=== PATIENT | male | born 1940 | race Caucasian/White ===

== ENCOUNTER 2016-09-29 13:27 | Inpatient (IN) | payer MEDICARE ==
--- NOTE | 2016-09-29 14:59 | RAD ---
HISTORY: New abdominal distention, evaluate for ascites COMPARISONS: None relevant TECHNIQUE: Multiple transverse and longitudinal ultrasound images were obtained of the abdomen using grayscale and color Doppler imaging for localization of ascites FINDINGS: There is a moderate amount of ascites. There is a micronodular contour to the liver. There is thickening of the omentum centrally. IMPRESSION: 1. MODERATE ASCITES. 2. CIRRHOTIC LIVER. 3. QUESTIONABLE OMENTAL CAKING. RECOMMEND CONSIDERATION OF CORRELATION WITH CONTRAST ENHANCED CT OF THE ABDOMEN
[2016-09-29 15:05] LABS: Hematocrit 32 % (42-52); Hemoglobin 10.6 g/dl (14.0-18.0); Mean Corpuscular HGB Conc 33 g/dl (31-36); Mean Corpuscular Hemoglobin 31 pg (27-31); Mean Corpuscular Volume 94 fL (80-94); Mean Platelet Volume 10 um3 (7.4-10.4); Red Blood Count 3.45 10^6/ul (4.0-5.4); Red Cell Distribution Width 16 % (10.5-15); White Blood Count 7.1 10^3/ul (3.5-10.8)
[2016-09-29 15:22] LABS: Albumin 3.4 g/dL (3.2-5.2); BUN/Creatinine Ratio 29.8 (8-20); Calcium 9.4 mg/dL (8.6-10.3); EGFR Non-African American 58.3 (>60); Globulin 4.4 g/dL (2-4); Potassium 4.2 mmol/L (3.5-5.0); Total Bilirubin 0.7 mg/dL (0.2-1.0); Total Protein 7.8 g/dL (6.4-8.9)
[2016-09-29 15:24] LABS: Troponin I 0.03 ng/mL (<0.04)
--- NOTE | 2016-09-29 15:27 | RAD ---
INDICATION: Short of breath COMPARISON: Chest x-ray May 12, 2012 TECHNIQUE: PA and lateral dual-energy views were obtained. FINDINGS: Bones/Soft Tissues: There are no acute bony findings. Cardiomediastinal: The cardiomediastinal silhouette is enlarged, unchanged. Lungs: There are no infiltrates. Pleura: There are no pleural effusions. Other: None IMPRESSION: ENLARGED CARDIAC SILHOUETTE. NO ACUTE FINDINGS.
[2016-09-29] MEDS ORDERED: Phytonadione Oral Solution* 5 MG/25 ML UDC PO ONE (15:59)
[2016-09-29] MEDS ORDERED: Albuterol 2.5 MG/3 ML NEB.SOL* (0.083%) INH PRN (15:59)
[2016-09-29] MEDS ORDERED: Ondansetron INJ* 2 MG/ML VIAL IV PRN (15:59)
[2016-09-29] MEDS ORDERED: Dextrose 50% Syringe 50 ML* 25 GM/50 ML SYRINGE IV PUSH PRN (15:59)
[2016-09-29] MEDS ORDERED: Furosemide IV* 10 MG/ML VIAL (40 MG) IV SLOW PU ONE (16:09)
[2016-09-29] MEDS ORDERED: Iodixanol* (CONTRAST) 320 MG/ML 100 ML SDV IV ONE (16:16)
--- NOTE | 2016-09-29 16:33 | ED ---
Solange Petty Rebecca, scribed for Jacqueline Harden MD on 09/29/16 at 1340 . Complex/Multi-Sys Presentation - HPI Summary HPI Summary: Pt is a 75 y/o M who presents to ED c/o swelling in the abdomen and bilateral edema. Sx have gradually presented over the last month, reporting weight gain of 24 pounds in one month. Sx aggravated and alleviated by nothing. Additionally c/o SOB characterized as dyspnea at exertion. Denies fever, abdominal pain. Prior similar episodes of LE swelling, without abdominal swelling. Does not use O2 per Os at home. PCP is Dr. Lowe, where he was seen today and was referred to [facility] ED. Was last seen 1 month ago, during which he was asymptomatic. Per Dr. Lowe, pt ceased his Bumex, unsure of stop date. Is on blood thinners (Coumadin). - History Of Current Complaint Chief Complaint: EDGeneral Hx Obtained From: Patient Onset/Duration: Gradual Onset, Still Present Timing: Constant Severity Currently: None Location: Negative Aggravating Factor(s): Nothing Alleviating Factor(s): Nothing Associated Signs And Symptoms: Positive: SOB - dyspnea at exertion, Edema - Bilateral, Other - Abdominal swelling. Negative: Abdominal Pain, Fever - Allergies/Home Medications Allergies/Adverse Reactions: Allergies Allergy/AdvReac Type Severity Reaction Status Date / Time No Known Allergies Allergy Verified 05/12/12 17:13 Home Medications: Home Medications Albuterol HFA INHALER* [Ventolin HFA Inhaler*] 2 puff INH Q6H PRN 09/29/16 [ History Confirmed 09/29/16] Atorvastatin* [Lipitor*] 80 mg PO DAILY 09/29/16 [History Confirmed 09/29/16] Bumetanide TAB* [Bumex 1 MG TAB*] 1 mg PO MOWEFR 09/29/16 [History Confirmed ] Fluticasone-Salmeterol 250-50* [Advair Diskus 250-50*] 1 puff INH BID 09/29/16 [ History Confirmed 09/29/16] Glipizide/Metformin 5-500 1 tab PO BID 09/29/16 [History Confirmed 09/29/16] Metoprolol Succinate XL TAB* [Toprol XL TAB*] 50 mg PO DAILY 09/29/16 [History Confirmed 09/29/16] PMH/Surg Hx/FS Hx/Imm Hx Endocrine/Hematology History: Reports: Hx Anticoagulant Therapy - coumadin, Hx Diabetes Denies: Other Endocrine/Hematological Disorders Cardiovascular History: Reports: Hx Coronary Artery Disease, Hx Hypercholesterolemia, Hx Hypertension, Hx Syncope Denies: Other Cardiovascular Problems/Disorders Respiratory History: Reports: Hx Asthma, Hx Pneumonia - current Denies: Other Respiratory Problems/Disorders GI History: Denies: Other GI Disorders History: Reports: Hx Benign Prostatic Hyperplasia - enlarged Denies: Other Problems/Disorders Musculoskeletal History: Reports: Hx Arthritis, Hx Gout, Other Musculoskeletal History - Bilateral knee replacements and left ankle Sensory History: Reports: Hx Contacts or Glasses, Hx Vision Problem, Hx Hearing Problem Denies: Other Sensory Impairments Opthamlomology History: Reports: Hx Contacts or Glasses, Hx Vision Problem Denies: Other Sensory Impairments Neurological History: Denies: Other Neuro Impairments/Disorders Psychiatric History: Denies: Other Psychiatric Issues/Disorders - Surgical History Surgery Procedure, Year, and Place: Bilateral Knee replacements Hx Anesthesia Reactions: No Infectious Disease History: No Infectious Disease History: Denies: Traveled Outside the [place] in Last 30 Days - Family History Known Family History: Positive: Cardiac Disease, Diabetes, Other - CVA - Social History Substance Use Type: Reports: None Review of Systems Negative: Fever Positive: Shortness Of Breath - dyspnea at exertion Positive: Other - Abdominal swelling. Negative: Abdominal Pain Positive: Edema - Bilateral All Other Systems Reviewed And Are Negative: Yes Physical Exam - Summary Physical Exam Summary: General: Well appearing, no pain distress Skin: Warm, Skin Color Reflects Adequate Perfusion, Dry Eyes: EOMI, ALMA ENT: Pharynx normal, TMs normal Neck: Nontender, JVD Respiratory: CTA, breath sounds present, no rhonchi, no wheezes, no rales Cardiovascular: RRR, no rub, no gallop, Holocystolic murmur (3/6), heard best at the apex. Abdomen: Soft, nontender, no guarding, no rebound, an extremely distended abdomen Bowel: Present Musculoskeletal: LUDA, Bilateral edema up into the thigh Neuro: Sensory/motor intact, A&Ox3, CN intact 2-12 Psych: Affect/mood appropriate Triage Information Reviewed: Yes Vital Signs On Initial Exam: Initial Vitals Temp Pulse Resp BP Pulse Ox 98.4 F 86 20 150/67 87 09/29/16 13:29 09/29/16 13:29 09/29/16 13:29 09/29/16 13:29 09/29/16 13:29 Vital Signs Reviewed: Yes Diagnostics - Vital Signs Vital Signs Temp Pulse Resp BP Pulse Ox 09/29/16 13:34 98.4 F 145 20 150/67 100 09/29/16 13:29 98.4 F 86 20 150/67 87 - Laboratory Lab Results: Lab Results 09/29/16 09/29/16 09/29/16 Range/Units 14:59 14:59 14:59 WBC 7.1 (3.5-10.8) 10^3/ul RBC 3.45 L (4.0-5.4) 10^6/ul Hgb 10.6 L (14.0-18.0) g/dl Hct 32 L (42-52) % MCV 94 (80-94) fL MCH 31 (27-31) pg MCHC 33 (31-36) g/dl RDW 16 H (10.5-15) % Plt Count 150 (150-450) 10^3/ul MPV 10 (7.4-10.4) um3 Neut % (Auto) 77.8 (38-83) % Lymph % (Auto) 8.9 L (25-47) % Broome % (Auto) 12.0 H (1-9) % Eos % (Auto) 0.5 (0-6) % Baso % (Auto) 0.8 (0-2) % Absolute Neuts (auto) 5.5 (1.5-7.7) 10^3/ul Absolute Lymphs (auto) 0.6 L (1.0-4.8) 10^3/ul Absolute Monos (auto) 0.9 H (0-0.8) 10^3/ul Absolute Eos (auto) 0 (0-0.6) 10^3/ul Absolute Basos (auto) 0.1 (0-0.2) 10^3/ul Absolute Nucleated RBC 0 10^3/ul Nucleated RBC % 0 INR (Anticoag Therapy) (0.89-1.11) Sodium 137 (133-145) mmol/L Potassium 4.2 (3.5-5.0) mmol/L Chloride 106 (101-111) mmol/L Carbon Dioxide 24 (22-32) mmol/L Anion Gap 7 (2-11) mmol/L BUN 36 H (6-24) mg/dL Creatinine 1.21 H (0.67-1.17) mg/dL Est GFR ( Amer) 75.0 (>60) Est GFR (Non-Af Amer) 58.3 (>60) BUN/Creatinine Ratio 29.8 H (8-20) Glucose 58 L (70-100) mg/dL Lactic Acid 1.1 (0.5-2.0) mmol/L Calcium 9.4 (8.6-10.3) mg/dL Total Bilirubin 0.70 (0.2-1.0) mg/dL AST 18 (13-39) U/L ALT 10 (7-52) U/L Alkaline Phosphatase 108 H (34-104) U/L Troponin I 0.03 (<0.04) ng/mL B-Natriuretic Peptide ( - 100) pg/mL Total Protein 7.8 (6.4-8.9) g/dL Albumin 3.4 (3.2-5.2) g/dL Globulin 4.4 H (2-4) g/dL Albumin/Globulin Ratio 0.8 L (1-3) 09/29/16 09/29/16 Range/Units 14:59 14:59 WBC (3.5-10.8) 10^3/ul RBC (4.0-5.4) 10^6/ul Hgb (14.0-18.0) g/dl Hct (42-52) % MCV (80-94) fL MCH (27-31) pg MCHC (31-36) g/dl RDW (10.5-15) % Plt Count (150-450) 10^3/ul MPV (7.4-10.4) um3 Neut % (Auto) (38-83) % Lymph % (Auto) (25-47) % Broome % (Auto) (1-9) % Eos % (Auto) (0-6) % Baso % (Auto) (0-2) % Absolute Neuts (auto) (1.5-7.7) 10^3/ul Absolute Lymphs (auto) (1.0-4.8) 10^3/ul Absolute Monos (auto) (0-0.8) 10^3/ul Absolute Eos (auto) (0-0.6) 10^3/ul Absolute Basos (auto) (0-0.2) 10^3/ul Absolute Nucleated RBC 10^3/ul Nucleated RBC % INR (Anticoag Therapy) 3.06 H (0.89-1.11) Sodium (133-145) mmol/L Potassium (3.5-5.0) mmol/L Chloride (101-111) mmol/L Carbon Dioxide (22-32) mmol/L Anion Gap (2-11) mmol/L BUN (6-24) mg/dL Creatinine (0.67-1.17) mg/dL Est GFR ( Amer) (>60) Est GFR (Non-Af Amer) (>60) BUN/Creatinine Ratio (8-20) Glucose (70-100) mg/dL Lactic Acid (0.5-2.0) mmol/L Calcium (8.6-10.3) mg/dL Total Bilirubin (0.2-1.0) mg/dL AST (13-39) U/L ALT (7-52) U/L Alkaline Phosphatase (34-104) U/L Troponin I (<0.04) ng/mL B-Natriuretic Peptide 629 H ( - 100) pg/mL Total Protein (6.4-8.9) g/dL Albumin (3.2-5.2) g/dL Globulin (2-4) g/dL Albumin/Globulin Ratio (1-3) Result Diagrams: 09/29/16 14:59 09/29/16 14:59 Lab Statement: Any lab studies that have been ordered have been reviewed, and results considered in the medical decision making process. - Radiology CXR Xray Interpretation: No Acute Changes - ENLARGED CARDIAC SILHOUETTE. NO ACUTE FINDINGS. Radiology Interpretation Completed By: Radiologist - Ultrasound No standard instances Ultrasound Interpretation Completed By: Radiologist - Abdomen US: 1. MODERATE ASCITES. 2. CIRRHOTIC LIVER. 3. QUESTIONABLE OMENTAL CAKING. RECOMMEND CONSIDERATION OF CORRELATION WITH CONTRAST ENHANCED CT OF THE ABDOMEN - EKG 1343 Cardiac Rate: NL - 68 bpm EKG Rhythm: Atrial Fibrillation ST Segment: Non-Specific - Non-specific T wave changes EKG Comparison: Other - Increased flattening of his lateral T waves as compared with EKG from April 24, 2013 Complex Multi-Symp Course/Dx Course Of Treatment: 75 yo male with brand new ascites after 24 lb wt gain over several weeks. Case discussed with Dr. Garcia for admission - Diagnoses Provider Diagnoses: Ascites - Physician Notifications Discussed Care Of Patient With: Dr. Garcia, hospitalist, who accepts pt for admission. Time Discussed With Above Provider: 15:17 Discharge - Discharge Plan Condition: Stable Disposition: ADMITTED TO [facility] The documentation as recorded by the Solange newman Rebecca accurately reflects the service I personally performed and the decisions made by , Jacqueline Harden MD.
[2016-09-29] MEDS ORDERED: Furosemide IV* 10 MG/ML VIAL (40 MG) IV SLOW PU SCH (17:00)
[2016-09-29] MEDS: Insulin LISPRO* 1 UNITS UNIT SUBCUT SCH (18:03)
--- NOTE | 2016-09-29 18:04 | RAD ---
INDICATION: Ascites COMPARISON: None. TECHNIQUE: Multidetector CT images were obtained from the lung apices to the ischial tuberosities with IV and oral contrast. CHEST: The lungs exhibit diffuse centrilobular emphysematous changes.The lungs are grossly clear without nodules, masses or other focal abnormality. There are small bibasilar pleural effusions slightly larger on the right the left. The heart is enlarged. There is coarse atherosclerotic calcification of the coronary arteries, aortic ring and arch of the aorta. There is no mediastinal or hilar lymphadenopathy. ABDOMEN \T\ PELVIS: There is massive peritoneal ascites. The liver surface is nodular. There are no focal liver masses. The spleen, pancreas and adrenal glands are grossly normal in appearance. The gallbladder is normal. At the mid-level right kidney there is an 8 mm low density FOCUS that cannot be characterized further. The kidneys are normal in appearance without focal mass, calcification or signs of hydronephrosis. The oral contrast has progressed as far as the cecum. The small and large bowel are not distended. There is no gross retroperitoneal or mesenteric lymphadenopathy. The pelvic viscera is normal in appearance. The coarsely calcified abdominal aorta and iliac arteries are normal in course and diameter. There are multilevel degenerative changes of the thoracic and lumbar spine including loss of intervertebral disc height, vacuum disc phenomenon and marginal osteophyte formation IMPRESSION: 1. Nodular appearing liver is compatible with cirrhosis with secondary massive peritoneal ascites. 2. Cardiomegaly with widespread calcified atherosclerosis. 3. Additional chronic and degenerative changes described in body the report.
[2016-09-29] MEDS: Aspirin Low Dose CHEW TAB* 81 MG PO SCH (18:15)
[2016-09-29] MEDS: Mometasone/Formoter 200/5 MDI INH SCH (19:31)
[2016-09-29] MEDS: Finasteride TAB* 5 MG PO SCH (20:35)
[2016-09-29] MEDS: amLODIPine TAB* 5 MG PO SCH (20:36)
--- NOTE | 2016-09-29 23:58 | HP ---
HISTORY AND PHYSICAL: DATE OF ADMISSION: 09/29/16 PRIMARY CARE PROVIDER: Dr. Cantu. ATTENDING PHYSICIAN WHILE IN THE HOSPITAL: Dr. Aguilar Garcia *(report dictated by Hayden Morrsi NP). CHIEF COMPLAINT: 1. Abdominal swelling. 2. Lower extremity edema. HISTORY OF PRESENT ILLNESS: Mr. Tello is a 75-year-old male patient who comes in today stating that over the last 3 to 4 weeks, he has had progressive worsening swelling of his abdomen and lower extremities. He says that he has not had any abdominal pain or fever, but he has noticed that he has had progressive swelling and he has gained about 20 pounds of weight since this has all occurred. He denied having any vomiting or diarrhea and denied having any chest pain. He denies any orthopnea, but he does admit to having dyspnea on exertion. He was concerned because his swelling was not getting any better. He called his primary. She instructed him to come in to the office as soon as possible and he was evaluated today by Dr. Cantu and she was concerned because he had massive ascites and he was sent to the hospital for evaluation. He was evaluated here in the ED. There was ultrasound obtained that did show ascites and also showed omentum thickening. Because of the ascites, the hospitalist service was asked to evaluate for admission. PAST MEDICAL HISTORY: Significant for: 1. Coronary artery disease. 2. Diabetes. 3. Hypertension. 4. Asthma. 5. Hyperlipidemia. 6. BPH. 7. AFib. 8. Gout. PAST SURGICAL HISTORY: 1. He has had heart catheterization. 2. Bilateral total knee replacements. HOME MEDICATIONS: Include: 1. Amlodipine, he takes 10 mg in the morning and 5 mg at bedtime. 2. Coumadin 4 mg daily. 3. Diovan 320 mg p.o. daily. 4. Potassium 10 mEq p.o. daily. 5. Toprol 50 mg p.o. daily. 6. Glipizide/metformin 1 tablet p.o. b.i.d. 7. Lasix 40 mg daily. 8. Advair 1 puff inhaled b.i.d. 9. Proscar 5 mg daily. 10. Colchicine 1.2 mg p.o. daily as needed. 11. Bumex 1 mg p.o. Thursday, Thursday, Thursday. 12. Lipitor 80 mg daily. 13. Aspirin 81 mg Thursday, Thursday, Thursday. 14. Allopurinol 100 mg p.o. daily. 15. Albuterol 2 puffs inhaled every 6 hours as needed. ALLERGIES TO MEDICATIONS: Include no known drug allergies. FAMILY HISTORY: Mother of old age. Father had a history of diabetes and a stroke. SOCIAL HISTORY: He is a former smoker, but he quit about 40 years ago. He occasionally drinks alcohol. He did have 4 beers over the weekend on Thursday during the celebration. Surrogate decision maker is his . REVIEW OF SYSTEMS: There is no documented fever. There was a significant weight change. He denies having any double vision. There is no ear discharge. He denies having any rhinorrhea. There is no sore throat. No thyroid enlargement. Denies having any chest pain. There is no orthopnea. There is no nocturnal dyspnea. There is no abdominal pain. There is no nausea. No vomiting. No dysuria. No frequency. There was no seizure. No loss of consciousness. No pruritus and no skin ulcerations. Review of 14 systems completed, all others negative. PHYSICAL EXAMINATION GENERAL: At this time, Mr. Tello is a 75-year-old male patient. He is sitting in the ER stretcher. He does not appear to be in any acute distress. VITAL SIGNS: Blood pressure 147/60 with a pulse of 67, respirations were 18, O2 sat 98%, and temperature of 98.4. HEENT: Head is atraumatic and normocephalic. Eyes: EOMs are intact. Sclerae are anicteric and not pale. Throat: Oral mucosa appears to be moist. No oropharyngeal erythema. NECK: Supple. LUNGS: Clear to auscultation. No wheezes, rales, or rhonchi. HEART: Sounds S1, S2. Irregularly irregular rate. No murmurs, rubs, or gallops. ABDOMEN: Soft. There were ascites noted, but bowel sounds were in all 4 quadrants. He had no tenderness on exam. EXTREMITIES: He had +4 pitting edema bilaterally up to the knee. He had 5/5 strength. NEUROLOGIC: He is awake, he is alert, and he is oriented x3. No gross focal deficits. SKIN: Intact. LABORATORY DATA AND DIAGNOSTIC STUDIES: Today revealed WBC of 7.1, RBC of 3.45 , hemoglobin 10.6, hematocrit 32, platelet count of 150. Sodium was 137, potassium was 4.2, chloride of 106, his bicarb was 24, BUN 36, creatinine 1.21. His creatinine is usually 1.1. His lactic 1.1, glucose 58, calcium 9.4. Total bili 0.5, AST 18, ALT 10, alk phos 108. Troponin 0.03. BNP is 629. Albumin of 3.4. His INR was 3. His abdominal ultrasound showed moderate ascites, cirrhotic liver, questionable omental caking. Recommend consideration of correlation with contrast-enhanced CT of the abdomen. He had a chest x-ray obtained today, which revealed enlarged cardiac silhouette , no active disease. He had an EKG obtained today, which showed atrial fibrillation, rate of 68. No ST elevations or T-wave inversions. It was reviewed to the previous EKGs, it does appear to be similar. Old medical records were reviewed. ASSESSMENT AND PLAN: Mr. Tello is a 75-year-old male patient coming in to the ER today with complaints of abdominal fluid, lower extremity edema, concerns for ascites. He will be admitted under inpatient status for: 1. Ascites: Etiology is unclear. I would like to perform a paracentesis, but I do note that his INR is 3. I did place an order for some vitamin K. We will make him n.p.o. after midnight and try to get his INR down and try to do it tomorrow if possible. I will send off the fluid for pH, cell count, albumin, total protein, cultures and I will send off for cytology. Unfortunately, again , the INR is 3. So, we will not be able to do it today. Hopefully, we will shoot for tomorrow. We will give him vitamin K, hold the Coumadin, and we will try to see if we can get it done tomorrow if we get that INR less than 1.5, Dr. Sandoval has been made aware by his nursing staff. I will give him some IV Lasix , see if we can help. I am going to get a CT of the chest, abdomen, and pelvis and I am worried for possible malignancy in this patient. I would like to make sure there is not any lung primary. I will make sure that there are not any tumors in the abdomen particularly with the omental thickening on the ultrasound. 2. Coronary artery disease: We will go ahead and continue his aspirin, statin , beta-yousuf. 3. Diabetes: Lispro sliding scale. His sugar was 58 here. We will get him off glipizide and metformin. We will give him some glucose and we will follow this closely. 4. Hypertension: Continue meds as prescribed. 5. Asthma: Continue his current medical regimen. 6. Hyperlipidemia: Continue statin therapy. 7. Benign prostatic hypertrophy: Continue his Proscar. 8. Atrial fibrillation: He is rate controlled. We will restart the Coumadin when able. 9. Gout: Continue his meds as prescribed. 10. DVT prophylaxis: He will be on SCDs. 11. Code status: Full code. 12. Fluids, electrolytes, and nutrition: He can have a consistent carbohydrate diet and he will be n.p.o. after midnight. TIME SPENT: Time spent on the admission was 60 minutes; greater than half the time was spent [id number] with the patient obtaining my history and physical, other half the time spent going over the plan of care with the patient and implementing plan of care. I did discuss the plan of care with my attending, Dr. Garcia; he is in agreement. HAYDEN MORRIS NP CC: Dr. Cantu* [id number]/CPS #: [id number] MTDD
[2016-09-30 05:42] LABS: Hematocrit 32 % (42-52); Hemoglobin 10.3 g/dl (14.0-18.0); Mean Corpuscular HGB Conc 33 g/dl (31-36); Mean Corpuscular Hemoglobin 31 pg (27-31); Mean Corpuscular Volume 94 fL (80-94); Mean Platelet Volume 10 um3 (7.4-10.4); Red Blood Count 3.36 10^6/ul (4.0-5.4); Red Cell Distribution Width 16 % (10.5-15); White Blood Count 5.5 10^3/ul (3.5-10.8)
[2016-09-30 05:55] LABS: BUN/Creatinine Ratio 27.7 (8-20); Calcium 8.9 mg/dL (8.6-10.3); EGFR African American 76.4 (>60); EGFR Non-African American 59.4 (>60)
[2016-09-30] MEDS: Insulin LISPRO* 1 UNITS UNIT SUBCUT SCH ×3 (07:31→16:39)
[2016-09-30] MEDS: Mometasone/Formoter 200/5 MDI INH SCH ×2 (08:34→20:07)
[2016-09-30] MEDS: Valsartan TAB* 160 MG PO SCH (08:47)
[2016-09-30] MEDS: Atorvastatin* 80 MG TAB PO SCH (08:47)
[2016-09-30] MEDS: Metoprolol Succinate XL TAB* 50 MG PO SCH (08:48)
[2016-09-30] MEDS: Allopurinol TAB* 100 MG PO SCH (08:48)
--- NOTE | 2016-09-30 12:21 | PN ---
Subjective Date of Service: 09/30/16 Interval History: This is a 75 yo gentleman with DM, CAD, asthma, HLD, BPH and atrial fibrillation who presented with c/o abdominal swelling and LE edema. No assoc abd pain or other acute illness. Ascites and edema had a rather insidious onset of ~3-4 weeks. This am, patient offers no acute complaints. Still no abd pain, n/v. Awaiting paracentesis. Objective Active Medications: Albuterol (Ventolin 2.5 Mg/3 Ml Neb.Leeann*) 2.5 mg INH Q2H PRN PRN Reason: SOB/WHEEZING Allopurinol (Zyloprim Tab*) 100 mg PO DAILY [facility] Last Admin: 09/30/16 08:48 Dose: 100 mg Amlodipine Besylate (Norvasc Tab*) 5 mg PO BEDTIME [facility] Last Admin: 09/29/16 20:36 Dose: 5 mg Aspirin (Aspirin Low Dose Tab*) 81 mg PO MOWEFR [facility] Last Admin: 09/29/16 18:15 Dose: Not Given Atorvastatin Calcium (Lipitor*) 80 mg PO DAILY [facility] Last Admin: 09/30/16 08:47 Dose: 80 mg Dextrose (D50w Syringe 50 Ml*) 12.5 gm IV PUSH .FOR FS < 60 - SS PRN PRN Reason: FS < 60 Finasteride (Proscar Tab*) 5 mg PO BEDTIME [facility] Last Admin: 09/29/16 20:35 Dose: 5 mg Insulin Human Lispro (Humalog*) 0 units SUBCUT AC [facility] PRN Reason: Protocol Last Admin: 09/30/16 11:22 Dose: Not Given Metoprolol Succinate (Toprol Xl Tab*) 50 mg PO DAILY [facility] Last Admin: 09/30/16 08:48 Dose: 50 mg Mometasone Furoate/Formoterol Fumar (Dulera 200/5 Mdi*) 2 puff INH BID [facility] Last Admin: 09/30/16 08:34 Dose: 2 puff Ondansetron HCl (Zofran Inj*) 4 mg IV Q6H PRN PRN Reason: NAUSEA Valsartan (Diovan Tab*) 320 mg PO DAILY [facility] Last Admin: 09/30/16 08:47 Dose: 320 mg Vital Signs: Temp Pulse Resp BP Pulse Ox 97.6 F 16 90 143/51 96 09/30/16 07:23 05/23/17 08:35 09/30/16 08:35 09/30/16 07:23 09/30/16 08:35 Oxygen Devices in Use Now: None Appearance: Well appearing elderly gentleman in NAD Respiratory: Symmetrical Chest Expansion and Respiratory Effort, Clear to Auscultation Cardiovascular: NL Sounds; No Murmurs; No JVD, RRR Abdominal: - - abdomen is markedly distended, firm but non TTP Extremities: - - 1+ LE edema bilaterally Skin: - - some discoloration to the anterior lower leg bilaterally Neurological: Alert and Oriented x 3 Result Diagrams: 09/30/16 05:20 09/30/16 05:20 Additional Lab and Data: . Diagnostic Imaging: CXR - cardiomegaly, no effusions US abd - moderate ascites, cirrhotic appearing liver, possible omental caking CT chest/abd/pelvis - No LAD or discrete mass, liver appears cirrhotic Assess/Plan/Problems-Billing Assessment: This is a 75 yo gentleman with DM, CAD, HTN, asthma, HLD, BPH, atrial fibrillation, and gout who presented with marked ascites and LE edema. - Patient Problems (1) Ascites Comment: New onset, painless ascites Liver appears cirrhotic on imaging No known liver disease Patient reports moderate historic alcohol consumption, never daily use Check hepatitis panel, consider chronic hepatitis C Synthetic liver function appears mostly intact, platelet count near normal, albumin normal, difficult to interpret INR with coumadin use Paracentesis is pending (2) JHONY (acute kidney injury) Comment: Mild, likely some element of hepatorenal syndrome (3) Atrial fibrillation Comment: Chronically anticoagulated with Coumadin which has been held and reversed with vit K and FFP for paracentesis Rate controlled (4) CAD (coronary artery disease) Comment: No evidence of ACS (5) Diabetes Comment: NIDDM Holding oral agents and covering with SS Humalog (6) Asthma Comment: No acute exacerbation Cont home inhaled medications (7) HLD (hyperlipidemia) (8) BPH (benign prostatic hyperplasia) (9) Gout (10) Full code status (11) DVT prophylaxis Comment: Coumadin Status and Disposition: Inpatient. Pending paracentesis
[2016-09-30 15:29] LABS: Body Fluid Appearance Cloudy
[2016-09-30 15:38] LABS: Body Fluid WBC 119 /mcL
--- NOTE | 2016-09-30 15:38 | RAD ---
CPT II Codes: 6100F ULTRASOUND-GUIDED PARACENTESIS. INDICATION: Large volume ascites in the setting of a cirrhotic appearing liver. COMPARISON: CT chest abdomen pelvis dated September 29, 2016 IMAGING FINDINGS AND PROCEDURE NOTE: The benefits of the and risks of procedure explained to the patient. The patient consented of the exam. The patient was brought to the ultrasound suite and multiple images of the peritoneal fluid were obtained. There was a very large amount of ascites present throughout the abdomen. The largest pocket of fluid was chosen for the paracentesis which was in the right lower quadrant. A time out was performed before beginning the procedure. The patient was prepped and draped in the usual sterile fashion. The patient?s abdominal wall at the site was anesthetized with 1% lidocaine. A small skin july was made to admit the paracentesis needle and catheter. Under sonographic control the drainage catheter was advanced into the ascites pocket. An image was saved. Approximately 10 Liters of a yellow tinged fluid was removed. The patient tolerated procedure well without incident. IMPRESSION: UNCOMPLICATED ULTRASOUND-GUIDED PARACENTESIS DESCRIBED ABOVE.
[2016-09-30 16:01] LABS: Body Fluid Total Cells Counted 100
[2016-09-30] MEDS: Warfarin TAB(*) 4 MG PO SCH (18:00)
[2016-09-30] MEDS: Finasteride TAB* 5 MG PO SCH (20:39)
[2016-09-30] MEDS: amLODIPine TAB* 5 MG PO SCH (20:39)
[2016-10-01] MEDS: Insulin LISPRO* 1 UNITS UNIT SUBCUT SCH ×3 (07:56→17:13)
[2016-10-01] MEDS: Atorvastatin* 80 MG TAB PO SCH (08:25)
[2016-10-01] MEDS: Valsartan TAB* 160 MG PO SCH (08:25)
[2016-10-01] MEDS: Allopurinol TAB* 100 MG PO SCH (08:26)
[2016-10-01] MEDS: Metoprolol Succinate XL TAB* 50 MG PO SCH (08:26)
[2016-10-01] MEDS: Mometasone/Formoter 200/5 MDI INH SCH ×2 (08:42→19:16)
[2016-10-01 08:50] LABS: Hematocrit 36 % (42-52); Hemoglobin 11.9 g/dl (14.0-18.0); Mean Corpuscular HGB Conc 33 g/dl (31-36); Mean Corpuscular Hemoglobin 31 pg (27-31); Mean Corpuscular Volume 95 fL (80-94); Mean Platelet Volume 10 um3 (7.4-10.4); Red Blood Count 3.79 10^6/ul (4.0-5.4); Red Cell Distribution Width 16 % (10.5-15); White Blood Count 6.2 10^3/ul (3.5-10.8)
[2016-10-01 09:03] LABS: Albumin 3.3 g/dL (3.2-5.2); BUN/Creatinine Ratio 23.4 (8-20); Calcium 9.3 mg/dL (8.6-10.3); EGFR African American 82.8 (>60); EGFR Non-African American 64.4 (>60); Globulin 4.5 g/dL (2-4); Potassium 4.3 mmol/L (3.5-5.0); Total Bilirubin 1.4 mg/dL (0.2-1.0); Total Protein 7.8 g/dL (6.4-8.9)
[2016-10-01] MEDS: Furosemide TAB* 40 MG PO SCH (12:35)
[2016-10-01] MEDS: Spironolactone TAB* 25 MG PO SCH ×2 (12:35→20:09)
--- NOTE | 2016-10-01 13:20 | PN ---
Subjective Date of Service: 10/01/16 Interval History: Patient reports that he continues to feel well. Abd remains soft after paracentesis. No abd pain, n/v/d. No CP or SOB. Objective Active Medications: Albuterol (Ventolin 2.5 Mg/3 Ml Neb.Leeann*) 2.5 mg INH Q2H PRN PRN Reason: SOB/WHEEZING Allopurinol (Zyloprim Tab*) 100 mg PO DAILY [facility] Last Admin: 10/01/16 08:26 Dose: 100 mg Amlodipine Besylate (Norvasc Tab*) 5 mg PO BEDTIME [facility] Last Admin: 09/30/16 20:39 Dose: 5 mg Aspirin (Aspirin Low Dose Tab*) 81 mg PO MOWEFR [facility] Last Admin: 09/29/16 18:15 Dose: Not Given Atorvastatin Calcium (Lipitor*) 80 mg PO DAILY [facility] Last Admin: 10/01/16 08:25 Dose: 80 mg Dextrose (D50w Syringe 50 Ml*) 12.5 gm IV PUSH .FOR FS < 60 - SS PRN PRN Reason: FS < 60 Finasteride (Proscar Tab*) 5 mg PO BEDTIME [facility] Last Admin: 09/30/16 20:39 Dose: 5 mg Furosemide (Lasix Tab*) 40 mg PO DAILY [facility] Last Admin: 10/01/16 12:35 Dose: 40 mg Insulin Human Lispro (Humalog*) 0 units SUBCUT AC [facility] PRN Reason: Protocol Last Admin: 10/01/16 12:35 Dose: 2 units Metoprolol Succinate (Toprol Xl Tab*) 50 mg PO DAILY [facility] Last Admin: 10/01/16 08:26 Dose: 50 mg Mometasone Furoate/Formoterol Fumar (Dulera 200/5 Mdi*) 2 puff INH BID [facility] Last Admin: 10/01/16 08:42 Dose: 2 puff Ondansetron HCl (Zofran Inj*) 4 mg IV Q6H PRN PRN Reason: NAUSEA Pharmacy Profile Note (Coumadin Daily Reminder*) 1 note FOLLOW UP 1700 [facility] Spironolactone (Aldactone Tab*) 50 mg PO BID [facility] Last Admin: 10/01/16 12:35 Dose: 50 mg Valsartan (Diovan Tab*) 320 mg PO DAILY [facility] Last Admin: 10/01/16 08:25 Dose: 320 mg Warfarin Sodium (Coumadin Tab(*)) 4 mg PO DAILY@1700 [facility] PRN Reason: Protocol Last Admin: 09/30/16 18:00 Dose: 4 mg Vital Signs: Temp Pulse Resp BP Pulse Ox 98.0 F 51 12 130/57 99 10/01/16 11:06 10/01/16 11:06 10/01/16 08:44 10/01/16 11:06 10/01/16 11:06 Oxygen Devices in Use Now: None Appearance: Well appearing elderly gentleman in NAD Respiratory: Symmetrical Chest Expansion and Respiratory Effort, Clear to Auscultation Cardiovascular: NL Sounds; No Murmurs; No JVD, RRR Abdominal: - - abd soft, still slightly distended with positive fluid wave, non- TTP Extremities: - - 1-2+ edema bilateral legs Skin: No Rash or Ulcers Neurological: Alert and Oriented x 3 Result Diagrams: 10/01/16 08:41 10/01/16 08:41 Additional Lab and Data: . Microbiology and Other Data: Microbiology 09/29/16 19:22 Sterile Body Fluid Culture - Preliminary Ascites Fluid No Growth Day 1 Sterile Body Fluid Culture - Preliminary No Growth Day 1 09/30/16 14:50 Gram Stain - Final Body Fluid - Not Otherwise Specified Diagnostic Imaging: CXR - cardiomegaly, no effusions US abd - moderate ascites, cirrhotic appearing liver, possible omental caking CT chest/abd/pelvis - No LAD or discrete mass, liver appears cirrhotic Assess/Plan/Problems-Billing Assessment: This is a 75 yo gentleman with DM, CAD, HTN, asthma, HLD, BPH, atrial fibrillation, and gout who presented with marked ascites and LE edema. - Patient Problems (1) Ascites Comment: New onset, painless ascites Liver appears cirrhotic on imaging No known liver disease Patient reports moderate historic alcohol consumption, never daily use Hepatitis panel negative Synthetic liver function appears mostly intact, platelet count near normal, albumin normal, difficult to interpret INR with coumadin use Paracentesis completed, initial cell counts not suggestive of infectious source , awaiting additional fluid studies and cytology Requested GI consult Lasix/spironolactone started (2) JHONY (acute kidney injury) Comment: Improved Mild, likely some element of hepatorenal syndrome (3) Atrial fibrillation Comment: Chronically anticoagulated with Coumadin which was held and reversed with vit K and FFP for paracentesis INR 1.28 today Rate controlled (4) CAD (coronary artery disease) Comment: No evidence of ACS (5) Diabetes Comment: NIDDM Holding oral agents and covering with SS Humalog (6) Asthma Comment: No acute exacerbation Cont home inhaled medications (7) HLD (hyperlipidemia) (8) BPH (benign prostatic hyperplasia) (9) Gout (10) Full code status (11) DVT prophylaxis Comment: Coumadin Status and Disposition: Inpatient. Pending additional fluid analysis and GI consult
[2016-10-01] MEDS: Warfarin TAB(*) 4 MG PO SCH (17:19)
[2016-10-01] MEDS: Aspirin Low Dose CHEW TAB* 81 MG PO SCH (17:19)
[2016-10-01] MEDS: Finasteride TAB* 5 MG PO SCH (20:09)
[2016-10-01] MEDS: amLODIPine TAB* 5 MG PO SCH (20:09)
--- NOTE | 2016-10-02 00:15 | CONS ---
CONSULTATION REPORT: DATE OF CONSULT: 10/01/16 REASON FOR CONSULT: Ascites. NARRATIVE: Mr. Tello is a 75-year-old gentleman with a history of coronary artery disease, status post stent in the past; diabetes; asthma; remote tobacco use; hypertension. He states in the last month, he has noticed progressive increased abdominal girth. He preceding that had a longstanding history of bipedal edema. He had been treated with diuretics. However, in the last month , he noticed increased abdominal girth associated with 20-pound weight gain. He had no associated abdominal pain but does describe a sense of early satiety. He reported this to his lead recoverer who recommended ER evaluation at which time he was noted to have fairly significant ascites. Data at that time which was 2 days ago in the emergency room was notable for an essentially normal liver panel , and abdominal ultrasound showing moderate ascites with cirrhotic liver. There was a question of omental caking. Chest x-ray was largely unrevealing. He subsequently underwent a CT scan of the abdomen, which also confirmed nodular appearance of the liver with no masses and ascites. He was also found to have evidence of cardiomegaly on a chest CAT scan. He underwent a large volume paracentesis of 10 L of yellow fluid. Most laboratory data on the fluid is pending at this time but included a white count of 119, albumin and protein are pending at this time. The patient feels better after the tap. He is eating and has no significant complaints. He denies any history of liver disease or jaundice. He historically has had normal liver function test which I reviewed in the hospital system. He does admit to remote alcohol use, often binge drinking a beer on the weekends usually up to 10 to 12 beers a weekend. This continued up until about 10 years ago and his alcohol consumption significantly declined. PAST MEDICAL HISTORY: Includes coronary artery disease, status post stent; diabetes; hypertension; asthma; hyperlipidemia; BPH; AFib; gout. PAST SURGICAL HISTORY: Includes a heart catheterization and total knee replacement bilaterally. MEDICATIONS: His home medicines were: 1. Amlodipine. 2. Coumadin. 3. Diovan. 4. Potassium. 5. Toprol. 6. Glipizide. 7. Metformin. 8. Lasix. 9. Advair. 10. Proscar. 11. Colchicine as needed. 12. Bumex 1 mg 3 times a week. 13. Lipitor. 14. Aspirin. 15. Allopurinol. 16. Albuterol. FAMILY HISTORY: Negative for hepatobiliary disease. REVIEW OF SYSTEMS: The patient did have a fairly recent colonoscopy a couple of years ago, where polyps were removed. He denies any GI bleeding, bowel irregularities. He denies any pruritus, history of jaundice, skin changes, skin rashes, oral lesions, arthritic complaints. PHYSICAL EXAM: He is a pleasant gentleman with noticeable ascites, but in no acute distress. His temperature is 97.8, blood pressure is 126/52, heart rate is 54 and irregular. He is anicteric. There are no telangiectasias. There is no palmar erythema or xanthomas. Lungs are clear. Cardiac exam reveals an irregular rhythm with distant heart sounds. Abdomen shows a fluid wave but the abdomen is nontender without organomegaly or mass. Extremities reveal 2 to 3+ bipedal edema. Neurologically, he is alert and oriented. LABORATORY DATA: Hemoglobin of 11.9, white count of 6.2, platelet count of 141, 000. Pro-time currently of 1.28, creatinine of 1.1. AST of 17, ALT of 11, total bilirubin of 1.4, alk phos of 117, albumin of 3.3. IMPRESSION: A 75-year-old gentleman presenting with progressive ascites within the last month. Imaging also suggested cirrhotic liver. He has maintained normal liver function test, although that certainly does not rule out advanced liver disease and cirrhosis. Causes of his liver disease could be nonalcoholic fatty liver disease given his history of diabetes, but also could be alcoholic liver disease given his remote history of binge drinking. Other possibilities that will be investigated include metabolic conditions such as hemochromatosis, autoimmune condition such as autoimmune hepatitis, and I will send off the necessary blood tests for those conditions. We will also wait for the chemistries on the ascitic fluid. I would also recommend an echocardiogram to rule out cardiac sources for ascites and liver disease. He could likely be discharged with followup in our office. Of note, the patient did have hepatitis viral serologies, which were negative. CC: Dr. Huong Cantu* [id number]/[facility] #: [id number] [facility]
[2016-10-02 06:40] LABS: Ferritin 63.2 ng/mL (24-336)
[2016-10-02] MEDS: Insulin LISPRO* 1 UNITS UNIT SUBCUT SCH ×3 (08:04→17:24)
[2016-10-02] MEDS: Mometasone/Formoter 200/5 MDI INH SCH ×2 (08:37→20:03)
[2016-10-02] MEDS: Furosemide TAB* 40 MG PO SCH (09:20)
[2016-10-02] MEDS: Spironolactone TAB* 25 MG PO SCH ×2 (09:20→21:16)
[2016-10-02] MEDS: Atorvastatin* 80 MG TAB PO SCH (09:20)
[2016-10-02] MEDS: Metoprolol Succinate XL TAB* 50 MG PO SCH (09:20)
[2016-10-02] MEDS: Valsartan TAB* 160 MG PO SCH (09:20)
[2016-10-02] MEDS: Allopurinol TAB* 100 MG PO SCH (09:20)
--- NOTE | 2016-10-02 10:15 | ECHO ---
Patient: CHEYENNE GONZALES [facility] Rec#: [id number] : 1940 Date: 10/02/2016 Age: 75y Height: 167.64 cm / 66.0 in Weight: 103.42 kg / 227.9 lbs Sex: M BSA: 2.11 Room#: 420 Admit Date#: 09/29/2016 Type: Inpatient Referring: Yaakov Manzo Reading: Rd Murillo MD Cinema Operator: Rin Romano,JAYDECS,RDMS CC: Huong Cantu MD Transthoracic Echocardiogram Indication: Edema BP: 126/54 HR: 60 Rhythm: A-Fib Findings History: CAD, AOV stenosis, Mitral and Tricuspid regurgitation, HTN, HLD, AFIB. Technical Comments: The study quality is fair. Completed 0920 Left Ventricle: The left ventricular chamber size is mildly dilated. Mild to moderate concentric left ventricular hypertrophy is observed. There is moderate to severely decreased left ventricular systolic function. The estimated ejection fraction is 25-30%. There is septal flattening of the interventricular septum consistent with right ventricular volume or pressure overload. The assessment of diastolic function is non-diagnostic. Left Atrium: The left atrium is moderate to severely dilated. Right Ventricle: The right ventricle is moderately dilated. The right ventricular global systolic function is mildly reduced. Right Atrium: The right atrial cavity size is severely dilated. Aortic Valve: The aortic valve is trileaflet. The aortic valve leaflets are mildly thickened. There is aortic annular calcification. There is mild to moderate aortic regurgitation. There is mild to moderate aortic stenosis. The mean gradient of the aortic valve is 9.8 mmHg. The aortic valve area, by peak velocities, is calculated at 1.4 cm2. Mitral Valve: There is mitral annular calcification. The mitral valve leaflets are mildly thickened. There is mild to moderate mitral regurgitation. There is mild mitral stenosis. Tricuspid Valve: The tricuspid valve leaflets are mildly thickened. There is severe tricuspid regurgitation. The right ventricular systolic pressure is estimated at 54 mmHg. There is evidence of moderate to severe pulmonary hypertension. Pulmonic Valve: The pulmonic valve appears normal. There is mild to moderate pulmonic regurgitation. Pericardium: There is no significant pericardial effusion. A bilateral pleural effusion is present. Aorta: There is mild dilatation of the ascending aorta. There is no dilatation of the aortic arch. The aortic root is normal in size. There is plaque visualized in the ascending aorta. Pulmonary Artery: The main pulmonary artery appears normal. Venous: The inferior vena cava is dilated. There is less than 50% respiratory change in the inferior vena cava dimension. Conclusions Mild to moderate concentric left ventricular hypertrophy is observed. There is moderate to severely decreased left ventricular systolic function. The estimated ejection fraction is 25-30%. There is septal flattening of the interventricular septum consistent with right ventricular volume or pressure overload. The left atrium is moderate to severely dilated. There is mild to moderate mitral regurgitation. There is mild mitral stenosis. The right atrial cavity size is severely dilated. The right ventricle is moderately dilated. The right ventricular global systolic function is mildly reduced. There is severe tricuspid regurgitation. There is evidence of moderate to severe pulmonary hypertension. The right ventricular systolic pressure is estimated at 54 mmHg. There is mild to moderate pulmonic regurgitation. A bilateral pleural effusion is present. There is mild dilatation of the ascending aorta. The patient appears to be in atrial fibrillation. Compared to report of study from 02/03/2014 the LV systolic function has decreased significantly (LVEf was 55-60%), the tricuspid regurgitation has increased from moderate, the pulmonary HTN is new, the aortic stenosis and regugitation has increased mildly (was mild for both). The septal flattening is new. Measurements Name Value Normal Range RVIDd (AP) 2D 4 cm (0.9 - 2.6) RVDdMajor (2D) 4.8 cm (2.2 - 4.4) RAd ISD 4CH 7.1 cm (3.4 - 4.9) RA (A4C)W 5.7 cm (2.9 - 4.6) IVSd (2D) 1.4 cm (0.6 - 1) LVPWd (2D) 1.3 cm (0.6 - 1) LVIDd (2D) 5.6 cm (3.6 - 5.4) LVIDs (2D) 3.9 cm - LV FS (2D) 31 % (25 - 45) Aortic Annulus 2 cm (1.4 - 2.6) Ao root diameter (2D) 2.8 cm (2.1 - 3.5) Ascending Ao 3.9 cm (2.1 - 3.4) Aortic arch 2.6 cm (1.8 - 3.4) LA dimension (AP) 2D 5.3 cm (2.3 - 3.8) LAd ISD 4CH 6.5 cm (2.9 - 5.3) LA ISD 4CH W 5.1 cm (2.5 - 4.5) Name Value Normal Range LA ESV SP 4CH (A/L) 120.62 ml - LA ESV SP 2CH (A/L) 126.82 ml - LA ESV BP (A/L) 128.41 ml - LA ESV BP (A/L) index 61 ml/m2 - LA ESV SP 4CH (MOD) 112.11 ml - LA ESV SP 2CH (MOD) 119.45 ml - Name Value Normal Range MV E-wave Vmax 1 m/sec - MV deceleration time 195 msec - LV lateral e' Vmax 0.11 m/sec - LV E:e' lateral ratio 9 ratio - Name Value Normal Range AV Vmax 2.2 m/sec - AV VTI 52.2 cm - AV peak gradient 19 mmHg - AV mean gradient 9.8 mmHg - LVOT diameter 2 cm - LVOT Vmax 1 m/sec - LVOT VTI 22.6 cm - LVOT peak gradient 4 mmHg - LVOT mean gradient 1.7 mmHg - DOI (VTI) 0.4 ratio - TERRANCE (continuity Vmax) 1.4 cm2 - TERRANCE (continuity VTI) 1.4 cm2 - AR PHT 611.21 msec - AR peak gradient 65.53 mmHg - Name Value Normal Range MV Vmax 1 m/sec - MV VTI 32.7 cm - MV peak gradient 4 mmHg - MV mean gradient 1.1 mmHg - MV PHT 74 msec - MR Vmax 5.26 m/sec - MR VTI 187.45 cm - MVA (PHT) 3 cm2 - MVA (continuity VTI) 2 cm2 - Name Value Normal Range TR Vmax 2.9 m/sec - TR peak gradient 34 mmHg - RAP 20 mmHg - RVSP 54 mmHg - IVC diameter 3.2 cm - Name Value Normal Range PV Vmax 1 m/sec - PV peak gradient 4 mmHg -
[2016-10-02] MEDS ORDERED: Furosemide IV* 10 MG/ML 2 ML VIAL (20 MG) IV ONE (10:35)
[2016-10-02] MEDS ORDERED: Lisinopril TAB* 5 MG PO SCH (11:00)
[2016-10-02 11:06] LABS: Troponin I 0.04 ng/mL (<0.04)
[2016-10-02 12:07] LABS: Troponin I 0.03 ng/mL (<0.04)
[2016-10-02 12:34] LABS: Total Protein, BF 4.7 g/dL
--- NOTE | 2016-10-02 17:11 | PN ---
Subjective Date of Service: 10/02/16 Interval History: Patient reports that he continues to feel well. He denies significant diuresis with the Lasix and Spironolactone, only urinating a couple of times daily. Cont to deny abd pain, n/v. Objective Active Medications: Albuterol (Ventolin 2.5 Mg/3 Ml Neb.Leeann*) 2.5 mg INH Q2H PRN PRN Reason: SOB/WHEEZING Allopurinol (Zyloprim Tab*) 100 mg PO DAILY [facility] Last Admin: 10/02/16 09:20 Dose: 100 mg Amlodipine Besylate (Norvasc Tab*) 5 mg PO BEDTIME [facility] Last Admin: 10/01/16 20:09 Dose: 5 mg Aspirin (Aspirin Low Dose Tab*) 81 mg PO MOWEFR [facility] Last Admin: 10/01/16 17:19 Dose: 81 mg Atorvastatin Calcium (Lipitor*) 80 mg PO DAILY [facility] Last Admin: 10/02/16 09:20 Dose: 80 mg Dextrose (D50w Syringe 50 Ml*) 12.5 gm IV PUSH .FOR FS < 60 - SS PRN PRN Reason: FS < 60 Finasteride (Proscar Tab*) 5 mg PO BEDTIME [facility] Last Admin: 10/01/16 20:09 Dose: 5 mg Furosemide (Lasix Tab*) 40 mg PO DAILY [facility] Last Admin: 10/02/16 09:20 Dose: 40 mg Insulin Human Lispro (Humalog*) 0 units SUBCUT AC [facility] PRN Reason: Protocol Last Admin: 10/02/16 12:30 Dose: 3 units Lisinopril (Prinivil Tab*) 5 mg PO DAILY [facility] Last Admin: 10/02/16 11:14 Dose: 5 mg Metoprolol Succinate (Toprol Xl Tab*) 50 mg PO DAILY [facility] Last Admin: 10/02/16 09:20 Dose: 50 mg Mometasone Furoate/Formoterol Fumar (Dulera 200/5 Mdi*) 2 puff INH BID [facility] Last Admin: 10/02/16 08:37 Dose: 2 puff Ondansetron HCl (Zofran Inj*) 4 mg IV Q6H PRN PRN Reason: NAUSEA Pharmacy Profile Note (Coumadin Daily Reminder*) 1 note FOLLOW UP 1700 [facility] Last Admin: 10/01/16 17:22 Dose: 1 note Spironolactone (Aldactone Tab*) 50 mg PO BID [facility] Last Admin: 10/02/16 09:20 Dose: 50 mg Valsartan (Diovan Tab*) 320 mg PO DAILY [facility] Last Admin: 10/02/16 09:20 Dose: 320 mg Warfarin Sodium (Coumadin Tab(*)) 4 mg PO DAILY@1700 [facility] PRN Reason: Protocol Last Admin: 10/01/16 17:19 Dose: 4 mg Vital Signs: Temp Pulse Resp BP Pulse Ox 97.7 F 70 18 141/55 100 10/02/16 15:25 10/02/16 15:25 10/02/16 15:25 10/02/16 15:25 10/02/16 15:25 Oxygen Devices in Use Now: None Appearance: Well appearing elderly gentleman in NAD Respiratory: Symmetrical Chest Expansion and Respiratory Effort, Clear to Auscultation Cardiovascular: NL Sounds; No Murmurs; No JVD, RRR Abdominal: - - abd soft, still somewhat distended, non-TTP Extremities: - - 1-2+ LE edema Neurological: Alert and Oriented x 3 Result Diagrams: 10/01/16 08:41 10/01/16 08:41 Additional Lab and Data: . Microbiology and Other Data: Microbiology 09/29/16 19:22 Sterile Body Fluid Culture - Preliminary Ascites Fluid No Growth Day 1 Sterile Body Fluid Culture - Preliminary No Growth Day 1 09/30/16 14:50 Gram Stain - Final Body Fluid - Not Otherwise Specified Diagnostic Imaging: CXR - cardiomegaly, no effusions US abd - moderate ascites, cirrhotic appearing liver, possible omental caking CT chest/abd/pelvis - No LAD or discrete mass, liver appears cirrhotic Echo - EF 25-30%, mild-mod LVH, RV pressure overload, RV mildly dilated with slightly reduced RV fxn and mod to severe pulm HTN with RV pressure 54 mmHg Assess/Plan/Problems-Billing Assessment: This is a 75 yo gentleman with DM, CAD, HTN, asthma, HLD, BPH, atrial fibrillation, and gout who presented with marked ascites and LE edema. - Patient Problems (1) Ascites Comment: New onset, painless ascites Liver appears cirrhotic on imaging No known liver disease Patient reports moderate historic alcohol consumption, never daily use Hepatitis panel negative Synthetic liver function appears mostly intact, platelet count near normal, albumin normal, difficult to interpret INR with coumadin use Paracentesis completed, initial cell counts not suggestive of infectious source , cytology negative, LDH and protein ratios ~50% suggesting transudate Appreciate GI consult Lasix/spironolactone started (2) Cardiomyopathy Comment: Echo demonstrates new cardiomyopathy with pulm HTN Pt remains asx Stress test ordered to evaluate for ischemia Cont Lasix/spironolactone, cont home ARB. Switch from metoprolol to carvedilol Little diuresis with current oral diuretic doses with evidence of fluid overload on echo, give 1 dose IV lasix and increase oral dose Recommend outpt sleep study to assess for HERMILA (3) JHONY (acute kidney injury) Comment: Improved Mild, likely some element of hepatorenal/cardiorenal syndrome (4) Atrial fibrillation Comment: Chronically anticoagulated with Coumadin which was held and reversed with vit K and FFP for paracentesis Repeat INR tomorrow Rate controlled (5) CAD (coronary artery disease) Comment: No evidence of ACS (6) Diabetes Comment: NIDDM Holding oral agents and covering with SS Humalog (7) Asthma Comment: No acute exacerbation Cont home inhaled medications (8) HLD (hyperlipidemia) (9) BPH (benign prostatic hyperplasia) (10) Gout (11) Full code status (12) DVT prophylaxis Comment: Coumadin Status and Disposition: Inpatient. Pending stress testing. Possible discharge home tomorrow. Will need cardiology and GI follow-up and sleep study.
[2016-10-02] MEDS: Warfarin TAB(*) 4 MG PO SCH (18:07)
[2016-10-02] MEDS: Finasteride TAB* 5 MG PO SCH (21:17)
[2016-10-02] MEDS: Carvedilol TAB* 6.25 MG PO SCH (21:19)
[2016-10-02] MEDS: amLODIPine TAB* 5 MG PO SCH (21:20)
[2016-10-03 05:56] LABS: BUN/Creatinine Ratio 29.8 (8-20); Calcium 8.3 mg/dL (8.6-10.3); EGFR Non-African American 58.3 (>60); Potassium 4.6 mmol/L (3.5-5.0)
[2016-10-03] MEDS: Insulin LISPRO* 1 UNITS UNIT SUBCUT SCH ×2 (07:41→12:20)
[2016-10-03] MEDS ORDERED: Aminophylline IV* 25 MG/ML 10 ML VIAL ONE (09:03)
[2016-10-03] MEDS ORDERED: Regadenoson* 0.4 MG/5 ML SYRINGE ONE (09:03)
[2016-10-03] MEDS: Mometasone/Formoter 200/5 MDI INH SCH (09:52)
[2016-10-03 10:12] VITALS: BP 140/59
--- NOTE | 2016-10-03 11:32 | RAD ---
Edited for charges. Indication: New heart failure. Myocardial perfusion scan was performed utilizing 25.1 mCi of technetium 99 and tetrofosmin. Pharmacological stress was applied and 25.99 mCi of technetium 99m tetrofosmin was injected for the stress portion of the study. There is homogeneous distribution of the radiotracer throughout the left ventricle. The left ventricle appears to be enlarged. Inferior wall defect for the most part appears to BE fixed. There may be some minimal reversible change at the margins of the defect especially near the apex. The ejection fraction at stress is 44%. Evaluation of wall motion demonstrates global hypokinesis. IMPRESSION: Moderate to large sized inferior wall fixed defect with a small amount of reversible change close to the apex. Decreased ejection fraction of 44%. ASSESSMENT: Intermediate risk MTDD
[2016-10-03 13:31] LABS: BF PH 7.8
[2016-10-03] MEDS: Allopurinol TAB* 100 MG PO SCH (13:45)
[2016-10-03] MEDS: Spironolactone TAB* 25 MG PO SCH (13:45)
[2016-10-03] MEDS: Valsartan TAB* 160 MG PO SCH (13:45)
[2016-10-03] MEDS: Carvedilol TAB* 6.25 MG PO SCH (13:45)
[2016-10-03] MEDS: Furosemide TAB* 40 MG PO SCH (13:45)
[2016-10-03] MEDS: Atorvastatin* 80 MG TAB PO SCH (13:45)
--- NOTE | 2016-10-03 14:09 | PN ---
Subjective Date of Service: 10/03/16 Interval History: Patient seen and examined at bedside. Reports feeling well, denies acute concerns. Discussed continuing on current dosing of furosemide with outpatient follow-up. Patient instructed on importance of daily weights and monitoring output. Family History: Unchanged from Admission Social History: Unchanged from Admission Past Medical History: Unchanged from Admission Objective Active Medications: Albuterol (Ventolin 2.5 Mg/3 Ml Neb.Leeann*) 2.5 mg INH Q2H PRN PRN Reason: SOB/WHEEZING Allopurinol (Zyloprim Tab*) 100 mg PO DAILY [facility] Last Admin: 10/03/16 13:45 Dose: 100 mg Amlodipine Besylate (Norvasc Tab*) 5 mg PO BEDTIME [facility] Last Admin: 10/02/16 21:20 Dose: 5 mg Aspirin (Aspirin Low Dose Tab*) 81 mg PO MOWEFR [facility] Last Admin: 10/01/16 17:19 Dose: 81 mg Atorvastatin Calcium (Lipitor*) 80 mg PO DAILY [facility] Last Admin: 10/03/16 13:45 Dose: 80 mg Carvedilol (Coreg Tab*) 6.25 mg PO BID [facility] Last Admin: 10/03/16 13:45 Dose: 6.25 mg Dextrose (D50w Syringe 50 Ml*) 12.5 gm IV PUSH .FOR FS < 60 - SS PRN PRN Reason: FS < 60 Finasteride (Proscar Tab*) 5 mg PO BEDTIME [facility] Last Admin: 10/02/16 21:17 Dose: 5 mg Furosemide (Lasix Tab*) 40 mg PO DAILY [facility] Last Admin: 10/03/16 13:45 Dose: 40 mg Insulin Human Lispro (Humalog*) 0 units SUBCUT AC [facility] PRN Reason: Protocol Last Admin: 10/03/16 12:20 Dose: Not Given Mometasone Furoate/Formoterol Fumar (Dulera 200/5 Mdi*) 2 puff INH BID [facility] Last Admin: 10/03/16 09:52 Dose: Not Given Ondansetron HCl (Zofran Inj*) 4 mg IV Q6H PRN PRN Reason: NAUSEA Pharmacy Profile Note (Coumadin Daily Reminder*) 1 note FOLLOW UP 1700 [facility] Last Admin: 10/02/16 18:07 Dose: 1 note Spironolactone (Aldactone Tab*) 50 mg PO BID [facility] Last Admin: 10/03/16 13:45 Dose: 50 mg Valsartan (Diovan Tab*) 320 mg PO DAILY [facility] Last Admin: 10/03/16 13:45 Dose: 320 mg Warfarin Sodium (Coumadin Tab(*)) 4 mg PO DAILY@1700 [facility] PRN Reason: Protocol Last Admin: 10/02/16 18:07 Dose: 4 mg Vital Signs 10/02/16 10/02/16 10/02/16 15:25 19:25 20:06 Temperature 97.7 F 97.6 F Pulse Rate 37 46 65 Respiratory 18 16 20 Rate Blood Pressure 141/55 123/52 (mmHg) O2 Sat by Pulse 100 100 98 Oximetry 10/02/16 10/02/16 10/03/16 21:23 23:18 03:59 Temperature 98.6 F 98.6 F Pulse Rate 49 37 Respiratory 18 16 16 Rate Blood Pressure 114/44 106/45 (mmHg) O2 Sat by Pulse 100 99 Oximetry 10/03/16 10/03/16 10/03/16 06:05 07:16 07:20 Temperature 98.1 F Pulse Rate 46 120 64 Respiratory Rate Blood Pressure 135/44 (mmHg) O2 Sat by Pulse 100 Oximetry 10/03/16 10/03/16 08:00 10:12 Temperature Pulse Rate 53 Respiratory 16 16 Rate Blood Pressure 140/59 (mmHg) O2 Sat by Pulse 100 Oximetry Oxygen Devices in Use Now: None Appearance: Older male, OOB to chair, NAD Eyes: PERRLA Ears/Nose/Mouth/Throat: Mucous Membranes Moist Neck: NL Appearance and Movements; NL JVP Respiratory: Symmetrical Chest Expansion and Respiratory Effort, Clear to Auscultation Cardiovascular: NL Sounds; No Murmurs; No JVD, RRR Abdominal: - - soft, non-tender, distended, BS present Extremities: - - 1-2+ BLE edema Neurological: Alert and Oriented x 3 Lines/Tubes/Other Access: Clean, Dry and Intact Peripheral IV Result Diagrams: 10/01/16 08:41 10/03/16 04:50 Additional Lab and Data: . Microbiology and Other Data: Microbiology 09/29/16 19:22 Sterile Body Fluid Culture - Preliminary Ascites Fluid No Growth Day 1 Sterile Body Fluid Culture - Preliminary No Growth Day 1 09/30/16 14:50 Gram Stain - Final Body Fluid - Not Otherwise Specified Diagnostic Imaging: CXR - cardiomegaly, no effusions US abd - moderate ascites, cirrhotic appearing liver, possible omental caking CT chest/abd/pelvis - No LAD or discrete mass, liver appears cirrhotic Echo - EF 25-30%, mild-mod LVH, RV pressure overload, RV mildly dilated with slightly reduced RV fxn and mod to severe pulm HTN with RV pressure 54 mmHg Assess/Plan/Problems-Billing Assessment: This is a 75 yo gentleman with DM, CAD, HTN, asthma, HLD, BPH, atrial fibrillation, and gout who presented with marked ascites and LE edema. - Patient Problems (1) Ascites Code(s): R18.8 - OTHER ASCITES Comment: New onset, painless ascites Liver appears cirrhotic on imaging No known liver disease Patient reports moderate historic alcohol consumption, never daily use Hepatitis panel negative Synthetic liver function appears mostly intact, platelet count near normal, albumin normal, difficult to interpret INR with coumadin use Paracentesis completed, initial cell counts not suggestive of infectious source , cytology negative, LDH and protein ratios ~50% suggesting transudate Appreciate GI consult Continue furosemide/spironolactone. Outpatient GI follow-up (2) Cardiomyopathy Code(s): I42.9 - CARDIOMYOPATHY, UNSPECIFIED Comment: Echo demonstrates new cardiomyopathy with pulm HTN Pt remains asx Nuclear images showed concern for potential area of reversible ischemia at apex. Appreciate cardiology consult - recommends continued medical management. Cont Lasix/spironolactone, cont home ARB. Switch from metoprolol to carvedilol Continue increased furosemide dosing. Recommend outpt sleep study to assess for HERMILA (3) JHONY (acute kidney injury) Code(s): N17.9 - ACUTE KIDNEY FAILURE, UNSPECIFIED Comment: Improved Mild, likely some element of hepatorenal/cardiorenal syndrome Repeat BMP next week with outpatient follow-up (4) Atrial fibrillation Code(s): I48.91 - UNSPECIFIED ATRIAL FIBRILLATION Comment: Chronically anticoagulated with Coumadin which was held and reversed with vit K and FFP for paracentesis INR 2.07, continue current dose Rate controlled (5) CAD (coronary artery disease) Code(s): I25.10 - ATHSCL HEART DISEASE OF [place] CORONARY ARTERY W/O ANG PCTRS Comment: No evidence of ACS (6) Diabetes Code(s): E11.9 - TYPE 2 DIABETES MELLITUS WITHOUT COMPLICATIONS Comment: NIDDM Holding oral agents and covering with SS Humalog (7) Asthma Code(s): J45.909 - UNSPECIFIED ASTHMA, UNCOMPLICATED Comment: No acute exacerbation Cont home inhaled medications (8) HLD (hyperlipidemia) Code(s): E78.5 - HYPERLIPIDEMIA, UNSPECIFIED Comment: Continue atorvastatin. (9) BPH (benign prostatic hyperplasia) Code(s): N40.0 - BENIGN PROSTATIC HYPERPLASIA WITHOUT LOWER URINRY TRACT SYMP Comment: Continue finasteride. (10) Gout Code(s): M10.9 - GOUT, UNSPECIFIED Comment: Continue allopurinol. (11) DVT prophylaxis Code(s): DOH1937 - Comment: Coumadin (12) Full code status Code(s): Z78.9 - OTHER SPECIFIED HEALTH STATUS Status and Disposition: Inpatient. d/c to home. Outpatient cardiology and GI follow-up and sleep study.
--- NOTE | 2016-10-03 21:45 | CONS ---
CC: Dr. Cantu; Dr. Mo INTERVENTIONAL CARDIOLOGY CONSULT NOTE: DATE OF CONSULT: 10/03/16 PRIMARY DOCTOR: Dr. Cantu. TOE LINING CLOSER: Dr. Mo. HISTORY OF PRESENT ILLNESS: A 75-year-old male with remote inferior infarct and stenting admitted w ith ascites. Interventional Cardiology was consulted because of an abnormal nuclear stress test. He had an SD in 2001, the RCA was stented with 3x16 stent. He followed until [address] Mo fo r chronic atrial fibrillation. Echo in 2014 showed moderate TR, normal LV systolic function, and mi zo-wh-azlnacak mitral regurgitation. He denies any dyspnea until he started to develop ascites with weight gain and peripheral edema. He has had drainage of the ascetic fluid, has seen Dr. Jarvis wi th the impression of hepatic cirrhosis. Echo at this admission showed decreased LVEF to 25 to 30 wi th left ventricular enlargement, right and left atrial enlargement, RV enlargement, RV appearance co nsistent with pressure and/or volume overload, aortic valve area of 1.4, and makj-ak-hstqaksn MR wit h RV systolic pressure of 54. Nuclear medicine scan today showed EF of 44 with an inferior scar with minimal apical reversibility. He denies dyspnea except from the ascites. He has not had chest svitlana n. PAST MEDICAL HISTORY: Cirrhosis by imaging, coronary artery disease, diabetes type 2, hypertension, chronic atrial fibrillation, hyperlipidemia. PREHOSPITAL MEDICATIONS: Included: 1. Diovan 320. 2. Norvasc. 3. Coumadin. 4. Toprol 50 mg daily. 5. Lasix 40 mg daily. 6. Bumex 3 days per week. 7. Lipitor 80. ALLERGIES: None to medications. SOCIAL HISTORY: Former smoker. Drinks occasional alcohol. REVIEW OF SYSTEMS: General: He has had recent weight gain. HAND FORMER: No history of TIA or CVA. Heme: No history of malignancy or bleeding on Coumadin. Remainder all negative. PHYSICAL EXAMINATION: He is not tachypneic or dyspneic, he has obvious ascites. His BP 140/59, hear t rate is in the 50 to 60s, irregularly irregular consistent with atrial fibrillation. His lungs sh ows somewhat decreased breath sounds at the bases, but no rales. JVP is, however, elevated at 14 wi th a positive Kussmaul sign. Carotids are normal. Cardiac exam, I cannot feel the apical impulse, but he does have a grade 3 holosystolic mitral regurgitant murmur. I do not hear an S3 gallop or diastolic rumble. He has obvious ascites. He has 2+ pitting edema bilaterally. DIAGNOSTIC STUDIES/LAB DATA: Hemoglobin 10.6, hematocrit 32, BUN 36, creatinine 1.21, BNP 629. EKG shows atrial fibrillation and evidence of previous inferior infarct with inferior Q waves, nonspeci fic ST changes. Chest x-ray by my review shows cardiomegaly with pulmonary vascular redistribution. IMPRESSION: He has ascites with apparently cirrhosis, but also has chronic systolic heart failure w ith at least moderate mitral regurgitation with pulmonary hypertension, and right heart failure. At this point, it is unclear whether his edema and ascites are primarily from cirrhosis or primarily f rom cardiac cause or both. I agree with medical management with continued anticoagulation, diuresis . He is already scheduled to have followup with GI. I have arranged for him to get a followup appoi ntment with Dr. Mo in the office for further workup. There was no urgent indication for catheter ization presently. Thanks for the consultation. [id number]/[facility] #: [id number]
--- NOTE | 2016-10-05 01:01 | DS ---
DISCHARGE SUMMARY: DATE OF ADMISSION: 09/29/16 DATE OF DISCHARGE: 10/03/16 ATTENDING PHYSICIAN: Maren Sneed MD* (as dictated by Alexandra Golden NP). CONSULTING PHYSICIANS: Eden Wells MD, interventional Cardiology and Anthony Jarvis MD, gastroenterology. PRIMARY CARE PHYSICIAN: Huong Cantu MD. PRIMARY DISCHARGE DIAGNOSES: 1. Ascites. 2. Cardiomyopathy. 3. Acute kidney injury. SECONDARY DISCHARGE DIAGNOSES: 1. Coronary artery disease. 2. Diabetes. 3. Hypertension. 4. Asthma. 5. Hyperlipidemia. 6. Benign prostatic hypertrophy. 7. Atrial fibrillation. 8. Gout. MEDICATIONS AT DISCHARGE: 1. Aspirin 81 mg Thursday, Thursday and Thursday. 2. Albuterol inhaler 2 puffs inhaled q.6 hours p.r.n. 3. Glipizide and metformin 5/500 1 tab b.i.d. 4. Finasteride 5 mg at bedtime. 5. Colchicine 1.2 mg daily p.r.n. 6. Advair 250/50 1 puff inhaled b.i.d. 7. Warfarin 4 mg daily. 8. Amlodipine 5 mg at bedtime. 9. Allopurinol 100 mg daily. 10. Furosemide 40 mg daily. 11. Atorvastatin 80 mg daily. 12. Valsartan 320 mg daily. 13. Potassium chloride 10 mEq daily. 14. Spironolactone 50 mg b.i.d. 15. Carvedilol 6.25 mg b.i.d. Carvedilol and spironolactone are 2 new medications. The patient's Bumex has been discontinued. HOSPITAL COURSE OF STAY: For full details, please refer to the H and P provided by Bruce Morris on 09/29/16. In summary, Mr. Tello is a 75-year- old male who presented to the ER with concern for progressive swelling in his abdomen and lower extremities that occurred over 3 to 4 weeks. He reports about 20-pound weight gain. His ultrasound of the abdomen did show ascites and omental thickening. The patient's INR was elevated at 3 secondary to his warfarin when he was admitted. Once this was resolved with vitamin K, the patient did undergo a paracentesis the following day. Approximately 10 L of yellow tinged fluid was removed. The patient's total protein count was 4.7 suggesting . His initial cell counts were not suggestive of an infectious source and cytology was negative. He was started on Lasix and spironolactone, which was titrated for acute diuretic effect. The patient's echocardiogram showed concern for moderately to severely decreased left ventricular systolic function. There was gdys-ik-nrjlrcsf concentric left ventricular hypertrophy. The estimated ejection fraction is 25 % to 30%. There is septal flattening in the interventricular septum consistent with right ventricular volume or pressure overload. The left atrium is moderately to severely dilated. There is tytl-vv-pghbnaio mitral regurgitation. There is mild mitral stenosis. The right atrial cavity size is severely dilated. The right ventricle is moderately dilated. The right ventricular global systolic function is mildly reduced. There is severe tricuspid regurgitation. There is evidence of moderate- to-severe pulmonary hypertension. The right ventricular systolic pressure is estimated at 54 mmHg. There is emkc-zb-hhxebash pulmonic regurgitation. A bilateral pleural effusion is present. There is mild dilatation of the ascending aorta. The patient appears to be in atrial fibrillation. Compared to the study from , the LV systolic function has decreased significantly previously 55% to 60%, the tricuspid regurgitation has increased from moderate, the pulmonary hypertension is new, the aortic stenosis and regurgitation has increased mildly (was mild for both). The septal flattening is new. Given the patient's new cardiomyopathy with pulmonary hypertension, a stress test was ordered to evaluate for ischemia. The patient remained asymptomatic. We did continue him on his Lasix, spironolactone and his home ARB. Patient was switched from metoprolol to carvedilol. He was also recommended to have an outpatient sleep study to assess for obstructive sleep apnea. The patient did undergo a nuclear stress test. The nuclear portion showed intermediate risk with an impression of cxazctle-sz-jvnet sized inferior wall fixed defect with a small amount of reversible change close to the apex. We did appreciate a consult from Dr. Wells, who did review the images and stress test results. Per Dr. Wells, the patient has chronic systolic heart failure with mitral regurgitation with pulmonary hypertension and right heart failure, ascites and cirrhosis and it is unclear if his edema and ascites are primarily from cirrhosis or primarily from cardiac cause or both. He recommended further and continued medical management with continued anticoagulation and diuresis. Dr. Wells did also arrange for appointment with Dr. Mo for outpatient followup. We did also appreciate consultation from Gastroenterology. Workup was sent for WILL, hepatitis panel, iron studies. GI recommended outpatient followup. The patient appears to have a cirrhotic liver, but does maintain liver function tests at this time. The cause of his liver disease is still under investigation. The patient will follow up with Dr. Jarvis in the upcoming weeks. Of note, the patient's hepatitis viral serologies were negative. Patient also presented with acute kidney injury, which did improve and was thought to be secondary to hepatorenal or cardiorenal syndrome. On the day of discharge, the patient was in stable condition, had no acute complaints. He denied any chest pain or trouble breathing. He does report improved diuresis with his increase of spironolactone and furosemide. We did discuss with him the necessity to follow up with Dr. Cantu, Dr. Jarvis and Dr. Mo. Patient verbalized understanding. His son was also present for the conversation. Patient was restarted on his Coumadin and had a therapeutic INR of 2. I did discuss the patient that he should have a followup drawn next week as well as the followup for his kidney function, which did go up slightly on the day of discharge that is mostly within baseline. CONCERNS AT DISCHARGE: Mr. Tello was discharged to home on 10/03/16 with a plan to follow up with Dr. Cantu on 10/07/[address] Mo on 11/07/[address] Jarvis on 10/10/16. Patient was advised to have a BMP and INR drawn, which he can do with his primary care provider. Outpatient followup needs; patient should have an outpatient stress test per Cardiology as well as an outpatient sleep study to rule out obstructive sleep apnea. Patient was advised to keep daily weights and share those results with his primary care provider. He is to also have a followup BMP to monitor kidney function. DIET: Low sodium diet. ACTIVITY: As tolerated. CONDITION: Improved, stable. DISPOSITION: Home. TIME SPENT: Time spent on this discharge was approximately 45 minutes. Again, this is only a brief summary of the patient's hospital course of stay. For full details, please refer to the full medical record. If you have any further questions or need further assistance, please feel free to contact me at . ALEXANDRA GOLDEN NP CC: Huong Cantu MD* [id number]/[facility] #: [id number] GAB[place]
== END 2016-10-03 15:30 | disposition home or self-care (01) | DRG 947 ==
LOC: ED 13:27 → MED 15:55
PROVIDERS: ADMIT Hospitalist; ATTEND Internal Medicine
PROC: 0W9G3ZZ Drainage of Peritoneal Cavity, Percutaneous Approach (ICD-10-PCS; principal; 2016-09-30)
PROC: 30233K1 Transfusion of Nonautologous Frozen Plasma into Peripheral Vein, Percutaneous Approach (ICD-10-PCS; 2016-09-30)
PROC: 4A12XM4 Monitoring of Cardiac Stress, External Approach (ICD-10-PCS; 2016-10-03)
DX: R18.8 Other ascites (principal); K76.7 Hepatorenal syndrome; J90 Pleural effusion, not elsewhere classified; N17.9 Acute kidney failure, unspecified; I42.9 Cardiomyopathy, unspecified; I50.22 Chronic systolic (congestive) heart failure; K74.60 Unspecified cirrhosis of liver; I11.0 Hypertensive heart disease with heart failure; I27.2 Other secondary pulmonary hypertension; I25.10 Atherosclerotic heart disease of native coronary artery without angina pectoris; E11.9 Type 2 diabetes mellitus without complications; I48.91 Unspecified atrial fibrillation; E78.00 Pure hypercholesterolemia, unspecified; Z96.662 Presence of left artificial ankle joint; Z96.653 Presence of artificial knee joint, bilateral; M10.9 Gout, unspecified; M19.90 Unspecified osteoarthritis, unspecified site; J45.909 Unspecified asthma, uncomplicated; Z82.49 Family history of ischemic heart disease and other diseases of the circulatory system; I77.819 Aortic ectasia, unspecified site; E78.5 Hyperlipidemia, unspecified; N40.0 Benign prostatic hyperplasia without lower urinary tract symptoms; H91.90 Unspecified hearing loss, unspecified ear; I08.3 Combined rheumatic disorders of mitral, aortic and tricuspid valves; I37.1 Nonrheumatic pulmonary valve insufficiency; Z82.3 Family history of stroke; Z83.3 Family history of diabetes mellitus; Z87.891 Personal history of nicotine dependence; I25.2 Old myocardial infarction; Z95.5 Presence of coronary angioplasty implant and graft
CPT/HCPCS: 36415; 49083; 71020; 71260; 74177; 76705; 78452; 80048; 80053; 80074; 82042; 82728; 83540; 83550; 83605; 83615; 83880; 83986; 84157; 84484; 85025; 85610; 86038; 86850; 86900; 86901; 86927; 87040; 87205; 88112; 89051; 93005; 93017; 93306; 94640; A9270-GY; A9502; J0280; J1940; J2785; P9017; Q9967

== ENCOUNTER 2017-08-15 12:22 | Emergency (ER) | payer MEDICARE ==
[2017-08-15 12:32] VITALS: BP 123/53
--- NOTE | 2017-08-15 12:49 | UC ---
Respiratory Complaint HPI - HPI Summary HPI Summary: 76 y/o male presents to the urgent care accompany by c/o productive cough, wheezing, nasal congestion w/ yellowish nasal discharge for the past 3 days. Pt reports he had low grade fever and chill last night. His cough is worse at night time and haven't been able to sleep well. He has taking cough drops and has used his albuterol inhaler to alleviate symptoms. Wheezing is mild w/ mild SOB at times. Pt denies Chest pain, abdominal pain, SORENSON. dizziness, N/V/D. - History of Current Complaint Chief Complaint: UCRespiratory Stated Complaint: weezing, cough Time Seen by Provider: 08/15/17 12:40 Hx Obtained From: Patient, Family/Pharmacy Ancillary - Onset/Duration: Gradual Onset, Lasting Days - 3 day, Still Present, Worse Since - last night Timing: Intermittent Episodes Severity Initially: Mild Severity Currently: Mild Pain Intensity: 0 Pain Scale Used: 0-10 Numeric Character: Cough: Productive, Sputum Description: - yellowish Aggravating Factors: Recumbent Position Alleviating Factors: Bronchodilator, OTC Meds Associated Signs And Symptoms: Positive: Fever, Chills, Wheezing, Nasal Congestion - Allergies/Home Medications Allergies/Adverse Reactions: Allergies Allergy/AdvReac Type Severity Reaction Status Date / Time No Known Allergies Allergy Verified 08/15/17 12:32 PMH/Surg Hx/FS Hx/Imm Hx Previously Healthy: Yes Endocrine History: Diabetes, Dyslipidemia Other Endocrine History: Gout Cardiovascular History: Cardiac Disease, Hypertension, Atrial Fibrillation Other Cardiovascular History: Cardiomyopathy Respiratory History: COPD, Asthma Other History Of: Anticoagulant Therapy - Surgical History Surgical History: Yes Surgery Procedure, Year, and Place: Bilateral Knee replacements - Family History Known Family History: Positive: Cardiac Disease, Diabetes Family History: CVA - Social History Occupation: Retired Lives: With Family Alcohol Use: Occasionally Substance Use Type: None Smoking Status (MU): Former Smoker Type: Cigarettes Have You Smoked in the Last Year: No When Did the Patient Quit Smoking/Using Tobacco: 1976 - Immunization History Most Recent Influenza Vaccination: o Most Recent Tetanus Shot: Over 10 years ago Most Recent Pneumonia Vaccination: this fall Review of Systems Constitutional: Fever, Chills Skin: Negative Eyes: Negative ENT: Nasal Discharge, Sinus Congestion Respiratory: Shortness Of Breath, Cough - productive, Other - wheezing Cardiovascular: Negative Gastrointestinal: Negative Genitourinary: Negative Motor: Negative Neurovascular: Negative Musculoskeletal: Negative Neurological: Negative Psychological: Negative Is Patient Immunocompromised?: No All Other Systems Reviewed And Are Negative: Yes Physical Exam - Summary Physical Exam Summary: Vital Signs Reviewed: Yes General: well developed, well nourished male sitting in the examining table w/o any apparent distress Eyes: Positive: Conjunctiva Clear - PERRLA, EOMI, fundi grossly normal ENT: Positive: Normal ENT inspection, Hearing grossly normal, Pharynx normal, Nasal congestion - edematous and erythematous nasal mucosa, Nasal drainage - yellowish drainage, TMs normal. Negative: Tonsillar swelling, Tonsillar exudate Neck: Positive: Supple, Nontender, No Lymphadenopathy Respiratory: no orthopnea or dyspnea. Able to speak in full sentences, no retractions or accessory muscle use, no tripod position, stridor, or head bobbing. Positive breath sound bilaterally. scattered bilaterally lungs wheezing w/ rhonch, no crackles or rales. Cardiovascular: Positive: RRR, No Murmur, Pulses Normal, Brisk Capillary Refill Abdomen Description: Positive: Nontender, No Organomegaly, Soft. Negative: CVA Tenderness (R), CVA Tenderness (L) Bowel Sounds: Positive: Present Musculoskeletal Exam: Normal Musculoskeletal: Positive: Strength Intact, ROM Intact, No Edema Neurological Exam: Normal Psychological Exam: Normal Skin Exam: Normal Triage Information Reviewed: Yes Vital Signs: Initial Vital Signs Temp 99.3 F 08/15/17 12:27 Pulse 84 08/15/17 12:27 Resp 18 08/15/17 12:27 BP 123/53 08/15/17 12:27 Pulse Ox 98 08/15/17 12:27 Diagnostic Evaluation - Laboratory O2 Sat by Pulse Oximetry: 98 Respiratory Course/Dx - Course Course Of Treatment: 76 y/o male presents to the urgent care accompany by c /o productive cough, wheezing, nasal congestion w/ yellowish nasal discharge for the past 3 days. Pt reports he had low grade fever and chill last night. His cough is worse at night time and haven't been able to sleep well. He has taking cough drops and has used his albuterol inhaler to alleviate symptoms. Wheezing is mild w/ mild SOB at times. Pt denies Chest pain, abdominal pain, SORENSON. dizziness, N/V/D. Hx obtained. Pt w/ scattered bilaterally lungs wheezing w / rhonch, no crackles or rales on examination, 98% O2Sat. Pt w/ COPD exacerbation probably due to bronchitis. Chest X-ray ordered to r/o pneumonia.Impression:Trace of Rt pleural effusion. Pt given Prednisone PO and Duoneb at the clinic. Patient tolerated well treatment and lungs improved, mild wheezing only in posterior RT lung, O2 sat 100%i. Pt Rx Doxycycline PO , Prednisone PO and Tessalon PO. The patient was recommended to increase fluid intake continue w/ albuterol inhaler. Also advised to f/u w/ his PCP DR Cantu in 2 days to see if symptoms are improving. Otherwise if symptoms worsen to go to the nearest ER . Patient understood and agree w/ plan of care. - Differential Dx/Diagnosis Differential Diagnosis/HQI/PQRI: Asthma, Bronchitis, Exacerbation Of COPD, Lower Resp Infection, Sinusitis, Other - pneumonia Provider Diagnoses: 1- COPD exacerbation due to bronchitis. 2-Trace of pleural effusion over the RT lung. 3-wheezing Discharge - Sign-Out/Discharge Documenting (check all that apply): Discharge - Discharge Plan Condition: Stable Disposition: HOME Prescriptions: Benzonatate CAP* [Tessalon 100 MG CAP*] 100 mg PO TID PRN #21 cap PRN Reason: Cough DOXYcycline CAP(*) [DOXYcycline 100MG CAP(*)] 100 mg PO BID #20 cap predniSONE TAB* [Deltasone TAB*] 20 mg PO DAILY #8 tab Patient Education Materials: Asthma (ED), Acute Bronchitis (ED), Pleural Effusion (ED) Referrals: Huong Cantu MD [Primary Care Provider] - 3 Days Additional Instructions: 1-Please take full course of antibiotic to avoid resistance. Take the Prednisone PO as directed starting tomorrow. First dose given today at the clinic 2-Take Tessalon PO tabs as directed and use the albuterol inhaler q4hrs to alleviate cough and wheezing. Increase fluid intake, rest and eat well. 3- If symptoms do not improve or worsen or your develop SOB with fever and severe wheezing please go immediately to the ER further evaluation and treatment. 4- F/u with your PCP in 2-3 days for further management on your Asthma - Billing Disposition and Condition Condition: STABLE Disposition: HOME
[2017-08-15] MEDS ORDERED: predniSONE TAB* 20 MG PO ONE (13:00)
[2017-08-15] MEDS ORDERED: Albuterol/Ipratropium NEB.SOL* Albuterol 2.5 MG/Ipratropium 0.5 MG 3 ML INH ONE (13:00)
--- NOTE | 2017-08-15 13:35 | RAD ---
INDICATION: Productive cough and fever. COMPARISON: Comparison is made with a prior study from November 13, 2016. TECHNIQUE: Dual-energy PA and lateral views of the chest were obtained. FINDINGS: The heart is mildly enlarged and unchanged from the prior study. The lungs are clear. There is a trace right pleural effusion. IMPRESSION: TRACE RIGHT PLEURAL EFFUSION.
== END 2017-08-15 13:53 | disposition home or self-care (01) ==
LOC: UCEAST 12:22
DX: J45.901 Unspecified asthma with (acute) exacerbation (principal); J90 Pleural effusion, not elsewhere classified; Z79.01 Long term (current) use of anticoagulants; Z96.653 Presence of artificial knee joint, bilateral; Z87.891 Personal history of nicotine dependence
CPT/HCPCS: 71046; 99213; A9270-GY; G0463; J7512

== ENCOUNTER 2018-04-06 12:39 | Inpatient (IN) | payer MEDICARE ==
--- NOTE | 2018-04-06 13:04 | ED ---
Shortness of Breath - HPI Summary HPI Summary: The pt is a 77 y/o male accompanied by his and daughter referred to [facility] by Dr. Cantu after an office visit this am where pt c/o progressive SOB post op since CABG x 3, AVR and mitral valve repair by Dr. Pichardo at [facility] on 03/26/18. Pt was DC'd home on 04/01/18. Family notes decreased appetite, weakness, weight loss (18 lbs) and productive cough with clear phlegm but denies vomiting, fever (98.3F at PCPs office) CP, LE pain and abd pain. The sx are aggravated by ambulation. His production troubleshooter is Dr. Mo who recommended surgery for pt due to CHF refractory to diuretics. Vital signs while in room: HR 133 bpm, afib on monitor. BP 70/56. Dr. Rodriguez saw the pt as soon as he arrived. Dr Cantu repoorted that pt had a supratherapeutic INR of 5.4 yesterday. Home Medications Medication Instructions Recorded Confirmed Type Finasteride TAB* [Proscar TAB*] 5 mg PO DAILY 05/12/12 12/19/16 History Furosemide TAB* [Lasix TAB*] 40 mg PO DAILY 05/12/12 12/19/16 History Valsartan TAB* [Diovan TAB*] 320 mg PO DAILY 05/12/12 12/19/16 History Warfarin TAB(*) [Coumadin TAB(*)] 4 mg PO DAILY 05/12/12 12/22/16 History Allopurinol TAB* [Zyloprim 100 MG 100 mg PO DAILY 04/24/13 12/19/16 History TAB*] Albuterol HFA INHALER* [Ventolin 2 puff INH Q6H PRN 09/29/16 12/22/16 History HFA Inhaler*] Atorvastatin* [Lipitor 80 MG*] 80 mg PO DAILY 09/29/16 12/19/16 History Fluticasone-Salmeterol 250-50* 1 puff INH BID 09/29/16 12/19/16 History [Advair Diskus 250-50*] Glipizide/Metformin 5-500 1 tab PO BID 09/29/16 12/22/16 History Carvedilol TAB* [Coreg TAB*] 6.25 mg PO BID #180 tab 10/03/16 12/19/16 Rx Aspirin EC TAB* [Ecotrin EC Low 81 mg PO SEE INSTRUCTIONS 12/19/16 12/19/16 History Dose 81 MG*] amLODIPine TAB* [Norvasc 5 mg TAB*] 1 tab PO BID 12/19/16 12/22/16 History Benzonatate CAP* [Tessalon 100 MG 100 mg PO TID PRN #21 cap 08/15/17 Rx CAP*] DOXYcycline CAP(*) [DOXYcycline 100 mg PO BID #20 cap 08/15/17 Rx 100MG CAP(*)] predniSONE TAB* [Deltasone 20 MG 20 mg PO DAILY #8 tab 08/15/17 Rx TAB*] - History of Current Complaint Chief Complaint: EDShortnessOfBreath Time Seen by Provider: 04/06/18 12:43 Hx Obtained From: Family/[employer] - and daughter, Medical Records - from [facility], Other: - Dr. Cantu Onset/Duration: Lasting Days, Still Present Timing: Constant Current Severity: Severe Dyspnea At: Rest Aggrevating Factors: Movement Alleviating Factors: Nothing Associated Signs & Symptoms: Cough (Productive), Edema - Risk Factors Pulmonary Embolism: Recent Surgery - Allergy/Home Medications Allergies/Adverse Reactions: Allergies Allergy/AdvReac Type Severity Reaction Status Date / Time No Known Allergies Allergy Verified 04/06/18 12:51 Home Medications: Home Medications Aspirin EC TAB* [Ecotrin EC Low Dose 81 MG*] 81 mg PO DAILY 04/06/18 [History Confirmed 04/06/18] Atorvastatin* [Lipitor*] 80 mg PO DAILY 04/06/18 [History Confirmed 04/06/18] Bumetanide TAB* [Bumex 2 MG TAB*] 2 mg PO DAILY 04/06/18 [History Confirmed ] Finasteride TAB* [Proscar TAB*] 5 mg PO DAILY 04/06/18 [History Confirmed ] Glipizide/Metformin 5-500 Mg 1 tab PO BID 04/06/18 [History Confirmed 04/06/18] HYDROcodone/ACETAMIN 5-325 MG* [[place] 5-325 TAB*] 1 - 2 tab PO Q4H PRN MDD 10 tabs 04/06/18 [History Confirmed 04/06/18] Losartan TAB* [Cozaar TAB*] 50 mg PO DAILY 04/06/18 [History Confirmed 04/06/18] Warfarin TAB(*) [Coumadin TAB(*)] 3.5 mg PO DAILY 04/06/18 [History Confirmed ] PMH/Surg Hx/FS Hx/Imm Hx Previously Healthy: No Endocrine/Hematology History: Reports: Hx Anticoagulant Therapy, Hx Diabetes - type 2 DM Denies: Other Endocrine/Hematological Disorders Cardiovascular History: Reports: Hx Atrial Fibrillation, Hx Congestive Heart Failure, Hx Coronary Artery Disease, Hx Hypercholesterolemia, Hx Hypertension - ON MEDS, Hx Syncope, Hx Valvular Heart Disease Denies: Other Cardiovascular Problems/Disorders Respiratory History: Reports: Hx Asthma, Hx Pneumonia Denies: Other Respiratory Problems/Disorders GI History: Reports: Other GI Disorders - hx ascites History: Reports: Hx Benign Prostatic Hyperplasia Denies: Other Problems/Disorders Musculoskeletal History: Reports: Hx Arthritis, Hx Gout, Other Musculoskeletal History - Bilateral knee replacements Sensory History: Reports: Hx Contacts or Glasses, Hx Vision Problem, Hx Hearing Problem Denies: Hx Hearing Aid, Other Sensory Impairments Opthamlomology History: Reports: Hx Contacts or Glasses, Hx Vision Problem Denies: Other Sensory Impairments Neurological History: Denies: Other Neuro Impairments/Disorders Psychiatric History: Denies: Other Psychiatric Issues/Disorders - Cancer History Cancer Type, Location and Year: skin cancer right hand - Surgical History Surgery Procedure, Year, and Place: Bilateral Knee replacements Hx Anesthesia Reactions: No Infectious Disease History: No Infectious Disease History: Denies: Traveled Outside the [place] in Last 30 Days - Family History Known Family History: Positive: Cardiac Disease, Diabetes, Other - CVA Family History: CVA - Social History Occupation: Retired Lives: With Family Alcohol Use: Occasionally Substance Use Type: Reports: None Hx Tobacco Use: Yes Smoking Status (MU): Former Smoker Type: Cigarettes Have You Smoked in the Last Year: No Review of Systems Constitutional: Other - Positive: Weight loss (18 lbs) Positive: Fatigue, Other - insomnia. Negative: Fever Negative: Chest Pain Positive: Shortness Of Breath, Cough - Productive Negative: Abdominal Pain, Vomiting Positive: no symptoms reported Musculoskeletal: Negative - LE pain Skin: Negative Neurological: Negative Psychological: Normal All Other Systems Reviewed And Are Negative: Yes Physical Exam - Summary Physical Exam Summary: Appearance: Ill-appearing, no pain distress, well-nourished, speaks in short sentences, rapid afib and hypotensive, tachypneic Skin: Healing midline scar on the chest midline. Warm, color reflects adequate perfusion, dry Head: Normal Head/Face inspection, atraumatic Eyes: Conjunctiva clear ENT: Normal inspection Neck: Supple, no nodes, +JVD Respiratory: decreased breath sounds, SOB at rest, Accessory muscles of respiration. Rales bibasilar Cardio: irregularly irregular rapid HR, No murmur noted, pulses intact, brisk capillary refill Abdomen: Soft, nontender, no masses Bowel sounds: Present Musculoskeletal: Strength Intact/ROM intact, no calf tenderness, 1+ pitting edema. Psychological: Normal Neuro: Alert, muscle tone normal, no focal deficit, facial symmetry Triage Information Reviewed: Yes Vital Signs On Initial Exam: Initial Vitals Temp Pulse Resp BP Pulse Ox 98.3 F 46 20 156/132 96 04/06/18 12:48 04/06/18 12:48 04/06/18 12:48 04/06/18 12:48 04/06/18 12:48 Vital Signs Reviewed: Yes Diagnostics - Vital Signs Vital Signs Temp Pulse Resp BP Pulse Ox 04/06/18 12:48 98.3 F 46 20 156/132 96 - Laboratory Result Diagrams: 04/06/18 13:14 04/06/18 13:14 Lab Statement: Any lab studies that have been ordered have been reviewed, and results considered in the medical decision making process. - Radiology CXR Radiology Interpretation Completed By: Radiologist Summary of Radiographic Findings: IMPRESSION: FINDINGS SUGGESTIVE OF CONGESTIVE HEART FAILURE. The ED physician reviewed this radiology report. - EKG 12:59 Cardiac Rate: Tachycardia - 137 bpm EKG Rhythm: Atrial Fibrillation ST Segment: Non-Specific Ectopy: None Summary of EKG Findings: Prolonged IVCT, RBBB pattern, Prolonged QTC (521), No acute changes, no significant change compared to an EKG performed on 03/29/2018 at [facility]. Re-Evaluation - Re-Evaluation First Eval Re-Evaluation Time: 14:40 Change: Improved Comment: HR 90's BP 130's systolic. Still tachypneic. No chest pain. Advised of lab and CXR results. Second Eval Re-Evaluation Time: 15:00 Change: Unchanged Comment: afib rate controlled. Family with pt. Advised that Dr. Mo will consult and pt will be admitted to [facility]. Course/Dx - Course Course Of Treatment: A 77 year-old M presents to the ED with a CC of SOB since DC from [facility] on 04/01/18 after open heart surgery (CABG x3, AVR, mitral valve repair, MAZE) on 03/26/18. Family notes decreased appetite, weakness, weight loss (18 lbs) and productive cough with clear phlegm but denies vomiting, fever (98.3F at PCPs office) CP, LE pain and abd pain. Pt presented hypotensive with rapid afib, and was given cardizem 10mg IV with decreased in afib rate to 110's and BP improved to 114 systolic. A physical exam revealed dyspnea at rest with accessory muscles of resp, JVD, a healing midline scar on the chest, decreased breath sounds, rales bibasilar and 2+ pitting edema. A CXR reveals CHF. An EKG reveals rapid afib prolonged IVCT, RBBB pattern, and prolonged QTC (521). Labs reveal elevated white count 15.3, lactic acid 2.4, troponin 0.44, INR 4.08, increased d dimer >1000, HCT 34, BUN/ creat 51/1.45. Patient will be admitted with Dx of CHF, A fib with RVR, Elevated troponin and supra therapeutic INR. Pt is agreeable with this plan. Allergies noted. Dr. Sneed is continuing pt's evaluation with CTA chest and cardiac ECHO and Dr. Mo is consulting. - Diagnoses Differential Diagnosis/HQI/PQRI: Positive: Asthma, CHF, Pneumonia, Pneumothorax , Pulmonary Embolism Provider Diagnoses: CHF (congestive heart failure), Atrial fibrillation with RVR, Elevated troponin , Supratherapeutic INR, Hypotensive episode - Physician Notifications Discussed Care of Patient With: Maren Sneed - Hospitalist Time Discussed With Above Provider: 14:45 Instructed by Provider To: Other - Dr. Sneed recommended calling Dr. Mo 14:52 - Dr. Mo suspects that the SOB is due to CHF and the rapid A fib. He is agreeable with admitting the pt to [facility], rather than transfer at this time and will evaluate pt. 14:58- I discussed the care of the pt with Dr. Sneed - Critical Care Time Critical Care Time: 30-74 min - 30 mins Discharge - Sign-Out/Discharge Documenting (check all that apply): Patient Departure - Admit - Discharge Plan Condition: Stable Disposition: ADMITTED TO [facility] - Billing Disposition and Condition Condition: STABLE Disposition: Admitted to [facility] - Attestation Statements Document Initiated by Rod: Yes Documenting Scribe: Ashley Dempsey Provider For Whom Rod is Documenting (Include Credential): Dr. Ximena Rodriguez MD Scribe Attestation: Ashley Petty, scribed for Dr. Ximena Rodriguez MD on 04/07/18 at 0115. Scribe Documentation Reviewed: Yes Provider Attestation: The documentation as recorded by the Ashley newman accurately reflects the service I personally performed and the decisions made by , Dr. Ximena Rodriguez MD Status of Scribe Document: Viewed
[2018-04-06] MEDS ORDERED: Diltiazem IV* 5 MG/ML 5 ML VIAL (for loading dose/IV Push) (25 MG) IV SLOW PU ONE (13:09)
[2018-04-06 13:24] LABS: ABS Basophils 0.1 10^3/ul (0-0.2); ABS Eosinophils 0 10^3/ul (0-0.6); ABS Lymphocytes 0.6 10^3/ul (1.0-4.8); ABS Monocytes 1.2 10^3/ul (0-0.8); ABS Neutrophils 13.8 10^3/ul (1.5-7.7); ABS Nucleated RBC 0 10^3/ul; Eosinophil % 0.2 %; Hematocrit 34 % (42-52); Hemoglobin 11.3 g/dl (14.0-18.0); Lymphocyte % 3.8 %; Mean Corpuscular HGB Conc 33 g/dl (31-36); Mean Corpuscular Hemoglobin 32 pg (27-31); Mean Corpuscular Volume 97 fL (80-94); Nucleated Red Blood Cells % 0; Platelet Count 289 10^3/ul (150-450); Red Blood Count 3.53 10^6/ul (4.00-5.40); Red Cell Distribution Width 16 % (10.5-15); White Blood Count 15.7 10^3/ul (3.5-10.8)
[2018-04-06 13:55] LABS: EGFR Non-African American 47.1 (>60)
[2018-04-06 15:01] LABS: INR 4.08 (0.77-1.02)
[2018-04-06] MEDS ORDERED: Iodixanol* (CONTRAST) 320 MG/ML 100 ML SDV IV ONE (17:15)
[2018-04-06] MEDS ORDERED: Furosemide IV* 10 MG/ML VIAL (40 MG) IV ONE (17:38)
[2018-04-06] MEDS ORDERED: Magnesium Hydroxide LIQ* 30 ML UDC PO PRN (17:42)
[2018-04-06] MEDS ORDERED: Acetaminophen TAB* 325 MG PO PRN (17:42)
[2018-04-06] MEDS ORDERED: Phytonadione IV (Adult)* 10 MG/ML 1 ML AMP IV ONE (18:33)
[2018-04-06] MEDS ORDERED: Phytonadione Oral Solution* 5 MG/25 ML UDC PO ONE (18:33)
--- NOTE | 2018-04-06 18:39 | PN ---
Hospitalist Progress Note Date of Service: 04/06/18 HOSPITALIST ADDENDUM Sign out received from Dr. Sneed. Mr Tello is a 77yo M who underwent CABG, AVR, MV angioplasty, Maze procedure in [place] 03/26, discharged 04/01, who presents to ED with c/o dyspnea, found to be in CHF exacerbation. Patient had an echocardiogram done that showed pericardial effusion. Contacted by Dr Mo to give Vitamin K IV/PO in preparation for pericardiocentesis tomorrow as patient is hemodynamically stable at this time. Plan is to admit to ICU for close monitoring, call Cardiology any time if decompensation. Signed out to Dr Morales.
--- NOTE | 2018-04-06 19:08 | ECHO ---
Patient: CHEYENNE GONZALES [facility] Rec#: [id number] : 1940 Date: 04/06/2018 Age: 77y Height: 168 cm / 66.1 in Weight: 83.5 kg / 184.0 lbs Sex: M BSA: 1.9 Room#: ED 19 Admit Date#: 04/06/2018 Type: Inpatient Referring: Maren Sneed MD Reading: Bandar Mo MD Parts Delivery Driver: Maddy Carrera RN RDCS CC: Huong Cantu MD Transthoracic Echocardiogram Indication: Shortness of breath, recent CABG and valve surgery BP: 128/96 HR: 118 Rhythm: A-Fib Findings History: CAD, , MR, TR, HTN, HLD, A. fib, CABG with MV repair and bioprosthetic AVR 10 days ago. Technical Comments: The study quality is fair. The study is technically limited due to patient body habitus. The study was technically limited due to the patient's inability to lay in the left lateral decubitus position. Left Ventricle: The left ventricular chamber size is normal. Moderate concentric left ventricular hypertrophy is observed. There are multiple regional wall motion abnormalities. There is moderate to severely decreased left ventricular systolic function. The estimated ejection fraction is 25-30%. Ventricular septal wall motion has a post-operative appearance. Abnormal left ventricular diastolic function is observed. Left Atrium: The left atrium is moderately dilated. Right Ventricle: The right ventricle is mildly dilated. The right ventricular global systolic function is mildly to moderately reduced. Right Atrium: The right atrium is mild to moderately dilated. Aortic Valve: There is no evidence of aortic regurgitation. The mean gradient of the aortic valve is 4 mmHg. The peak instantaneous gradient of the aortic valve is 6 mmHg. The aortic valve area, by peak velocities, is calculated at 2 cm2. The aortic valve area, by VTI's, is calculated at 2 cm2. A bio-prosthetic aortic valve is present. The bio-prosthetic aortic valve appears to be functioning normally. Mitral Valve: The mitral valve leaflets are mildly thickened. There is mild to moderate mitral regurgitation. Mitral valve repair functioning normally. Tricuspid Valve: The tricuspid valve leaflets are normal. There is moderate to severe tricuspid regurgitation. There is evidence of mild to moderate pulmonary hypertension. There is no tricuspid stenosis. Pulmonic Valve: The pulmonic valve structure is not well visualized. There is mild pulmonic regurgitation. There is no pulmonic stenosis. Pericardium: There is a moderate pericardial effusion.1.5 cm at the apex 2 cm posteriorly 1 cm anterior to RV The pericardial effusion is fluid filled. There is RV diastolic collapse seen at the apex in the A4C view. Possible early tamponade Aorta: There is no dilatation of the ascending aorta. The aortic arch is not well visualized. There is no dilation of the aortic root. Pulmonary Artery: The main pulmonary artery is not well visualized. Venous: The venous system is not well visualized. The inferior vena cava is not visualized. Conclusions CAD, , MR, TR, HTN, HLD, A. fib, CABG with MV repair and bioprosthetic AVR 10 days ago. Moderate concentric left ventricular hypertrophy is observed. There is moderate to severely decreased left ventricular systolic function. There are multiple regional wall motion abnormalities. The estimated ejection fraction is 25-30%. Ventricular septal wall motion has a post-operative appearance. The right ventricular global systolic function is mildly to moderately reduced. The bio-prosthetic aortic valve appears to be functioning normally. A bio-prosthetic aortic valve is present. There is no evidence of aortic regurgitation. The mean gradient of the aortic valve is 4 mmHg. There is mild to moderate mitral regurgitation. Mitral valve repair functioning normally. There is moderate to severe tricuspid regurgitation. There is evidence of mild to moderate pulmonary hypertension. There is a moderate pericardial effusion.1.5 cm at the apex 2 cm posteriorly 1 cm anterior to RV The pericardial effusion is fluid filled. There is RV diastolic collapse seen at the apex in the A4C view. Possible early tamponade Measurements Name Value Normal Range RVIDd (AP) 2D 3 cm (0.9 - 2.6) RVDdMajor (2D) 4.6 cm (2.2 - 4.4) RAd ISD 4CH 5.2 cm (3.4 - 4.9) RA (A4C)W 4.9 cm (2.9 - 4.6) IVSd (2D) 1.4 cm (0.6 - 1) LVPWd (2D) 1.4 cm (0.6 - 1) LVIDd (2D) 4.7 cm (3.6 - 5.4) LVIDs (2D) 4 cm - LV FS (2D) 18 % (25 - 45) Aortic Annulus 2 cm (1.4 - 2.6) Ao root diameter (2D) 3.4 cm (2.1 - 3.5) Ascending Ao 3.3 cm (2.1 - 3.4) LA dimension (AP) 2D 4.7 cm (2.3 - 3.8) LAd ISD 4CH 5 cm (2.9 - 5.3) LA ISD 4CH W 5.3 cm (2.5 - 4.5) Name Value Normal Range LA ESV BP (A/L) index 44.2 ml/m2 - Name Value Normal Range MV E-wave Vmax 1 m/sec - MV deceleration time 166 msec - LV septal e' Vmax 0.08 m/sec - LV lateral e' Vmax 0.07 m/sec - LV E:e' septal ratio 12.5 ratio - LV E:e' lateral ratio 14.3 ratio - Name Value Normal Range AV Vmax 1.4 m/sec - AV VTI 17.2 cm - AV peak gradient 6 mmHg - AV mean gradient 4 mmHg - LVOT diameter 2.1 cm - LVOT Vmax 0.82 m/sec - LVOT VTI 10.1 cm - LVOT peak gradient 3 mmHg - LVOT mean gradient 1 mmHg - DOI (VTI) 0.59 ratio - DOI (Vmax) 0.59 ratio - TERRANCE (continuity Vmax) 2 cm2 - TERRANCE (continuity VTI) 2 cm2 - Name Value Normal Range MV Vmax 1.2 m/sec - MV VTI 17.1 cm - MV peak gradient 6 mmHg - MV mean gradient 2 mmHg - MV PHT 51 msec - MVA (PHT) 4.3 cm2 - MVA (continuity VTI) 2 cm2 - Name Value Normal Range TR Vmax 3 m/sec - TR peak gradient 36 mmHg - RAP 8 mmHg - RVSP 44 mmHg - Name Value Normal Range PV Vmax 0.72 m/sec -
[2018-04-06] MEDS ORDERED: Phytonadione IV (Adult)* 2.5 MG in NS 0.9% 50 ML* 50 ML IV ONE (21:00)
[2018-04-06] MEDS: Mometasone/Formoter 200/5 MDI INH SCH (22:07)
[2018-04-06] MEDS: Docusate CAP* 100 MG PO SCH (22:07)
[2018-04-06] MEDS: Senna TAB PO SCH (22:08)
--- NOTE | 2018-04-06 23:30 | HP ---
CC: Dr. Cantu; Dr. Mo; Dr. Sami Pichardo, [place], [place] * HISTORY AND PHYSICAL: DATE OF ADMISSION: 04/06/18 PRIMARY CARE PROVIDER: Dr. Cantu. CHIEF COMPLAINT: Shortness of breath and cough. HISTORY OF PRESENT ILLNESS: Tc Tello is a 77-year-old male, who underwent coronary artery bypass graft with 3 vessels. The patient had OCHOA to LAD. There was a vein graft to the marginal and vein graft to the RCA. He had aortic valve replacement with bioprosthetic valve Trifecta and mitral valve repair with a mitral valve moseley. He also underwent a MAZE procedure around the pulmonary veins. That was performed on 04/05/18. The patient was discharged home on 04/01/18. Ever since his discharge home, he had been feeling short of breath especially when lying down. He stated that he had been coughing up "phlegm," which he indicates yellowish sputum. He also had been using incentive spirometry. He stated that his weight had been unchanged. He has had no postoperative pain, but occasionally had been using ibuprofen. He comes to the hospital with atrial fibrillation with rapid ventricular response and symptoms of congestive heart failure. His troponin is mildly elevated. He is going to be admitted to the hospital with a diagnosis of CHF. PAST MEDICAL HISTORY: 1. Coronary artery bypass grafting, aortic valve replacement of bioprosthetic valve, mitral valve repair, MAZE procedure performed on 03/26/18 at [facility] by Dr. Pichardo. 2. History of coronary artery disease. 3. Diabetes type 2. 4. Hypertension. 5. Asthma. 6. Hyperlipidemia. 7. BPH. 8. Chronic atrial fibrillation. 9. Gout. 10. History of bilateral total knee replacements. MEDICATIONS: Include: 1. Bumetanide 2 mg daily. 2. Losartan 50 mg daily. 3. Advair Diskus 250/50 one inhalation b.i.d. 4. Lipitor 80 mg daily. 5. Allopurinol 100 mg daily. 6. Coumadin 3.5 mg daily. 7. Glipizide/metformin 5/500 one tablet p.o. b.i.d. 8. Finasteride 5 mg daily. 9. Albuterol inhaler on a p.r.n. basis. 10. Aspirin 81 mg 3 times a week. ALLERGIES: No known drug allergies. FAMILY HISTORY: Mother of old age. Father had history of diabetes and stroke. SOCIAL HISTORY: The patient quit smoking over 40 years ago. He rarely drinks alcohol. He denies any drug use. His surrogate decision maker is his . REVIEW OF SYSTEMS: Positive for today, newly noted bilateral lower extremity edema. Weight has been stable. Positive for paroxysmal nocturnal dyspnea and orthopnea. Positive for coughing up yellow sputum. Positive for constipation. All the remaining 12 systems were reviewed with the patient and were otherwise negative. PHYSICAL EXAMINATION GENERAL: The patient is a very pleasant 77-year-old male, who is in no acute distress. Alert, awake, and oriented x3. VITAL SIGNS: The patient's oxygen saturation is 99% on 2 L of oxygen nasal cannula and 95% on room air, heart rate of 106 and irregularly regular, respiratory rate 25, blood pressure of /96, temperature of 98.3. HEENT: Head: Atraumatic, normocephalic. Eyes: Pupils are equal, reactive to light and accommodation. Oropharynx is clear. Mucosa moist. NECK: Supple. Positive for JVD bilaterally. RESPIRATORY: Rales bilateral bases, right more than left. CARDIOVASCULAR: Irregularly irregular rhythm. No murmur. ABDOMEN: Distended, protuberant, soft, nontender. Bowel sounds are present in all 4 quadrants. EXTREMITIES: There is +1 pitting pedal edema bilaterally. There is no clubbing and no cyanosis. Pulses are +2 bilaterally. NEUROLOGIC: Speech is clear. Cranial nerves II through XII are grossly intact. Motor strength is 5/5 bilaterally. SKIN: On evaluation of the skin, the patient has sutured areas on the medial aspect of the right leg after the vein harvesting. The patient also had multiple small areas covered with eschar on his upper abdomen from drains post surgery where they were removed. His post mediastinotomy wound is closed, healed well with no evidence of dehiscence, drainage, or fluctuation. DIAGNOSTIC STUDIES/LAB DATA: Laboratory data showed a white blood cell count of 15.7, hemoglobin of 11.3, hematocrit of 34, MCV of 97, and platelets of 285. INR of 4.08. D-dimer was above 1050. Sodium was 135, potassium 4.1, chloride 100, carbon dioxide 26, BUN 51, creatinine 1.45. Liver function tests were unremarkable. Troponin of 0.44. Magnesium of 2.3. TSH is pending. Procalcitonin below 0.1. EKG shows atrial fibrillation with a heart of 137 beats per minute with right bundle-branch block. ASSESSMENT AND PLAN: 1. The patient is short of breath and appears to be in congestive heart failure on his chest x-ray. The rapid atrial fibrillation is likely due to that. The patient has history of atrial fibrillation, which is usually rate controlled. Currently, his heart rate is in the 100 to 120 range after one dose of diltiazem 10 mg IV given in the ED. At this point, I suspect his shortness of breath is not related to pulmonary embolism since the patient is fully anticoagulated with Coumadin with INR over 4. Nevertheless, the patient had complex surgical procedure performed just 11 days ago including aortic valve replacement, mitral valve repair, MAZE procedure, and 3-vessel bypass. Due to that, a CT angiogram of the chest is going to be obtained to evaluate for any abnormalities as well as transthoracic echocardiogram. If those appear to be unremarkable from the surgical standpoint, the patient is going to be admitted to telemetry monitored floor and Cardiology is going to be consulted. We gentle diuresis bearing in mind that the patient just received contrast for his CT angiogram and has a history of chronic kidney disease. 2. The patient's chronic kidney disease stage 3 is at baseline in this patient with history of diabetes and likely related to diabetes. We will monitor it on a daily basis. 3. In regards to the patient's diabetes, the patient is going to be placed on insulin sliding scale and his oral hypoglycemics are going to be held. 4. In regards to the patient's atrial fibrillation with rapid ventricular response. Currently, it is better controlled. I am unsure if the patient was never on beta-yousuf, although he has history of cardiomyopathy. I will defer it to Cardiology. 5. For DVT prophylaxis. The patient is going to be placed on heparin subcutaneously. 6. The patient's code status is full and his surrogate is his . TIME SPENT: Approximately 80 minutes were spent on admission of this patient, more than half of that time was spent [id number] with the patient and other 20 minutes were spent reviewing of medical records from [facility]. Approximately 30 minutes were spent in preparing the patient's admission. [id number]/[facility] #: [id number] [facility]
[2018-04-07 01:45] LABS: Urine Appearance Cloudy; Urine Blood 3+ (Negative); Urine Color Yellow; Urine Ketones Negative (Negative); Urine Protein Negative (Negative); Urine Red Blood Cell 3+(>10/hpf) (Absent); Urine Specific Gravity 1.036 (1.010-1.030); Urine Urobilinogen Negative (Negative); Urine White Blood Cell Absent (Absent)
--- NOTE | 2018-04-07 05:26 | CONS ---
CC: Dr. Huong Cantu; Dr. Sami Pichardo, [facility]. * CARDIOLOGY CONSULTATION AND CRITICAL CARE NOTE: DATE OF CONSULT: 04/06/18. INDICATION FOR CONSULTATION: Coronary artery disease, recent bypass surgery with aortic valve replacement, shortness of breath. HISTORY OF PRESENT ILLNESS: The patient is a 77-year-old gentleman with a history of ischemic cardiomyopathy, congestive heart failure, chronic atrial fibrillation, mild renal insufficiency, who came to the emergency room after being seen by his primary care physician and found to be having had significant shortness of breath and dyspnea. The patient had a cardiac catheterization in November of 2016. At that time, his pulmonary artery pressures were 54/14 with a pulmonary capillary wedge pressure of 32 and significant V-waves on his wedge pressure. He had 80% stenosis to his ostial left anterior descending artery, an 80% stenosis to his diagonal vessel. History of stenting to his right coronary artery. The stent was open and patent. The patient was deemed to be a high-risk surgical candidate and medical therapy was pursued. The patient has had multiple episodes of congestive heart failure through this past summer. Ultimately, the decision was to pursue bypass surgery and valve surgery. Ten days ago, the patient underwent coronary artery bypass surgery with a OCHOA to the LAD and saphenous vein graft to the diagonal and a saphenous vein graft to the right coronary artery. He had an aortic valve replacement with a #21 pericardial valve and a mitral valve repair with a #29 ring. The patient was discharged from the hospital. The patient was on his Coumadin. The patient states that he has been feeling more short of breath over the last day or so. Again, the patient went to see his primary care physician, who sent the patient to the emergency room. In the emergency room, the patient was in atrial fibrillation with rapid ventricular response. He was tachypneic with a respiratory rate of 30 beats per minute, his blood pressure was 130/72. The patient had an echocardiogram done in the emergency room, which showed that his aortic valve replacement was functioning normally, mitral valve repair was functioning normally, ejection fracture was 25% to 30% with global hypokinesis with minor wall motion abnormalities. The patient did have a [id number] sized pericardial effusion. It measured 1.5 cm at the apex, 1 cm anterior to the right ventricle , and 2 cm posteriorly. The patient is on Coumadin. His INR in the emergency room was 4.08. The patient denied any chest pain. He has positive orthopnea. He has no palpitations. The patient denied any lightheadedness, dizziness, or syncope. PAST MEDICAL HISTORY: Significant for coronary artery disease as described above, history of hypertension, cardiomyopathy, chronic atrial fibrillation, and sleep apnea. PAST SURGICAL HISTORY: Bilateral knee replacements, coronary artery bypass surgery 10 days ago. MEDICATIONS: Medications on discharge from [facility]: 1. Atorvastatin 80 mg a day. 2. Bumex 2 mg daily. 3. Finasteride 5 mg a day. 4. Glipizide and metformin 5/500 two times a day. 5. Losartan 50 mg a day. 6. Coumadin as directed. 7. Aspirin 81 mg a day. ALLERGIES: No known drug allergies. FAMILY HISTORY: Not obtained. SOCIAL HISTORY: He is . He is currently retired. He denies tobacco or alcohol use. He does not get any regular exercise. REVIEW OF SYSTEMS: Positive for shortness of breath. Positive for tachycardia. Negative for fevers and chills. Positive for constipation. Other 12-point review was unremarkable. PHYSICAL EXAMINATION: Height is 5 feet 6 inches, weight is 184 pounds. His weight at this last office visit was 200 pounds. Sclerae anicteric. Oropharynx is pink without erythema. Carotids are 2+ without bruits. JVD is elevated at 6 cm. Cardiac Exam: Tachycardiac, S1 and S2 with a 1/6 systolic ejection murmur. No diastolic murmurs. PMI is difficult to assess. Lungs have decreased breath sounds throughout. There are mild rales at the bases. There is no dullness to percussion. Abdomen is slightly distended with normoactive bowel sounds. There is no hepatosplenomegaly. Extremities show 1+ edema. He has 2+ pulses throughout. The patient is awake, alert, and oriented. He moves all 4 extremities equally. The patient's pulsus paradoxus is 12 mmHg. LABORATORY STUDIES: INR of 4.08. Chemistries within normal limits. BUN 51, creatinine 1.4. AST and ALT are normal. Troponin is 0.44. TSH is normal. CBC , white count 15, hemoglobin 11, hematocrit 34, and platelet count 289. DIAGNOSTIC STUDIES: EKG demonstrates atrial fibrillation, right bundle-branch block. IMPRESSION: This is a 77-year-old gentleman with a history of coronary artery disease, history of valvular disease, who is 10 days past coronary artery bypass surgery with an aortic valve replacement and a mitral valve repair. The patient has significant dyspnea and congestive heart failure. On echocardiogram , his aortic valve was functioning normally. His mitral valve repair was functioning normally. The patient does have a moderate-sized pericardial effusion with some question of early tamponade. I had a long discussion with the patient, with Dr. Pichardo, and with the hospital staff regarding this patient. The options were to have the patient undergo pericardiocentesis tonight with FFP infusion, have the patient stay at [facility] and undergo pericardiocentesis tomorrow after his INR is corrected or transfer to [facility]. Currently, the weather outside is quite treacherous and transport would be significantly risky. Because the patient's blood pressure is 130, I do not think the patient is in severe tamponade. For now, the recommendation is to observe the patient overnight. The patient will get very gentle diuresis to see if his congestive heart failure was improved. If the patient gets significantly worse and his blood pressure gets worse, I will consider urgent pericardiocentesis if necessary. Total time : 2 hours of which 1 hour was critical care [id number]/[facility] #: [id number] GABINO
[2018-04-07 06:29] LABS: INR 1.58 (0.77-1.02)
[2018-04-07] MEDS ORDERED: Furosemide IV* 10 MG/ML 10 ML VIAL (100 MG) IV SCH (08:00)
[2018-04-07] MEDS: Atorvastatin* 80 MG TAB PO SCH (08:17)
[2018-04-07] MEDS: Finasteride TAB* 5 MG PO SCH (08:17)
[2018-04-07] MEDS: Aspirin EC TAB* 81 MG TAB.EC PO SCH (08:18)
[2018-04-07] MEDS: Docusate CAP* 100 MG PO SCH ×2 (08:18→21:42)
[2018-04-07] MEDS: Allopurinol TAB* 100 MG PO SCH (08:18)
[2018-04-07] MEDS: Senna TAB PO SCH ×2 (08:18→21:42)
[2018-04-07] MEDS: Mometasone/Formoter 200/5 MDI INH SCH ×2 (08:22→19:28)
[2018-04-07] MEDS ORDERED: Dextrose 50% Syringe 50 ML* 25 GM/50 ML SYRINGE IV PUSH PRN (08:39)
[2018-04-07 09:09] LABS: ABS Basophils 0.1 10^3/ul (0-0.2); ABS Eosinophils 0.1 10^3/ul (0-0.6); ABS Lymphocytes 0.7 10^3/ul (1.0-4.8); ABS Monocytes 1.3 10^3/ul (0-0.8); ABS Neutrophils 13.5 10^3/ul (1.5-7.7); ABS Nucleated RBC 0 10^3/ul; Eosinophil % 0.5 %; Hematocrit 33 % (42-52); Hemoglobin 10.8 g/dl (14.0-18.0); Lymphocyte % 4.5 %; Mean Corpuscular HGB Conc 33 g/dl (31-36); Mean Corpuscular Hemoglobin 32 pg (27-31); Mean Corpuscular Volume 97 fL (80-94); Mean Platelet Volume 8.6 fL (7.4-10.4); Nucleated Red Blood Cells % 0.1; Platelet Count 288 10^3/ul (150-450); Red Blood Count 3.36 10^6/ul (4.00-5.40); Red Cell Distribution Width 16 % (10.5-15); White Blood Count 15.7 10^3/ul (3.5-10.8)
--- NOTE | 2018-04-07 09:15 | PN ---
Subjective Date of Service: 04/07/18 - CC: SOB post valve surgery w/PC effusion Interval History: The pt feels his breathing is a bit better. No CP Has persistent orthopnea. Hungry. Medications Active Medications: Acetaminophen (Tylenol Tab*) 650 mg PO Q4H PRN PRN Reason: FEVER/PAIN Albuterol (Ventolin 2.5 Mg/3 Ml Neb.Leeann*) 2.5 mg INH [id number] AWAKE PRN PRN Reason: sob/wheezing Allopurinol (Zyloprim Tab*) 100 mg PO DAILY [facility] Last Admin: 04/07/18 08:18 Dose: 100 mg Aspirin (Aspirin Ec Tab*) 81 mg PO DAILY [facility] Last Admin: 04/07/18 08:18 Dose: 81 mg Atorvastatin Calcium (Lipitor*) 80 mg PO DAILY [facility] Last Admin: 04/07/18 08:17 Dose: 80 mg Dextrose (D50w Syringe 50 Ml*) 12.5 gm IV PUSH .FOR FS < 60 - SS PRN PRN Reason: FS < 60 Docusate Sodium (Colace Cap*) 100 mg PO BID [facility] Last Admin: 04/07/18 08:18 Dose: 100 mg Finasteride (Proscar Tab*) 5 mg PO DAILY [facility] Last Admin: 04/07/18 08:17 Dose: 5 mg Insulin Human Lispro (Humalog*) 0 units SUBCUT FS ACHS ICU [facility]; Protocol Magnesium Hydroxide (Milk Of Magnesia Liq*) 30 ml PO Q4H PRN PRN Reason: CONSTIPATION Mometasone Furoate/Formoterol Fumar (Dulera 200/5 Mdi*) 1 puff INH BID [facility] Last Admin: 04/07/18 08:22 Dose: 1 puff Senna (Senokot Tab*) 1 tab PO BID [facility] Last Admin: 04/07/18 08:18 Dose: 1 tab Objective Vital Signs: Temp Pulse Resp BP Pulse Ox 96.7 F 99 33 125/102 99 04/07/18 07:34 04/07/18 08:01 04/07/18 08:01 04/07/18 08:00 04/07/18 08:01 Oxygen Devices in Use Now: Nasal Cannula Appearance: older male, lying 50 degrees, tachypnic. Eyes: No Scleral Icterus, PERRLA Ears/Nose/Mouth/Throat: Mucous Membranes Moist Neck: Trachea Midline, No Thyroid Enlargement, Masses Respiratory: Symmetrical Chest Expansion and Respiratory Effort - Rhochorous cough, wheezing, rare rales bases, diminished. Cardiovascular: - - tachycardic, 2 component rub, soft. Abdominal: NL Sounds; No Tenderness; No Distention Extremities: - - mild edema bilaterally. Skin: No Rash or Ulcers - midline sternotomy scar healing well. Neurological: Alert and Oriented x 3 Lines/Tubes/Other Access: Clean, Dry and Intact Peripheral IV Laboratory Results: 04/07/18 08:58 04/06/18 13:14 INR (Anticoag Therapy) 1.58 (0.77-1.02) H 04/07/18 06:10 APTT 43.2 seconds (26.0-36.3) H 04/06/18 13:14 Total Bilirubin 0.90 mg/dL (0.2-1.0) 04/06/18 13:14 AST 21 U/L (13-39) 04/06/18 13:14 ALT 18 U/L (7-52) 04/06/18 13:14 Alkaline Phosphatase 114 U/L (34-104) H 04/06/18 13:14 CK-MB (CK-2) 3.4 ng/mL (0.6-6.3) 04/06/18 13:14 B-Natriuretic Peptide 541 pg/mL (<=100) H 04/06/18 13:14 Total Protein 7.4 g/dL (6.4-8.9) 04/06/18 13:14 Albumin 3.2 g/dL (3.2-5.2) 04/06/18 13:14 Globulin 4.2 g/dL (2-4) H 04/06/18 13:14 Albumin/Globulin Ratio 0.8 (1-3) L 04/06/18 13:14 TSH 4.41 mcIU/mL (0.34-5.60) 04/06/18 13:14 04/06/18 04/06/18 04/06/18 13:14 17:25 20:00 Troponin I 0.44 H* 0.47 H* 0.51 H* 04/06/18 23:28 Troponin I 0.50 H* Abnormal Lab Results 04/06/18 04/06/18 04/06/18 13:14 13:14 13:14 WBC 15.7 H RBC 3.53 L Hgb 11.3 L Hct 34 L MCV 97 H MCH 32 H MCHC 33 RDW 16 H Plt Count 289 MPV 9.0 Neut % (Auto) 88.0 Lymph % (Auto) 3.8 [place] % (Auto) 7.6 Eos % (Auto) 0.2 Baso % (Auto) 0.4 Absolute Neuts (auto) 13.8 H Absolute Lymphs (auto) 0.6 L Absolute Monos (auto) 1.2 H Absolute Eos (auto) 0 Absolute Basos (auto) 0.1 Absolute Nucleated RBC 0 Nucleated RBC % 0 INR (Anticoag Therapy) 4.08 H APTT 43.2 H D-Dimer, Quantitative > 1050 H Sodium 135 Potassium 4.1 Chloride 100 L Carbon Dioxide 26 Anion Gap 9 BUN 51 H Creatinine 1.45 H Est GFR ( Amer) 57.0 Est GFR (Non-Af Amer) 47.1 BUN/Creatinine Ratio 35.2 H Glucose 334 H Lactic Acid Calcium 9.2 Magnesium 2.3 Total Bilirubin 0.90 AST 21 ALT 18 Alkaline Phosphatase 114 H Total Creatine Kinase 55 CK-MB (CK-2) 3.4 Troponin I 0.44 H* C-Reactive Protein 108.73 H B-Natriuretic Peptide Total Protein 7.4 Albumin 3.2 Globulin 4.2 H Albumin/Globulin Ratio 0.8 L Procalcitonin TSH 4.41 Urine Color Urine Appearance Urine pH Ur Specific [place] Urine Protein Urine Ketones Urine Blood Urine Nitrate Urine Bilirubin Urine Urobilinogen Ur Leukocyte Esterase Urine WBC (Auto) Urine RBC (Auto) Urine Bacteria Hyaline Casts Urine Glucose Blood Type Diagnostic Imaging: Echo 04/06/18: PC effusion 1.5-2 cm, EF 25-30%, LVH, RV hypokinetic, bioprosth AVR good function, mild to mod MR, mod-severe TR. PApr 44 mmHg Assessment/Plan 77 yo 2 weeks s/p AVR, MV repair, who did well until Thursday(4 days ago) then developed orthopnea, SOB. Echo, elevated CRP c/w Dresslers. PC effusion: -Dr Mo scheduled to tap today. Dresslers: -Needs medical management too. -Starting colchine now. -NSAIDs to follow when OK'd post procedure by Dr Mo. AFib/RVR -Rate may improve post tap and with time, but will add BB post tap. -Resume antiocoagulants post tap (based on fluid + or - heme). CM: -Post procedure adjust meds, options include aldactone, BB, ACEI/ARB. Trops: -Most likely from Dresslers and CHF.
[2018-04-07 09:29] LABS: EGFR Non-African American 49.4 (>60)
--- NOTE | 2018-04-07 10:10 | PN ---
Subjective Date of Service: 04/07/18 Interval History: Pt still SOB. Planned for pericardiocentesis today at noon Objective Active Medications: Acetaminophen (Tylenol Tab*) 650 mg PO Q4H PRN PRN Reason: FEVER/PAIN Albuterol (Ventolin 2.5 Mg/3 Ml Neb.Leeann*) 2.5 mg INH [id number] AWAKE PRN PRN Reason: sob/wheezing Allopurinol (Zyloprim Tab*) 100 mg PO DAILY [facility] Last Admin: 04/07/18 08:18 Dose: 100 mg Aspirin (Aspirin Ec Tab*) 81 mg PO DAILY [facility] Last Admin: 04/07/18 08:18 Dose: 81 mg Atorvastatin Calcium (Lipitor*) 80 mg PO DAILY [facility] Last Admin: 04/07/18 08:17 Dose: 80 mg Colchicine (Colcrys*) 0.6 mg PO DAILY [facility] Dextrose (D50w Syringe 50 Ml*) 12.5 gm IV PUSH .FOR FS < 60 - SS PRN PRN Reason: FS < 60 Docusate Sodium (Colace Cap*) 100 mg PO BID [facility] Last Admin: 04/07/18 08:18 Dose: 100 mg Finasteride (Proscar Tab*) 5 mg PO DAILY [facility] Last Admin: 04/07/18 08:17 Dose: 5 mg Insulin Human Lispro (Humalog*) 0 units SUBCUT FS ACHS ICU [facility]; Protocol Magnesium Hydroxide (Milk Of Magnesia Liq*) 30 ml PO Q4H PRN PRN Reason: CONSTIPATION Mometasone Furoate/Formoterol Fumar (Dulera 200/5 Mdi*) 1 puff INH BID [facility] Last Admin: 04/07/18 08:22 Dose: 1 puff Senna (Senokot Tab*) 1 tab PO BID [facility] Last Admin: 04/07/18 08:18 Dose: 1 tab Vital Signs - 8 hr 04/07/18 04/07/18 04/07/18 03:00 03:58 04:00 Temperature 97.5 F Pulse Rate 107 88 Respiratory 25 18 Rate Blood Pressure 142/109 (mmHg) O2 Sat by Pulse 98 100 Oximetry 04/07/18 04/07/18 04/07/18 04:01 05:00 06:00 Temperature Pulse Rate 98 98 100 Respiratory 19 18 26 Rate Blood Pressure 109/74 125/78 133/93 (mmHg) O2 Sat by Pulse 100 100 98 Oximetry 04/07/18 04/07/18 04/07/18 06:01 07:00 07:01 Temperature Pulse Rate 103 109 107 Respiratory 24 30 29 Rate Blood Pressure 128/90 (mmHg) O2 Sat by Pulse 98 98 99 Oximetry 04/07/18 04/07/18 04/07/18 07:25 07:34 08:00 Temperature 96.7 F Pulse Rate 118 Respiratory 29 32 Rate Blood Pressure 125/102 (mmHg) O2 Sat by Pulse 99 Oximetry 04/07/18 04/07/18 08:01 09:00 Temperature Pulse Rate 99 122 Respiratory 33 31 Rate Blood Pressure (mmHg) O2 Sat by Pulse 99 100 Oximetry Oxygen Devices in Use Now: Nasal Cannula Appearance: 77 yo M in nAD, mild tachypnea noted Eyes: No Scleral Icterus, PERRLA Ears/Nose/Mouth/Throat: NL Teeth, Lips, Gums, Clear Oropharnyx Neck: Trachea Midline, - - IVD+ b/l Respiratory: Symmetrical Chest Expansion and Respiratory Effort, - - rales b/l Cardiovascular: - - irregular, tachy Abdominal: NL Sounds; No Tenderness; No Distention, No Hepatosplenomegaly Lymphatic: No Cervical Adenopathy Extremities: No Clubbing, Cyanosis, - - +1 pitting pedal edema Skin: No Nodules or Sclerosis, - - eschar covered post op wounds on abd, healinfg post sternotomy incision. L medial LE healing post vein retrieval wounds Neurological: Alert and Oriented x 3, NL Muscle Strength and Tone Result Diagrams: 04/07/18 08:58 04/07/18 08:58 Microbiology and Other Data: Microbiology 04/06/18 19:37 Nasal Screen MRSA (PCR) - Final Nasal Mrsa Not Detected Assess/Plan/Problems-Billing Assessment: Mr Tello is a 77yo M who underwent CABG, AVR (bioprosthetic), MV repair, Maze procedure in [place] 03/26, discharged 04/01, who presents to ED with c/o dyspnea, found to be in CHF exacerbation. Patient had an echocardiogram done that showed pericardial effusion. 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 Escobar Pericardiocentesis planned today (2) Acute systolic CHF (congestive heart failure) Comment: EF 25-30% on Echo with mod MR and severe TR. diuresis on hold prior to pericardiocentesis (3) Atrial fibrillation Comment: Chronically anticoagulated with Coumadin which was held and reversed with vit K HR in 120's may improve after perciardiocentesis (4) Diabetes Comment: NIDDM Holding oral agents and covering with SS Humalog (5) DVT prophylaxis Comment: SCD's pre procedure (6) CKD (chronic kidney disease) stage 3, GFR 30-59 ml/min Comment: due to DM, creat at baseline Status and Disposition: Inpatient
[2018-04-07] MEDS: Colchicine* 0.6 MG TAB PO SCH (11:24)
[2018-04-07] MEDS: Insulin LISPRO* 1 UNITS UNIT SUBCUT SCH ×3 (11:35→21:41)
[2018-04-07] MEDS ORDERED: Metoprolol Tartrate TAB* 25 MG ONE (12:00)
[2018-04-07] MEDS ORDERED: Lidocaine 1% INJ* 10 MG/ML 30 ML SDV ONE (12:45)
[2018-04-07] MEDS ORDERED: Metoprolol Tartrate TAB* 25 MG PO ONE (13:00)
[2018-04-07] MEDS ORDERED: fentaNYL* 50 MCG/ML 2 ML VIAL (100 MCG VIAL) ONE (13:49)
[2018-04-07] MEDS ORDERED: Midazolam* 1 MG/ML 10 ML VIAL (10 MG) ONE (13:49)
[2018-04-07] MEDS ORDERED: Furosemide IV* 10 MG/ML VIAL (40 MG) IV ONE (14:40)
[2018-04-07] MEDS ORDERED: Furosemide IV* 10 MG/ML VIAL (40 MG) ONE (14:50)
[2018-04-07] MEDS ORDERED: Furosemide IV* 10 MG/ML VIAL (40 MG) IV SCH (17:00)
[2018-04-07] MEDS: Albuterol 2.5 MG/3 ML NEB.SOL* (0.083%) INH PRN (21:22)
[2018-04-07] MEDS ORDERED: Benzonatate CAP* 100 MG PO PRN (21:56)
[2018-04-08] MEDS: Albuterol 2.5 MG/3 ML NEB.SOL* (0.083%) INH PRN (02:21)
--- NOTE | 2018-04-08 04:40 | PRO ---
DATE OF PROCEDURE: 04/07/18 - ROOM #ICU-02 PROCEDURE: Pericardiocentesis. INDICATION: Pericardial effusion, tachycardia. The patient is a 77-year-old gentleman, who 10 days ago underwent coronary artery bypass surgery, aortic valve replacement, and mitral valve repair. The patient was discharged from the hospital 3 days ago, was seen yesterday by his primary care physician and found to be tachypneic and tachycardic. He was sent to the emergency room. In the emergency room, an echocardiogram showed a large pericardial effusion with early evidence of tamponade. The patient's INR yesterday was 4.0. The patient's Coumadin was reversed and decision was to have pericardiocentesis today. DESCRIPTION OF PROCEDURE: The patient was brought to the cardiac catheterization lab in a fasting state. Informed consent had been obtained prior to the procedure. All labs have been reviewed. The patient was placed supine on the procedure table. His left lower chest area was prepped and draped in usual fashion. 1% lidocaine was used for local anesthesia. Under ultrasound guidance, at the axillary position, the pericardial effusion was entered by a catheterization needle and a wire was placed. Over the wire, a fenestrated catheter was placed. Approximately 450 cc of serosanguineous fluid was removed. The patient's heart rate and blood pressure remained stable throughout the procedure. The patient tolerated the procedure well with no complications. Postprocedure, the patient did have a chest x-ray, which showed no obvious pneumothorax. 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 [id number]/[facility] #: [id number] [facility]ITALK[facility]
[2018-04-08 07:05] LABS: ABS Basophils 0 10^3/ul (0-0.2); ABS Eosinophils 0 10^3/ul (0-0.6); ABS Lymphocytes 0.6 10^3/ul (1.0-4.8); ABS Monocytes 0.8 10^3/ul (0-0.8); ABS Neutrophils 11.8 10^3/ul (1.5-7.7); ABS Nucleated RBC 0 10^3/ul; Eosinophil % 0.1 %; Hematocrit 32 % (42-52); Hemoglobin 10.4 g/dl (14.0-18.0); Lymphocyte % 4.4 %; Mean Corpuscular HGB Conc 33 g/dl (31-36); Mean Corpuscular Hemoglobin 33 pg (27-31); Mean Corpuscular Volume 100 fL (80-94); Mean Platelet Volume 8.5 fL (7.4-10.4); Nucleated Red Blood Cells % 0; Platelet Count 265 10^3/ul (150-450); Red Blood Count 3.19 10^6/ul (4.00-5.40); Red Cell Distribution Width 16 % (10.5-15); White Blood Count 13.2 10^3/ul (3.5-10.8)
[2018-04-08 07:26] LABS: INR 1.24 (0.77-1.02)
[2018-04-08] MEDS: Allopurinol TAB* 100 MG PO SCH (08:33)
[2018-04-08] MEDS: Aspirin EC TAB* 81 MG TAB.EC PO SCH (08:33)
[2018-04-08] MEDS: Finasteride TAB* 5 MG PO SCH (08:33)
[2018-04-08] MEDS: Senna TAB PO SCH ×2 (08:33→20:59)
[2018-04-08] MEDS: Atorvastatin* 80 MG TAB PO SCH (08:34)
[2018-04-08] MEDS: Colchicine* 0.6 MG TAB PO SCH (08:34)
[2018-04-08] MEDS: Furosemide IV* 10 MG/ML VIAL (40 MG) IV SCH (08:34)
[2018-04-08] MEDS: Docusate CAP* 100 MG PO SCH ×2 (08:34→20:59)
[2018-04-08] MEDS: Mometasone/Formoter 200/5 MDI INH SCH ×2 (08:34→20:26)
[2018-04-08] MEDS ORDERED: Metoprolol Tartrate TAB* 25 MG PO SCH (09:00)
--- NOTE | 2018-04-08 09:16 | ECHO ---
Patient: CHEYENNE GONZALES [facility] Rec#: [id number] : 1940 Date: 04/07/2018 Age: 77y Height: 168 cm / 66.1 in Weight: 92 kg / 202.8 lbs Sex: M BSA: 2.02 Room#: ICU 2 Admit Date#: 04/06/2018 Type: Inpatient Referring: Bandar Mo MD Reading: Bandar Mo MD Education Faculty Member: Rin RomanoDR. DAN [facility]. [facility] Transthoracic Echocardiogram Indication: Pericardial effusion BP: 126/76 HR: 79 Rhythm: NSR Findings History: LIMITED ECHO. S/P pericardiocentesis. Technical Comments: The study quality is fair. Pericardium: There is no significant pericardial effusion. Conclusions Limitied study s/p pericaridiocentesis All pericaridal fluid removed Mitral valve respiritory variation is 8%
[2018-04-08] MEDS: Insulin LISPRO* 1 UNITS UNIT SUBCUT SCH ×4 (10:11→20:55)
[2018-04-08] MEDS ORDERED: Furosemide IV* 10 MG/ML VIAL (40 MG) IV ONE (13:18)
--- NOTE | 2018-04-08 13:25 | ECHO ---
Patient: CHEYENNE GONZALES [facility] Rec#: [id number] : 1940 Date: 04/08/2018 Age: 77y Height: 168 cm / 66.1 in Weight: 92.1 kg / 203.0 lbs Sex: M BSA: 2.02 Room#: ICU-2 Admit Date#: 04/06/2018 Type: Inpatient Referring: Bandar Mo MD Reading: Wilfred Lerma DO Reading: Wilfred Lerma DO Registered Radiographer: Janae Mcintosh RDCS CC: Huong Cantu MD Transthoracic Echocardiogram Indication: Pericardial effusion, f/u pericardiocentesis. BP: 135/104 HR: 119 Rhythm: A-Fib Findings Technical Comments: The study quality is fair. Left Ventricle: The left ventricular chamber size is normal. There is severely decreased left ventricular systolic function. The estimated ejection fraction is 25-30%. Right Ventricle: The right ventricle is mildly dilated. The right ventricular global systolic function is mildly to moderately reduced. Pericardium: There is a moderate pericardial effusion. There are no signs of significant hemodynamic compromise. The pericardial effusion is seen adjacent to the left ventricle. A left pleural effusion is present. Venous: The inferior vena cava is dilated. There is less than 50% respiratory change in the inferior vena cava dimension. Conclusions There is severely decreased left ventricular systolic function. There is a moderate sized localized posterior pericardial effusion. Pleural effusion noted. Limited study, compared to prior study from 04/06 the majority of the circumferential pericardial fluid has been removed
--- NOTE | 2018-04-08 13:30 | PN ---
Subjective Date of Service: 04/08/18 Interval History: f/u pericardial tamponade/pericardiocentesis, CHF s/p 450 cc serosanguinous pericardiocentesis yesterday Patient has no complaints today Remains volume overloaded mild tachypneic, not dyspneic at rest limited echo today only residual posterior fluid, most drained tele: ? sinus Medications Active Medications: Acetaminophen (Tylenol Tab*) 650 mg PO Q4H PRN PRN Reason: FEVER/PAIN Albuterol (Ventolin 2.5 Mg/3 Ml Neb.Leeann*) 2.5 mg INH [id number] AWAKE PRN PRN Reason: sob/wheezing Last Admin: 04/08/18 02:21 Dose: 2.5 mg Allopurinol (Zyloprim Tab*) 100 mg PO DAILY [facility] Last Admin: 04/08/18 08:33 Dose: 100 mg Aspirin (Aspirin Tab*) 650 mg PO BID [facility] Atorvastatin Calcium (Lipitor*) 80 mg PO DAILY [facility] Last Admin: 04/08/18 08:34 Dose: 80 mg Benzonatate (Tessalon Cap*) 100 mg PO BID PRN PRN Reason: COUGH Last Admin: 04/07/18 22:29 Dose: 100 mg Colchicine (Colcrys*) 0.6 mg PO DAILY [facility] Last Admin: 04/08/18 08:34 Dose: 0.6 mg Dextrose (D50w Syringe 50 Ml*) 12.5 gm IV PUSH .FOR FS < 60 - SS PRN PRN Reason: FS < 60 Docusate Sodium (Colace Cap*) 100 mg PO BID [facility] Last Admin: 04/08/18 08:34 Dose: 100 mg Finasteride (Proscar Tab*) 5 mg PO DAILY [facility] Last Admin: 04/08/18 08:33 Dose: 5 mg Furosemide (Lasix Iv*) 40 mg IV DAILY [facility] Last Admin: 04/08/18 08:34 Dose: 40 mg Insulin Human Lispro (Humalog*) 0 units SUBCUT FS ACHS ICU [facility]; Protocol Last Admin: 04/08/18 13:15 Dose: 2 unit Magnesium Hydroxide (Milk Of Magnesia Liq*) 30 ml PO Q4H PRN PRN Reason: CONSTIPATION Metoprolol Tartrate (Lopressor Tab*) 25 mg PO BID [facility] Last Admin: 04/08/18 10:14 Dose: 25 mg Mometasone Furoate/Formoterol Fumar (Dulera 200/5 Mdi*) 1 puff INH BID [facility] Last Admin: 04/08/18 08:34 Dose: 1 puff Senna (Senokot Tab*) 1 tab PO BID [facility] Last Admin: 04/08/18 08:33 Dose: 1 tab Objective Vital Signs: Temp Pulse Resp BP Pulse Ox 97.4 F 86 30 126/68 97 04/08/18 12:00 04/08/18 11:00 04/08/18 11:00 04/08/18 11:00 04/08/18 11:00 Oxygen Devices in Use Now: Nasal Cannula Appearance: laying upright, mildly tachypneic but conversant Eyes: No Scleral Icterus, PERRLA Ears/Nose/Mouth/Throat: Mucous Membranes Moist Neck: Trachea Midline, No Thyroid Enlargement, Masses Respiratory: Symmetrical Chest Expansion and Respiratory Effort - scattered wheeze, decreased bs bases Cardiovascular: - - RRR, no rub or significant murmur appreciated, sternotomy wound no evidence of infection Abdominal: NL Sounds; No Tenderness; No Distention Extremities: - - 1+ edema b/l Skin: No Rash or Ulcers - midline sternotomy scar healing well. Neurological: Alert and Oriented x 3 Lines/Tubes/Other Access: Clean, Dry and Intact Peripheral IV Laboratory Results: 04/08/18 06:30 04/08/18 06:30 INR (Anticoag Therapy) 1.24 (0.77-1.02) H 04/08/18 07:05 APTT 43.2 seconds (26.0-36.3) H 04/06/18 13:14 Total Bilirubin 0.90 mg/dL (0.2-1.0) 04/06/18 13:14 AST 21 U/L (13-39) 04/06/18 13:14 ALT 18 U/L (7-52) 04/06/18 13:14 Alkaline Phosphatase 114 U/L (34-104) H 04/06/18 13:14 CK-MB (CK-2) 3.4 ng/mL (0.6-6.3) 04/06/18 13:14 B-Natriuretic Peptide 541 pg/mL (<=100) H 04/06/18 13:14 Total Protein 7.4 g/dL (6.4-8.9) 04/06/18 13:14 Albumin 3.2 g/dL (3.2-5.2) 04/06/18 13:14 Globulin 4.2 g/dL (2-4) H 04/06/18 13:14 Albumin/Globulin Ratio 0.8 (1-3) L 04/06/18 13:14 TSH 4.41 mcIU/mL (0.34-5.60) 04/06/18 13:14 04/06/18 04/06/18 04/06/18 13:14 17:25 20:00 Troponin I 0.44 H* 0.47 H* 0.51 H* 04/06/18 23:28 Troponin I 0.50 H* Diagnostic Imaging: Echo 04/06/18: PC effusion 1.5-2 cm, EF 25-30%, LVH, RV hypokinetic, bioprosth AVR good function, mild to mod MR, mod-severe TR. 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 now s/p pericardiocentesis and diuresis and improving, LVEF 25% - Continue colchicine 0.6 mg po daily - Change aspirin to 650 mg po bid for now (ordered) - Continue off warfarin for now, Check EKG (ordered) - Change BB to long acting 25 mg po bid (ordered) due to systolic HF - Continue IV lasix 40 mg daily, given an extra dose now 40 mg (ordered) - Will check BMP daily - Hold off on AceI/aldactone for now - Will recheck inflammatory markers at some point - DM management per Primary service - Plan to recheck limited echo 04/11/2018 to re-evaluate pericardial fluid - Ok to transfer to [facility] - Needs SCD's, effusion was not hemorrhagic, if remains stable would start low dose pharmacologic dvt prophylaxis tomorrow - Will follow, please call with questions or concerns
[2018-04-08] MEDS: Aspirin TAB* 325 MG PO SCH ×2 (14:31→20:54)
--- NOTE | 2018-04-08 16:23 | PN ---
Subjective Date of Service: 04/08/18 Interval History: pt was still SOB in AM, better in PM after two doses of Lasix Objective Active Medications: Acetaminophen (Tylenol Tab*) 650 mg PO Q4H PRN PRN Reason: FEVER/PAIN Albuterol (Ventolin 2.5 Mg/3 Ml Neb.Leeann*) 2.5 mg INH [id number] AWAKE PRN PRN Reason: sob/wheezing Last Admin: 04/08/18 02:21 Dose: 2.5 mg Allopurinol (Zyloprim Tab*) 100 mg PO DAILY [facility] Last Admin: 04/08/18 08:33 Dose: 100 mg Aspirin (Aspirin Tab*) 650 mg PO BID [facility] Last Admin: 04/08/18 14:31 Dose: 650 mg Atorvastatin Calcium (Lipitor*) 80 mg PO DAILY [facility] Last Admin: 04/08/18 08:34 Dose: 80 mg Benzonatate (Tessalon Cap*) 100 mg PO BID PRN PRN Reason: COUGH Last Admin: 04/07/18 22:29 Dose: 100 mg Colchicine (Colcrys*) 0.6 mg PO DAILY [facility] Last Admin: 04/08/18 08:34 Dose: 0.6 mg Dextrose (D50w Syringe 50 Ml*) 12.5 gm IV PUSH .FOR FS < 60 - SS PRN PRN Reason: FS < 60 Docusate Sodium (Colace Cap*) 100 mg PO BID [facility] Last Admin: 04/08/18 08:34 Dose: 100 mg Enoxaparin Sodium (Lovenox(*)) 90 mg SUBCUT Q12H [facility] Finasteride (Proscar Tab*) 5 mg PO DAILY [facility] Last Admin: 04/08/18 08:33 Dose: 5 mg Furosemide (Lasix Iv*) 40 mg IV DAILY [facility] Last Admin: 04/08/18 08:34 Dose: 40 mg Insulin Human Lispro (Humalog*) 0 units SUBCUT FS ACHS ICU [facility]; Protocol Last Admin: 04/08/18 13:15 Dose: 2 unit Magnesium Hydroxide (Milk Of Magnesia Liq*) 30 ml PO Q4H PRN PRN Reason: CONSTIPATION Metoprolol Succinate (Toprol Xl Tab*) 25 mg PO BID [facility] Mometasone Furoate/Formoterol Fumar (Dulera 200/5 Mdi*) 1 puff INH BID [facility] Last Admin: 04/08/18 08:34 Dose: 1 puff Senna (Senokot Tab*) 1 tab PO BID [facility] Last Admin: 04/08/18 08:33 Dose: 1 tab Warfarin Sodium (Coumadin Tab(*)) 5 mg PO DAILY@1700 [facility]; Protocol Vital Signs - 8 hr 04/08/18 04/08/18 04/08/18 09:00 09:01 10:00 Temperature Pulse Rate 109 112 Respiratory 30 31 34 Rate Blood Pressure 142/70 118/69 (mmHg) O2 Sat by Pulse 95 93 Oximetry 04/08/18 04/08/18 04/08/18 11:00 12:00 12:01 Temperature 97.4 F Pulse Rate 86 90 85 Respiratory 37 28 30 Rate Blood Pressure 126/68 122/77 (mmHg) O2 Sat by Pulse 97 97 98 Oximetry 04/08/18 04/08/18 04/08/18 13:01 13:22 14:00 Temperature Pulse Rate 84 85 Respiratory 25 22 26 Rate Blood Pressure 110/72 (mmHg) O2 Sat by Pulse 97 Oximetry 04/08/18 04/08/18 14:01 15:00 Temperature Pulse Rate 85 92 Respiratory 31 31 Rate Blood Pressure 134/86 136/61 (mmHg) O2 Sat by Pulse 98 95 Oximetry Oxygen Devices in Use Now: Nasal Cannula Appearance: 77 yo M in nAD, aAOx3 Eyes: No Scleral Icterus, PERRLA Ears/Nose/Mouth/Throat: NL Teeth, Lips, Gums, Mucous Membranes Moist Neck: NL Appearance and Movements; NL JVP, Trachea Midline Respiratory: Symmetrical Chest Expansion and Respiratory Effort, - - rales at b/ l lower to mid lungs Cardiovascular: - - irregular Abdominal: NL Sounds; No Tenderness; No Distention, No Hepatosplenomegaly Lymphatic: No Cervical Adenopathy Extremities: No Clubbing, Cyanosis, - - +1 pitting pedal edema b/l Skin: No Nodules or Sclerosis, - - upper abd post op incisions covered with eschar, sternotomy incision healing, no dehiscence Neurological: Alert and Oriented x 3, NL Muscle Strength and Tone Result Diagrams: 04/08/18 06:30 04/08/18 06:30 Microbiology and Other Data: Microbiology 04/06/18 19:37 Nasal Screen MRSA (PCR) - Final Nasal Mrsa Not Detected Assess/Plan/Problems-Billing Assessment: Mr Tello is a 77yo M who underwent CABG, AVR (bioprosthetic), MV repair, Maze procedure in [place] 03/26, discharged 04/01, who presents to ED with c/o dyspnea, found to be in CHF exacerbation. Patient had an echocardiogram done that showed pericardial effusion. 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 Escobar Pericardiocentesis yielded 500 serosanguineus fluid. Majority of cells on diff is RBC's. Cx neg on fluid so far. Repeat Echo shows marked decrease in effusion fluid. As per d/w Dr. Mo OK to start full anticoagulation (2) Acute systolic CHF (congestive heart failure) Comment: EF 25-30% on Echo with mod MR and severe TR. diuresis with Lasix BID restarted (3) Atrial fibrillation Comment: Chronically anticoagulated with Coumadin which was held and reversed with vit K HR in 80's after lopressor started (4) Diabetes Comment: NIDDM Holding oral agents and covering with SS Humalog (5) CKD (chronic kidney disease) stage 3, GFR 30-59 ml/min Comment: due to DM, creat at baseline (6) DVT prophylaxis Comment: lovenox and coumadin restarted on 04/08/18 Status and Disposition: Inpatient
[2018-04-08] MEDS: Warfarin TAB(*) 5 MG PO SCH (17:56)
[2018-04-08 20:26] LABS: EGFR Non-African American 50.7 (>60)
[2018-04-08] MEDS: Metoprolol Succinate XL TAB* 25 MG PO SCH (20:55)
[2018-04-08] MEDS: Enoxaparin(*) 100 MG/ML SYR SUBCUT SCH (20:55)
[2018-04-09 05:48] LABS: ABS Basophils 0.1 10^3/ul (0-0.2); ABS Eosinophils 0.1 10^3/ul (0-0.6); ABS Lymphocytes 0.8 10^3/ul (1.0-4.8); ABS Neutrophils 12.5 10^3/ul (1.5-7.7); ABS Nucleated RBC 0 10^3/ul; Eosinophil % 0.7 %; Hematocrit 32 % (42-52); Hemoglobin 10.4 g/dl (14.0-18.0); Lymphocyte % 5.3 %; Mean Corpuscular HGB Conc 33 g/dl (31-36); Mean Corpuscular Hemoglobin 32 pg (27-31); Mean Corpuscular Volume 97 fL (80-94); Mean Platelet Volume 8.3 fL (7.4-10.4); Nucleated Red Blood Cells % 0; Platelet Count 282 10^3/ul (150-450); Red Blood Count 3.28 10^6/ul (4.00-5.40); Red Cell Distribution Width 16 % (10.5-15); White Blood Count 14.4 10^3/ul (3.5-10.8)
[2018-04-09 05:52] LABS: INR 1.51 (0.77-1.02)
[2018-04-09 06:15] LABS: EGFR Non-African American 52.9 (>60)
[2018-04-09] MEDS: Furosemide IV* 10 MG/ML VIAL (40 MG) IV SCH (08:23)
[2018-04-09] MEDS: Enoxaparin(*) 100 MG/ML SYR SUBCUT SCH ×2 (08:24→21:06)
[2018-04-09] MEDS: Insulin LISPRO* 1 UNITS UNIT SUBCUT SCH ×4 (08:24→21:14)
[2018-04-09] MEDS: Colchicine* 0.6 MG TAB PO SCH (08:24)
[2018-04-09] MEDS: Aspirin TAB* 325 MG PO SCH ×2 (08:24→21:05)
[2018-04-09] MEDS: Allopurinol TAB* 100 MG PO SCH (08:24)
[2018-04-09] MEDS: Senna TAB PO SCH ×2 (08:24→21:05)
[2018-04-09] MEDS: Metoprolol Succinate XL TAB* 25 MG PO SCH ×2 (08:25→21:06)
[2018-04-09] MEDS: Omeprazole CAP* 20 MG PO SCH (08:25)
[2018-04-09] MEDS: Docusate CAP* 100 MG PO SCH ×2 (08:25→21:06)
[2018-04-09] MEDS: Finasteride TAB* 5 MG PO SCH (08:25)
[2018-04-09] MEDS: Atorvastatin* 80 MG TAB PO SCH (08:25)
[2018-04-09] MEDS: Mometasone/Formoter 200/5 MDI INH SCH ×2 (08:49→20:22)
--- NOTE | 2018-04-09 13:07 | PN ---
Subjective Date of Service: 04/09/18 Interval History: f/u pericardial tamponade/pericardiocentesis, CHF in afib, started on full dose lovenox last PM and seems to be tolerating well, also on high dose aspirin, PPI GI prophylaxis added this AM breathing improving but still has dyspnea and volume + no chest pain Medications Active Medications: Acetaminophen (Tylenol Tab*) 650 mg PO Q4H PRN PRN Reason: FEVER/PAIN Albuterol (Ventolin 2.5 Mg/3 Ml Neb.Leeann*) 2.5 mg INH [id number] AWAKE PRN PRN Reason: sob/wheezing Last Admin: 04/08/18 02:21 Dose: 2.5 mg Allopurinol (Zyloprim Tab*) 100 mg PO DAILY [facility] Last Admin: 04/09/18 08:24 Dose: 100 mg Aspirin (Aspirin Tab*) 650 mg PO BID [facility] Last Admin: 04/09/18 08:24 Dose: 650 mg Atorvastatin Calcium (Lipitor*) 80 mg PO DAILY [facility] Last Admin: 04/09/18 08:25 Dose: 80 mg Benzonatate (Tessalon Cap*) 100 mg PO BID PRN PRN Reason: COUGH Last Admin: 04/07/18 22:29 Dose: 100 mg Colchicine (Colcrys*) 0.6 mg PO DAILY [facility] Last Admin: 04/09/18 08:24 Dose: 0.6 mg Dextrose (D50w Syringe 50 Ml*) 12.5 gm IV PUSH .FOR FS < 60 - SS PRN PRN Reason: FS < 60 Docusate Sodium (Colace Cap*) 100 mg PO BID [facility] Last Admin: 04/09/18 08:25 Dose: 100 mg Enoxaparin Sodium (Lovenox(*)) 90 mg SUBCUT Q12H [facility] Last Admin: 04/09/18 08:24 Dose: 90 mg Finasteride (Proscar Tab*) 5 mg PO DAILY [facility] Last Admin: 04/09/18 08:25 Dose: 5 mg Furosemide (Lasix Iv*) 40 mg IV DAILY [facility] Last Admin: 04/09/18 08:23 Dose: 40 mg Insulin Human Lispro (Humalog*) 0 units SUBCUT FS ACHS ICU [facility]; Protocol Last Admin: 04/09/18 12:13 Dose: 2 unit Magnesium Hydroxide (Milk Of Magnesia Liq*) 30 ml PO Q4H PRN PRN Reason: CONSTIPATION Metoprolol Succinate (Toprol Xl Tab*) 25 mg PO BID [facility] Last Admin: 04/09/18 08:25 Dose: 25 mg Mometasone Furoate/Formoterol Fumar (Dulera 200/5 Mdi*) 1 puff INH BID [facility] Last Admin: 04/09/18 08:49 Dose: 1 puff Omeprazole (Prilosec Cap*) 40 mg PO DAILY@0600 [facility] Last Admin: 04/09/18 08:25 Dose: 40 mg Senna (Senokot Tab*) 1 tab PO BID [facility] Last Admin: 04/09/18 08:24 Dose: 1 tab Warfarin Sodium (Coumadin Tab(*)) 5 mg PO DAILY@1700 [facility]; Protocol Last Admin: 04/08/18 17:56 Dose: 5 mg Objective Vital Signs: Temp Pulse Resp BP Pulse Ox 97.9 F 86 20 122/58 100 04/09/18 11:12 04/09/18 11:12 04/09/18 11:12 04/09/18 11:12 04/09/18 11:12 Oxygen Devices in Use Now: Nasal Cannula Appearance: sitting upright, nad Eyes: No Scleral Icterus, PERRLA Ears/Nose/Mouth/Throat: Mucous Membranes Moist Neck: Trachea Midline, No Thyroid Enlargement, Masses Respiratory: - - scattered inspiratory rhonchi, mild increased work of breathing Cardiovascular: - - RRR, no rub or significant murmur appreciated, sternotomy wound no evidence of infection Abdominal: NL Sounds; No Tenderness; No Distention Extremities: - - 1-2+ edema b/l Skin: No Rash or Ulcers - midline sternotomy scar healing well. Neurological: Alert and Oriented x 3 Lines/Tubes/Other Access: Clean, Dry and Intact Peripheral IV Laboratory Results: 04/09/18 05:40 04/09/18 05:40 INR (Anticoag Therapy) 1.51 (0.77-1.02) H 04/09/18 05:40 APTT 43.2 seconds (26.0-36.3) H 04/06/18 13:14 Total Bilirubin 0.90 mg/dL (0.2-1.0) 04/06/18 13:14 AST 21 U/L (13-39) 04/06/18 13:14 ALT 18 U/L (7-52) 04/06/18 13:14 Alkaline Phosphatase 114 U/L (34-104) H 04/06/18 13:14 CK-MB (CK-2) 3.4 ng/mL (0.6-6.3) 04/06/18 13:14 B-Natriuretic Peptide 541 pg/mL (<=100) H 04/06/18 13:14 Total Protein 7.4 g/dL (6.4-8.9) 04/06/18 13:14 Albumin 3.2 g/dL (3.2-5.2) 04/06/18 13:14 Globulin 4.2 g/dL (2-4) H 04/06/18 13:14 Albumin/Globulin Ratio 0.8 (1-3) L 04/06/18 13:14 TSH 4.41 mcIU/mL (0.34-5.60) 04/06/18 13:14 04/06/18 04/06/18 04/06/18 13:14 17:25 20:00 Troponin I 0.44 H* 0.47 H* 0.51 H* 04/06/18 23:28 Troponin I 0.50 H* Diagnostic Imaging: Echo 04/06/18: PC effusion 1.5-2 cm, EF 25-30%, LVH, RV hypokinetic, bioprosth AVR good function, mild to mod MR, mod-severe TR. 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 Continue PPI prophylaxis - Continue toprol 25 mg po bid - Continue IV lasix 40 mg daily and BMP daily - Hold off on AceI/aldactone for now given renal insufficiency - DM management per Primary service - Plan to recheck limited echo 04/11/2018 to re-evaluate pericardial fluid - Check ESR and CRP tomorrrow (ordered) - Will follow, please call with questions or concerns
--- NOTE | 2018-04-09 13:21 | PN ---
Subjective Date of Service: 04/09/18 Interval History: Pt feels better, still requires 02 Objective Active Medications: Acetaminophen (Tylenol Tab*) 650 mg PO Q4H PRN PRN Reason: FEVER/PAIN Albuterol (Ventolin 2.5 Mg/3 Ml Neb.Leeann*) 2.5 mg INH [id number] AWAKE PRN PRN Reason: sob/wheezing Last Admin: 04/08/18 02:21 Dose: 2.5 mg Allopurinol (Zyloprim Tab*) 100 mg PO DAILY [facility] Last Admin: 04/09/18 08:24 Dose: 100 mg Aspirin (Aspirin Tab*) 650 mg PO BID [facility] Last Admin: 04/09/18 08:24 Dose: 650 mg Atorvastatin Calcium (Lipitor*) 80 mg PO DAILY [facility] Last Admin: 04/09/18 08:25 Dose: 80 mg Benzonatate (Tessalon Cap*) 100 mg PO BID PRN PRN Reason: COUGH Last Admin: 04/07/18 22:29 Dose: 100 mg Colchicine (Colcrys*) 0.6 mg PO DAILY [facility] Last Admin: 04/09/18 08:24 Dose: 0.6 mg Dextrose (D50w Syringe 50 Ml*) 12.5 gm IV PUSH .FOR FS < 60 - SS PRN PRN Reason: FS < 60 Docusate Sodium (Colace Cap*) 100 mg PO BID [facility] Last Admin: 04/09/18 08:25 Dose: 100 mg Enoxaparin Sodium (Lovenox(*)) 90 mg SUBCUT Q12H [facility] Last Admin: 04/09/18 08:24 Dose: 90 mg Finasteride (Proscar Tab*) 5 mg PO DAILY [facility] Last Admin: 04/09/18 08:25 Dose: 5 mg Furosemide (Lasix Iv*) 40 mg IV DAILY [facility] Last Admin: 04/09/18 08:23 Dose: 40 mg Insulin Human Lispro (Humalog*) 0 units SUBCUT FS ACHS ICU [facility]; Protocol Last Admin: 04/09/18 12:13 Dose: 2 unit Magnesium Hydroxide (Milk Of Magnesia Liq*) 30 ml PO Q4H PRN PRN Reason: CONSTIPATION Metoprolol Succinate (Toprol Xl Tab*) 25 mg PO BID [facility] Last Admin: 04/09/18 08:25 Dose: 25 mg Mometasone Furoate/Formoterol Fumar (Dulera 200/5 Mdi*) 1 puff INH BID [facility] Last Admin: 04/09/18 08:49 Dose: 1 puff Omeprazole (Prilosec Cap*) 40 mg PO DAILY@0600 [facility] Last Admin: 04/09/18 08:25 Dose: 40 mg Senna (Senokot Tab*) 1 tab PO BID [facility] Last Admin: 04/09/18 08:24 Dose: 1 tab Warfarin Sodium (Coumadin Tab(*)) 5 mg PO DAILY@1700 [facility]; Protocol Last Admin: 04/08/18 17:56 Dose: 5 mg Vital Signs - 8 hr 04/09/18 04/09/18 04/09/18 07:18 07:30 11:12 Temperature 97.9 F Pulse Rate 91 86 Respiratory 20 18 20 Rate Blood Pressure 127/104 122/58 (mmHg) O2 Sat by Pulse 100 100 Oximetry Oxygen Devices in Use Now: Nasal Cannula Appearance: 77 yo M in nAD, AAOx3 Eyes: No Scleral Icterus, PERRLA Ears/Nose/Mouth/Throat: NL Teeth, Lips, Gums, Mucous Membranes Moist Respiratory: Symmetrical Chest Expansion and Respiratory Effort, - - rales at b/ l bases Cardiovascular: - - irregular Abdominal: NL Sounds; No Tenderness; No Distention, No Hepatosplenomegaly Lymphatic: No Cervical Adenopathy Extremities: No Clubbing, Cyanosis, - - trace pedal edema b/l much imprved from prior Skin: No Nodules or Sclerosis, - - post op upper abd incisions and mediastinal inciton healing Neurological: Alert and Oriented x 3, NL Muscle Strength and Tone Result Diagrams: 04/09/18 05:40 04/09/18 05:40 Microbiology and Other Data: Microbiology 04/06/18 19:37 Nasal Screen MRSA (PCR) - Final Nasal Mrsa Not Detected Assess/Plan/Problems-Billing Assessment: Mr Tello is a 77yo M who underwent CABG, AVR (bioprosthetic), MV repair, Maze procedure in [place] 03/26, discharged 04/01, who presents to ED with c/o dyspnea, found to be in CHF exacerbation. Patient had an echocardiogram done that showed pericardial effusion. - Patient Problems (1) Pericardial effusion Comment: with b/l pelural effusions and CHF likely due to Rachel's Started on colchicine as per cardiology and ASA BID Pericardiocentesis yielded 500 serosanguineus fluid. Majority of cells on diff is RBC's. Cx neg on fluid so far. Repeat Echo shows marked decrease in effusion fluid. As per d/w Dr. Mo OK to start full anticoagulation. Lovenox and Coumadin started on 04/08/18 (2) Acute systolic CHF (congestive heart failure) Comment: EF 25-30% on Echo with mod MR and severe TR. diuresis with Lasix daily cont plan for repeat Echo 04/11/18 (3) Atrial fibrillation Comment: Chronically anticoagulated with Coumadin which was held and reversed with vit K HR in 80's after lopressor started (4) Diabetes Comment: NIDDM Holding oral agents and covering with SS Humalog (5) CKD (chronic kidney disease) stage 3, GFR 30-59 ml/min Comment: due to DM, creat at baseline (6) DVT prophylaxis Comment: lovenox and coumadin restarted on 04/08/18 INR 1.5 today Status and Disposition: Inpatient
[2018-04-09] MEDS: Warfarin TAB(*) 5 MG PO SCH (17:05)
[2018-04-10] MEDS: Omeprazole CAP* 20 MG PO SCH (05:07)
[2018-04-10 05:36] LABS: INR 2.59 (0.77-1.02)
[2018-04-10 05:47] LABS: EGFR Non-African American 50.7 (>60)
[2018-04-10] MEDS: Mometasone/Formoter 200/5 MDI INH SCH ×2 (07:58→19:15)
[2018-04-10] MEDS: Insulin LISPRO* 1 UNITS UNIT SUBCUT SCH ×4 (08:21→21:50)
[2018-04-10] MEDS: Finasteride TAB* 5 MG PO SCH (08:21)
[2018-04-10] MEDS: Senna TAB PO SCH ×2 (08:21→20:47)
[2018-04-10] MEDS: Metoprolol Succinate XL TAB* 25 MG PO SCH ×2 (08:21→20:47)
[2018-04-10] MEDS: Atorvastatin* 80 MG TAB PO SCH (08:21)
[2018-04-10] MEDS: Colchicine* 0.6 MG TAB PO SCH (08:21)
[2018-04-10] MEDS: Aspirin TAB* 325 MG PO SCH (08:21)
[2018-04-10] MEDS: Docusate CAP* 100 MG PO SCH ×2 (08:21→20:47)
[2018-04-10] MEDS: Allopurinol TAB* 100 MG PO SCH (08:21)
[2018-04-10] MEDS: Furosemide IV* 10 MG/ML VIAL (40 MG) IV SCH (08:22)
--- NOTE | 2018-04-10 08:50 | PN ---
Subjective Date of Service: 04/10/18 Interval History: f/u pericardial tamponade/pericardiocentesis, CHF Patient continues to feel better on a daily basis No dypsnea at rest or chest discomfort Still feel congested Diuresing, volume status improving crp down to 22 from 110 tele: afib Medications Active Medications: Acetaminophen (Tylenol Tab*) 650 mg PO Q4H PRN PRN Reason: FEVER/PAIN Albuterol (Ventolin 2.5 Mg/3 Ml Neb.Leeann*) 2.5 mg INH [id number] AWAKE PRN PRN Reason: sob/wheezing Last Admin: 04/08/18 02:21 Dose: 2.5 mg Allopurinol (Zyloprim Tab*) 100 mg PO DAILY [facility] Last Admin: 04/10/18 08:21 Dose: 100 mg Aspirin (Aspirin Tab*) 650 mg PO DAILY [facility] Atorvastatin Calcium (Lipitor*) 80 mg PO DAILY [facility] Last Admin: 04/10/18 08:21 Dose: 80 mg Benzonatate (Tessalon Cap*) 100 mg PO BID PRN PRN Reason: COUGH Last Admin: 04/07/18 22:29 Dose: 100 mg Colchicine (Colcrys*) 0.6 mg PO DAILY [facility] Last Admin: 04/10/18 08:21 Dose: 0.6 mg Dextrose (D50w Syringe 50 Ml*) 12.5 gm IV PUSH .FOR FS < 60 - SS PRN PRN Reason: FS < 60 Docusate Sodium (Colace Cap*) 100 mg PO BID [facility] Last Admin: 04/10/18 08:21 Dose: 100 mg Finasteride (Proscar Tab*) 5 mg PO DAILY [facility] Last Admin: 04/10/18 08:21 Dose: 5 mg Furosemide (Lasix Iv*) 40 mg IV DAILY [facility] Last Admin: 04/10/18 08:22 Dose: 40 mg Insulin Human Lispro (Humalog*) 0 units SUBCUT FS ACHS ICU [facility]; Protocol Last Admin: 04/10/18 08:21 Dose: 2 unit Losartan Potassium (Cozaar Tab*) 25 mg PO DAILY [facility] Magnesium Hydroxide (Milk Of Magnesia Liq*) 30 ml PO Q4H PRN PRN Reason: CONSTIPATION Metoprolol Succinate (Toprol Xl Tab*) 25 mg PO BID [facility] Last Admin: 04/10/18 08:21 Dose: 25 mg Mometasone Furoate/Formoterol Fumar (Dulera 200/5 Mdi*) 1 puff INH BID [facility] Last Admin: 04/10/18 07:58 Dose: 1 puff Omeprazole (Prilosec Cap*) 40 mg PO DAILY@0600 [facility] Last Admin: 04/10/18 05:07 Dose: 40 mg Senna (Senokot Tab*) 1 tab PO BID [facility] Last Admin: 04/10/18 08:21 Dose: 1 tab Warfarin Sodium (Coumadin Tab(*)) 5 mg PO DAILY@1700 [facility]; Protocol Last Admin: 04/09/18 17:05 Dose: 5 mg Objective Vital Signs: Temp Pulse Resp BP Pulse Ox 97.7 F 76 14 137/72 96 04/10/18 07:33 04/10/18 07:59 04/10/18 07:59 04/10/18 07:33 04/10/18 07:59 Oxygen Devices in Use Now: None Appearance: sitting upright, nad Eyes: No Scleral Icterus, PERRLA Ears/Nose/Mouth/Throat: Mucous Membranes Moist Neck: Trachea Midline, No Thyroid Enlargement, Masses Respiratory: - - scattered inspiratory rhonchi, mild increased work of breathing Cardiovascular: - - RRR, no rub or significant murmur appreciated, sternotomy wound no evidence of infection Abdominal: NL Sounds; No Tenderness; No Distention Extremities: - - 1-2+ edema b/l Skin: No Rash or Ulcers - midline sternotomy scar healing well. Neurological: Alert and Oriented x 3 Lines/Tubes/Other Access: Clean, Dry and Intact Peripheral IV Laboratory Results: 04/09/18 05:40 04/10/18 05:09 INR (Anticoag Therapy) 2.59 (0.77-1.02) H 04/10/18 05:09 APTT 43.2 seconds (26.0-36.3) H 04/06/18 13:14 Total Bilirubin 0.90 mg/dL (0.2-1.0) 04/06/18 13:14 AST 21 U/L (13-39) 04/06/18 13:14 ALT 18 U/L (7-52) 04/06/18 13:14 Alkaline Phosphatase 114 U/L (34-104) H 04/06/18 13:14 CK-MB (CK-2) 3.4 ng/mL (0.6-6.3) 04/06/18 13:14 B-Natriuretic Peptide 541 pg/mL (<=100) H 04/06/18 13:14 Total Protein 7.4 g/dL (6.4-8.9) 04/06/18 13:14 Albumin 3.2 g/dL (3.2-5.2) 04/06/18 13:14 Globulin 4.2 g/dL (2-4) H 04/06/18 13:14 Albumin/Globulin Ratio 0.8 (1-3) L 04/06/18 13:14 TSH 4.41 mcIU/mL (0.34-5.60) 04/06/18 13:14 04/06/18 04/06/18 04/06/18 13:14 17:25 20:00 Troponin I 0.44 H* 0.47 H* 0.51 H* 04/06/18 23:28 Troponin I 0.50 H* Diagnostic Imaging: Echo 04/06/18: PC effusion 1.5-2 cm, EF 25-30%, LVH, RV hypokinetic, bioprosth AVR good function, mild to mod MR, mod-severe TR. 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 Continue PPI prophylaxis - Continue toprol 25 mg po bid - Start losartan 25 mg po daily (ordered) - Continue diuresis, continue IV lasix 40 mg daily and BMP daily - Continue warfarin, d/c lovenox (ordered) now that INR therapeutic - DM management per Primary service - Plan to recheck limited echo 04/11/2018 to re-evaluate pericardial fluid - Will follow, please call with questions or concerns
[2018-04-10] MEDS ORDERED: Losartan TAB* 25 MG PO SCH (09:00)
--- NOTE | 2018-04-10 16:17 | PN ---
Subjective Date of Service: 04/10/18 Interval History: Pt denies chest pain/pressure, abdominal pain, fevers. Using Advair at home "Dilia" dropped by and requested a CXR. Reportedly from Dr. Sneed's office. Pt denies ever meeting Dr. Sneed Net negataive 1.475L INR therapeutic. Objective Active Medications: Acetaminophen (Tylenol Tab*) 650 mg PO Q4H PRN PRN Reason: FEVER/PAIN Albuterol (Ventolin 2.5 Mg/3 Ml Neb.Leeann*) 2.5 mg INH [id number] AWAKE PRN PRN Reason: sob/wheezing Last Admin: 04/08/18 02:21 Dose: 2.5 mg Allopurinol (Zyloprim Tab*) 100 mg PO DAILY [facility] Last Admin: 04/10/18 08:21 Dose: 100 mg Aspirin (Aspirin Tab*) 650 mg PO DAILY [facility] Atorvastatin Calcium (Lipitor*) 80 mg PO DAILY [facility] Last Admin: 04/10/18 08:21 Dose: 80 mg Benzonatate (Tessalon Cap*) 100 mg PO BID PRN PRN Reason: COUGH Last Admin: 04/07/18 22:29 Dose: 100 mg Colchicine (Colcrys*) 0.6 mg PO DAILY [facility] Last Admin: 04/10/18 08:21 Dose: 0.6 mg Dextrose (D50w Syringe 50 Ml*) 12.5 gm IV PUSH .FOR FS < 60 - SS PRN PRN Reason: FS < 60 Docusate Sodium (Colace Cap*) 100 mg PO BID [facility] Last Admin: 04/10/18 08:21 Dose: 100 mg Finasteride (Proscar Tab*) 5 mg PO DAILY [facility] Last Admin: 04/10/18 08:21 Dose: 5 mg Furosemide (Lasix Iv*) 40 mg IV DAILY [facility] Last Admin: 04/10/18 08:22 Dose: 40 mg Insulin Human Lispro (Humalog*) 0 units SUBCUT FS ACHS ICU [facility]; Protocol Last Admin: 04/10/18 12:01 Dose: 8 unit Losartan Potassium (Cozaar Tab*) 25 mg PO DAILY [facility] Last Admin: 04/10/18 09:14 Dose: 25 mg Magnesium Hydroxide (Milk Of Magnesia Liq*) 30 ml PO Q4H PRN PRN Reason: CONSTIPATION Metoprolol Succinate (Toprol Xl Tab*) 25 mg PO BID [facility] Last Admin: 04/10/18 08:21 Dose: 25 mg Mometasone Furoate/Formoterol Fumar (Dulera 200/5 Mdi*) 1 puff INH BID [facility] Last Admin: 04/10/18 07:58 Dose: 1 puff Omeprazole (Prilosec Cap*) 40 mg PO DAILY@0600 [facility] Last Admin: 04/10/18 05:07 Dose: 40 mg Senna (Senokot Tab*) 1 tab PO BID [facility] Last Admin: 04/10/18 08:21 Dose: 1 tab Warfarin Sodium (Coumadin Tab(*)) 3 mg PO DAILY@1700 [facility]; Protocol Vital Signs - 8 hr 04/10/18 04/10/18 11:20 15:23 Temperature 97.9 F Pulse Rate 82 83 Respiratory 20 20 Rate Blood Pressure 115/59 118/50 (mmHg) O2 Sat by Pulse 97 100 Oximetry Oxygen Devices in Use Now: None Appearance: NAD, sitting in chair. Eyes: No Scleral Icterus, PERRLA Ears/Nose/Mouth/Throat: NL Teeth, Lips, Gums Neck: NL Appearance and Movements; NL JVP Respiratory: - - expiratory wheezing, decreased BS at bases. referred upper airway sounds Abdominal: NL Sounds; No Tenderness; No Distention, No Hepatosplenomegaly Extremities: - - 2+ edema LLE, 1+ edema RLE Skin: No Rash or Ulcers Neurological: Alert and Oriented x 3, NL Sensation, NL Muscle Strength and Tone Nutrition: Taking PO's Result Diagrams: 04/09/18 05:40 04/10/18 05:09 Additional Lab and Data: Laboratory Results - last 24 hr 04/09/18 04/10/18 04/10/18 21:04 05:09 05:09 ESR INR (Anticoag Therapy) 2.59 H Sodium 140 Potassium 3.7 Chloride 106 Carbon Dioxide 29 Anion Gap 5 BUN 52 H Creatinine 1.36 H Est GFR ( Amer) 61.3 Est GFR (Non-Af Amer) 50.7 BUN/Creatinine Ratio 38.2 H Glucose 138 H POC Glucose (mg/dL) 173 H Calcium 8.7 Magnesium 2.2 C-Reactive Protein 21.29 H 04/10/18 04/10/18 04/10/18 05:09 07:50 11:19 ESR 71 H INR (Anticoag Therapy) Sodium Potassium Chloride Carbon Dioxide Anion Gap BUN Creatinine Est GFR ( Amer) Est GFR (Non-Af Amer) BUN/Creatinine Ratio Glucose POC Glucose (mg/dL) 153 H 313 H Calcium Magnesium C-Reactive Protein Microbiology and Other Data: . Microbiology 04/07/18 14:00 Pericardial Fluid Sterile Body Fluid Culture - Preliminary No Growth Day 3 04/07/18 14:00 Pericardial Fluid Sterile Body Fluid Culture - Preliminary No Growth Day 3 04/06/18 13:51 Blood Venous Aerobic Blood Culture - Preliminary No Growth Day 4 04/06/18 13:51 Blood Venous Anaerobic Blood Culture - Preliminary No Growth Day 4 04/06/18 13:14 Blood Venous Aerobic Blood Culture - Preliminary No Growth Day 4 04/06/18 13:14 Blood Venous Anaerobic Blood Culture - Preliminary No Growth Day 4 04/06/18 17:25 No Source Provided Aerobic Blood Culture - Preliminary No Growth Day 3 04/06/18 17:25 No Source Provided Anaerobic Blood Culture - Preliminary No Growth Day 3 04/07/18 14:00 Body Fluid - Pericardial Gram Stain - Final 04/06/18 19:37 Nasal Nasal Screen MRSA (PCR) - Final Mrsa Not Detected Assess/Plan/Problems-Billing Assessment: 77yo M PMH CAD, CHF, pAfib on Coumadin with recent CABG, AVR (bioprosthetic), MV repair, [place] 03[place], discharged 04/01, who presents to ED with c/o dyspnea, found to be in CHF exacerbation, Rachel's syndrom and large pericardial effusion up to 2cm posterior s/p pericardiocentesis. Diuresing, repeat ECHO planned 04/11 - Patient Problems (1) Pericardial effusion Current Visit: Yes Status: Acute Code(s): I31.3 - PERICARDIAL EFFUSION ( NONINFLAMMATORY) SNOMED Code(s): 186986525 Comment: with b/l pelural effusions and CHF likely due to Rachel's appreciate cardiology recs Continue colchicine 0.6mg daily reduce ASA 650 mg to daily from BID per cardiology Pericardiocentesis yielded 500 serosanguineus fluid. Majority of cells on diff is RBC's. Cx neg on fluid so far. Repeat Echo 04/11 okay for A/C for Afib (2) Acute systolic CHF (congestive heart failure) Current Visit: Yes Status: Acute Code(s): I50.21 - ACUTE SYSTOLIC ( CONGESTIVE) HEART FAILURE SNOMED Code(s): 662113588 Comment: EF 25-30% on Echo with mod MR and severe TR. diuresis with Lasix 40mg IV daily, net negative goal. Home 2gm bumex listed (pt unsure about maybe 1gm instead?) plan for repeat Echo 04/11/18 Reducing oxygen requirements daily weights strict io he has a scale at home, says usually weighs about 200lbs at home losartan restarted. 25mg (3) CKD (chronic kidney disease) stage 3, GFR 30-59 ml/min Current Visit: Yes Status: Acute Code(s): N18.3 - CHRONIC KIDNEY DISEASE, STAGE 3 (MODERATE) SNOMED Code(s): 721525263 Comment: due to DM, creat at baseline (4) Atrial fibrillation Current Visit: No Status: Acute Code(s): I48.91 - UNSPECIFIED ATRIAL FIBRILLATION SNOMED Code(s): 15508950 Comment: Chronically anticoagulated with Coumadin which was held and reversed with vit K reduce dose to 3mg tonight (after 5,5 with rapid rise). INR daily. on toprol 25mg BID. (5) DVT prophylaxis Current Visit: No Status: Acute Code(s): TQH6540 - SNOMED Code(s): 629528556 Comment: coumadin restarted on 04/08/18 INR 2.6 today (6) Full code status Current Visit: No Status: Acute Code(s): Z78.9 - OTHER SPECIFIED HEALTH STATUS SNOMED Code(s): 235443947 (7) CAD (coronary artery disease) Current Visit: No Status: Chronic Code(s): I25.10 - ATHSCL HEART DISEASE OF [place] CORONARY ARTERY W/O ANG PCTRS SNOMED Code(s): 53401777 Comment: s/p CABG. on aspirin, BB, atorvastatin 80mg (8) Diabetes Current Visit: No Status: Chronic Code(s): E11.9 - TYPE 2 DIABETES MELLITUS WITHOUT COMPLICATIONS SNOMED Code(s): 46093624 Comment: A1C 6.8% on 03/08. NIDDM Holding oral agents (COMBO metformin 500mg + glipizide 5 BID and covering with SS Humalog (9) Gout Current Visit: No Status: Chronic Code(s): M10.9 - GOUT, UNSPECIFIED SNOMED Code(s): 46015252 Comment: Continue allopurinol. (10) HLD (hyperlipidemia) Current Visit: No Status: Chronic Code(s): E78.5 - HYPERLIPIDEMIA, UNSPECIFIED SNOMED Code(s): 33816553 Comment: Continue atorvastatin. Status and Disposition: Inpatient
[2018-04-10] MEDS ORDERED: Warfarin TAB(*) 3 MG PO SCH (17:00)
[2018-04-11 05:29] LABS: ABS Basophils 0.1 10^3/ul (0-0.2); ABS Eosinophils 0 10^3/ul (0-0.6); ABS Lymphocytes 0.7 10^3/ul (1.0-4.8); ABS Neutrophils 7.4 10^3/ul (1.5-7.7); ABS Nucleated RBC 0 10^3/ul; Eosinophil % 0.5 %; Hematocrit 29 % (42-52); Hemoglobin 9.8 g/dl (14.0-18.0); Lymphocyte % 7.5 %; Mean Corpuscular HGB Conc 33 g/dl (31-36); Mean Corpuscular Hemoglobin 32 pg (27-31); Mean Corpuscular Volume 96 fL (80-94); Nucleated Red Blood Cells % 0; Platelet Count 258 10^3/ul (150-450); Red Blood Count 3.06 10^6/ul (4.00-5.40); Red Cell Distribution Width 16 % (10.5-15); White Blood Count 9.2 10^3/ul (3.5-10.8)
[2018-04-11 05:39] LABS: INR 3.36 (0.77-1.02)
[2018-04-11 05:46] LABS: EGFR Non-African American 69.8 (>60)
[2018-04-11] MEDS: Omeprazole CAP* 20 MG PO SCH (05:46)
[2018-04-11] MEDS: Mometasone/Formoter 200/5 MDI INH SCH ×2 (08:57→20:19)
[2018-04-11] MEDS ORDERED: Aspirin TAB* 325 MG PO SCH (09:00)
[2018-04-11] MEDS: Metoprolol Succinate XL TAB* 25 MG PO SCH ×2 (09:12→21:28)
[2018-04-11] MEDS: Atorvastatin* 80 MG TAB PO SCH (09:12)
[2018-04-11] MEDS: Losartan TAB* 25 MG PO SCH (09:12)
[2018-04-11] MEDS: Docusate CAP* 100 MG PO SCH ×2 (09:13→21:28)
[2018-04-11] MEDS: Senna TAB PO SCH ×2 (09:13→21:28)
[2018-04-11] MEDS: Allopurinol TAB* 100 MG PO SCH (09:13)
[2018-04-11] MEDS: Colchicine* 0.6 MG TAB PO SCH (09:13)
[2018-04-11] MEDS: Aspirin 81 mg CHEW TAB* 81 MG TAB.CHEW PO SCH (09:13)
[2018-04-11] MEDS: Finasteride TAB* 5 MG PO SCH (09:14)
[2018-04-11] MEDS ORDERED: Potassium Chlor TAB* 10 MEQ TAB.ER PO ONE (09:14)
[2018-04-11] MEDS: Furosemide IV* 10 MG/ML VIAL (40 MG) IV SCH (09:16)
[2018-04-11] MEDS: Insulin LISPRO* 1 UNITS UNIT SUBCUT SCH ×4 (09:18→21:28)
--- NOTE | 2018-04-11 09:22 | ECHO ---
Patient: CHEYENNE GONZALES [facility] Rec#: [id number] : 1940 Date: 04/11/2018 Age: 77y Height: 168 cm / 66.1 in Weight: 92.3 kg / 203.4 lbs Sex: M BSA: 2.02 Room#: 434 Admit Date#: 04/06/2018 Type: Inpatient Referring: Wilfred Lerma DO Reading: Wilfred Lerma DO [employer] Automatic: Janae Mcintosh RDCS CC: Huong Cantu MD Transthoracic Echocardiogram Indication: Follow up for pericardial effusion BP: 132/61 HR: 88 Rhythm: A-Fib Findings History: COPD, HTN, HLD, CAD, s/p CABG, s/p AVR, A-fib, DM, smoker, s/p pericardiocentesis. Technical Comments: The study quality is fair. Completed at 0900. Left Ventricle: The left ventricular chamber size is normal. There is severely decreased left ventricular systolic function. Pericardium: The pericardial effusion is seen adjacent to the left ventricle. Conclusions There is severely decreased left ventricular systolic function. There is a small to moderate sized localized posterior pericardial effusion. Compared to limited study from 04/08/2018, pleural effusion no longer obviously appreciated
--- NOTE | 2018-04-11 10:46 | PN ---
Subjective Date of Service: 04/11/18 Interval History: f/u pericardial tamponade/pericardiocentesis, CHF Patient continues to feel better on a daily basis No dypsnea at rest or chest discomfort Can walk 20 feet prior to dyspnea Continue diuresing, volume status improving Renal function improving with diuresis Limited echo this AM with stable posterior pericardial effuson, pleural effusion no longer appreciated on echo tele: afib Medications Active Medications: Acetaminophen (Tylenol Tab*) 650 mg PO Q4H PRN PRN Reason: FEVER/PAIN Albuterol (Ventolin 2.5 Mg/3 Ml Neb.Leeann*) 2.5 mg INH [id number] AWAKE PRN PRN Reason: sob/wheezing Last Admin: 04/08/18 02:21 Dose: 2.5 mg Allopurinol (Zyloprim Tab*) 100 mg PO DAILY [facility] Last Admin: 04/11/18 09:13 Dose: 100 mg Aspirin (Aspirin 81 Mg Chew Tab*) 81 mg PO DAILY [facility] Last Admin: 04/11/18 09:13 Dose: 81 mg Atorvastatin Calcium (Lipitor*) 80 mg PO DAILY [facility] Last Admin: 04/11/18 09:12 Dose: 80 mg Benzonatate (Tessalon Cap*) 100 mg PO BID PRN PRN Reason: COUGH Last Admin: 04/07/18 22:29 Dose: 100 mg Colchicine (Colcrys*) 0.6 mg PO DAILY [facility] Last Admin: 04/11/18 09:13 Dose: 0.6 mg Dextrose (D50w Syringe 50 Ml*) 12.5 gm IV PUSH .FOR FS < 60 - SS PRN PRN Reason: FS < 60 Docusate Sodium (Colace Cap*) 100 mg PO BID [facility] Last Admin: 04/11/18 09:13 Dose: 100 mg Finasteride (Proscar Tab*) 5 mg PO DAILY [facility] Last Admin: 04/11/18 09:14 Dose: 5 mg Furosemide (Lasix Iv*) 40 mg IV DAILY [facility] Last Admin: 04/11/18 09:16 Dose: 40 mg Insulin Human Lispro (Humalog*) 0 units SUBCUT FS ACHS ICU [facility]; Protocol Last Admin: 04/11/18 09:18 Dose: 1 unit Losartan Potassium (Cozaar Tab*) 50 mg PO DAILY [facility] Last Admin: 04/11/18 09:12 Dose: 50 mg Magnesium Hydroxide (Milk Of Mitzi Liq*) 30 ml PO Q4H PRN PRN Reason: CONSTIPATION Metoprolol Succinate (Toprol Xl Tab*) 25 mg PO BID [facility] Last Admin: 04/11/18 09:12 Dose: 25 mg Mometasone Furoate/Formoterol Fumar (Dulera 200/5 Mdi*) 1 puff INH BID [facility] Last Admin: 04/11/18 08:57 Dose: 1 puff Omeprazole (Prilosec Cap*) 20 mg PO DAILY@0600 [facility] Senna (Senokot Tab*) 1 tab PO BID [facility] Last Admin: 04/11/18 09:13 Dose: 1 tab Objective Vital Signs: Temp Pulse Resp BP Pulse Ox 98.3 F 84 18 145/71 97 04/11/18 08:10 04/11/18 08:58 04/11/18 08:58 04/11/18 08:10 04/11/18 08:58 Oxygen Devices in Use Now: None Appearance: sitting upright, nad Eyes: No Scleral Icterus, PERRLA Ears/Nose/Mouth/Throat: Mucous Membranes Moist Neck: Trachea Midline, No Thyroid Enlargement, Masses Respiratory: Symmetrical Chest Expansion and Respiratory Effort, Clear to Auscultation, - Cardiovascular: - - irregulalry irregular no rub or significant murmur appreciated, sternotomy wound no evidence of infection Abdominal: NL Sounds; No Tenderness; No Distention Extremities: - - 1+ edema b/l Skin: No Rash or Ulcers - midline sternotomy scar healing well. Neurological: Alert and Oriented x 3 Lines/Tubes/Other Access: Clean, Dry and Intact Peripheral IV Laboratory Results: 04/11/18 04:52 04/11/18 04:52 INR (Anticoag Therapy) 3.36 (0.77-1.02) H 04/11/18 04:52 APTT 43.2 seconds (26.0-36.3) H 04/06/18 13:14 Total Bilirubin 0.90 mg/dL (0.2-1.0) 04/06/18 13:14 AST 21 U/L (13-39) 04/06/18 13:14 ALT 18 U/L (7-52) 04/06/18 13:14 Alkaline Phosphatase 114 U/L (34-104) H 04/06/18 13:14 CK-MB (CK-2) 3.4 ng/mL (0.6-6.3) 04/06/18 13:14 B-Natriuretic Peptide 541 pg/mL (<=100) H 04/06/18 13:14 Total Protein 7.4 g/dL (6.4-8.9) 04/06/18 13:14 Albumin 3.2 g/dL (3.2-5.2) 04/06/18 13:14 Globulin 4.2 g/dL (2-4) H 04/06/18 13:14 Albumin/Globulin Ratio 0.8 (1-3) L 04/06/18 13:14 TSH 4.41 mcIU/mL (0.34-5.60) 04/06/18 13:14 04/06/18 04/06/18 04/06/18 13:14 17:25 20:00 Troponin I 0.44 H* 0.47 H* 0.51 H* 04/06/18 23:28 Troponin I 0.50 H* Diagnostic Imaging: Echo 04/06/18: PC effusion 1.5-2 cm, EF 25%, LVH, RV hypokinetic, bioprosth AVR good function, mild to mod MR, mod-severe TR. 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
--- NOTE | 2018-04-11 15:49 | PN ---
Subjective Date of Service: 04/11/18 Interval History: Off oxygen Repeat ECHO stable Denies chest pain, SOB, abdominal pain, fevers, chills, n/v/d/c. Attests to fluid edema in legs. weight down to 50.5 from 50.9kg Objective Active Medications: Acetaminophen (Tylenol Tab*) 650 mg PO Q4H PRN PRN Reason: FEVER/PAIN Albuterol (Ventolin 2.5 Mg/3 Ml Neb.Leeann*) 2.5 mg INH [id number] AWAKE PRN PRN Reason: sob/wheezing Last Admin: 04/08/18 02:21 Dose: 2.5 mg Allopurinol (Zyloprim Tab*) 100 mg PO DAILY [facility] Last Admin: 04/11/18 09:13 Dose: 100 mg Aspirin (Aspirin 81 Mg Chew Tab*) 81 mg PO DAILY [facility] Last Admin: 04/11/18 09:13 Dose: 81 mg Atorvastatin Calcium (Lipitor*) 80 mg PO DAILY [facility] Last Admin: 04/11/18 09:12 Dose: 80 mg Benzonatate (Tessalon Cap*) 100 mg PO BID PRN PRN Reason: COUGH Last Admin: 04/07/18 22:29 Dose: 100 mg Colchicine (Colcrys*) 0.6 mg PO DAILY [facility] Last Admin: 04/11/18 09:13 Dose: 0.6 mg Dextrose (D50w Syringe 50 Ml*) 12.5 gm IV PUSH .FOR FS < 60 - SS PRN PRN Reason: FS < 60 Docusate Sodium (Colace Cap*) 100 mg PO BID [facility] Last Admin: 04/11/18 09:13 Dose: 100 mg Finasteride (Proscar Tab*) 5 mg PO DAILY [facility] Last Admin: 04/11/18 09:14 Dose: 5 mg Furosemide (Lasix Iv*) 40 mg IV DAILY [facility] Last Admin: 04/11/18 09:16 Dose: 40 mg Insulin Human Lispro (Humalog*) 0 units SUBCUT FS ACHS ICU [facility]; Protocol Last Admin: 04/11/18 12:58 Dose: 6 unit Losartan Potassium (Cozaar Tab*) 50 mg PO DAILY [facility] Last Admin: 04/11/18 09:12 Dose: 50 mg Magnesium Hydroxide (Milk Of Magnesia Liq*) 30 ml PO Q4H PRN PRN Reason: CONSTIPATION Metoprolol Succinate (Toprol Xl Tab*) 25 mg PO BID [facility] Last Admin: 04/11/18 09:12 Dose: 25 mg Mometasone Furoate/Formoterol Fumar (Dulera 200/5 Mdi*) 1 puff INH BID [facility] Last Admin: 04/11/18 08:57 Dose: 1 puff Omeprazole (Prilosec Cap*) 20 mg PO DAILY@0600 [facility] Senna (Senokot Tab*) 1 tab PO BID [facility] Last Admin: 04/11/18 09:13 Dose: 1 tab Vital Signs - 8 hr 04/11/18 04/11/18 04/11/18 08:00 08:10 08:58 Temperature 98.3 F Pulse Rate 93 84 Respiratory 22 16 18 Rate Blood Pressure 145/71 (mmHg) O2 Sat by Pulse 100 97 Oximetry 04/11/18 04/11/18 11:15 15:04 Temperature 97.9 F 98.0 F Pulse Rate 85 81 Respiratory 20 18 Rate Blood Pressure 137/57 110/67 (mmHg) O2 Sat by Pulse 100 99 Oximetry Oxygen Devices in Use Now: None Appearance: NAD Eyes: No Scleral Icterus, PERRLA Ears/Nose/Mouth/Throat: NL Teeth, Lips, Gums, Mucous Membranes Moist Respiratory: - - rhonchorous diffusely, no wheezing or rales Cardiovascular: NL Sounds; No Murmurs; No JVD, RRR Abdominal: NL Sounds; No Tenderness; No Distention Extremities: - - 2+ edema b/l Skin: No Rash or Ulcers Neurological: Alert and Oriented x 3, NL Sensation, NL Muscle Strength and Tone Nutrition: Taking PO's Result Diagrams: 04/11/18 04:52 04/11/18 04:52 Additional Lab and Data: Laboratory Results - last 24 hr 04/10/18 04/11/18 04/11/18 20:48 04:52 04:52 WBC 9.2 RBC 3.06 L Hgb 9.8 L Hct 29 L MCV 96 H MCH 32 H MCHC 33 RDW 16 H Plt Count 258 MPV 9.0 Neut % (Auto) 80.4 Lymph % (Auto) 7.5 [place] % (Auto) 10.8 Eos % (Auto) 0.5 Baso % (Auto) 0.8 Absolute Neuts (auto) 7.4 Absolute Lymphs (auto) 0.7 L Absolute Monos (auto) 1.0 H Absolute Eos (auto) 0 Absolute Basos (auto) 0.1 Absolute Nucleated RBC 0 Nucleated RBC % 0 INR (Anticoag Therapy) Sodium 139 Potassium 3.2 L Chloride 105 Carbon Dioxide 26 Anion Gap 8 BUN 42 H Creatinine 1.03 Est GFR ( Amer) 84.5 Est GFR (Non-Af Amer) 69.8 BUN/Creatinine Ratio 40.8 H Glucose 160 H POC Glucose (mg/dL) 239 H Calcium 8.5 L 04/11/18 04/11/18 04/11/18 04:52 07:46 11:44 WBC RBC Hgb Hct MCV MCH MCHC RDW Plt Count MPV Neut % (Auto) Lymph % (Auto) [place] % (Auto) Eos % (Auto) Baso % (Auto) Absolute Neuts (auto) Absolute Lymphs (auto) Absolute Monos (auto) Absolute Eos (auto) Absolute Basos (auto) Absolute Nucleated RBC Nucleated RBC % INR (Anticoag Therapy) 3.36 H Sodium Potassium Chloride Carbon Dioxide Anion Gap BUN Creatinine Est GFR ( Amer) Est GFR (Non-Af Amer) BUN/Creatinine Ratio Glucose POC Glucose (mg/dL) 140 H 289 H Calcium 04/11/18 16:29 WBC RBC Hgb Hct MCV MCH MCHC RDW Plt Count MPV Neut % (Auto) Lymph % (Auto) [place] % (Auto) Eos % (Auto) Baso % (Auto) Absolute Neuts (auto) Absolute Lymphs (auto) Absolute Monos (auto) Absolute Eos (auto) Absolute Basos (auto) Absolute Nucleated RBC Nucleated RBC % INR (Anticoag Therapy) Sodium Potassium Chloride Carbon Dioxide Anion Gap BUN Creatinine Est GFR ( Amer) Est GFR (Non-Af Amer) BUN/Creatinine Ratio Glucose POC Glucose (mg/dL) 289 H Calcium Microbiology and Other Data: . Microbiology 04/07/18 14:00 Pericardial Fluid Sterile Body Fluid Culture - Preliminary No Growth Day 4 04/07/18 14:00 Pericardial Fluid Sterile Body Fluid Culture - Preliminary No Growth Day 4 04/06/18 13:51 Blood Venous Aerobic Blood Culture - Final No Growth Day 5 04/06/18 13:51 Blood Venous Anaerobic Blood Culture - Final No Growth Day 5 04/06/18 13:14 Blood Venous Aerobic Blood Culture - Final No Growth Day 5 04/06/18 13:14 Blood Venous Anaerobic Blood Culture - Final No Growth Day 5 04/06/18 17:25 No Source Provided Aerobic Blood Culture - Preliminary No Growth Day 4 04/06/18 17:25 No Source Provided Anaerobic Blood Culture - Preliminary No Growth Day 4 04/07/18 14:00 Body Fluid - Pericardial Gram Stain - Final 04/06/18 19:37 Nasal Nasal Screen MRSA (PCR) - Final Mrsa Not Detected Assess/Plan/Problems-Billing Assessment: 77yo M PMH CAD, CHF, pAfib on Coumadin with recent CABG, AVR (bioprosthetic), MV repair, Maze procedure in [place] 03/26, discharged 04/01, who presents to ED with c/o dyspnea, found to be in CHF exacerbation, Rachel's syndrom and large pericardial effusion up to 2cm posterior s/p pericardiocentesis. Diuresing off oxygen, repeat ECHO 04/11 stable small to moderate pleural effusion and resolved pleural effusion. - Patient Problems (1) Pericardial effusion Current Visit: Yes Status: Acute Code(s): I31.3 - PERICARDIAL EFFUSION ( NONINFLAMMATORY) SNOMED Code(s): 699927595 Comment: CHF likely due to Rachel's, resolved pulm effusions (at least on repeat echo today) appreciate cardiology recs Continue colchicine 0.6mg daily reduce ASA to 81mg daily per cardiology Pericardiocentesis yielded 500 serosanguineus fluid. Majority of cells on diff is RBC's. Cx neg on fluid so far. Repeat Echo 04/11 - stable okay for A/C for Afib (2) Acute systolic CHF (congestive heart failure) Current Visit: Yes Status: Acute Code(s): I50.21 - ACUTE SYSTOLIC ( CONGESTIVE) HEART FAILURE SNOMED Code(s): 531123428 Comment: EF 25-30% on Echo with mod MR and severe TR. diuresis with Lasix 40mg IV daily, net negative goal. Home 2gm bumex will transition back to 2mg bumex starting 04/12 Resolved oxygen requirements though still edematous daily weights strict io he has a scale at home, says usually weighs about 200lbs at home losartan increased to home 50mg (3) CKD (chronic kidney disease) stage 3, GFR 30-59 ml/min Current Visit: Yes Status: Acute Code(s): N18.3 - CHRONIC KIDNEY DISEASE, STAGE 3 (MODERATE) SNOMED Code(s): 779460793 Comment: due to DM, creat at baseline (4) Atrial fibrillation Current Visit: No Status: Acute Code(s): I48.91 - UNSPECIFIED ATRIAL FIBRILLATION SNOMED Code(s): 89147756 Comment: Chronically anticoagulated with Coumadin which was held and reversed with vit K hold dose tonight (after 5,5,3 now supratherapeutic). INR daily. on toprol 25mg BID. (5) DVT prophylaxis Current Visit: No Status: Acute Code(s): TTH2495 - SNOMED Code(s): 794300850 Comment: coumadin restarted on 04/08/18 INR 2.6 today (6) Full code status Current Visit: No Status: Acute Code(s): Z78.9 - OTHER SPECIFIED HEALTH STATUS SNOMED Code(s): 653638111 (7) CAD (coronary artery disease) Current Visit: No Status: Chronic Code(s): I25.10 - ATHSCL HEART DISEASE OF [place] CORONARY ARTERY W/O ANG PCTRS SNOMED Code(s): 41870847 Comment: s/p CABG. on aspirin, BB, atorvastatin 80mg (8) Diabetes Current Visit: No Status: Chronic Code(s): E11.9 - TYPE 2 DIABETES MELLITUS WITHOUT COMPLICATIONS SNOMED Code(s): 91187855 Comment: A1C 6.8% on 03/08. NIDDM restart metformin. home oral agents (COMBO metformin 500mg + glipizide 5 BID and covering with SS Humalog (9) Gout Current Visit: No Status: Chronic Code(s): M10.9 - GOUT, UNSPECIFIED SNOMED Code(s): 98587711 Comment: Continue allopurinol. (10) HLD (hyperlipidemia) Current Visit: No Status: Chronic Code(s): E78.5 - HYPERLIPIDEMIA, UNSPECIFIED SNOMED Code(s): 09943923 Comment: Continue atorvastatin. Status and Disposition: medicine Inpatient, possible discharge within 24-48 hours but please touch base with Dr. Mo of cardiology first
[2018-04-11] MEDS: metFORMIN* 500 MG TAB PO SCH (18:29)
[2018-04-12 05:37] LABS: ABS Basophils 0.1 10^3/ul (0-0.2); ABS Eosinophils 0.1 10^3/ul (0-0.6); ABS Lymphocytes 0.6 10^3/ul (1.0-4.8); ABS Monocytes 0.9 10^3/ul (0-0.8); ABS Neutrophils 7.6 10^3/ul (1.5-7.7); ABS Nucleated RBC 0 10^3/ul; Eosinophil % 0.7 %; Hematocrit 31 % (42-52); Hemoglobin 10.6 g/dl (14.0-18.0); Lymphocyte % 6.9 %; Mean Corpuscular HGB Conc 34 g/dl (31-36); Mean Corpuscular Hemoglobin 33 pg (27-31); Mean Corpuscular Volume 99 fL (80-94); Mean Platelet Volume 8.7 fL (7.4-10.4); Nucleated Red Blood Cells % 0.2; Platelet Count 250 10^3/ul (150-450); Red Blood Count 3.19 10^6/ul (4.00-5.40); Red Cell Distribution Width 16 % (10.5-15); White Blood Count 9.3 10^3/ul (3.5-10.8)
[2018-04-12 05:47] LABS: INR 2.83 (0.77-1.02)
[2018-04-12] MEDS ORDERED: Omeprazole CAP* 20 MG PO SCH (06:00)
[2018-04-12 06:02] LABS: EGFR Non-African American 64.1 (>60)
[2018-04-12] MEDS: Mometasone/Formoter 200/5 MDI INH SCH (07:29)
[2018-04-12] MEDS ORDERED: Bumetanide TAB* 2 MG PO SCH (09:00)
[2018-04-12] MEDS: metFORMIN* 500 MG TAB PO SCH (09:17)
[2018-04-12] MEDS: Losartan TAB* 25 MG PO SCH (09:17)
[2018-04-12] MEDS: Allopurinol TAB* 100 MG PO SCH (09:17)
[2018-04-12] MEDS: Finasteride TAB* 5 MG PO SCH (09:17)
[2018-04-12] MEDS: Atorvastatin* 80 MG TAB PO SCH (09:17)
[2018-04-12] MEDS: Aspirin 81 mg CHEW TAB* 81 MG TAB.CHEW PO SCH (09:17)
[2018-04-12] MEDS: Metoprolol Succinate XL TAB* 25 MG PO SCH (09:17)
[2018-04-12] MEDS: Colchicine* 0.6 MG TAB PO SCH (09:18)
[2018-04-12] MEDS: Insulin LISPRO* 1 UNITS UNIT SUBCUT SCH ×2 (09:18→13:00)
[2018-04-12] MEDS: Senna TAB PO SCH (09:19)
[2018-04-12] MEDS: Docusate CAP* 100 MG PO SCH (09:19)
[2018-04-12 10:46] VITALS: BP 138/70
--- NOTE | 2018-04-13 06:09 | DS ---
CC: Dr. Cantu; Dr. Mo; Dr. Escobar; Dr. Sami Pichardo from [facility]; Patient's chart. * DISCHARGE SUMMARY: DATE OF ADMISSION: 04/06/18 DATE OF DISCHARGE: 04/12/18 PRIMARY CARE PROVIDER: Dr. Cantu. DISCHARGE DIAGNOSES: 1. Acute systolic congestive heart failure. 2. Rachel syndrome. 3. 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 SECONDARY DIAGNOSES: 1. Status post coronary artery bypass grafting, aortic valve replacement with bioprosthetic valve, mitral valve repair, maze procedure performed on 03/26/18 at [facility] by Dr. Pichardo. 2. History of carotid disease. 3. Diabetes type 2. 4. Hypertension. 5. Asthma. 6. Hyperlipidemia. 7. Benign prostatic hyperplasia 8. Chronic atrial fibrillation. 9. Gout. 10. History of status post bilateral knee replacement surgeries. MEDICATIONS AT DISCHARGE: Include: 1. Allopurinol 100 mg daily. 2. Aspirin 81 mg daily. 3. Lipitor 80 mg daily 4. Bumex 2 mg daily. 5. Proscar 5 mg daily. 6. Advair Diskus 250/50 one inhalation b.i.d. 7. Glipizide with metformin 5/500 1 tablet b.i.d. 8. [place] 5/325 mg 1 to 2 tablets on a p.r.n. basis for pain. 9. Losartan 50 mg daily. 10. Coumadin 3.5 mg daily. 11. Colchicine 0.6 mg daily. LABORATORY DATA AND STUDIES PERFORMED DURING THE HOSPITAL STAY: Included: On , ESR was 71. On 04/12/18 white blood cell count 9.3, hemoglobin 10.6, hematocrit 31, MCV of 99 and platelets of 250. INR on the day of discharge was 2.83. Sodium of 139, potassium 4.0, carbon dioxide 25, BUN 32, creatinine 1.11. Pericardial fluid analysis obtained on 04/07/18 showed pink bloody fluid with wbc's of 128, red blood cells of 8512; 30% neutrophils, 68 lymphocytes and 2 monocytes. Microbiological just showed no growth from pericardiocentesis fluid. Blood cultures obtained at admission were negative by the time of discharge. Transthoracic echocardiogram obtained on 04/08/18 showed severely decreased ventricular function with [id number] sized localized posterior pericardial effusion. Compared to limited study from 04/08/18 pleural effusion is no longer obviously appreciated, that was a followup echocardiogram after pericardiocentesis. The initial transthoracic echocardiogram obtained on 04/06/18 showed moderate concentric LVH, EF of 25% to 30% with bioprosthetic aortic valve present with no evidence of aortic regurgitation. There was mild to moderate mitral regurgitation and mitral valve repair functioning normally. There was moderate- to-severe tricuspid regurgitation. There was moderate pericardial effusion at 1.7 cm at the apex and 2 cm posteriorly and 1 cm anteriorly to RV. It was noted to be "possible early tamponade." CT angiogram of the chest obtained at the beginning to the patient's hospital stay on 04/06/18 showed impression "moderate bilateral dependent pleural effusions with proportional atelectasis. Effusions are new compared to the prior exam. A 0.6 cm nodular density at the right lung base, from which a re- assessment with CT approximately in 3 months time is suggested. Unchanged cardiomegaly. pericardial effusion. Post surgical change of coronary artery bypass and aortic valve replacement. Negative for aneurysm of the section of the thoracic aorta. No evidence of pulmonary embolus. Cirrhotic liver morphology. Negative for ascites of the visualized upper abdomen. CONSULTATION DURING THE HOSPITAL DAY: Dr. Mo, Dr. Escobar, as well as Dr. Mae from Cardiology Service. PROCEDURES PERFORMED: Included pericardiocentesis performed on 04/07/[address] Mo, which yielded 450 cc of serosanguineous fluid otherwise without any other complications. HOSPITALIZATION COURSE: Tc Tello is 77-year-old male with status post coronary artery bypass grafting with 3 vessels aortic valve replacement, bioprosthetic fany, maze procedure, and mitral valve repair on the same day on 03/26/[address] Pichardo at [facility]. Over the night at the hospital on 04/06/18 complaining of shortness of breath. The patient was noted to have bilateral pleural effusions and pericardial effusion nearing tamponade, his C- reactive protein was 108 at admission and his ESR was 71. It was suspected that the patient likely has a combination of diastolic CHF since his EF was approximately 30% as was likely Rachel syndrome with increasing inflammatory markers. The patient at that point was anticoagulated fully with Coumadin with an INR of 4.08 at admission. The patient's anticoagulation was reversed with vitamin K on the very next day. Dr. Mo performed pericardiocentesis yielding nearly 500 cc of serosanguineous fluid, predominantly bloody. Which was noted unexpected after cardiothoracic surgery. CT angiogram showed no marked abnormality apart from 0.6 cm pulmonary nodule that needs to be ruled out as outpatient. The patient spent few days in the intensive care unit with continuation of diuresis and monitoring. Repeat echocardiograms did not show any worsening of pericardial effusion after the pericardiocentesis. The patient was placed on colchicine and double dose of aspirin and later on was lowered back to his regular baby aspirin at the time of discharge. He was diuresed with intravenous Lasix and then placed back on his bumetanide that he was at home. By the time of discharge he was no longer dyspneic ambulating without oxygen comfortably. His pericardial effusion did not recur. He underwent physical therapy, occupational therapy evaluation, and was deemed to be a good candidate to return home with [facility] services. Dr. Mo from cardiology service will see patient for followup on Thursday04/16/18. The patient was recommended to have basic metabolic panel and INR drawn a day or two earlier by [facility]. The patient's INR was therapeutic at the time of discharge at 2.83. He is to continue his current dose of Coumadin at 3.5 mg daily. PHYSICAL EXAMINATION AT ADMISSION: Blood pressure of 138/70, heart rate of 88 and regular, respiratory rate 20, oxygen saturation 97% on room air, temperature 97.4. General: The patient is a very pleasant 77-year-old male, who is not in acute distress. Alert, awake, and oriented x3. HEENT: Head atraumatic normocephalic. Eyes: Pupils equal and reactive to light and accommodation. Oropharynx clear. Mucosa moist. Neck: Supple. No JVD. No bruits bilaterally. Cardiovascular: Regular rate and rhythm. No murmurs. Respiratory: Bibasilar crackles present. Abdomen: distended, soft, nontender. Positive bowel sounds present in all 4 quadrants. Extremities: There is +1 pitting pedal edema bilaterally. Pulses are +2 bilaterally. There is no clubbing or cyanosis. On evaluation of the skin, the patient's sternotomy incision has healed with no dehiscence or drainage noted. The patient has several eschar covered incisions noted in his upper abdomen from drains post cardiac thoracic surgery. No dehiscence. No wound infection noted. Neuro Evaluation: Speech is clear. Cranial Nerves II through XII grossly intact. Motor strength is 5/5 bilaterally. Please note that this is a short summary of the patient's prolonged and complicated hospitalization. Please refer to further medical records for details. TIME SPENT: Approximately 45 minutes was spent on the patient's discharge. [id number]/CPS #: [id number] GABINO
== END 2018-04-12 13:03 | disposition home health service (06) | DRG 314 ==
LOC: ED 12:39 → ICU 18:31 → MEDTELE 04-08 18:12
PROVIDERS: ADMIT Internal Medicine; ATTEND Internal Medicine
PROC: 0W9D3ZX Drainage of Pericardial Cavity, Percutaneous Approach, Diagnostic (ICD-10-PCS; principal; 2018-04-07 13:30)
DX: I24.1 Dressler's syndrome (principal); I50.21 Acute systolic (congestive) heart failure; I31.4 Cardiac tamponade; I31.3 Pericardial effusion (noninflammatory); I13.0 Hypertensive heart and chronic kidney disease with heart failure and stage 1 through stage 4 chronic kidney disease, or unspecified chronic kidney disease; G45.1 Carotid artery syndrome (hemispheric); E11.22 Type 2 diabetes mellitus with diabetic chronic kidney disease; I27.20 Pulmonary hypertension, unspecified; I25.5 Ischemic cardiomyopathy; I08.1 Rheumatic disorders of both mitral and tricuspid valves; N18.3 Chronic kidney disease, stage 3 (moderate); I48.2 Chronic atrial fibrillation; I45.10 Unspecified right bundle-branch block; I25.10 Atherosclerotic heart disease of native coronary artery without angina pectoris; J45.909 Unspecified asthma, uncomplicated; E78.5 Hyperlipidemia, unspecified; N40.0 Benign prostatic hyperplasia without lower urinary tract symptoms; G47.30 Sleep apnea, unspecified; M10.9 Gout, unspecified; K59.00 Constipation, unspecified; Z96.653 Presence of artificial knee joint, bilateral; Z95.1 Presence of aortocoronary bypass graft; Z95.4 Presence of other heart-valve replacement; Z79.01 Long term (current) use of anticoagulants; Z79.84 Long term (current) use of oral hypoglycemic drugs; Z79.82 Long term (current) use of aspirin; Z79.899 Other long term (current) drug therapy; Z83.3 Family history of diabetes mellitus; Z82.3 Family history of stroke; Z87.891 Personal history of nicotine dependence
CPT/HCPCS: 33010; 36415; 71045; 71046; 71275; 80048; 80053; 81003; 81015; 82550; 82553; 83605; 83735; 83880; 84145; 84443; 84484; 85025; 85379; 85610; 85652; 85730; 86140; 86900; 86901; 87040; 87205; 87641; 89051; 93005; 93308; 94640; 99156; 99285; A9270-GY; G8978-GP-CK; G8979-GP-CI; G8987-GO-CI; G8988-GO-CH; J1650; J1940; J2250; J3010; J3430

== ENCOUNTER 2018-04-17 12:29 | Inpatient (IN) | payer MEDICARE ==
--- OUTSIDE RECORDS SUMMARY | 2018-04-17 12:45 | XMS REPORT | Continuity of Care Document ---
:1940 External Reference #:[id number] Author Name Umm Hunt Care Team Providers Name Role Phone Huong Cantu MD Primary Care Physician Unavailable Payers Type Date Identification Numbers Payment Provider Subscriber Policy Number: [id number] Today Option/[place] PayID: [id number] [address] [address] Attn: [place] [address] Expires: 2016 Policy Number: [employer] [id number] Solutions Group Number: [id number] [address] [address] PayID: [id number] [place] [address] Advance Directives Description No Information Available Problems Date Description Provider Status Onset: 11/05/2016 Other sleep disorders Alisa Sneed MD Active Onset: 01/26/2017 Obstructive sleep apnea Joaquina Whalen DNP, RN, Active syndrome FIELD SERVICE SPECIALIST-BC Onset: 01/26/2017 Hypoxemia Joaquina Whalen DNP, RN, Active FIELD SERVICE SPECIALIST-BC Family History Date Family Member(s) Problem(s) Comments General Stroke General Cancer, Colon Father Cerebrovascular Accident (CVA) Mother Arthritis First Son due to Colon Cancer () - age 26yrs Social History Type Date Description Comments Sex Unknown Tobacco Use Start: Unknown End: Former Cigarette Smoker Unknown Smoking Status Reviewed: 04/16/18 Former Cigarette Smoker ETOH Use Rarely consumes alcohol Tobacco Use Start: Unknown End: Patient is a former smoked for 10-12yrs Unknown smoker 1PPD, quit age 28yrs Recreational Drug Use Denies Drug Use Exercise Type/Frequency Exercises rarely Allergies, Adverse Reactions, Alerts Description No Known Drug Allergies Medications Medication Date Status Form Strength Qnty SIG Indications Ordering Provider Carvedilol 04/16/ Active Tablets 3.125mg 180ta 1 by mouth I25.5 Bandar 2018 bs twice a day Radha Mo M.D. Digoxin 04/16/ Active Tablets 125mcg 90tab 1 by mouth I25.5 Bandar 2018 s every Other D. Brandmarva M.D. Allopurinol / Active Tablets 100mg 30tab 1 po qd Unknown 0000 s Coumadin / Active Tablets 1mg 100ta 3 tablets How, 0000 bs 3.5 Gay, tablets (adj by ) Advair Diskus / Active Aerosol 250-50mcg 1 puff by Unknown 0000 /Dose mouth twice a day Glipizide-Metfor / Active Tablets 5-500mg 1 tablet po Unknown min HCL 0000 daily or as directed ( Currently taking 1 tablet po twice daily ) Amlodipine / Active Tablets 5mg 30tab take one Unknown Besylate 0000 s tab daily Finasteride / Active Tablets 5mg 90tab 1 by mouth Unknown 0000 s every day Aspirin / Active Tablets 81mg 1 tablet po Unknown 0000 daily ( medication change increase since 04/01/18) Atorvastatin / Active Tablets 80mg 1 by mouth Unknown Calcium 0000 every day Losartan / Active Tablets 50mg 1 by mouth Unknown Potassium 0000 every day Bumetanide / Active Tablets 2mg 30tab 1 tablet by Bandar 0000 s mouth once Dluigi Kern M.D. Colcrys / Active Tablets 0.6mg 1 tablet po Unknown 0000 daily Colcrys 00/ Hx Tablets 0.6mg 60tab q2h x4 day Unknown 0000 - s 1, then bid 2013 Valsartan / Hx Tablets 320mg 90tab 1 by mouth Unknown 0000 - s every day 2017 Metoprolol / Hx Tablets ER 50mg 30tab 1 po qd Unknown Succinate ER 0000 - 24HR s 2016 Glyburide / Hx Tablets 5mg 90tab 1 po qd Unknown 0000 - s 2013 Furosemide / Hx Tablets 40mg 60tab 1 tab po Unknown 0000 - s every other 2017 Lovaza / Hx Capsules 1gm 180ca 1 po bid Unknown 0000 - ps 2013 Potassium / Hx 10Meq 1 tablet po Unknown Chloride ER 0000 - daily (on ) 2016 Simvastatin / Hx Tablets 80mg 1 by mouth Unknown 0000 - every night 10/28/ at bedtime 2016 Carvedilol / Hx Tablets 6.25mg 1 tab by Unknown 0000 - mouth once 2017 Spironolactone / Hx Tablets 25mg 1 tab a Unknown 0000 - day 2017 Immunizations CPT Code Status Date Vaccine Lot # 82070 Given 02/25/2016 Pneumonia Vaccine Vital Signs Date Vital Result Comment 04/16/2018 10:09am Weight 193.00 lb pt refused weight , weight at home 192 Heart Rate 101 /min BP Systolic Sitting 110 mmHg Rue lg cuff BP Diastolic Sitting 70 mmHg Rue lg cuff BP Systolic Standing 102 mmHg Rue lg cuff BP Diastolic Standing 66 mmHg Rue lg cuff Respiratory Rate 16 /min O2 % BldC Oximetry 98 % at room air Ejection Fraction 25-30% date 04/08/18 ECHO 03/12/2018 11:46am Height 63.5 inches 5'3.50" Weight 204.00 lb without shoes Heart Rate 54 /min BP Systolic Sitting 114 mmHg Lue, reg cuff BP Diastolic Sitting 66 mmHg Lue, reg cuff BP Systolic Standing 112 mmHg Lue, reg cuff BP Diastolic Standing 66 mmHg Lue, reg cuff Respiratory Rate 16 /min BMI (Body Mass Index) 35.6 kg/m2 Ejection Fraction 35-40% echo 12/201602/05/2018 10:53am Height 63.5 inches 5'3.50" Weight 195.00 lb Heart Rate 74 /min BP Systolic Sitting 116 mmHg Rue lg cuff BP Diastolic Sitting 74 mmHg Rue lg cuff BP Systolic Standing 114 mmHg Rue BP Diastolic Standing 76 mmHg Rue Respiratory Rate 16 /min BMI (Body Mass Index) 34.0 kg/m2 Ejection Fraction 55% as of 02/26/17 echo 10/28/2017 11:09am Height 63.5 inches 5'3.50" Weight 189.00 lb w/o shoes Heart Rate 78 /min reg BP Systolic Sitting 136 mmHg Rue, lg cuff BP Diastolic Sitting 80 mmHg Rue, lg cuff BP Systolic Standing 130 mmHg Rue BP Diastolic Standing 84 mmHg Rue Respiratory Rate 16 /min BMI (Body Mass Index) 33.0 kg/m2 Ejection Fraction 55% as of 02/2017 echo 04/17/2017 12:38pm Height 63.5 inches 5'3.50" Weight 193.00 lb No shoes Heart Rate 60 /min BP Systolic Sitting 132 mmHg Lue lrg cuff BP Diastolic Sitting 66 mmHg Lue lrg cuff BP Systolic Standing 128 mmHg Lue lrg cuff BP Diastolic Standing 62 mmHg Lue lrg cuff Respiratory Rate 16 /min BMI (Body Mass Index) 33.6 kg/m2 Ejection Fraction 55% 02/26/2017-echo 02/13/2017 12:25pm Height 63.5 inches 5'3.50" Weight 197.00 lb with shoes Heart Rate 53 /min BP Systolic Sitting 120 mmHg Lue reg cuff BP Diastolic Sitting 64 mmHg Lue reg cuff BP Systolic Standing 128 mmHg Lue reg cuff BP Diastolic Standing 60 mmHg Lue reg cuff Respiratory Rate 16 /min BMI (Body Mass Index) 34.3 kg/m2 Ejection Fraction 35-40% date 11/10/16 ECHO 01/26/2017 4:29pm Height 63.5 inches 5'3.50" Weight 189.00 lb Heart Rate 54 /min BP Systolic Sitting 140 mmHg BP Diastolic Sitting 70 mmHg Respiratory Rate 14 /min BMI (Body Mass Index) 33.0 kg/m2 12/30/2016 2:17pm Height 63.5 inches 5'3.50" Weight 192.00 lb w/ shoes Heart Rate 56 /min reg BP Systolic Sitting 122 mmHg Lue, reg cuff BP Diastolic Sitting 64 mmHg Lue, reg cuff BP Systolic Standing 126 mmHg Lue BP Diastolic Standing 60 mmHg Lue Respiratory Rate 16 /min BMI (Body Mass Index) 33.5 kg/m2 Ejection Fraction 35-40% as of 12/2016 Anjel 12/02/2016 12:55pm Height 63.5 inches 5'3.50" Weight 194.31 lb with shoes Heart Rate 62 /min BP Systolic Sitting 130 mmHg Lue reg cuff BP Diastolic Sitting 60 mmHg Lue reg cuff BP Systolic Standing 130 mmHg Lue reg cuff BP Diastolic Standing 56 mmHg Lue reg cuff Respiratory Rate 16 /min BMI (Body Mass Index) 33.9 kg/m2 Ejection Fraction 35-40% date 11/10/16 ECHO 11/14/2016 11:26am Height 63.5 inches 5'3.50" Weight 194.00 lb with shoes Heart Rate 50 /min BP Systolic Sitting 110 mmHg Lue reg cuff BP Diastolic Sitting 56 mmHg Lue reg cuff BP Systolic Standing 106 mmHg Lue reg cuff BP Diastolic Standing 54 mmHg Lue reg cuff Respiratory Rate 15 /min BMI (Body Mass Index) 33.8 kg/m2 Ejection Fraction 35% 11/10/2016-echo 11/05/2016 11:17am Height 63.5 inches 5'3.50" Weight 189.00 lb Heart Rate 54 /min BP Systolic Sitting 106 mmHg BP Diastolic Sitting 50 mmHg Respiratory Rate 16 /min O2 % BldC Oximetry 98 % room air BMI (Body Mass Index) 33.0 kg/m2 Neck Circumference in inches 14.5 11/05/2016 9:25am Height 63.5 inches 5'3.50" Weight 188.00 lb no shoes Heart Rate 60 /min BP Systolic Sitting 118 mmHg BP Diastolic Sitting 56 mmHg BP Systolic Standing 110 mmHg BP Diastolic Standing 56 mmHg Respiratory Rate 18 /min BMI (Body Mass Index) 32.8 kg/m2 Ejection Fraction 25-30% 10/02/2016-echo 03/03/2014 11:13am Height 63.5 inches 5'3.50" Weight 220.31 lb without shoes Heart Rate 72 /min BP Systolic Sitting 142 mmHg Ra lg cuff BP Diastolic Sitting 64 mmHg Ra lg cuff BP Systolic Standing 158 mmHg Ra lg cuff BP Diastolic Standing 68 mmHg Ra lg cuff Respiratory Rate 16 /min BMI (Body Mass Index) 38.4 kg/m2 07/03/2011 3:02pm Weight 220.00 lb Heart Rate 78 /min BP Systolic Sitting 132 mmHg BP Diastolic Sitting 80 mmHg Results Test Date Facility Test Result H/L Range Note Basic Metabolic 03/12/2018 [facility] Sodium 142 mmol/L N 135- [address] [place] [address] [phone] Potassium 4.8 mmol/L N 3.5-5.0 Chloride 103 mmol/L N 101-111 Co2 Carbon Dioxide 32 mmol/L N 22-32 Anion Gap 7 mmol/L N 2-11 Glucose 184 mg/dL High 70-100 Blood Urea Nitrogen 41 mg/dL High 6-24 Creatinine 1.52 mg/dL High 0.67-1.17 BUN/Creatinine Ratio 27.0 High 8-20 Calcium 9.4 mg/dL N 8.6-10.3 Egfr Non- 44.6 >60 Egfr 53.9 >60 1 CBC Auto Diff 12/02/2016 [facility] White Blood 5.9 10^3/uL N 3.5-10.[address] [place] [address] [phone] Red Blood Count 3.22 10^6/uL Low 4.0-5.4 Hemoglobin 10.4 g/dL Low 14.0-18.0 Hematocrit 32 % Low 42-52 Mean Corpuscular Volume 98 fL High 80-94 Mean Corpuscular Hemoglobin 32 pg High 27-31 Mean Corpuscular HGB Conc 33 g/dL N 31-36 Red Cell Distribution Width 17 % High 10.5-15 Platelet Count 146 10^3/uL Low 150-450 Mean Platelet Volume 10 um3 N 7.4-10.4 Abs Neutrophils 4.2 10^3/uL N 1.5-7.7 Abs Lymphocytes 0.7 10^3/uL Low 1.0-4.8 Abs Monocytes 0.8 10^3/uL N 0-0.8 Abs Eosinophils 0.1 10^3/uL N 0-0.6 Abs Basophils 0.1 10^3/uL N 0-0.2 Abs Nucleated RBC 0.01 10^3/uL N Granulocyte % 71.5 % N 38-83 Lymphocyte % 12.0 % Low 25-47 Monocyte % 13.5 % High 1-9 Eosinophil % 1.7 % N 0-6 Basophil % 1.3 % N 0-2 Nucleated Red Blood Cells % 0.1 N Inr/Protime 12/02/2016 [facility] Inr 1.57 High 0.89-1.[address] [place] [address] [phone] Laboratory test 12/02/2016 [facility] Partial 36.0 N 26.0- 36.3 [address] [place] [address] Time PTT [phone] B-Type Natriuretic Peptide BNP 431 pg/mL High 3 Basic Metabolic Panel 12/02/2016 [facility] Sodium 137 mmol/L N 133-[address] [place] [address] [phone] Potassium 4.8 mmol/L N 3.5-5.0 Chloride 108 mmol/L N 101-111 Co2 Carbon Dioxide 25 mmol/L N 22-32 Anion Gap 4 mmol/L N 2-11 Glucose 72 mg/dL N 70-100 Blood Urea Nitrogen 46 mg/dL High 6-24 Creatinine 1.30 mg/dL High 0.67-1.17 BUN/Creatinine Ratio 35.4 High 8-20 Calcium 9.4 mg/dL N 8.6-10.3 Egfr Non- 53.7 N >60 Egfr 69.0 N >60 4 Laboratory test 12/02/2016 [facility] Magnesium 2.3 mg/dL N 1.9-2.7 [address] [place] [address] [phone] Pre Cath Panel 11/21/2016 [facility] Partial 41.7 High 26.0- 36.[address] [address] PTT [phone] CBC Auto Diff 11/21/2016 [facility] White Blood 6.0 10^3/uL N 3.5-10.[address] [place] [address] [phone] Red Blood Count 3.27 10^6/uL Low 4.0-5.4 Hemoglobin 10.5 g/dL Low 14.0-18.0 Hematocrit 32 % Low 42-52 Mean Corpuscular Volume 99 fL High 80-94 Mean Corpuscular Hemoglobin 32 pg High 27-31 Mean Corpuscular HGB Conc 32 g/dL N 31-36 Red Cell Distribution Width 16 % High 10.5-15 Platelet Count 145 10^3/uL Low 150-450 Mean Platelet Volume 10 um3 N 7.4-10.4 Abs Neutrophils 4.3 10^3/uL N 1.5-7.7 Abs Lymphocytes 0.8 10^3/uL Low 1.0-4.8 Abs Monocytes 0.8 10^3/uL N 0-0.8 Abs Eosinophils 0.1 10^3/uL N 0-0.6 Abs Basophils 0.1 10^3/uL N 0-0.2 Abs Nucleated RBC 0 10^3/uL N Granulocyte % 71.3 % N 38-83 Lymphocyte % 13.6 % Low 25-47 Monocyte % 13.1 % High 1-9 Eosinophil % 1.1 % N 0-6 Basophil % 0.9 % N 0-2 Nucleated Red Blood Cells % 0 N Inr/Protime 11/21/2016 [facility] Inr 1.93 High 0.89-1.11 [address] [place] [address] [phone] Basic Metabolic 11/21/2016 [facility] Sodium 134 mmol/L N 133- 145 Panel [address] [place] [address] [phone] Potassium 4.9 mmol/L N 3.5-5.0 Chloride 108 mmol/L N 101-111 Co2 Carbon Dioxide 21 mmol/L Low 22-32 Anion Gap 5 mmol/L N 2-11 Glucose 89 mg/dL N 70-100 Blood Urea Nitrogen 48 mg/dL High 6-24 Creatinine 1.38 mg/dL High 0.67-1.17 BUN/Creatinine Ratio 34.8 High 8-20 Calcium 9.6 mg/dL N 8.6-10.3 Egfr Non- 50.1 N >60 Egfr 64.4 N >60 6 Laboratory test 11/21/2016 [facility] B-Type 396 pg/mL High 7 finding [address] [facility] [place] [address] Peptide BNP [phone] Magnesium 2.5 mg/dL N 1.9-2.7 Basic Metabolic Panel 11/13/2016 [facility] Sodium 134 mmol/L N 133-145 [address] [place] [address] [phone] Potassium 5.2 mmol/L High 3.5-5.0 Chloride 107 mmol/L N 101-111 Co2 Carbon Dioxide 22 mmol/L N 22-32 Anion Gap 5 mmol/L N 2-11 Glucose 67 mg/dL Low 70-100 Blood Urea Nitrogen 66 mg/dL High 6-24 Creatinine 1.63 mg/dL High 0.67-1.17 BUN/Creatinine Ratio 40.5 High 8-20 Calcium 9.6 mg/dL N 8.6-10.3 Egfr Non- 41.3 N >60 Egfr 53.2 N >60 8 CBC Auto Diff 11/05/2016 [facility] White Blood 5.9 10^3/uL N 3.5-10.[address] [place] [address] [phone] Red Blood Count 3.29 10^6/uL Low 4.0-5.4 Hemoglobin 10.5 g/dL Low 14.0-18.0 Hematocrit 32 % Low 42-52 Mean Corpuscular Volume 96 fL High 80-94 Mean Corpuscular Hemoglobin 32 pg High 27-31 Mean Corpuscular HGB Conc 33 g/dL N 31-36 Red Cell Distribution Width 16 % High 10.5-15 Platelet Count 149 10^3/uL Low 150-450 Mean Platelet Volume 10 um3 N 7.4-10.4 Abs Neutrophils 4.2 10^3/uL N 1.5-7.7 Abs Lymphocytes 0.7 10^3/uL Low 1.0-4.8 Abs Monocytes 0.9 10^3/uL High 0-0.8 Abs Eosinophils 0 10^3/uL N 0-0.6 Abs Basophils 0.1 10^3/uL N 0-0.2 Abs Nucleated RBC 0.01 10^3/uL N Granulocyte % 71.6 % N 38-83 Lymphocyte % 12.3 % Low 25-47 Monocyte % 14.4 % High 1-9 Eosinophil % 0.6 % N 0-6 Basophil % 1.1 % N 0-2 Nucleated Red Blood Cells % 0.1 N Basic Metabolic Panel 11/05/2016 [facility] Sodium 137 mmol/L N 133-[address] [place] [address] [phone] Potassium 4.9 mmol/L N 3.5-5.0 Chloride 108 mmol/L N 101-111 Co2 Carbon Dioxide 23 mmol/L N 22-32 Anion Gap 6 mmol/L N 2-11 Glucose 61 mg/dL Low 70-100 Blood Urea Nitrogen 62 mg/dL High 6-24 Creatinine 1.56 mg/dL High 0.67-1.17 BUN/Creatinine Ratio 39.7 High 8-20 Calcium 9.4 mg/dL N 8.6-10.3 Egfr Non- 43.5 N >60 Egfr 55.9 N >60 9 1 Because ethnic data is not always readily available, this report includes an eGFR for both -Americans and non- Americans. The National Kidney Disease Education Program (NKDEP) does not endorse the use of the MDRD equation for patients that are not between the ages of 18 and 70, are , have extremes of body size, muscle mass, or nutritional status, or are non- or non-. According to the National Kidney Foundation, irrespective of diagnosis, the stage of the disease is based on the level of kidney function: Stage Description GFR(mL/min/1.73 m(2)) 1 Kidney damage with normal or decreased GFR 90 2 Kidney damage with mild decrease in GFR 60-89 3 Moderate decrease in GFR 30-59 4 Severe decrease in GFR 15-29 5 Kidney failure <15 (or dialysis) 2 few days prior to [facility] 3 >100 to <200 pg/mL: likely compensated congestive heart failure (CHF) 200 to 400 pg/mL: likely moderate CHF >400 pg/mL: likely moderate to severe CHF 4 Because ethnic data is not always readily available, this report includes an eGFR for both -Americans and non- Americans. The National Kidney Disease Education Program (NKDEP) does not endorse the use of the MDRD equation for patients that are not between the ages of 18 and 70, are , have extremes of body size, muscle mass, or nutritional status, or are non- or non-. According to the National Kidney Foundation, irrespective of diagnosis, the stage of the disease is based on the level of kidney function: Stage Description GFR(mL/min/1.73 m(2)) 1 Kidney damage with normal or decreased GFR 90 2 Kidney damage with mild decrease in GFR 60-89 3 Moderate decrease in GFR 30-59 4 Severe decrease in GFR 15-29 5 Kidney failure <15 (or dialysis) 5 few days prior to [facility] 6 Because ethnic data is not always readily available, this report includes an eGFR for both -Americans and non- Americans. The National Kidney Disease Education Program (NKDEP) does not endorse the use of the MDRD equation for patients that are not between the ages of 18 and 70, are , have extremes of body size, muscle mass, or nutritional status, or are non- or non-. According to the National Kidney Foundation, irrespective of diagnosis, the stage of the disease is based on the level of kidney function: Stage Description GFR(mL/min/1.73 m(2)) 1 Kidney damage with normal or decreased GFR 90 2 Kidney damage with mild decrease in GFR 60-89 3 Moderate decrease in GFR 30-59 4 Severe decrease in GFR 15-29 5 Kidney failure <15 (or dialysis) 7 >100 to <200 pg/mL: likely compensated congestive heart failure (CHF) 200 to 400 pg/mL: likely moderate CHF >400 pg/mL: likely moderate to severe CHF 8 Because ethnic data is not always readily available, this report includes an eGFR for both -Americans and non- Americans. The National Kidney Disease Education Program (NKDEP) does not endorse the use of the MDRD equation for patients that are not between the ages of 18 and 70, are , have extremes of body size, muscle mass, or nutritional status, or are non- or non-. According to the National Kidney Foundation, irrespective of diagnosis, the stage of the disease is based on the level of kidney function: Stage Description GFR(mL/min/1.73 m(2)) 1 Kidney damage with normal or decreased GFR 90 2 Kidney damage with mild decrease in GFR 60-89 3 Moderate decrease in GFR 30-59 4 Severe decrease in GFR 15-29 5 Kidney failure <15 (or dialysis) 9 Because ethnic data is not always readily available, this report includes an eGFR for both -Americans and non- Americans. The National Kidney Disease Education Program (NKDEP) does not endorse the use of the MDRD equation for patients that are not between the ages of 18 and 70, are , have extremes of body size, muscle mass, or nutritional status, or are non- or non-. According to the National Kidney Foundation, irrespective of diagnosis, the stage of the disease is based on the level of kidney function: Stage Description GFR(mL/min/1.73 m(2)) 1 Kidney damage with normal or decreased GFR 90 2 Kidney damage with mild decrease in GFR 60-89 3 Moderate decrease in GFR 30-59 4 Severe decrease in GFR 15-29 5 Kidney failure <15 (or dialysis) Procedures Date Code Description Status 04/16/2018 36770 EKG Tracing & Interpretation Completed 02/05/2018 24998 EKG Tracing & Interpretation Completed 04/17/2017 83270 EKG Tracing & Interpretation Completed 01/15/2017 58582 Polysomnography Sleep Staging 4+ Parameters Completed 12/22/2016 07845 Color Flow Doppler/Interp & Reprt Completed 12/22/2016 73125 Pulse Wave/Continuous-Interp.RPT Completed 12/22/2016 45241 Echocardiography, Transesophageal, Real Time W/Image 2D Completed W/W/O M-M 11/24/2016 99422 RT Heart Catheritization; Measurement Of Oxygen Saturation Completed 11/10/2016 75737 ECHO Transthoracic, Real-Time 2D With Doppler And Color Completed Flow 11/05/2016 09567 EKG Tracing & Interpretation Completed 10/03/2016 38291 Treadmill Interp/Report Only Completed 10/03/2016 67852 Stress Test Supervsn W/Out I/R Completed 10/02/2016 34308 ECHO Transthorasic Realtime 2D W Doppler & Color Flow Hosp Completed 03/03/2014 65124 EKG Tracing & Interpretation Completed 02/03/2014 15651 ECHO Transthoracic, Real-Time 2D With Doppler And Color Completed Flow 05/12/2012 50950 EKG, Interpretation Only Completed Encounters Type Date Location Provider Dx Diagnosis Office Visit 03/12/2018 [facility] Bandar Garcia I25.5 Ischemic 12:30p Of Kim Mo M.D. 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 I50.9 Heart failure, unspecified I42.9 Cardiomyopathy, unspecified I34.0 Nonrheumatic mitral (valve) insufficiency Office Visit 01/26/2017 Pulmonology And Joaquina G47.33 Obstructive sleep 10:00a Sleep Services Of DEION Whalen, RN, apnea (adult) [facility] FIELD SERVICE SPECIALIST-BC (pediatric) R09.02 Hypoxemia Office Visit 12/30/2016 2:00p [place] Zafar Garcia I34.0 Nonrheumatic mitral Of [facility] [place] Clementina Mo (valve) insufficiency I42.9 Cardiomyopathy, unspecified I50.9 Heart failure, unspecified 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 E78.5 Hyperlipidemia, unspecified I10 Essential (primary) hypertension I50.22 Chronic systolic (congestive) heart failure I48.2 Chronic atrial fibrillation Office Visit 11/05/2016 11:00a Pulmonology And Sleep Alisa Nedra, R06.83 Sn[facility] Services Of Kim COLUNGA R40.0 Somnolence I50.22 Chronic systolic (congestive) heart failure E66.09 Other obesity due to excess calories Z68.33 Body mass index (BMI) 33.0-33.9, adult Office Visit 10/03/2016 10:39a [facility] Eden Van I50.22 Chronic systolic Of [facility] [place] MD Priscilla, (congestive) heart FACC, FSCAI failure I34.0 Nonrheumatic mitral (valve) insufficiency I27.2 Other secondary pulmonary hypertension Office Visit 10/03[facility]2016 [facility] R18.8 Other [facility] [employer] [facility] 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 E78.5 Hyperlipidemia, unspecified I10 Essential (primary) hypertension Office Visit 10/02/2016 [facility] R18.8 Other 8:11a Assoc,PEPITO [facility]osh [facility] 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 Barry Morris, R18.8 Other ascites Assoc,pc N.P. 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 Fibrillation 414.01 Coronary Atherosclerosis [place] Office Visit 04/26/2013 9:09a [facility] Agustina Galeano, 995.91 Sepsis Hospitalists D.O. 595.0 Cystitis Acute 599.71 Gross Hematuria 427.31 Atrial Fibrillation Office Visit 04/25/2013 9:09a [facility] Agustina Galeano, 995.91 Sepsis Hospitalists D.O. 595.0 Cystitis Acute 599.71 Gross Hematuria 427.31 Atrial Fibrillation Office Visit 04/24/2013 9:08a [facility] Christine Shepherd, 995.91 Sepsis Hospitalists N.P. 595.0 Cystitis Acute 599.71 Gross Hematuria 427.31 Atrial Fibrillation [facility] 05/14[facility]2012 10[facility] Pneumonia Assoc,pc M.DMerritt Pneumococcal Hospitalists 250.00 Diabetes Mellitus W/O Compl Type II Or Unspec Controlled 401.9 Hypertension Unspec 414.01 Coronary Atherosclerosis [place] Office Visit 05/13/2012 10:13a [facility] 481 Pneumonia Assoc,pc M.D. Pneumococcal Hospitalists 250.00 Diabetes Mellitus W/O Compl Type II Or Unspec Controlled 401.9 Hypertension Unspec 414.01 Coronary Atherosclerosis [place] Office Visit 05/12/2012 10:12a [facility], 481 Pneumonia Assoc,pc M.D. 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 at [facility]04/23/2018 2:00 pm - [facility] ECHO Schedule at [facility]04/16/2018 - Bandar Mo M.D.I25.5 Ischemic cardiomyopathyNew Medication:Carvedilol 3.125 mg - 1 by mouth twice a dayDigoxin 125 mcg - 1 by mouth every Other dayNew Orders:Echocardiogram, Scheduled: 04/23/18ollow up:2 imzbgP71.10 Atherosclerotic heart disease of resighini coronary artery withI34.0 Nonrheumatic mitral (valve) insufficiency
--- NOTE | 2018-04-17 12:49 | ED ---
Shortness of Breath - HPI Summary HPI Summary: A 77 y/o male brought in by [facility] presents to [facility] with a chief complaint of SOB since his triple bypass on 04/09/18 which worsened on . He also c/o a cough for 1.5 weeks. He believes his SOB may be due to his asthma. He claims that he was having difficulty sleeping due to his SOB. He denies any current pain and rates his pain as a 0/10. He has a Hx of CHF and CAD. - History of Current Complaint Chief Complaint: EDShortnessOfBreath Time Seen by Provider: 04/17/18 12:36 Hx Obtained From: Patient, EMS Onset/Duration: Sudden Onset, Lasting Days, Still Present Current Severity: Moderate Dyspnea At: Rest Associated Signs & Symptoms: Cough (Nonproductive) - Allergy/Home Medications Allergies/Adverse Reactions: Allergies Allergy/AdvReac Type Severity Reaction Status Date / Time No Known Allergies Allergy Verified 04/17/18 13:01 Home Medications: Home Medications Albuterol HFA INHALER* [Ventolin HFA Inhaler*] 1 puff INH Q4H PRN 04/17/18 [ History Confirmed 04/17/18] Carvedilol TAB* [Coreg TAB*] 6.25 mg PO BID 04/17/18 [History Confirmed 04/17/18 ] Digoxin TAB* [Lanoxin TAB*] 0.125 mg PO EVERY OTHER DAY 04/17/18 [History Confirmed 04/17/18] PMH/Surg Hx/FS Hx/Imm Hx Endocrine/Hematology History: Reports: Hx Anticoagulant Therapy, Hx Diabetes Denies: Other Endocrine/Hematological Disorders Cardiovascular History: Reports: Hx Angina, Hx Atrial Fibrillation, Hx Congestive Heart Failure, Hx Coronary Artery Disease, Hx Hypercholesterolemia, Hx Hypertension - ON MEDS, Hx Syncope, Hx Valvular Heart Disease Denies: Hx Auto Implanted Cardiovert Defib, Hx Deep Vein Thrombosis, Hx Embolism, Hx Pacemaker/ICD, Other Cardiovascular Problems/Disorders Respiratory History: Reports: Hx Asthma, Hx Chronic Obstructive Pulmonary Disease (COPD), Hx Pneumonia Denies: Other Respiratory Problems/Disorders GI History: Reports: Other GI Disorders - hx ascites History: Reports: Hx Benign Prostatic Hyperplasia Denies: Hx Renal Disease, Other Problems/Disorders Musculoskeletal History: Reports: Hx Arthritis, Hx Gout, Other Musculoskeletal History - Bilateral knee replacements Sensory History: Reports: Hx Contacts or Glasses, Hx Vision Problem, Hx Hearing Problem Denies: Hx Hearing Aid, Other Sensory Impairments Opthamlomology History: Reports: Hx Contacts or Glasses, Hx Vision Problem Denies: Other Sensory Impairments Neurological History: Denies: Other Neuro Impairments/Disorders Psychiatric History: Denies: Other Psychiatric Issues/Disorders - Cancer History Cancer Type, Location and Year: skin cancer right hand - Surgical History Surgery Procedure, Year, and Place: Bilateral Knee replacements Hx Anesthesia Reactions: No Infectious Disease History: No Infectious Disease History: Denies: Hx Clostridium Difficile, Hx Hepatitis, Hx Human Immunodeficiency Virus (HIV), Hx of Known/Suspected MRSA, Traveled Outside the [place] in Last 30 Days - Family History Known Family History: Positive: Cardiac Disease, Diabetes, Other - CVA Family History: CVA - Social History Alcohol Use: Occasionally Substance Use Type: Reports: None Hx Tobacco Use: Yes Smoking Status (MU): Former Smoker Type: Cigarettes Have You Smoked in the Last Year: No Review of Systems Negative: Fever Negative: Chest Pain Positive: Shortness Of Breath, Cough All Other Systems Reviewed And Are Negative: Yes Physical Exam - Summary Physical Exam Summary: Appearance: The patient is well-nourished in no acute distress and in no acute pain. Skin: The skin is warm and dry and skin color reflects adequate perfusion. HEENT: The head is normocephalic and atraumatic. The pupils are equal and reactive. The conjunctivae are clear and without drainage. Nares are patent and without drainage. Mouth reveals moist mucous membranes and the throat is without erythema and exudate. The external ears are intact. The ear canals are patent and without drainage. The tympanic membranes are intact. Neck: JVD. The neck is supple with full range of motion and non-tender. There are no carotid bruits. Respiratory: Chest is non-tender. Decreased breath sounds in both bases. Cardiovascular: Tachycardic. Cardiac rub. There is no peripheral edema and pulses are symmetrical and equal. Abdomen: The abdomen is soft and non-tender. There are normal bowel sounds heard in all four quadrants and there is no organomegaly palpated. Musculoskeletal: There is no back tenderness noted. Extremities are non-tender with full range of motion. There is good capillary refill. There is no peripheral edema or calf tenderness elicited. Neurological: Patient is alert and oriented to person, place and time. The patient has symmetrical motor strength in all four extremities. Cranial nerves are grossly intact. Deep tendon reflexes are symmetrical and equal in all four extremities. Psychiatric: The patient has an appropriate affect and does not exhibit any anxiety or depression. Triage Information Reviewed: Yes Vital Signs On Initial Exam: Initial Vitals Temp Pulse Resp BP Pulse Ox 96.5 F 124 16 142/105 96 04/17/18 12:36 04/17/18 12:36 04/17/18 12:36 04/17/18 12:36 04/17/18 12:36 Vital Signs Reviewed: Yes Diagnostics - Vital Signs Vital Signs Temp Pulse Resp BP Pulse Ox 04/17/18 12:36 96.5 F 124 16 142/105 96 - Laboratory Result Diagrams: 04/17/18 12:55 04/17/18 15:59 Lab Statement: Any lab studies that have been ordered have been reviewed, and results considered in the medical decision making process. - Radiology CXR Radiology Interpretation Completed By: Radiologist Summary of Radiographic Findings: There is atelectasis and/or small pleural effusion at the bilateral lung. bases. ED physician has reviewed this imaging report. - CT Chest/thorax CTA CT Interpretation Completed By: Radiologist Summary of CT Findings: 1. There is no definite centrilobular pulmonary embolism on this limited CT examination. Due to early imaging following contrast bolus as well as likely cardiac insufficiency the. contrast bolus has not yet reached the distal pulmonary arteries. 2. Consolidation with air bronchograms at the dependent right lower lobe which could be. due to compressive atelectasis adjacent to a pleural effusion or pneumonia. 3. Evidence of cardiac insufficiency includes mild cardiomegaly, pericardial effusion,. pleural effusions and evidence of pulmonary edema as well as intravenously injected. contrast refluxing into the IVC and hepatic veins. ED physician has reviewed this imaging report. - EKG 12:52 Cardiac Rate: Other Rate - Atrial Fibrillation at 102 bpm EKG Rhythm: Atrial Fibrillation Summary of EKG Findings: Atrial fibrillation, RBBB, unchanged from 04/08/18. Course/Dx - Course Course Of Treatment: Mr. Tello presented tachypneic and tachycardic with accessory muscle use and retractions. I heard breath sounds bilaterally without wheezes but with decreased breath sounds at the bases. I also heard some rhonchi on the left. His pulse ox was 96 with a respiratory rate of 38 on room air when I saw him. He was also mildly tachycardic. Placed oxygen on him which made him feel better although he remained tachypneic in the 20's. He had JVD but I could hear heart tones well and thought I heard a rub. I gave him a DuoNeb which didn't seem to help him much while labs and x-rays were obtained. I was concerned about the possibility of pericardial effusion or CHF although his exam was not consistent. I discussed it with Dr. Gordon who recommended a CTA of the chest and came to the department and performed a bedside echocardiogram. He reported that his pericardia effusion was no worse than previously but that his ejection fraction was only 10%. The CTA revealed that his pleural effusions were no worse than they have been. I discussed this with Dr. Scott who recommended speaking with Dr. Sneed. She came to the department and evaluated him and felt that he was stable enough to go to the floor. I spoke with the hospitalists and they admitted him for respiratory insufficiency. - Diagnoses Provider Diagnoses: Respiratory distress - Physician Notifications Discussed Care of Patient With: Lori Scott Time Discussed With Above Provider: 13:55 Instructed by Provider To: Other - recommends chest CT. At 14:35 he saw the patient in the ED. At 15:25 he recommends admission to the hospitalist with a pulmonary consult. - Critical Care Time Critical Care Time: 30-74 min Discharge - Sign-Out/Discharge Documenting (check all that apply): Patient Departure - Admit - Discharge Plan Condition: Fair Disposition: ADMITTED TO [facility] - Billing Disposition and Condition Condition: FAIR Disposition: Admitted to [facility] - Attestation Statements Document Initiated by Rod: Yes Documenting Scribe: Rd Camar[place] Provider For Whom Rod is Documenting (Include Credential): Luke Brandon MD Scribe Attestation: I, Rd Camarillo, scribed for Luke Brandon MD on 04/17/18 at 1933. Scribe Documentation Reviewed: Yes Provider Attestation: The documentation as recorded by the Rd newman accurately reflects the service I personally performed and the decisions made by me, Luke Brandon MD Status of Scribe Document: Viewed Consult Consult: At 15:[address] Sneed who thinks the hospitalist can admit the patient. At 16:[address] Galeano who will see the patients in the ED and accepted the patient for admission.
[2018-04-17 13:27] LABS: ABS Basophils 0.1 10^3/ul (0-0.2); ABS Eosinophils 0.1 10^3/ul (0-0.6); ABS Lymphocytes 0.8 10^3/ul (1.0-4.8); ABS Monocytes 1.1 10^3/ul (0-0.8); ABS Nucleated RBC 0 10^3/ul; Eosinophil % 0.4 %; Hematocrit 38 % (42-52); Lymphocyte % 6.3 %; Mean Corpuscular HGB Conc 32 g/dl (31-36); Mean Corpuscular Hemoglobin 31 pg (27-31); Mean Corpuscular Volume 98 fL (80-94); Nucleated Red Blood Cells % 0; Platelet Count 244 10^3/ul (150-450); Red Blood Count 3.85 10^6/ul (4.00-5.40); Red Cell Distribution Width 18 % (10.5-15)
[2018-04-17 13:42] LABS: ALT 37 U/L (7-52); Albumin 3.3 g/dL (3.2-5.2); Albumin/Globulin Ratio 0.8 (1-3); Alkaline Phosphatase 143 U/L (34-104); BUN/Creatinine Ratio 26.9 (8-20); Blood Urea Nitrogen 45 mg/dL (6-24); C Reactive Protein 11.12 mg/L (<8.01); CO2 Carbon Dioxide 24 mmol/L (22-32); Calcium 9.3 mg/dL (8.6-10.3); Chloride 100 mmol/L (101-111); Globulin 4.3 g/dL (2-4); Glucose 286 mg/dL (70-100); Sodium 136 mmol/L (135-145); Total Protein 7.6 g/dL (6.4-8.9)
[2018-04-17 13:46] LABS: INR 6.34 (0.77-1.02)
[2018-04-17] MEDS ORDERED: NS 0.9% 1000 ML* 1,000 ML IV ONE (13:50)
[2018-04-17] MEDS ORDERED: Albuterol/Ipratropium NEB.SOL* Albuterol 2.5 MG/Ipratropium 0.5 MG 3 ML INH ONE (14:03)
[2018-04-17] MEDS ORDERED: Iodixanol* (CONTRAST) 320 MG/ML 100 ML SDV IV ONE (14:17)
[2018-04-17 14:51] LABS: Anion Gap 12 mmol/L (2-11)
[2018-04-17] MEDS ORDERED: Furosemide IV* 10 MG/ML 2 ML VIAL (20 MG) IV ONE (15:47)
[2018-04-17] MEDS ORDERED: Dextrose 50% Syringe 50 ML* 25 GM/50 ML SYRINGE IV PUSH PRN (16:48)
[2018-04-17 18:09] LABS: Urine Appearance Cloudy; Urine Bacteria Absent (Absent); Urine Bilirubin Negative (Negative); Urine Blood 1+ (Negative); Urine Color Yellow; Urine Glucose Negative (Negative); Urine Ketones Negative (Negative); Urine Nitrite Negative (Negative); Urine Protein Negative (Negative); Urine Red Blood Cell 1+(3-5/hpf) (Absent); Urine Specific Gravity 1.021 (1.010-1.030); Urine Urobilinogen Negative (Negative); Urine White Blood Cell Trace(0-5/hpf) (Absent)
[2018-04-17] MEDS: Cefepime 1 GM in Dextrose(*) 1 GM/50 ML BAG IV SCH (18:16)
[2018-04-17 18:47] LABS: INR 6.49 (0.77-1.02)
[2018-04-17] MEDS: Insulin LISPRO* 1 UNITS UNIT SUBCUT SCH ×2 (19:08→23:56)
[2018-04-17] MEDS: Mometasone/Formoter 200/5 MDI INH SCH (19:47)
[2018-04-17] MEDS: Carvedilol TAB* 6.25 MG PO SCH (21:15)
[2018-04-17] MEDS: Albuterol HFA INHALER* 8 gm MDI INH PRN (21:47)
[2018-04-17] MEDS ORDERED: Furosemide IV* 10 MG/ML VIAL (40 MG) IV ONE (21:51)
[2018-04-17] MEDS ORDERED: Furosemide IV* 10 MG/ML VIAL (40 MG) ONE (21:54)
--- NOTE | 2018-04-17 22:42 | CONS ---
CC: Dr. Cantu; Hospitalist Service; Dr. Mo; Dr. Scott CARDIOLOGY CONSULT: DATE OF CONSULT: 04/17/18 HISTORY OF PRESENT ILLNESS: The patient is a 77-year-old male patient who had open heart surgery on 03/25/18 with coronary artery bypass grafting and aortic valve replacement and mitral wall repair. Lionel philippe had a complicated course, hospitalized the day after Thanksgiving with large pericardial effusion a nd early signs of tamponade. He had pericardiocentesis. His echo on 04/06/18 was followed up by [facility] ther echo limited on 04/08/18 that showed he still have moderate posterior pericardial effusion local ized. There is also pleural effusion. His left ventricular systolic function is severely reduced re ported 25% to 30%. He was seen by his primary fitness and wellness coordinator, Dr. Mo yesterday, 04/16/18. He lamonte nues to have shortness of breath. He was tachycardic. He was started on digoxin as well as on Coreg . He does have atrial fibrillation and left bundle-branch block. He is maintained on Coumadin. He presented to the emergency room with symptoms more progressive of shortness of breath. He gives no c hest pain. He had a cough since his surgery. He cannot lie flat. No fever, no chills, no nausea, n o vomiting, no hematochezia, no skin rash, no abdominal pain, no syncope. He had some swelling in th e lower extremities. In the emergency room, he was evaluated by CT of the chest, which is pending. He had some labs that showed his BUN 45, creatinine 1.67, lactic acid 3.9, his BNP 755, CRP 11, and t roponin 0.11. He had no chest pain. PAST MEDICAL HISTORY: History of systemic arterial hypertension, cough, chronic atrial fibrillation, coronary artery disease, left bundle-branch block, CABG, aortic valve replacement, mitral valve repa ir. He does have also obstructive sleep apnea and hypoxemia. PAST SURGICAL HISTORY: Knee replacement, both knees in the past and open heart surgery on 03/25/18 a t [facility], Dr. Pichardo. He had a cardiac cath on 11/24/16. At that time, he had severe disease of the ostium of the LAD, 80% stenosis. He also had 80% stenosis of the mid diagonal branch of the LAD. He had mitral valve repair. He had OCHOA to the LAD, saphenous venous graft to O M1 and saphenous venous graft to PDA. He had a Rachel syndrome post CABG. MEDICATIONS: As an outpatient include: 1. Allopurinol 100 mg daily. 2. Coumadin 1 mg 3 tablets alternating with 3.5 tablets. 3. Advair. 4. Glipizide/metformin 5/500 mg daily. 5. Amlodipine 5 mg daily. 6. Finasteride 5 mg daily. 7. Aspirin 81 mg daily. 8. Lipitor 80 mg daily. 9. Losartan 50 mg daily. 10. Bumex 2 mg once daily. 11. Colchicine 0.6 mg daily. ALLERGIES: No known drug allergies. FAMILY HISTORY: No family history of premature CAD. SOCIAL HISTORY: He is a former smoker, 1 pack per day. He quit at the age of 28. He used to drink a lcohol rarely. No history of illicit drug use. REVIEW OF SYSTEMS: Review of all other systems essentially is negative. PHYSICAL EXAM: He is tachypneic. He is frail. He had no symptoms of chest pain. His vitals, blood pressure is 120/70; his pulse 90. His EKG showed him to be in atrial fibrillation, right bundle-bran ch block, and inferior wall SD. Ears, nose, and throat essentially benign. Neck is supple. JVP is elevated at 45 degrees. Chest: Diminished air entry and rhonchi at the bases. Heart: Irregularly i rregular. S1, S2, status post sternotomy scar. No signs of infection. Grade 1/6 systolic ejection murmur in the left sternal border. Abdomen: Benign. No guarding, no rigidity. Normoactive bowel s ounds. Extremities: +2 edema. No cyanosis, no clubbing. Skin Exam: His sternum appears to be hea ling well. No signs of infection. 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 Psych: Normal effect and mood. DIAGNOSTIC STUDIES/LAB DATA: His EKG as described. His labs showed the following: Sodium 136, chlor pedro luis 100, total CO2 224, BUN 45, creatinine 1.67, glucose 286, lactic acid 3.9, LFTs normal, troponin 0.11, CRP 11.12, BNP 755. INR 6.34. White blood cell 13, hemoglobin 12, hematocrit 38, and platelet s 244. I did a very limited echocardiogram at bedside in the emergency room, it was technically difficult st udy. His left ventricular systolic function is severely reduced, EF of probably 10% to 20%. There i s posterior probably small sized pericardial effusion, it was difficult to evaluate for tamponade bec ause of the technical difficult study. There is large pleural effusion appreciated. Of note on his physical exam with his blood pressure controlled and heart rate controlled and no pulsus paradoxus, a ll not in favor of cardiac tamponade. IMPRESSION: 1. The patient with prior cardiac symptoms of shortness of breath that are multifactorial in nature including his severe cardiomyopathy, pericardial effusion, pleural effusion, and chronic obstructive pulmonary disease. 2. Congestive heart failure secondary to #1. 3. Abnormal EKG as described. 4. Recent CABG as described and aortic valve replacement and mitral valve repair done at [facility], Dr. Pichardo, 03/25/18. 5. 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 6. Elevated INR. 7. Chronic atrial fibrillation. PLAN: The patient will be admitted to the hospitalist service. I discussed this with Dr. Brandon from the emergency room. I will have Dr. Sneed consult on with the patient, consideration for thoracoce ntesis. We would obtain a full transthoracic echo tomorrow for a followup. Continue his outpatient medications. His BNP is elevated. He had on physical exam congestive heart failure findings. His p hysical exam goes not in favor of cardiac tamponade. His prognosis is guarded at the present time. Continue careful close eye on his electrolyte, BUN, and creatinine. Continue beta-yousuf, digoxin, a mlodipine, and losartan, and Lasix or Bumex and of course his statin. We will follow up him closely, any further recommendations would be pending his clinical outcome. I answered all his concerns and questions up to his satisfaction. TIME SPENT: More than half of at least 60 to 65 plus minutes was in the education and counseling mod e [id number] making further recommendations, decision making, discussing with the patient himself a nd other providers involved with his care. [id number]/[facility] #: [id number]
--- NOTE | 2018-04-17 23:39 | HP ---
CC: Dr. Huong Cantu * MEDICINE HISTORY AND PHYSICAL: DATE OF ADMISSION: 04/17/18 PROVIDER: Alexandra Golden NP ATTENDING PHYSICIAN: Dr. Agustina Galeano * (as dictated by Alexandra Golden NP) CONSULTING PATTERN MAKER PROGRAMER: Dr. Scott. CONSULTING PATENT PROSECUTION ATTORNEY: Dr. Sneed. PRIMARY CARE PROVIDER: Dr. Huong Cantu CHIEF COMPLAINT: Shortness of breath and fatigue. HISTORY OF PRESENT ILLNESS: Mr. Tello is a 77-year-old male with an extensive past medical history, recently hospitalized from 04/06/18 through 07/26 here at [facility] for acute systolic congestive heart failure , Rachel syndrome, and pericardial effusion, status post pericardiocentesis. During his last hospitalization, it was felt that he was safe for discharge with close followup with Cardiology. During the hospitalization, he did receive a pericardiocentesis that yielded nearly 500 cc of serosanguineous fluid , and he was started on colchicine and double dose aspirin. Since returning home, he endorses feeling short of breath and fatigue. His family states that he has difficulty sleeping. Mr. Tello currently denies chest pain and states that he did not have chest pain earlier. He does report a cough that is not productive. He does report fatigue, decreased appetite, but denies any dizziness or syncope. He does have edema. He denies abdominal pain, nausea, vomiting, diarrhea, or dysuria. He denies any focal weakness, sensory loss, or any other new complaints. He has no concerns regarding his sternotomy incision and states that it feels as it if it is healing well. He does note that when he was discharged from the hospital, his weight was 204 and yesterday was 191. He does endorse orthopnea and finds most comfort sitting up with pillows elevating his head. Here in the ER, Mr. Tello was found to be in AFib, though rate controlled. His labs were concerned for WBC count of 13,000, INR 6.34. He has a mildly elevated creatinine above baseline at 1.67 as well as lactic acidosis, troponin of 0.11 and BNP of 755, which is mildly increased from his 04/06/18 lab. His CRP, however, is down to 11.12. He was seen in consultation by Dr. Sneed and Dr. Scott both of who recommended further evaluation over the course of the admission. He did have a bedside echocardiogram, which showed concern for an EF of 10% to 20% as well as a small pericardial effusion and a CTA that showed no definitive pulmonary emboli, but did show concern for pleural effusions. Given these findings, Hospital Medicine was consulted for admission. PAST MEDICAL HISTORY: Includes: 1. 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 Pichardo. 2. Coronary artery disease. 3. Type 2 diabetes. 4. Hypertension. 5. Asthma. 6. Hyperlipidemia. 7. BPH. 8. Chronic AFib. 9. Gout. 10. Recent acute systolic congestive heart failure. 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 12. 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 PAST SURGICAL HISTORY: Includes bilateral knee replacement surgeries. HOME MEDICATIONS: 1. Aspirin 81 mg daily. 2. Albuterol 1 puff inhaled q.4 hours p.r.n. 3. Advair 250/50 1 puff inhaled b.i.d. 4. Warfarin 4 mg daily. 5. Losartan 50 mg daily. 6. Glipizide metformin 5/500 mg 1 tab b.i.d. 7. Atorvastatin 80 mg daily. 8. Digoxin 0.125 mg every other day. 9. Allopurinol 100 mg daily. 10. Carvedilol 6.25 mg b.i.d. 11. Bumetanide 2 mg daily. 12. Finasteride 5 mg daily. ALLERGIES: No known drug allergies. FAMILY HISTORY: Father had a history of diabetes and stroke. SOCIAL HISTORY: He is former smoker quitting over 40 years ago. He rarely drinks alcohol. He denies illicit direct use. His surrogate decision maker is his , Vinod Tello. REVIEW OF SYSTEMS: A 14-point review of systems was completed. All pertinent positives and negatives as per HPI. PHYSICAL EXAMINATION GENERAL: This is a very pleasant, alert, frail appearing 77-year-old male, who is sitting up in ED stretcher, in no acute distress. VITAL SIGNS: Temperature 96.8, respiratory rate 28, pulse rate 92, blood pressure 92/78, and O2 saturation 100% on 2 L nasal cannula. HEENT: Head is atraumatic, normocephalic. Pupils are equal, round, and reactive to light. Extraocular movements are intact. Oral mucosa is moist. NECK: Supple. No JVD noted. No carotid bruits appreciated. LUNGS: There are bibasilar crackles present. CARDIOVASCULAR: Irregularly irregular rhythm. No murmur appreciated. There is 2+ pitting edema to the bilateral lower extremities. ABDOMEN: Soft, nontender, nondistended. Normoactive bowel sounds. MUSCULOSKELETAL: Active range of motion and patient is able to move all 4 extremities without difficulty. No clubbing or cyanosis noted. NEURO: Speech is clear. Cranial nerves II through XII are grossly intact. No focal deficits noted. Motor strength is 5/5 bilaterally. PSYCH: Again, he is alert and oriented x3. Affect is appropriate. SKIN: There is a sternotomy incision that is well approximated healing, with no evidence of dehiscence, streaking, erythema or drainage. There are also several small incisions in the upper abdomen with healed scabs. No evidence of infection. DIAGNOSTIC STUDIES/LAB DATA: CBC: WBC 13,000, hemoglobin 12, hematocrit 38, platelet count 244. INR 6.34. CMP: Sodium 136, potassium 4.7, chloride 100, carbon dioxide 24, BUN 45, creatinine 1.67, glucose 286, lactic acid 3.9, calcium 9.3. Total bilirubin 0.8, AST 21, ALT 37, alk phos 143, troponin 0.11. CRP 11.12. BNP 755. Urinalysis absent for bacteria, although there is 1+ blood. EKG reviewed, shows atrial fibrillation with right bundle-branch block. Chest x-ray reviewed, shows atelectasis and small pleural effusion at the bilateral lung bases. CTA as per above. Please note that there was also indicated consolidation with air bronchogram, dependent right lower lobe, which could be due to compressive atelectasis, adjacent to pleural effusion or pneumonia and there is also evidence of cardiac insufficiency, which includes mild cardiomegaly, pericardial effusion, pleural effusions and evidence of pulmonary edema as well as intravenously injected contrast, refluxing into IVC and hepatic veins. Old medical records were reviewed. ASSESSMENT AND PLAN: This is a complex 77-year-old male who presents today with concern for dyspnea in the presence of recent CABG with Rachel syndrome. He will be admitted to the ICU. Plan as follows: 1. Dyspnea. This is likely secondary to fluid overload. He has evidence of orthopnea and paroxysmal nocturnal dyspnea and clear evidence of pleural effusions in the bilateral lungs. Dr. Sneed did see him in the ER and recommended another small dose of Lasix. He did receive some fluid in the ER as resuscitation, but with his poor EF, it is likely causing some pulmonary overload. He does have soft pressure, so we will monitor him in the ICU overnight, give him the Lasix, monitor his respiratory status and support him with oxygen and further ventilation as needed. He has not been febrile, although he does have a mild white count with cough and concern for potential infiltrate on CTA. For this reason, I will give him cefepime, which could be discontinued should he continued to have evidence for no infection. However, with his cough and other symptoms and recent hospitalizations, he is at risk for a developing pneumonia. 2. Heart failure. Again, this is a complex patient who was recently hospitalized and diagnosed with acute systolic congestive heart failure. He has had some fluid weight loss at home; however, he does still have concern for fluid overload. Per the Cardiology note, he is recommended to continue on his home medications and will receive an extra dose of Lasix as previously mentioned. We do appreciate a Cardiology consult. He was recommended to have a full echo, which has been ordered for tomorrow to further evaluate cardiac function and pericardial effusion. 3. Atrial fibrillation. This is rate controlled. There is no need for Cardizem drip at this time and his pressures are soft, so this would be contraindicated. The patient's INR is 6.34 and supratherapeutic. We will recheck tomorrow and potentially give vitamin K should this be indicated. 4. Acute or chronic kidney disease. Creatinine is elevated beyond baseline, continue to trend. He has already received fluid in the ER and we will receive a small amount of diuresis to help offload some of the fluid overload that he is experiencing. 5. Lactic acidosis likely multifactorial, which would include recent diuretics. We will recheck the lactic acid in 4 hours and monitor for resolution. 6. Elevated troponin in the presence of demand ischemia. Continue to trend to peak. The patient is currently denying chest pain, this is likely secondary to the multiple cardiac and pulmonary pathologies, but again we will follow. 7. Diabetes. He is currently n.p.o. We will monitor fingerstick blood glucose q.6 and change to a.c. and h.s. when he is taking p.o. He will be placed on insulin sliding scale and we will hold his oral hypoglycemics. 8. DVT prophylaxis. He is on warfarin, which is on hold due to his supratherapeutic INR. 9. In regards to his home medications, he will continue on his aspirin, albuterol, Advair, atorvastatin, digoxin, allopurinol, carvedilol, bumetanide, and finasteride. 10. We will hold his warfarin in the presence of a supratherapeutic INR as well as losartan as his pressures are soft. His other blood pressure medications will have hold parameters. 11. Code status. He is a full code. 12. Disposition. Dependent on patient's progress here in the hospital, previously was at home. TIME SPENT: Time spent on this admission was approximately 75 minutes with more than half of that time spent [id number] with the patient obtaining history and physical, performing the physical examination, and reviewing the plan of care. Plan of care was also reviewed with my attending Dr. Galeano, who is in agreement. ALEXANDRA GOLDEN, SENIOR INFORMATION SYSTEMS ARCHITECT [id number]/[facility] #: [id number] GABINO
--- NOTE | 2018-04-17 23:51 | PN ---
Progress Note - Progress Note Date of Service: 04/17/18 Note: Event note: Called to patient bedside by nurse. He is increasingly SOB, diaphoretic. Reviewed admission from earlier this week and today. Patient has asthma, Rachel's syndrome, and evidence of pneumonia and pulmonary edema on admission CT chest. Denies chest pain, has minimal cough. Selected Entries 04/17/18 04/17/18 19:45 23:00 Temperature 36.4 C Heart Rate 99 Respiratory 38 Rate Blood Pressure 142/96 (mmHg) O2 Sat by Pulse 96 Oximetry Mild respiratory distress Neck veins not distended Lungs: wheezes throughout, and rales Left middle/lower trevizo Heart; tachy, regular Has put out 40 ml urine since 40 mg IV lasix given > 1 hr ago A/P; dyspnea could be from recurrent pericardial effusion, asthma, CHF, pneumonia, anxiety. Will check EKG and CXR now, and attempt to give preload reduction w/ topical nitrates. Will also give nebulizer treatment for bronchospasm.
[2018-04-17] MEDS ORDERED: Albuterol/Ipratropium NEB.SOL* Albuterol 2.5 MG/Ipratropium 0.5 MG 3 ML INH PRN (23:52)
[2018-04-18 00:43] LABS: Digoxin 0.5 ng/ml (0.8-2.0)
[2018-04-18 00:45] LABS: BUN/Creatinine Ratio 30.6 (8-20); Calcium 8.9 mg/dL (8.6-10.3); EGFR Non-African American 38.4 (>60); Potassium 4.6 mmol/L (3.5-5.0)
[2018-04-18 00:48] LABS: INR 7.12 (0.77-1.02)
[2018-04-18] MEDS: Cefepime 1 GM in Dextrose(*) 1 GM/50 ML BAG IV SCH ×2 (05:31→17:03)
[2018-04-18 06:46] LABS: BUN/Creatinine Ratio 30.6 (8-20); Calcium 8.9 mg/dL (8.6-10.3); EGFR Non-African American 39.2 (>60); Potassium 4.9 mmol/L (3.5-5.0)
[2018-04-18] MEDS: Insulin LISPRO* 1 UNITS UNIT SUBCUT SCH ×4 (07:06→21:01)
[2018-04-18] MEDS: Mometasone/Formoter 200/5 MDI INH SCH ×2 (07:20→19:53)
[2018-04-18] MEDS ORDERED: Bumetanide TAB* 2 MG PO SCH (09:00)
[2018-04-18] MEDS: Atorvastatin* 80 MG TAB PO SCH (09:50)
[2018-04-18] MEDS: Finasteride TAB* 5 MG PO SCH (09:50)
[2018-04-18] MEDS: Losartan TAB* 25 MG PO SCH (09:51)
[2018-04-18] MEDS: Carvedilol TAB* 6.25 MG PO SCH ×2 (09:51→20:46)
[2018-04-18] MEDS: Aspirin EC TAB* 81 MG TAB.EC PO SCH (09:51)
[2018-04-18] MEDS: Allopurinol TAB* 100 MG PO SCH (09:51)
--- NOTE | 2018-04-18 10:16 | PN ---
Subjective Date of Service: 04/18/18 Interval History: Patient seen and examined at bedside. Denies fever, chills, shortness of breath , chest discomfort, N/V/D. He reports that he is feeling much better today than he did yesterday. He reports a moist non-productive cough. Tele: Afib, rate 80-90's Family History: Unchanged from Admission Social History: Unchanged from Admission Past Medical History: Unchanged from Admission Objective Active Medications: Albuterol (Ventolin Hfa Inhaler*) 1 puff INH Q4H PRN Reason: SOB/WHEEZING Albuterol/Ipratropium (Duoneb (Albuterol 2.5 Mg/Ipratropium 0.5 Mg)) 1 neb INH Q4H PRN Reason: SOB/WHEEZING Allopurinol (Zyloprim Tab*) 100 mg PO DAILY [facility] Aspirin (Aspirin Ec Tab*) 81 mg PO DAILY [facility] Atorvastatin Calcium (Lipitor*) 80 mg PO DAILY [facility] Bumetanide (Bumex Tab*) 2 mg PO DAILY [facility] Carvedilol (Coreg Tab*) 6.25 mg PO BID [facility] Dextrose (D50w Syringe 50 Ml*) 12.5 gm IV PUSH .FOR FS < 60 - SS PRN Reason: FS < 60 Digoxin (Lanoxin Tab*) 0.125 mg PO EVERY OTHER DAY [facility] Finasteride (Proscar Tab*) 5 mg PO DAILY [facility] Cefepime HCl (Maxipime 1 Gm In Dextrose Duplex (*)) 1 gm in 50 mls @ 100 mls/ hr IV Q12H [facility] Insulin Human Lispro (Humalog*) 0 units SUBCUT Q6HR [facility]; Protocol Losartan Potassium (Cozaar Tab*) 50 mg PO DAILY [facility] Mometasone Furoate/Formoterol Fumar (Dulera 200/5 Mdi*) 2 puff INH BID [facility] Nitroglycerin (Nitroglycerin 2% Oint*) 1 inch TOPICAL 0600,1200 [facility]; Protocol Vital Signs - 8 hr 04/18/18 04/18/18 04/18/18 02:15 02:30 03:00 Temperature 97.5 F Pulse Rate 80 83 Respiratory 20 25 19 Rate Blood Pressure 129/93 104/74 (mmHg) O2 Sat by Pulse 99 99 Oximetry 04/18/18 04/18/18 04/18/18 03:01 03:30 04:00 Temperature Pulse Rate 84 89 78 Respiratory 18 19 16 Rate Blood Pressure 126/82 105/70 (mmHg) O2 Sat by Pulse 99 99 99 Oximetry 04/18/18 04/18/18 04/18/18 04:01 04:30 05:00 Temperature Pulse Rate 78 91 91 Respiratory 17 18 18 Rate Blood Pressure 122/83 119/81 (mmHg) O2 Sat by Pulse 99 99 99 Oximetry 04/18/18 04/18/18 04/18/18 05:01 05:30 06:00 Temperature Pulse Rate 87 93 80 Respiratory 19 21 15 Rate Blood Pressure 127/88 104/72 (mmHg) O2 Sat by Pulse 99 99 99 Oximetry 04/18/18 04/18/18 04/18/18 06:30 07:00 07:01 Temperature Pulse Rate 89 87 96 Respiratory 22 16 17 Rate Blood Pressure 124/84 121/88 (mmHg) O2 Sat by Pulse 98 99 99 Oximetry 04/18/18 04/18/18 04/18/18 07:21 07:22 07:30 Temperature Pulse Rate 92 84 87 Respiratory 23 22 18 Rate Blood Pressure 127/77 (mmHg) O2 Sat by Pulse 99 98 98 Oximetry 04/18/18 04/18/18 04/18/18 08:00 08:01 08:30 Temperature Pulse Rate 94 93 88 Respiratory 22 21 15 Rate Blood Pressure 127/82 127/70 (mmHg) O2 Sat by Pulse 98 98 99 Oximetry 04/18/18 04/18/18 04/18/18 09:00 09:01 09:30 Temperature 98.4 F 98.4 F 98.4 F Pulse Rate 91 85 89 Respiratory 21 19 16 Rate Blood Pressure 117/85 124/71 (mmHg) O2 Sat by Pulse 100 100 99 Oximetry 04/18/18 09:56 Temperature Pulse Rate Respiratory 19 Rate Blood Pressure (mmHg) O2 Sat by Pulse Oximetry Oxygen Devices in Use Now: Nasal Cannula - 2L Appearance: NAD, sitting up in bed Ears/Nose/Mouth/Throat: Mucous Membranes Moist Respiratory: Symmetrical Chest Expansion and Respiratory Effort, - - Crackles bilateral throughout Cardiovascular: - - Heart rate irregular Extremities: - - 1-2+ bilateral LE edema Neurological: Alert and Oriented x 3, NL Muscle Strength and Tone Lines/Tubes/Other Access: Clean, Dry and Intact [place] - patent, draining clear yellow urine, Clean, Dry and Intact Peripheral IV - site benign Nutrition: Taking PO's Result Diagrams: 04/17/18 12:55 04/18/18 05:35 Assess/Plan/Problems-Billing Assessment: Mr. Tello is a 77 yo male with PMH significant for recent CABG, CAD, DM, HTN, asthma, HLD, BPH, Chronic A fib, Systolic CHF, Rachel syndrome and pericardial effusion requiring a pericardiocentesis who presented to the emergency room with complaints of dyspnea. - Patient Problems (1) Dyspnea Code(s): R06.00 - DYSPNEA, UNSPECIFIED SNOMED Code(s): 465820729 Comment: - Improving, continues to have orthopnea - Suspect seconday to fluid overload and possible PNA - Continue cefepime (2) Acute on chronic systolic (congestive) heart failure Code(s): I50.23 - ACUTE ON CHRONIC SYSTOLIC (CONGESTIVE) HEART FAILURE SNOMED Code(s): 206786850 Comment: - Bedside EF was 10-20% yesterday - Formal echo pending - Received 60 mg IV lasix since admission - Hold bumetanide for AM dose as he apears to be dry (elevated BUN) - Daily weight and strict I+O's - Will ask Cardiology to consult (3) Pneumonia Code(s): J18.9 - PNEUMONIA, UNSPECIFIED ORGANISM SNOMED Code(s): 846907644 Comment: - Afebrile, reports frequent cough, leukocytosis - Hospital aquired - Chest CTA - consolidation in right lower lobe - Continue cefepime (4) Lactic acidosis Code(s): E87.2 - ACIDOSIS SNOMED Code(s): 35877459 Comment: - Resolved with IVFs (5) Elevated troponin Code(s): R74.8 - ABNORMAL LEVELS OF OTHER SERUM ENZYMES SNOMED Code(s): 299508324 Comment: - Tropinin 0.100, 0.13, 0.11, 0.11 - Denies chest pain - Suspect demand ischemia in the setting of CHF exacerbation and recent cardiac procedures (6) Supratherapeutic INR Code(s): R79.1 - ABNORMAL COAGULATION PROFILE SNOMED Code(s): 352656357 Comment: - No signs of bleeding - Will hold warfarin again today, no indication for Vitamin K at this time. If INR continues to climb will consider Vit K in the AM - Recheck INR in the AM (7) JHONY (acute kidney injury) Code(s): N17.9 - ACUTE KIDNEY FAILURE, UNSPECIFIED SNOMED Code(s): 46323027 Comment: - Acute on Chronic, baseline creatinine appears to be ~ 1.3 and CKD stage 3 - Repeat BMP in the AM (8) Atrial fibrillation Code(s): I48.91 - UNSPECIFIED ATRIAL FIBRILLATION SNOMED Code(s): 52558975 Comment: - Heart rate irregular, controlled - Chronically anticoagulated with Coumadin - Continue Carvediolol - INR is supratherapeutic, will hold Coumadin for now (9) BPH (benign prostatic hyperplasia) Code(s): N40.0 - BENIGN PROSTATIC HYPERPLASIA WITHOUT LOWER URINRY TRACT SYMP SNOMED Code(s): 385150420 Comment: Continue finasteride (10) CAD (coronary artery disease) Code(s): I25.10 - ATHSCL HEART DISEASE OF [place] CORONARY ARTERY W/O ANG PCTRS SNOMED Code(s): 31635040 Comment: - Denies chest pain at this time, no signs of ACS - s/p CABG - Continue aspirin, carvedilol, and atorvastatin (11) Diabetes Code(s): E11.9 - TYPE 2 DIABETES MELLITUS WITHOUT COMPLICATIONS SNOMED Code(s) : 71588233 Comment: - NIDDM - HgA1C 6.8% on 03/08 - Glucose 100-280's - Hold oral medications and continue Lispro SS (12) HLD (hyperlipidemia) Code(s): E78.5 - HYPERLIPIDEMIA, UNSPECIFIED SNOMED Code(s): 19145986 Comment: - Continue atorvastatin (13) DVT prophylaxis Code(s): YYD8504 - SNOMED Code(s): 746410834 Comment: - INR supratherapeutic, hold warfarin - INR 7.12 today (14) Full code status Code(s): Z78.9 - OTHER SPECIFIED HEALTH STATUS SNOMED Code(s): 726711175 Status and Disposition: Inpatient, requiring close monitoring and continued work-up. Discharge when medically stable. Attending: Christiana Morales
--- NOTE | 2018-04-18 10:44 | ECHO ---
Patient: CHEYENNE GONZALES [facility] Rec#: [id number] : 1940 Date: 04/18/2018 Age: 77y Height: 168 cm / 66.1 in Weight: 87 kg / 191.7 lbs Sex: M BSA: 1.97 Room#: ICU 6 Admit Date#: 04/17/2018 Type: Inpatient Referring: ANABEL CABRERA Reading: Lori Scott MD Hvac Mechanic: Rin Romano,JAYDECS,RDMS CC: Bandar Mo MD Transthoracic Echocardiogram Indication: SOB BP: 127/70 HR: 95 Rhythm: A-Fib Findings History: Pericardial effusion, pericardiocentesis, AOV replacement, MV repair, CAD, CABG, COPD, AFIB, HTN, HLD Technical Comments: The study quality is fair. The study is technically limited due to the patient's history of COPD. Left Ventricle: The left ventricular chamber size is normal. Mild concentric left ventricular hypertrophy is observed. There is global hypokinesis of the left ventricle with minor regional variation. There is severely decreased left ventricular systolic function. The estimated ejection fraction is less than 20%. The assessment of diastolic function is non-diagnostic. Left Atrium: The left atrium is severely dilated. Right Ventricle: The right ventricle is mildly dilated. The right ventricular global systolic function is mildly to moderately reduced. Right Atrium: The right atrial cavity size is severely dilated. Aortic Valve: There is no evidence of aortic regurgitation. The mean gradient of the aortic valve is 2 mmHg. The aortic valve area, by VTI's, is calculated at 1.9 cm2. A bio-prosthetic aortic valve is present. The bio-prosthetic aortic valve appears to be functioning normally. Mitral Valve: The mitral valve leaflets are mildly thickened. There is mild to moderate mitral regurgitation. Mitral valve repair functioning abnormally. Tricuspid Valve: The tricuspid valve leaflets are normal. There is moderate tricuspid regurgitation. The tricuspid regurgitant jet is eccentric. There is evidence of mild pulmonary hypertension. Pulmonic Valve: The pulmonic valve appears normal. There is a trace pulmonic regurgitation. Pericardium: There is a small pericardial effusion. A left pleural effusion is present. Aorta: There is mild dilatation of the ascending aorta. The aortic arch is not well visualized. Pulmonary Artery: The main pulmonary artery appears normal. Venous: The inferior vena cava is dilated. There is less than 50% respiratory change in the inferior vena cava dimension. Summary: There are changes noted when compared to the previous study done on 04/06/2018, pericardial effusion is much less in size now. Now there is no signs of hemodynamic compromise. LV EF then 25-30%. Conclusions The left ventricular chamber size is normal. Mild concentric left ventricular hypertrophy is observed. There is global hypokinesis of the left ventricle with minor regional variation. There is severely decreased left ventricular systolic function. The estimated ejection fraction is less than 20%. The left atrium is severely dilated. The right ventricle is mildly dilated. A bio-prosthetic aortic valve is present. The bio-prosthetic aortic valve appears to be functioning normally. There is mild to moderate mitral regurgitation. Mitral valve repair functioning abnormally. There is moderate tricuspid regurgitation. There is evidence of mild pulmonary hypertension. There is a small pericardial effusion. A left pleural effusion is present. There is mild dilatation of the ascending aorta. There are changes noted when compared to the previous study done on 04/06/2018, pericardial effusion is much less in size now. Now there is no signs of hemodynamic compromise. LV EF then 25-30%. Measurements Name Value Normal Range RVIDd (AP) 2D 3.1 cm (0.9 - 2.6) RVDdMajor (2D) 3.6 cm (2.2 - 4.4) RAd ISD 4CH 6.3 cm (3.4 - 4.9) RA (A4C)W 5.6 cm (2.9 - 4.6) IVSd (2D) 1.2 cm (0.6 - 1) LVPWd (2D) 1.3 cm (0.6 - 1) LVIDd (2D) 5 cm (3.6 - 5.4) LVIDs (2D) 4.7 cm - LV FS (2D) 5 % (25 - 45) Aortic Annulus 1.4 cm (1.4 - 2.6) Ascending Ao 3.8 cm (2.1 - 3.4) LA dimension (AP) 2D 4.9 cm (2.3 - 3.8) LAd ISD 4CH 6.2 cm (2.9 - 5.3) LA ISD 4CH W 5.1 cm (2.5 - 4.5) Name Value Normal Range LA ESV BP (A/L) index 49 ml/m2 - Name Value Normal Range MV E-wave Vmax 0.9 m/sec - MV deceleration time 104 msec - LV septal e' Vmax 0.06 m/sec - LV E:e' septal ratio 13.5 ratio - Name Value Normal Range AV Vmax 1.1 m/sec - AV VTI 16 cm - AV peak gradient 5 mmHg - AV mean gradient 2 mmHg - LVOT diameter 1.8 cm - LVOT Vmax 0.9 m/sec - LVOT VTI 12 cm - LVOT peak gradient 3 mmHg - LVOT mean gradient 1 mmHg - TERRANCE (continuity Vmax) 2 cm2 - TERRANCE (continuity VTI) 1.9 cm2 - Name Value Normal Range MV PHT 61 msec - MR Vmax 4.8 m/sec - MR VTI 142 cm - MR volume (PISA) 14 ml - MR flow (PISA) 49 ml/sec - MR ERO 0.1 cm2 - MR PISA radius 0.5 cm - MR alias Vmax 31 cm/sec - Name Value Normal Range TR Vmax 2.5 m/sec - TR peak gradient 25 mmHg - RAP 15 mmHg - RVSP 40 mmHg - IVC diameter 3.1 cm - Name Value Normal Range PV Vmax 0.6 m/sec - PV peak gradient 1 mmHg -
[2018-04-18] MEDS: Nitroglycerin 2% OINT* 1 GM PAK TOPICAL SCH ×2 (12:50→12:51)
[2018-04-19] MEDS ORDERED: guaiFENesin LIQ* 100 MG/5 ML UDC ONE (00:44)
[2018-04-19] MEDS: guaiFENesin LIQ* 100 MG/5 ML UDC PO PRN (00:44)
[2018-04-19 01:03] LABS: ABS Basophils 0.1 10^3/ul (0-0.2); ABS Eosinophils 0.2 10^3/ul (0-0.6); ABS Lymphocytes 0.9 10^3/ul (1.0-4.8); ABS Monocytes 1.5 10^3/ul (0-0.8); ABS Neutrophils 10.4 10^3/ul (1.5-7.7); ABS Nucleated RBC 0 10^3/ul; Eosinophil % 1.2 %; Hematocrit 34 % (42-52); Hemoglobin 11.1 g/dl (14.0-18.0); Lymphocyte % 7.1 %; Mean Corpuscular HGB Conc 33 g/dl (31-36); Mean Corpuscular Hemoglobin 32 pg (27-31); Mean Corpuscular Volume 96 fL (80-94); Nucleated Red Blood Cells % 0; Platelet Count 207 10^3/ul (150-450); Red Blood Count 3.49 10^6/ul (4.00-5.40); Red Cell Distribution Width 18 % (10.5-15); White Blood Count 13.1 10^3/ul (3.5-10.8)
[2018-04-19] MEDS: Cefepime 1 GM in Dextrose(*) 1 GM/50 ML BAG IV SCH ×2 (04:02→16:44)
[2018-04-19 04:16] LABS: ABS Basophils 0.1 10^3/ul (0-0.2); ABS Eosinophils 0.1 10^3/ul (0-0.6); ABS Lymphocytes 0.7 10^3/ul (1.0-4.8); ABS Monocytes 1.4 10^3/ul (0-0.8); ABS Neutrophils 9.8 10^3/ul (1.5-7.7); ABS Nucleated RBC 0 10^3/ul; Eosinophil % 1.1 %; Hematocrit 33 % (42-52); Hemoglobin 10.5 g/dl (14.0-18.0); Lymphocyte % 5.8 %; Mean Corpuscular HGB Conc 32 g/dl (31-36); Mean Corpuscular Hemoglobin 31 pg (27-31); Mean Corpuscular Volume 97 fL (80-94); Mean Platelet Volume 9.7 fL (7.4-10.4); Nucleated Red Blood Cells % 0.1; Platelet Count 173 10^3/ul (150-450); Red Blood Count 3.37 10^6/ul (4.00-5.40); Red Cell Distribution Width 18 % (10.5-15); White Blood Count 12.1 10^3/ul (3.5-10.8)
[2018-04-19 04:22] LABS: INR 4.73 (0.77-1.02)
[2018-04-19 04:36] LABS: BUN/Creatinine Ratio 34.2 (8-20); Calcium 8.7 mg/dL (8.6-10.3); EGFR Non-African American 35.1 (>60); Potassium 4.5 mmol/L (3.5-5.0)
[2018-04-19] MEDS: Atorvastatin* 80 MG TAB PO SCH (08:03)
[2018-04-19] MEDS: Allopurinol TAB* 100 MG PO SCH (08:03)
[2018-04-19] MEDS: Digoxin TAB* 0.125 MG PO SCH (08:03)
[2018-04-19] MEDS: Carvedilol TAB* 6.25 MG PO SCH ×2 (08:04→20:23)
[2018-04-19] MEDS: Aspirin EC TAB* 81 MG TAB.EC PO SCH (08:04)
[2018-04-19] MEDS: Finasteride TAB* 5 MG PO SCH (08:04)
[2018-04-19] MEDS: Mometasone/Formoter 200/5 MDI INH SCH ×2 (08:19→19:38)
[2018-04-19] MEDS: Insulin LISPRO* 1 UNITS UNIT SUBCUT SCH ×4 (08:49→20:19)
[2018-04-19] MEDS: Losartan TAB* 25 MG PO SCH (08:50)
[2018-04-19] MEDS: Nitroglycerin 2% OINT* 1 GM PAK TOPICAL SCH ×2 (10:19→14:11)
--- NOTE | 2018-04-19 13:21 | PN ---
Subjective Date of Service: 04/19/18 Interval History: Patient seen and examined at bedside. Denies fever, chills, chest discomfort, N/ V/D. Reports that his shortness of breath is improving. Tele: Afib w/ RBBB, rate 70-90's Family History: Unchanged from Admission Social History: Unchanged from Admission Past Medical History: Unchanged from Admission Objective Active Medications: Albuterol (Ventolin Hfa Inhaler*) 1 puff INH Q4H PRN Reason: SOB/WHEEZING Albuterol/Ipratropium (Duoneb (Albuterol 2.5 Mg/Ipratropium 0.5 Mg)) 1 neb INH Q4H PRN Reason: SOB/WHEEZING Allopurinol (Zyloprim Tab*) 100 mg PO DAILY [facility] Aspirin (Aspirin Ec Tab*) 81 mg PO DAILY [facility] Atorvastatin Calcium (Lipitor*) 80 mg PO DAILY [facility] Carvedilol (Coreg Tab*) 6.25 mg PO BID [facility] Dextrose (D50w Syringe 50 Ml*) 12.5 gm IV PUSH .FOR FS < 60 - SS PRN Reason: FS < 60 Digoxin (Lanoxin Tab*) 0.125 mg PO EVERY OTHER DAY [facility] Finasteride (Proscar Tab*) 5 mg PO DAILY [facility] Guaifenesin (Robitussin*) 5 ml PO Q4H PRN Reason: COUGH Heparin Sodium (Porcine) (Heparin Flush Picc/Ml/Cvc(*)) 1 - 3 ml FLUSH 0600, 1800 [facility]; Protocol Cefepime HCl (Maxipime 1 Gm In Dextrose Duplex (*)) 1 gm in 50 mls @ 100 mls/ hr IV Q12H [facility] Insulin Human Lispro (Humalog*) 0 units SUBCUT ACHS [facility]; Protocol Losartan Potassium (Cozaar Tab*) 50 mg PO DAILY [facility] Mometasone Furoate/Formoterol Fumar (Dulera 200/5 Mdi*) 2 puff INH BID [facility] Nitroglycerin (Nitroglycerin 2% Oint*) 1 inch TOPICAL 0600,1200 [facility]; Protocol Vital Signs - 8 hr 04/19/18 04/19/18 04/19/18 06:00 06:01 06:09 Temperature 97.3 F 97.3 F Pulse Rate 68 70 Respiratory 14 17 16 Rate Blood Pressure 99/55 (mmHg) O2 Sat by Pulse 98 98 Oximetry 04/19/18 04/19/18 04/19/18 07:00 07:01 08:00 Temperature 97.5 F 97.5 F 97.5 F Pulse Rate 80 73 76 Respiratory 21 17 19 Rate Blood Pressure 115/75 111/72 (mmHg) O2 Sat by Pulse 99 99 100 Oximetry 04/19/18 04/19/18 04/19/18 08:01 08:03 08:50 Temperature 97.5 F 97.5 F Pulse Rate 81 82 77 Respiratory 22 15 Rate Blood Pressure 104/66 (mmHg) O2 Sat by Pulse 100 100 Oximetry 04/19/18 04/19/18 04/19/18 09:00 09:01 10:00 Temperature 97.5 F 97.5 F 98.1 F Pulse Rate 93 80 76 Respiratory 27 24 23 Rate Blood Pressure 106/74 (mmHg) O2 Sat by Pulse 88 99 97 Oximetry 04/19/18 04/19/18 04/19/18 10:01 10:03 10:31 Temperature 98.2 F 98.2 F 98.4 F Pulse Rate 75 82 77 Respiratory 20 23 25 Rate Blood Pressure 85/63 93/61 90/63 (mmHg) O2 Sat by Pulse 97 94 97 Oximetry 04/19/18 04/19/18 04/19/18 11:00 11:31 12:00 Temperature 98.4 F 98.2 F 97.9 F Pulse Rate 72 76 68 Respiratory 24 20 24 Rate Blood Pressure 98/70 110/57 (mmHg) O2 Sat by Pulse 96 97 96 Oximetry 04/19/18 04/19/18 04/19/18 12:01 12:17 12:31 Temperature 98.1 F 98.1 F 97.9 F Pulse Rate 71 74 73 Respiratory 30 29 17 Rate Blood Pressure 103/63 97/72 (mmHg) O2 Sat by Pulse 97 96 97 Oximetry 04/19/18 04/19/18 13:00 13:01 Temperature 97.7 F 97.9 F Pulse Rate 71 68 Respiratory 23 22 Rate Blood Pressure 102/55 (mmHg) O2 Sat by Pulse 98 97 Oximetry Oxygen Devices in Use Now: Nasal Cannula - 2L Appearance: NAD, sitting up in a chair Ears/Nose/Mouth/Throat: Mucous Membranes Moist Respiratory: Symmetrical Chest Expansion and Respiratory Effort, - - Rhonchi bilateral throughout and crackles in the bases bilateral Cardiovascular: - - Heart rate irregular Abdominal: NL Sounds; No Tenderness; No Distention Extremities: - - Trace bilateral LE edema Skin: - - Ecchymosis to left LE Neurological: Alert and Oriented x 3 Lines/Tubes/Other Access: Clean, Dry and Intact Peripheral IV - site benign Nutrition: Taking PO's Result Diagrams: 04/19/18 04:01 04/19/18 04:01 Microbiology and Other Data: Microbiology 04/17/18 15:55 Urine Culture - Final Urine No Growth (<1,000 CFU/mL) 04/18/18 21:00 Gram Stain - Final Sputum Expectorated 04/17/18 12:55 Aerobic Blood Culture - Preliminary Blood Venous No Growth Day 1 Anaerobic Blood Culture - Preliminary No Growth Day 1 04/17/18 13:12 Aerobic Blood Culture - Preliminary Blood Venous No Growth Day 1 Anaerobic Blood Culture - Preliminary No Growth Day 1 Assess/Plan/Problems-Billing Assessment: Mr. Tello is a 77 yo male with PMH significant for recent CABG, CAD, DM, HTN, asthma, HLD, BPH, Chronic A fib, Systolic CHF, Rachel syndrome and pericardial effusion requiring a pericardiocentesis who presented to the emergency room with complaints of dyspnea. - Patient Problems (1) Dyspnea Code(s): R06.00 - DYSPNEA, UNSPECIFIED SNOMED Code(s): 964043819 Comment: - Improving, continues to have orthopnea - Suspect seconday to fluid overload and possible PNA - Continue cefepime (2) Acute on chronic systolic (congestive) heart failure Code(s): I50.23 - ACUTE ON CHRONIC SYSTOLIC (CONGESTIVE) HEART FAILURE SNOMED Code(s): 634499273 Comment: - Bedside EF was 10-20% yesterday - Echo with EF < 20% - Received 60 mg IV lasix since admission - Cardiology consult, input appreciated - Resume bumetanide - Daily weight and strict I+O's (3) Pneumonia Code(s): J18.9 - PNEUMONIA, UNSPECIFIED ORGANISM SNOMED Code(s): 086258196 Comment: - Afebrile, reports frequent cough, leukocytosis - Suspect Hospital aquired - Chest CTA - consolidation in right lower lobe - Continue cefepime (4) Lactic acidosis Code(s): E87.2 - ACIDOSIS SNOMED Code(s): 41005079 Comment: - Resolved with IVFs (5) Elevated troponin Code(s): R74.8 - ABNORMAL LEVELS OF OTHER SERUM ENZYMES SNOMED Code(s): 375275875 Comment: - Tropinin 0.100, 0.13, 0.11, 0.11 - Denies chest pain - Suspect demand ischemia in the setting of CHF exacerbation and recent cardiac procedures (6) Supratherapeutic INR Code(s): R79.1 - ABNORMAL COAGULATION PROFILE SNOMED Code(s): 692084462 Comment: - INR improving - No signs of bleeding - Will hold warfarin again today, no indication for Vitamin K at this time - Recheck INR in the AM (7) JHONY (acute kidney injury) Code(s): N17.9 - ACUTE KIDNEY FAILURE, UNSPECIFIED SNOMED Code(s): 75011943 Comment: - Acute on Chronic, baseline creatinine appears to be ~ 1.3 and CKD stage 3 - Repeat BMP in the AM (8) Atrial fibrillation Code(s): I48.91 - UNSPECIFIED ATRIAL FIBRILLATION SNOMED Code(s): 05305700 Comment: - Heart rate irregular, controlled - Chronically anticoagulated with Coumadin - Continue Carvediolol - INR is supratherapeutic, will hold Coumadin for now (9) BPH (benign prostatic hyperplasia) Code(s): N40.0 - BENIGN PROSTATIC HYPERPLASIA WITHOUT LOWER URINRY TRACT SYMP SNOMED Code(s): 905097280 Comment: - Continue finasteride (10) CAD (coronary artery disease) Code(s): I25.10 - ATHSCL HEART DISEASE OF [place] CORONARY ARTERY W/O ANG PCTRS SNOMED Code(s): 01758364 Comment: - Denies chest pain at this time, no signs of ACS - s/p CABG - Continue aspirin, carvedilol, and atorvastatin (11) Diabetes Code(s): E11.9 - TYPE 2 DIABETES MELLITUS WITHOUT COMPLICATIONS SNOMED Code(s) : 54081124 Comment: - NIDDM - HgA1C 6.8% on 03/08 - Glucose 180-280's - Hold oral medications and continue Lispro SS (12) HLD (hyperlipidemia) Code(s): E78.5 - HYPERLIPIDEMIA, UNSPECIFIED SNOMED Code(s): 42343019 Comment: - Continue atorvastatin (13) DVT prophylaxis Code(s): OVR1807 - SNOMED Code(s): 017456875 Comment: - INR supratherapeutic, hold warfarin - INR 4.73 today (14) Full code status Code(s): Z78.9 - OTHER SPECIFIED HEALTH STATUS SNOMED Code(s): 264064749 Status and Disposition: Inpatient; requiring close monitoring, continued work-up, and diuresis. Discharge when medically stable. Attending: Tc Cervantes
[2018-04-19] MEDS: Bumetanide TAB* 2 MG PO SCH (15:36)
[2018-04-20] MEDS: guaiFENesin LIQ* 100 MG/5 ML UDC PO PRN (00:08)
[2018-04-20] MEDS: Cefepime 1 GM in Dextrose(*) 1 GM/50 ML BAG IV SCH ×2 (04:41→16:36)
[2018-04-20] MEDS: Nitroglycerin 2% OINT* 1 GM PAK TOPICAL SCH (05:09)
[2018-04-20 07:00] LABS: ABS Basophils 0.1 10^3/ul (0-0.2); ABS Eosinophils 0.1 10^3/ul (0-0.6); ABS Lymphocytes 0.7 10^3/ul (1.0-4.8); ABS Neutrophils 6.8 10^3/ul (1.5-7.7); ABS Nucleated RBC 0 10^3/ul; Eosinophil % 1.2 %; Hematocrit 34 % (42-52); Hemoglobin 11.3 g/dl (14.0-18.0); Lymphocyte % 7.9 %; Mean Corpuscular HGB Conc 33 g/dl (31-36); Mean Corpuscular Hemoglobin 32 pg (27-31); Mean Corpuscular Volume 96 fL (80-94); Mean Platelet Volume 9.9 fL (7.4-10.4); Nucleated Red Blood Cells % 0; Platelet Count 165 10^3/ul (150-450); Red Blood Count 3.54 10^6/ul (4.00-5.40); Red Cell Distribution Width 18 % (10.5-15); White Blood Count 8.8 10^3/ul (3.5-10.8)
[2018-04-20 07:08] LABS: INR 2.73 (0.77-1.02)
[2018-04-20] MEDS: Mometasone/Formoter 200/5 MDI INH SCH ×2 (07:56→19:37)
[2018-04-20 08:17] LABS: BUN/Creatinine Ratio 38.8 (8-20); EGFR Non-African American 37.2 (>60)
[2018-04-20] MEDS: Insulin LISPRO* 1 UNITS UNIT SUBCUT SCH ×4 (08:40→20:29)
[2018-04-20] MEDS: Losartan TAB* 25 MG PO SCH (08:41)
[2018-04-20] MEDS: Bumetanide TAB* 2 MG PO SCH (08:41)
[2018-04-20] MEDS: Aspirin EC TAB* 81 MG TAB.EC PO SCH (08:41)
[2018-04-20] MEDS: Finasteride TAB* 5 MG PO SCH (08:41)
[2018-04-20] MEDS: Carvedilol TAB* 6.25 MG PO SCH ×3 (08:41→23:48)
[2018-04-20] MEDS: Atorvastatin* 80 MG TAB PO SCH (08:41)
[2018-04-20] MEDS: Allopurinol TAB* 100 MG PO SCH (08:41)
--- NOTE | 2018-04-20 12:48 | PN ---
Subjective Date of Service: 04/20/18 Interval History: Patient seen today, doing well. Ambulating. no acute events. Taking po well. Still dyspneic with exertions. No fever remains on oxygen. Awaiting further input from cardiology Past Medical History: Unchanged from Admission Objective Active Medications: Albuterol (Ventolin Hfa Inhaler*) 1 puff INH Q4H PRN PRN Reason: SOB/WHEEZING Last Admin: 04/17/18 21:47 Dose: 1 puff Albuterol/Ipratropium (Duoneb (Albuterol 2.5 Mg/Ipratropium 0.5 Mg)) 1 neb INH Q4H PRN PRN Reason: SOB/WHEEZING Allopurinol (Zyloprim Tab*) 100 mg PO DAILY [facility] Last Admin: 04/20/18 08:41 Dose: 100 mg Aspirin (Aspirin Ec Tab*) 81 mg PO DAILY [facility] Last Admin: 04/20/18 08:41 Dose: 81 mg Atorvastatin Calcium (Lipitor*) 80 mg PO DAILY [facility] Last Admin: 04/20/18 08:41 Dose: 80 mg Bumetanide (Bumex Tab*) 2 mg PO DAILY [facility] Last Admin: 04/20/18 08:41 Dose: 2 mg Carvedilol (Coreg Tab*) 6.25 mg PO BID [facility] Last Admin: 04/20/18 08:41 Dose: 6.25 mg Dextrose (D50w Syringe 50 Ml*) 12.5 gm IV PUSH .FOR FS < 60 - SS PRN PRN Reason: FS < 60 Digoxin (Lanoxin Tab*) 0.125 mg PO EVERY OTHER DAY [facility] Last Admin: 04/19/18 08:03 Dose: 0.125 mg Finasteride (Proscar Tab*) 5 mg PO DAILY [facility] Last Admin: 04/20/18 08:41 Dose: 5 mg Guaifenesin (Robitussin*) 5 ml PO Q4H PRN PRN Reason: COUGH Last Admin: 04/20/18 00:08 Dose: 5 ml Heparin Sodium (Porcine) (Heparin Flush Picc/Ml/Cvc(*)) 1 - 3 ml FLUSH 0600, 1800 [facility]; Protocol Last Admin: 04/20/18 05:17 Dose: 1 ml Cefepime HCl (Maxipime 1 Gm In Dextrose Duplex (*)) 1 gm in 50 mls @ 100 mls/ hr IV Q12H [facility] Last Admin: 04/20/18 04:41 Dose: 100 mls/hr Insulin Human Lispro (Humalog*) 0 units SUBCUT ACHS [facility]; Protocol Last Admin: 04/20/18 12:00 Dose: 6 unit Losartan Potassium (Cozaar Tab*) 50 mg PO DAILY [facility] Last Admin: 04/20/18 08:41 Dose: 50 mg Mometasone Furoate/Formoterol Fumar (Dulera 200/5 Mdi*) 2 puff INH BID [facility] Last Admin: 04/20/18 07:56 Dose: 2 puff Vital Signs - 8 hr 04/20/18 04/20/18 04/20/18 07:18 07:57 08:00 Temperature 97.7 F Pulse Rate 79 75 Respiratory 20 20 20 Rate Blood Pressure 125/73 (mmHg) O2 Sat by Pulse 100 99 Oximetry 04/20/18 10:59 Temperature 97.8 F Pulse Rate 68 Respiratory 20 Rate Blood Pressure 100/49 (mmHg) O2 Sat by Pulse 99 Oximetry Oxygen Devices in Use Now: Nasal Cannula Appearance: awake, alert minimal distress Eyes: No Scleral Icterus, - - EOMI Ears/Nose/Mouth/Throat: NL Teeth, Lips, Gums Neck: NL Appearance and Movements; NL JVP, Trachea Midline Respiratory: - - rale, transmitted upper breath sounds Abdominal: NL Sounds; No Tenderness; No Distention Extremities: - - + edema Neurological: Alert and Oriented x 3 Result Diagrams: 04/20/18 06:39 04/20/18 06:39 Microbiology and Other Data: Microbiology 04/17/18 15:55 Urine Culture - Final Urine No Growth (<1,000 CFU/mL) 04/18/18 21:00 Gram Stain - Final Sputum Expectorated 04/17/18 12:55 Aerobic Blood Culture - Preliminary Blood Venous No Growth Day 1 Anaerobic Blood Culture - Preliminary No Growth Day 1 04/17/18 13:12 Aerobic Blood Culture - Preliminary Blood Venous No Growth Day 1 Anaerobic Blood Culture - Preliminary No Growth Day 1 Assess/Plan/Problems-Billing Assessment: Mr. Tello is a 77 yo male with PMH significant for recent CABG, CAD, DM, HTN, asthma, HLD, BPH, Chronic A fib, Systolic CHF, Rachel syndrome and pericardial effusion requiring a pericardiocentesis who presented to the emergency room with complaints of dyspnea. - Patient Problems (1) Dyspnea Current Visit: Yes Status: Acute Code(s): R06.00 - DYSPNEA, UNSPECIFIED SNOMED Code(s): 178918999 Comment: - I think it is a combination of both CHF and penumonaie. It is going to be a slow improvement. - Continue cefepime, and diuresis. (2) Cardiomyopathy Current Visit: No Status: Acute Code(s): I42.9 - CARDIOMYOPATHY, UNSPECIFIED SNOMED Code(s): 53908158 Comment: - Echo demonstrates EF <20% on 04/17/18 - Continue with coreg 6.25 mg bid, Bumex 2 mg daily, losartan 50 mg daily and digoxin 125 mcg daily - Apprerciate cardiology input. Will defer on starting prednisone for now given risk of fluid retention and diabetes - Pericardial effusion has significantly lessened (3) Acute systolic CHF (congestive heart failure) Current Visit: No Status: Acute Code(s): I50.21 - ACUTE SYSTOLIC (CONGESTIVE ) HEART FAILURE SNOMED Code(s): 628582820 Comment: - Echo demonstrates EF <20% on 04/17/18 - Continue with coreg 6.25 mg bid, Bumex 2 mg daily, losartan 50 mg daily and digoxin 125 mcg daily - Apprerciate cardiology input. Will defer on starting prednisone for now given risk of fluid retention and diabetes - Pericardial effusion has significantly lessened (4) Pneumonia Current Visit: Yes Status: Acute Code(s): J18.9 - PNEUMONIA, UNSPECIFIED ORGANISM SNOMED Code(s): 737916248 Comment: - Afebrile Suspect Hospital aquired given his recent multiple hospitalizations - Chest CTA 04/17/18 - consolidation in right lower lobe - Continue cefepime 1 gm IV q12 Day # 5 (5) Atrial fibrillation Current Visit: Yes Status: Chronic Code(s): I48.91 - UNSPECIFIED ATRIAL FIBRILLATION SNOMED Code(s): 30406093 Comment: - Heart rate irregular, controlled - Chronically anticoagulated with Coumadin - Continue Carvediolol 6.25 mg bid; Aspirin 81 mg daily, digoxin 125 mcg daily, losartan 50 mg daily - INR normal 2.73. Will need to resume coumadin but will start at lower dose ( home was 4 mg and was supratherapeutic) given his CHF and possible hepatic congestions. Will start 1 mg daily and have Pharmacy consult (6) CAD (coronary artery disease) Current Visit: Yes Status: Chronic Code(s): I25.10 - ATHSCL HEART DISEASE OF [place] CORONARY ARTERY W/O ANG PCTRS SNOMED Code(s): 90794531 Comment: - Denies chest pain at this time, no signs of ACS - s/p CABG - Continue aspirin, carvedilol, and atorvastatin (7) Diabetes Current Visit: Yes Status: Chronic Code(s): E11.9 - TYPE 2 DIABETES MELLITUS WITHOUT COMPLICATIONS SNOMED Code(s): 25603376 Comment: - NIDDM - HgA1C 6.8% on 03/08 - Glucose 180-280's - Hold oral medications and continue Lispro SS (8) HLD (hyperlipidemia) Current Visit: Yes Status: Chronic Code(s): E78.5 - HYPERLIPIDEMIA, UNSPECIFIED SNOMED Code(s): 69907357 Comment: - Continue atorvastatin (9) CKD (chronic kidney disease) stage 3, GFR 30-59 ml/min Current Visit: No Status: Acute Code(s): N18.3 - CHRONIC KIDNEY DISEASE, STAGE 3 (MODERATE) SNOMED Code(s): 050851791 Comment: due to DM, creat at baseline (10) DVT prophylaxis Current Visit: Yes Status: Acute Code(s): QIV0666 - SNOMED Code(s): 120391534 Comment: - INR supratherapeutic, hold warfarin - INR 2.73 today - will start Coumadin but at lower dose than his home regimen Status and Disposition: Inpatient; requiring close monitoring, continued work-up, and diuresis. Discharge when medically stable.
[2018-04-20] MEDS ORDERED: Warfarin TAB(*) 1 MG PO ONE (17:00)
[2018-04-21] MEDS: guaiFENesin LIQ* 100 MG/5 ML UDC PO PRN (00:36)
[2018-04-21] MEDS: Cefepime 1 GM in Dextrose(*) 1 GM/50 ML BAG IV SCH ×2 (05:10→16:57)
[2018-04-21 06:27] LABS: INR 1.93 (0.77-1.02)
[2018-04-21] MEDS: Mometasone/Formoter 200/5 MDI INH SCH ×2 (07:43→19:54)
[2018-04-21] MEDS: Carvedilol TAB* 6.25 MG PO SCH ×2 (08:03→20:22)
[2018-04-21] MEDS: Digoxin TAB* 0.125 MG PO SCH (08:03)
[2018-04-21] MEDS: Allopurinol TAB* 100 MG PO SCH (08:03)
[2018-04-21] MEDS: Bumetanide TAB* 2 MG PO SCH (08:03)
[2018-04-21] MEDS: Finasteride TAB* 5 MG PO SCH (08:03)
[2018-04-21] MEDS: Losartan TAB* 25 MG PO SCH (08:03)
[2018-04-21] MEDS: Atorvastatin* 80 MG TAB PO SCH (08:03)
[2018-04-21] MEDS: Insulin LISPRO* 1 UNITS UNIT SUBCUT SCH ×4 (08:04→20:22)
[2018-04-21] MEDS: Aspirin EC TAB* 81 MG TAB.EC PO SCH (08:04)
[2018-04-21] MEDS ORDERED: Metolazone TAB* 5 MG PO ONE (11:36)
[2018-04-21] MEDS ORDERED: Furosemide IV* 10 MG/ML VIAL (40 MG) IV SLOW PU ONE (12:00)
--- NOTE | 2018-04-21 16:49 | PN ---
Subjective Date of Service: 04/21/18 - CC: SOB Interval History: I talked and examined the patient in the presence of his son. The patient states he has had no improvement in his breathing or coughing. He is not sleeping at night, has orthopnea. He is coughing, productive of green sputume (nurse corroborates). Leg edema remains significant. The patient and his son are frustrated that these symptoms weren't present prior to his valve surgery in March. Medications Active Medications: Albuterol (Ventolin Hfa Inhaler*) 1 puff INH Q4H PRN PRN Reason: SOB/WHEEZING Last Admin: 04/17/18 21:47 Dose: 1 puff Albuterol/Ipratropium (Duoneb (Albuterol 2.5 Mg/Ipratropium 0.5 Mg)) 1 neb INH Q4H PRN PRN Reason: SOB/WHEEZING Allopurinol (Zyloprim Tab*) 100 mg PO DAILY [facility] Last Admin: 04/21/18 08:03 Dose: 100 mg Aspirin (Aspirin Ec Tab*) 81 mg PO DAILY [facility] Last Admin: 04/21/18 08:04 Dose: 81 mg Atorvastatin Calcium (Lipitor*) 80 mg PO DAILY [facility] Last Admin: 04/21/18 08:03 Dose: 80 mg Bumetanide (Bumex Tab*) 2 mg PO DAILY [facility] Last Admin: 04/21/18 08:03 Dose: 2 mg Carvedilol (Coreg Tab*) 6.25 mg PO BID [facility] Last Admin: 04/21/18 08:03 Dose: 6.25 mg Dextrose (D50w Syringe 50 Ml*) 12.5 gm IV PUSH .FOR FS < 60 - SS PRN PRN Reason: FS < 60 Digoxin (Lanoxin Tab*) 0.125 mg PO EVERY OTHER DAY [facility] Last Admin: 04/21/18 08:03 Dose: 0.125 mg Finasteride (Proscar Tab*) 5 mg PO DAILY [facility] Last Admin: 04/21/18 08:03 Dose: 5 mg Guaifenesin (Robitussin*) 5 ml PO Q4H PRN PRN Reason: COUGH Last Admin: 04/21/18 00:36 Dose: 5 ml Heparin Sodium (Porcine) (Heparin Flush Picc/Ml/Cvc(*)) 1 - 3 ml FLUSH 0600, 1800 [facility]; Protocol Last Admin: 04/21/18 05:10 Dose: 1 ml Cefepime HCl (Maxipime 1 Gm In Dextrose Duplex (*)) 1 gm in 50 mls @ 100 mls/ hr IV Q12H [facility] Last Admin: 04/21/18 05:10 Dose: 100 mls/hr Insulin Human Lispro (Humalog*) 0 units SUBCUT ACHS [facility]; Protocol Last Admin: 04/21/18 11:55 Dose: 2 unit Losartan Potassium (Cozaar Tab*) 50 mg PO DAILY [facility] Last Admin: 04/21/18 08:03 Dose: 50 mg Mometasone Furoate/Formoterol Fumar (Dulera 200/5 Mdi*) 2 puff INH BID [facility] Last Admin: 04/21/18 07:43 Dose: 2 puff Pharmacy Profile Note (Coumadin Per Pharmacy*) 1 note FOLLOW UP .PER PHARMACY PROTOC [facility]; Protocol Warfarin Sodium (Coumadin Tab(*)) 3 mg PO ONCE ONE Stop: 04/21/18 17:01 Objective Vital Signs: Temp Pulse Resp BP Pulse Ox 97.7 F 69 18 115/54 99 04/21/18 15:03 04/21/18 15:03 04/21/18 15:03 04/21/18 16:00 04/21/18 15:03 Oxygen Devices in Use Now: Nasal Cannula Appearance: Elderly gentleman, seated, O2 on, INDIGO bandage wraps on legs. Coughing, mildly tachypnic talking. Eyes: No Scleral Icterus, PERRLA Ears/Nose/Mouth/Throat: Mucous Membranes Moist Neck: Trachea Midline, No Thyroid Enlargement, Masses Respiratory: - - Markedly diminished BS lower 1/3-1/2 of lung trevizo bilaterally. Decreased BS upper trevizo. Dull to percussion in bases. Cardiovascular: RRR - no rub. Abdominal: - - obese, rutund, active bowel sounds and non tender. Extremities: - - marked edema, wraps on Neurological: Alert and Oriented x 3 Laboratory Results: 04/20/18 06:39 04/20/18 06:39 INR (Anticoag Therapy) 1.93 (0.77-1.02) H 04/21/18 06:04 Total Bilirubin 0.80 mg/dL (0.2-1.0) 04/17/18 12:56 AST 21 U/L (13-39) 04/17/18 15:59 ALT 37 U/L (7-52) 04/17/18 12:56 Alkaline Phosphatase 143 U/L (34-104) H 04/17/18 12:56 B-Natriuretic Peptide 755 pg/mL (<=100) H 04/17/18 12:55 Total Protein 7.6 g/dL (6.4-8.9) 04/17/18 12:56 Albumin 3.3 g/dL (3.2-5.2) 04/17/18 12:56 Globulin 4.3 g/dL (2-4) H 04/17/18 12:56 Albumin/Globulin Ratio 0.8 (1-3) L 04/17/18 12:56 04/17/18 04/17/18 04/17/18 12:56 17:39 20:15 Troponin I 0.11 H* 0.13 H* 0.11 H* 04/18/18 00:05 Troponin I 0.11 H* Diagnostic Imaging: Echo 04/17/18: EF 20%, RV dilated and hypokinetic, AVR with good function, mild to moderate MR , moderate TR, PApr 40 mmHg, small PC effusion. EKG Data: Monitor: Afib. Assessment/Plan 77 yo male s/p AVR, MV repair in March with chronic afib, CKD who presented last month with tampanade/Dresslers and underwent pericardiocentesis and medical management for rate control of afib, medications for CM. He is now readmitted with CHF, pleural effusions, persistent PC effusion, BiV failure and probable bronchitis/pneumonia who is not feeling better despite antibiotics and diuretics. He was sent home on colchicine but it is not on here. This could be related to CHF alone, but I have concerns for ongoing inflammatory component and constriction could contribute/cause leg edema. I will add back colchicine and added updated CRP/ESR. I will try NTG patch HS for symptomatic relief. He is going to be very difficult to improve and it will take time. Option of trial on lower or no cozaar and add aldactone or eplerinone, but if opted for needs lytes checked daily due to RI. Option of updated echo, limited, concentrating on constrictive physiology, but may not place change roof bolter.
[2018-04-21] MEDS ORDERED: Warfarin TAB(*) 3 MG PO ONE (17:00)
--- NOTE | 2018-04-21 17:58 | PN ---
Subjective Date of Service: 04/21/18 Interval History: HOSPITALIST PROGRESS NOTE Patient seen and examined at bedside. Care reviewed and d/w Nissa Linares RN. He feels his condition is unchanged. Cannot lay flat, has frequent cough, edema is worse. Denies chest pain. Tolerating diet, no N/V. Family History: Unchanged from Admission Social History: Unchanged from Admission Past Medical History: Unchanged from Admission Objective Active Medications: Albuterol (Ventolin Hfa Inhaler*) 1 puff INH Q4H PRN PRN Reason: SOB/WHEEZING Last Admin: 04/17/18 21:47 Dose: 1 puff Albuterol/Ipratropium (Duoneb (Albuterol 2.5 Mg/Ipratropium 0.5 Mg)) 1 neb INH Q4H PRN PRN Reason: SOB/WHEEZING Allopurinol (Zyloprim Tab*) 100 mg PO DAILY [facility] Last Admin: 04/21/18 08:03 Dose: 100 mg Aspirin (Aspirin Ec Tab*) 81 mg PO DAILY [facility] Last Admin: 04/21/18 08:04 Dose: 81 mg Atorvastatin Calcium (Lipitor*) 80 mg PO DAILY [facility] Last Admin: 04/21/18 08:03 Dose: 80 mg Bumetanide (Bumex Tab*) 2 mg PO DAILY [facility] Last Admin: 04/21/18 08:03 Dose: 2 mg Carvedilol (Coreg Tab*) 6.25 mg PO BID [facility] Last Admin: 04/21/18 08:03 Dose: 6.25 mg Colchicine (Colcrys*) 0.6 mg PO DAILY [facility] Dextrose (D50w Syringe 50 Ml*) 12.5 gm IV PUSH .FOR FS < 60 - SS PRN PRN Reason: FS < 60 Digoxin (Lanoxin Tab*) 0.125 mg PO EVERY OTHER DAY [facility] Last Admin: 04/21/18 08:03 Dose: 0.125 mg Finasteride (Proscar Tab*) 5 mg PO DAILY [facility] Last Admin: 04/21/18 08:03 Dose: 5 mg Guaifenesin (Robitussin*) 5 ml PO Q4H PRN PRN Reason: COUGH Last Admin: 04/21/18 00:36 Dose: 5 ml Heparin Sodium (Porcine) (Heparin Flush Picc/Ml/Cvc(*)) 1 - 3 ml FLUSH 0600, 1800 [facility]; Protocol Last Admin: 04/21/18 05:10 Dose: 1 ml Cefepime HCl (Maxipime 1 Gm In Dextrose Duplex (*)) 1 gm in 50 mls @ 100 mls/ hr IV Q12H [facility] Last Admin: 04/21/18 16:57 Dose: 100 mls/hr Insulin Human Lispro (Humalog*) 0 units SUBCUT ACHS [facility]; Protocol Last Admin: 04/21/18 16:57 Dose: 4 unit Losartan Potassium (Cozaar Tab*) 50 mg PO DAILY [facility] Last Admin: 04/21/18 08:03 Dose: 50 mg Mometasone Furoate/Formoterol Fumar (Dulera 200/5 Mdi*) 2 puff INH BID [facility] Last Admin: 04/21/18 07:43 Dose: 2 puff Nitroglycerin (Nitroglycerin 10 Mg Patch*) 1 patch TRANSDERM DAILY [facility] Pharmacy Profile Note (Coumadin Per Pharmacy*) 1 note FOLLOW UP .PER PHARMACY PROTOC [facility]; Protocol Vital Signs - 8 hr 04/21/18 04/21/18 04/21/18 11:09 15:03 16:00 Temperature 97.2 F 97.7 F Pulse Rate 74 69 Respiratory 16 18 Rate Blood Pressure 96/57 115/54 (mmHg) O2 Sat by Pulse 98 99 Oximetry Oxygen Devices in Use Now: Nasal Cannula - 2 liters Appearance: Elderly gentleman sitting up in a chair in NAD. Eyes: No Scleral Icterus Ears/Nose/Mouth/Throat: Mucous Membranes Moist Neck: Trachea Midline Respiratory: Symmetrical Chest Expansion and Respiratory Effort, - - BS+ bilaterally with mid field crackles and decreased in bases Cardiovascular: - - Normal S1 and S2, irregular, no rub Abdominal: NL Sounds; No Tenderness; No Distention Extremities: - - Severe bilateral LE edema, up to thighs and sacral area Neurological: Alert and Oriented x 3, NL Muscle Strength and Tone Result Diagrams: 04/20/18 06:39 04/20/18 06:39 Assess/Plan/Problems-Billing Assessment: Mr. Tello is a 77 yo male with PMH significant for CAD s/p recent CABG, AVR and MV repair, DM, HTN, asthma, HLD, BPH, Chronic A fib, Systolic CHF, Rachel syndrome and pericardial effusion requiring a pericardiocentesis who presented to the emergency room with complaints of dyspnea, found to have systolic CHF exacerbation. - Patient Problems (1) Acute hypoxemic respiratory failure Comment: - Multifactorial in the setting of CHF exacerbation with significant fluid overload and pneumonia. (2) Acute systolic CHF (congestive heart failure) Comment: - Echo demonstrates EF <20% on 04/17/18. - Despite management with coreg 6.25 mg bid, Bumex 2 mg daily, losartan 50 mg daily and digoxin 125 mcg daily, patient has not had significant weight loss and edema is severe - will add Metolazone and IV Furosemide. - INDIGO wrap LE. - Cardiology input appreciated. - Repeat echo shows pericardial effusion is improved - Colchicine was resumed for his pericarditis. (3) Pneumonia Comment: - Suspect Hospital aquired given his recent multiple hospitalizations. - Chest CTA 04/17/18 - consolidation in right lower lobe. - Continue cefepime #5 and add Doxycycline. - Check sputum culture, Legionella and pneumococcal Ag. (4) CKD (chronic kidney disease) stage 3, GFR 30-59 ml/min Comment: - Close to baseline - continue to monitor, especially in the setting of more aggressive diuresis. (5) Atrial fibrillation Comment: - Heart rate irregular, controlled. - Rate controlled with Carvedilol and digoxin. - Continue Warfarin as per Pharmacy protocol. (6) CAD (coronary artery disease) Comment: - s/p CABG - Continue aspirin, carvedilol, and atorvastatin (7) Diabetes Comment: - HgA1C 6.8% on 03/08. - Continue FS ACHS with Lispro SS. (8) DVT prophylaxis Comment: - On Warfarin. - SCDs contraindicated in the setting of significant LE edema. (9) Full code status Status and Disposition: Inpatient; requiring close monitoring, continued work-up, and diuresis.
[2018-04-21] MEDS: Colchicine* 0.6 MG TAB PO SCH (18:13)
[2018-04-21] MEDS: DOXYcycline IV* 100 MG in NS 0.9% 250 ML* 250 ML IVPB SCH (20:20)
[2018-04-21] MEDS: Nitroglycerin 0.4 MG/HR PATCH* (10 MG) TRANSDERM SCH (20:21)
[2018-04-22] MEDS: Cefepime 1 GM in Dextrose(*) 1 GM/50 ML BAG IV SCH ×2 (05:32→16:50)
[2018-04-22 06:38] LABS: ABS Basophils 0.1 10^3/ul (0-0.2); ABS Eosinophils 0.2 10^3/ul (0-0.6); ABS Lymphocytes 0.8 10^3/ul (1.0-4.8); ABS Monocytes 1.1 10^3/ul (0-0.8); ABS Neutrophils 6.1 10^3/ul (1.5-7.7); ABS Nucleated RBC 0 10^3/ul; Eosinophil % 1.9 %; Hematocrit 30 % (42-52); Hemoglobin 10.4 g/dl (14.0-18.0); Lymphocyte % 9.8 %; Mean Corpuscular HGB Conc 34 g/dl (31-36); Mean Corpuscular Hemoglobin 33 pg (27-31); Mean Corpuscular Volume 96 fL (80-94); Mean Platelet Volume 10.1 fL (7.4-10.4); Nucleated Red Blood Cells % 0; Platelet Count 131 10^3/ul (150-450); Red Blood Count 3.16 10^6/ul (4.00-5.40); Red Cell Distribution Width 18 % (10.5-15); White Blood Count 8.2 10^3/ul (3.5-10.8)
[2018-04-22 06:47] LABS: INR 1.52 (0.77-1.02)
[2018-04-22 06:53] LABS: BUN/Creatinine Ratio 47.2 (8-20); C Reactive Protein 6.33 mg/L (<8.01); Calcium 8.6 mg/dL (8.6-10.3); EGFR Non-African American 42.3 (>60); Magnesium 1.9 mg/dL (1.9-2.7); Potassium 3.5 mmol/L (3.5-5.0)
[2018-04-22] MEDS: Losartan TAB* 25 MG PO SCH (08:03)
[2018-04-22] MEDS: DOXYcycline IV* 100 MG in NS 0.9% 250 ML* 250 ML IVPB SCH ×2 (08:03→20:15)
[2018-04-22] MEDS: Finasteride TAB* 5 MG PO SCH (08:03)
[2018-04-22] MEDS: Bumetanide TAB* 2 MG PO SCH (08:03)
[2018-04-22] MEDS: Allopurinol TAB* 100 MG PO SCH (08:03)
[2018-04-22] MEDS: Carvedilol TAB* 6.25 MG PO SCH ×2 (08:03→20:18)
[2018-04-22] MEDS: Aspirin EC TAB* 81 MG TAB.EC PO SCH (08:03)
[2018-04-22] MEDS: Atorvastatin* 80 MG TAB PO SCH (08:04)
[2018-04-22] MEDS: Insulin LISPRO* 1 UNITS UNIT SUBCUT SCH ×4 (08:04→20:18)
[2018-04-22] MEDS: Nitro Patch/OINT Remove PATCH OFF SCH (08:04)
[2018-04-22] MEDS: Mometasone/Formoter 200/5 MDI INH SCH ×2 (08:08→19:32)
[2018-04-22] MEDS: Colchicine* 0.6 MG TAB PO SCH (08:55)
[2018-04-22] MEDS ORDERED: Metolazone TAB* 5 MG PO ONE (10:31)
[2018-04-22] MEDS ORDERED: Furosemide IV* 10 MG/ML VIAL (40 MG) IV SLOW PU ONE (11:00)
[2018-04-22] MEDS ORDERED: Potassium Chloride LIQUID* 20 MEQ PACKET PO ONE (13:00)
[2018-04-22 13:30] LABS: Digoxin 0.7 ng/ml (0.8-2.0)
--- NOTE | 2018-04-22 16:54 | PN ---
Subjective Date of Service: 04/22/18 Interval History: HOSPITALIST PROGRESS NOTE Patient seen and examined at bedside. Care reviewed and d/w Nissa Linares RN. He feels improved today. Was able to sleep last night, dyspnea is less intense, cough is less frequent, chest pain is improved. Family History: Unchanged from Admission Social History: Unchanged from Admission Past Medical History: Unchanged from Admission Objective Active Medications: Albuterol (Ventolin Hfa Inhaler*) 1 puff INH Q4H PRN PRN Reason: SOB/WHEEZING Last Admin: 04/17/18 21:47 Dose: 1 puff Albuterol/Ipratropium (Duoneb (Albuterol 2.5 Mg/Ipratropium 0.5 Mg)) 1 neb INH Q4H PRN PRN Reason: SOB/WHEEZING Allopurinol (Zyloprim Tab*) 100 mg PO DAILY [facility] Last Admin: 04/22/18 08:03 Dose: 100 mg Aspirin (Aspirin Ec Tab*) 81 mg PO DAILY [facility] Last Admin: 04/22/18 08:03 Dose: 81 mg Atorvastatin Calcium (Lipitor*) 80 mg PO DAILY [facility] Last Admin: 04/22/18 08:04 Dose: 80 mg Carvedilol (Coreg Tab*) 6.25 mg PO BID [facility] Colchicine (Colcrys*) 0.6 mg PO DAILY [facility] Last Admin: 04/22/18 08:55 Dose: 0.6 mg Dextrose (D50w Syringe 50 Ml*) 12.5 gm IV PUSH .FOR FS < 60 - SS PRN PRN Reason: FS < 60 Digoxin (Lanoxin Tab*) 0.125 mg PO EVERY OTHER DAY [facility] Last Admin: 04/21/18 08:03 Dose: 0.125 mg Finasteride (Proscar Tab*) 5 mg PO DAILY [facility] Last Admin: 04/22/18 08:03 Dose: 5 mg Guaifenesin (Robitussin*) 5 ml PO Q4H PRN PRN Reason: COUGH Last Admin: 04/21/18 00:36 Dose: 5 ml Heparin Sodium (Porcine) (Heparin Flush Picc/Ml/Cvc(*)) 1 - 3 ml FLUSH 0600, 1800 [facility]; Protocol Last Admin: 04/22/18 05:33 Dose: 1 ml Cefepime HCl (Maxipime 1 Gm In Dextrose Duplex (*)) 1 gm in 50 mls @ 100 mls/ hr IV Q12H [facility] Last Admin: 04/22/18 05:32 Dose: 100 mls/hr Doxycycline Hyclate 100 mg/ (Sodium Chloride) 250 mls @ 250 mls/hr IVPB Q12H [facility] Last Admin: 04/22/18 08:03 Dose: 250 mls/hr Insulin Human Lispro (Humalog*) 0 units SUBCUT ACHS [facility]; Protocol Last Admin: 04/22/18 11:51 Dose: 6 unit Mometasone Furoate/Formoterol Fumar (Dulera 200/5 Mdi*) 2 puff INH BID [facility] Last Admin: 04/22/18 08:08 Dose: 2 puff Nitroglycerin (Nitroglycerin 10 Mg Patch*) 1 patch TRANSDERM 2000 [facility] Last Admin: 04/21/18 20:21 Dose: 1 patch Pharmacy Profile Note (Coumadin Per Pharmacy*) 1 note FOLLOW UP .PER PHARMACY PROTOC [facility]; Protocol Pharmacy Profile Note (Nitro Patch/Oint Remove*) 1 note PATCH OFF 0800 [facility] Last Admin: 04/22/18 08:04 Dose: 1 note Warfarin Sodium (Coumadin Tab(*)) 3 mg PO 1700 ONE Stop: 04/22/18 17:01 Vital Signs - 8 hr 04/22/18 04/22/18 04/22/18 11:08 11:28 15:21 Temperature 97.7 F 97.4 F Pulse Rate 67 77 Respiratory 16 16 Rate Blood Pressure 98/44 90/55 (mmHg) O2 Sat by Pulse 100 100 Oximetry Oxygen Devices in Use Now: Nasal Cannula Appearance: Elderly gentleman sitting up in a chair in [facility]. Eyes: No Scleral Icterus Ears/Nose/Mouth/Throat: Mucous Membranes Moist Neck: Trachea Midline Respiratory: Symmetrical Chest Expansion and Respiratory Effort, - - BS+ bilaterally with crackles in mid lung trevizo and decreased in bases Cardiovascular: RRR - Normal S1 and S2 Abdominal: NL Sounds; No Tenderness; No Distention Extremities: - - Moderate bilateral LE edema Neurological: Alert and Oriented x 3, NL Muscle Strength and Tone Result Diagrams: 04/22/18 05:42 04/22/18 05:24 Assess/Plan/Problems-Billing Assessment: Mr. Tello is a 77 yo male with PMH significant for CAD s/p recent CABG, AVR and MV repair, DM, HTN, asthma, HLD, BPH, Chronic A fib, Systolic CHF, Rachel syndrome and pericardial effusion requiring a pericardiocentesis who presented to the emergency room with complaints of dyspnea, found to have systolic CHF exacerbation. - Patient Problems (1) Acute hypoxemic respiratory failure Comment: - Multifactorial in the setting of CHF exacerbation with significant fluid overload and pneumonia. (2) Acute systolic CHF (congestive heart failure) Comment: - Echo demonstrates EF <20% on 04/17/18. - Despite management with coreg 6.25 mg bid, Bumex 2 mg daily, losartan 50 mg daily and digoxin 125 mcg daily, patient has not had significant weight loss and edema is severe - seems to be responding to Metolazone and IV Furosemide - weight down to 189lbs today. - INDIGO wrap LE. - Cardiology input appreciated. - Repeat echo shows pericardial effusion is improved - Colchicine was resumed for his pericarditis. (3) Pneumonia Comment: - Suspect Hospital aquired given his recent multiple hospitalizations. - Chest CTA 04/17/18 - consolidation in right lower lobe. - Continue cefepime #6 and Doxycycline #2. - Sputum culture shows no growth so far, Legionella and pneumococcal Ag are negative. (4) CKD (chronic kidney disease) stage 3, GFR 30-59 ml/min Comment: - Close to baseline - continue to monitor, especially in the setting of more aggressive diuresis. (5) Atrial fibrillation Comment: - Rate controlled with Carvedilol and digoxin. - Continue Warfarin as per Pharmacy protocol. (6) CAD (coronary artery disease) Comment: - s/p CABG - Continue aspirin, carvedilol, and atorvastatin (7) Diabetes Comment: - HgA1C 6.8% on 03/08. - Continue FS ACHS with Lispro SS. (8) DVT prophylaxis Comment: - On Warfarin, but INR is subtherapeutic. Add SQ heparin. - SCDs contraindicated in the setting of significant LE edema. (9) Full code status Status and Disposition: Inpatient; requiring close monitoring, continued work-up, and diuresis.
[2018-04-22] MEDS ORDERED: Warfarin TAB(*) 3 MG PO ONE (17:00)
[2018-04-22] MEDS: Potassium Chlor TAB* 20 MEQ TAB.ER PO SCH (17:35)
[2018-04-22] MEDS: Nitroglycerin 0.4 MG/HR PATCH* (10 MG) TRANSDERM SCH (20:17)
[2018-04-23] MEDS: Cefepime 1 GM in Dextrose(*) 1 GM/50 ML BAG IV SCH ×2 (05:18→17:04)
[2018-04-23 05:40] LABS: Hematocrit 29 % (42-52); Hemoglobin 9.7 g/dl (14.0-18.0); Mean Platelet Volume 9.9 fL (7.4-10.4); Platelet Count 126 10^3/ul (150-450)
[2018-04-23 05:57] LABS: BUN/Creatinine Ratio 44.7 (8-20); Calcium 8.6 mg/dL (8.6-10.3); EGFR Non-African American 39.2 (>60); Magnesium 1.7 mg/dL (1.9-2.7); Potassium 3.9 mmol/L (3.5-5.0)
[2018-04-23 06:33] LABS: INR 1.67 (0.77-1.02)
[2018-04-23] MEDS ORDERED: Magnesium Sulfate 2 GM IV* 2 GM/50 ML BAG IVPB ONE (07:04)
[2018-04-23] MEDS: Mometasone/Formoter 200/5 MDI INH SCH ×2 (08:13→20:43)
[2018-04-23] MEDS: Colchicine* 0.6 MG TAB PO SCH (09:20)
[2018-04-23] MEDS: Magnesium Oxide TAB* 400 MG PO SCH (09:20)
[2018-04-23] MEDS: Potassium Chlor TAB* 20 MEQ TAB.ER PO SCH (09:20)
[2018-04-23] MEDS: Finasteride TAB* 5 MG PO SCH (09:20)
[2018-04-23] MEDS: Carvedilol TAB* 6.25 MG PO SCH ×2 (09:20→22:10)
[2018-04-23] MEDS: Digoxin TAB* 0.125 MG PO SCH (09:21)
[2018-04-23] MEDS: Insulin LISPRO* 1 UNITS UNIT SUBCUT SCH ×4 (09:21→22:06)
[2018-04-23] MEDS: Aspirin EC TAB* 81 MG TAB.EC PO SCH (09:21)
[2018-04-23] MEDS: Atorvastatin* 80 MG TAB PO SCH (09:21)
[2018-04-23] MEDS: Allopurinol TAB* 100 MG PO SCH (09:21)
[2018-04-23] MEDS: Nitro Patch/OINT Remove PATCH OFF SCH (09:24)
[2018-04-23] MEDS: DOXYcycline IV* 100 MG in NS 0.9% 250 ML* 250 ML IVPB SCH ×2 (10:29→20:06)
[2018-04-23] MEDS: Heparin VIAL(*) 5000 UNITS/ML VIAL (FIVE THOUSAND) SUBCUT SCH ×3 (10:30→22:05)
[2018-04-23] MEDS ORDERED: Metolazone TAB* 5 MG PO ONE (12:17)
[2018-04-23] MEDS ORDERED: Furosemide IV* 10 MG/ML VIAL (40 MG) IV SLOW PU ONE (13:00)
--- NOTE | 2018-04-23 15:11 | PN ---
Subjective Date of Service: 04/23/18 Interval History: HOSPITALIST PROGRESS NOTE Patient seen and examined at bedside. Care reviewed and d/w Cheryl Segundo RN. He feels a little better today. Weight is down to 177 lbs. Breathing is easier, but still has orthopnea. Family History: Unchanged from Admission Social History: Unchanged from Admission Past Medical History: Unchanged from Admission Objective Active Medications: Albuterol (Ventolin Hfa Inhaler*) 1 puff INH Q4H PRN PRN Reason: SOB/WHEEZING Last Admin: 04/17/18 21:47 Dose: 1 puff Albuterol/Ipratropium (Duoneb (Albuterol 2.5 Mg/Ipratropium 0.5 Mg)) 1 neb INH Q4H PRN PRN Reason: SOB/WHEEZING Allopurinol (Zyloprim Tab*) 100 mg PO DAILY [facility] Last Admin: 04/23/18 09:21 Dose: 100 mg Aspirin (Aspirin Ec Tab*) 81 mg PO DAILY [facility] Last Admin: 04/23/18 09:21 Dose: 81 mg Atorvastatin Calcium (Lipitor*) 80 mg PO DAILY [facility] Last Admin: 04/23/18 09:21 Dose: 80 mg Carvedilol (Coreg Tab*) 6.25 mg PO BID [facility] Last Admin: 04/23/18 09:20 Dose: 6.25 mg Colchicine (Colcrys*) 0.6 mg PO DAILY [facility] Last Admin: 04/23/18 09:20 Dose: 0.6 mg Dextrose (D50w Syringe 50 Ml*) 12.5 gm IV PUSH .FOR FS < 60 - SS PRN PRN Reason: FS < 60 Digoxin (Lanoxin Tab*) 0.125 mg PO EVERY OTHER DAY [facility] Last Admin: 04/23/18 09:21 Dose: 0.125 mg Finasteride (Proscar Tab*) 5 mg PO DAILY [facility] Last Admin: 04/23/18 09:20 Dose: 5 mg Guaifenesin (Robitussin*) 5 ml PO Q4H PRN PRN Reason: COUGH Last Admin: 04/21/18 00:36 Dose: 5 ml Heparin Sodium (Porcine) (Heparin Flush Picc/Ml/Cvc(*)) 1 - 3 ml FLUSH 0600, 1800 [facility]; Protocol Last Admin: 04/23/18 05:20 Dose: 1 ml Heparin Sodium (Porcine) (Heparin Vial(*)) 5,000 units SUBCUT Q8HR [facility] Last Admin: 04/23/18 13:20 Dose: 5,000 units Cefepime HCl (Maxipime 1 Gm In Dextrose Duplex (*)) 1 gm in 50 mls @ 100 mls/ hr IV Q12H [facility] Last Admin: 04/23/18 05:18 Dose: 100 mls/hr Doxycycline Hyclate 100 mg/ (Sodium Chloride) 250 mls @ 250 mls/hr IVPB Q12H [facility] Last Admin: 04/23/18 10:29 Dose: 250 mls/hr Insulin Human Lispro (Humalog*) 0 units SUBCUT ACHS [facility]; Protocol Last Admin: 04/23/18 12:39 Dose: 4 unit Magnesium Oxide (Magox 400 Tab*) 400 mg PO DAILY [facility] Last Admin: 04/23/18 09:20 Dose: 400 mg Mometasone Furoate/Formoterol Fumar (Dulera 200/5 Mdi*) 2 puff INH BID [facility] Last Admin: 04/23/18 08:13 Dose: 2 puff Nitroglycerin (Nitroglycerin 10 Mg Patch*) 1 patch TRANSDERM 2000 [facility] Last Admin: 04/22/18 20:17 Dose: 1 patch Pharmacy Profile Note (Coumadin Per Pharmacy*) 1 note FOLLOW UP .PER PHARMACY PROTOC [facility]; Protocol Pharmacy Profile Note (Nitro Patch/Oint Remove*) 1 note PATCH OFF 0800 [facility] Last Admin: 04/23/18 09:24 Dose: 1 note Potassium Chloride (Klor Con Er Tab*) 40 meq PO DAILY [facility] Last Admin: 04/23/18 09:20 Dose: 40 meq Warfarin Sodium (Coumadin Tab(*)) 3 mg PO 1700 ONE Stop: 04/23/18 17:01 Vital Signs - 8 hr 04/23/18 04/23/18 04/23/18 07:39 08:00 08:14 Temperature 97.7 F Pulse Rate 75 75 Respiratory 18 19 14 Rate Blood Pressure 113/65 (mmHg) O2 Sat by Pulse 100 98 Oximetry 04/23/18 04/23/18 04/23/18 08:15 09:21 11:49 Temperature 98.7 F Pulse Rate 75 75 63 Respiratory 14 18 Rate Blood Pressure 106/54 (mmHg) O2 Sat by Pulse 98 100 Oximetry Oxygen Devices in Use Now: Nasal Cannula Appearance: Elderly gentleman sitting up in a chair in NAD. Eyes: No Scleral Icterus Ears/Nose/Mouth/Throat: Mucous Membranes Moist Neck: Trachea Midline Respiratory: Symmetrical Chest Expansion and Respiratory Effort, - - BS+ bilaterally decreased in bases Cardiovascular: RRR - Normal S1 and S2 Extremities: - - INDIGO wrapped with significant improvement of pitting edema Neurological: Alert and Oriented x 3, NL Muscle Strength and Tone Result Diagrams: 04/23/18 05:31 04/23/18 05:31 Assess/Plan/Problems-Billing Assessment: Mr. Tello is a 77 yo male with PMH significant for CAD s/p recent CABG, AVR and MV repair, DM, HTN, asthma, HLD, BPH, Chronic A fib, Systolic CHF, Rachel syndrome and pericardial effusion requiring a pericardiocentesis who presented to the emergency room with complaints of dyspnea, found to have systolic CHF exacerbation. - Patient Problems (1) Acute hypoxemic respiratory failure Comment: - Multifactorial in the setting of CHF exacerbation with significant fluid overload and pneumonia. (2) Acute systolic CHF (congestive heart failure) Comment: - Echo demonstrates EF <20% on 04/17/18. - Improving - weight is down to 177lbs. - Continue Metolazone and Furosemide. - Continue Coreg and digoxin. ARB held for now to have BP room for diuresis. - INDIGO wrap LE. - Repeat echo shows pericardial effusion is improved - Colchicine was resumed for his pericarditis. (3) Pneumonia Comment: - Suspect Hospital aquired given his recent multiple hospitalizations. - Chest CTA 04/17/18 - consolidation in right lower lobe. - Continue cefepime #7/7 and Doxycycline #3/. - Sputum culture shows no growth so far, Legionella and pneumococcal Ag are negative. (4) CKD (chronic kidney disease) stage 3, GFR 30-59 ml/min Comment: - Close to baseline - continue to monitor, especially in the setting of more aggressive diuresis. (5) Atrial fibrillation Comment: - Rate controlled with Carvedilol and digoxin. - Continue Warfarin as per Pharmacy protocol. (6) CAD (coronary artery disease) Comment: - s/p CABG - Continue aspirin, carvedilol, and atorvastatin (7) Diabetes Comment: - HgA1C 6.8% on 03/08. - Continue FS ACHS with Lispro SS and add Lantus. (8) DVT prophylaxis Comment: - On Warfarin, but INR is subtherapeutic. Add SQ heparin. (9) Full code status Status and Disposition: Inpatient; requiring close monitoring, continued work-up, and diuresis.
[2018-04-23] MEDS ORDERED: Warfarin TAB(*) 3 MG PO ONE (17:00)
[2018-04-23] MEDS: Nitroglycerin 0.4 MG/HR PATCH* (10 MG) TRANSDERM SCH (20:21)
[2018-04-23] MEDS: Albuterol HFA INHALER* 8 gm MDI INH PRN (20:43)
[2018-04-23] MEDS: Insulin GLARGINE(*) 1 UNITS UNIT SUBCUT SCH (22:05)
[2018-04-24] MEDS: Cefepime 1 GM in Dextrose(*) 1 GM/50 ML BAG IV SCH (04:55)
[2018-04-24] MEDS: Heparin VIAL(*) 5000 UNITS/ML VIAL (FIVE THOUSAND) SUBCUT SCH ×3 (06:18→21:17)
[2018-04-24] MEDS: Insulin LISPRO* 1 UNITS UNIT SUBCUT SCH ×4 (08:08→20:53)
[2018-04-24] MEDS: Mometasone/Formoter 200/5 MDI INH SCH ×2 (08:09→20:32)
[2018-04-24 08:13] LABS: INR 1.77 (0.77-1.02)
[2018-04-24] MEDS: Carvedilol TAB* 6.25 MG PO SCH ×2 (08:13→20:52)
[2018-04-24] MEDS: Atorvastatin* 80 MG TAB PO SCH (08:13)
[2018-04-24] MEDS: Potassium Chlor TAB* 20 MEQ TAB.ER PO SCH (08:13)
[2018-04-24] MEDS: Allopurinol TAB* 100 MG PO SCH (08:13)
[2018-04-24] MEDS: Aspirin EC TAB* 81 MG TAB.EC PO SCH (08:13)
[2018-04-24] MEDS: Colchicine* 0.6 MG TAB PO SCH (08:14)
[2018-04-24] MEDS: Magnesium Oxide TAB* 400 MG PO SCH (08:14)
[2018-04-24] MEDS: Finasteride TAB* 5 MG PO SCH (08:14)
[2018-04-24] MEDS: DOXYcycline IV* 100 MG in NS 0.9% 250 ML* 250 ML IVPB SCH (08:21)
[2018-04-24 08:22] LABS: BUN/Creatinine Ratio 46.6 (8-20); Calcium 8.8 mg/dL (8.6-10.3); EGFR Non-African American 46.7 (>60); Magnesium 2.2 mg/dL (1.9-2.7); Potassium 3.8 mmol/L (3.5-5.0)
[2018-04-24] MEDS: Nitro Patch/OINT Remove PATCH OFF SCH (10:24)
[2018-04-24] MEDS ORDERED: Metolazone TAB* 5 MG PO ONE (11:30)
[2018-04-24] MEDS ORDERED: Furosemide IV* 10 MG/ML VIAL (40 MG) IV SLOW PU ONE (12:00)
--- NOTE | 2018-04-24 16:04 | PN ---
Subjective Date of Service: 04/24/18 Interval History: HOSPITALIST PROGRESS NOTE Patient seen and examined at bedside. Care reviewed and d/w Abraham Alexis RN. He feels better today, was able to sleep last night without his breathing bothering him. Family History: Unchanged from Admission Social History: Unchanged from Admission Past Medical History: Unchanged from Admission Objective Active Medications: Albuterol (Ventolin Hfa Inhaler*) 1 puff INH Q4H PRN PRN Reason: SOB/WHEEZING Last Admin: 04/23/18 20:43 Dose: 1 puff Albuterol/Ipratropium (Duoneb (Albuterol 2.5 Mg/Ipratropium 0.5 Mg)) 1 neb INH Q4H PRN PRN Reason: SOB/WHEEZING Allopurinol (Zyloprim Tab*) 100 mg PO DAILY [facility] Last Admin: 04/24/18 08:13 Dose: 100 mg Aspirin (Aspirin Ec Tab*) 81 mg PO DAILY [facility] Last Admin: 04/24/18 08:13 Dose: 81 mg Atorvastatin Calcium (Lipitor*) 80 mg PO DAILY [facility] Last Admin: 04/24/18 08:13 Dose: 80 mg Carvedilol (Coreg Tab*) 6.25 mg PO BID [facility] Last Admin: 04/24/18 08:13 Dose: 6.25 mg Colchicine (Colcrys*) 0.6 mg PO DAILY [facility] Last Admin: 04/24/18 08:14 Dose: 0.6 mg Dextrose (D50w Syringe 50 Ml*) 12.5 gm IV PUSH .FOR FS < 60 - SS PRN PRN Reason: FS < 60 Doxycycline Hyclate (Vibramycin Cap(*)) 100 mg PO 0800,2000 [facility] Finasteride (Proscar Tab*) 5 mg PO DAILY [facility] Last Admin: 04/24/18 08:14 Dose: 5 mg Guaifenesin (Robitussin*) 5 ml PO Q4H PRN PRN Reason: COUGH Last Admin: 04/21/18 00:36 Dose: 5 ml Heparin Sodium (Porcine) (Heparin Flush Picc/Ml/Cvc(*)) 1 - 3 ml FLUSH 0600, 1800 [facility]; Protocol Last Admin: 04/24/18 06:59 Dose: 1 ml Heparin Sodium (Porcine) (Heparin Vial(*)) 5,000 units SUBCUT Q8HR [facility] Last Admin: 04/24/18 13:29 Dose: 5,000 units Insulin Glargine (Lantus(*)) 10 units SUBCUT BEDTIME [facility] Last Admin: 04/23/18 22:05 Dose: 10 units Insulin Human Lispro (Humalog*) 0 units SUBCUT ACHS [facility]; Protocol Last Admin: 04/24/18 12:46 Dose: 4 unit Magnesium Oxide (Magox 400 Tab*) 400 mg PO DAILY [facility] Last Admin: 04/24/18 08:14 Dose: 400 mg Mometasone Furoate/Formoterol Fumar (Dulera 200/5 Mdi*) 2 puff INH BID [facility] Last Admin: 04/24/18 08:09 Dose: 2 puff Nitroglycerin (Nitroglycerin 10 Mg Patch*) 1 patch TRANSDERM 2000 [facility] Last Admin: 04/23/18 20:21 Dose: 1 patch Pharmacy Profile Note (Coumadin Per Pharmacy*) 1 note FOLLOW UP .PER PHARMACY PROTOC [facility]; Protocol Pharmacy Profile Note (Nitro Patch/Oint Remove*) 1 note PATCH OFF 0800 [facility] Last Admin: 04/24/18 10:24 Dose: 1 note Potassium Chloride (Klor Con Er Tab*) 40 meq PO DAILY [facility] Last Admin: 04/24/18 08:13 Dose: 40 meq Warfarin Sodium (Coumadin Tab(*)) 4 mg PO 1700 ONE Stop: 04/24/18 17:01 Vital Signs - 8 hr 04/24/18 04/24/18 08:00 11:43 Temperature 97.9 F Pulse Rate 75 Respiratory 18 18 Rate Blood Pressure 111/58 (mmHg) O2 Sat by Pulse 100 Oximetry Oxygen Devices in Use Now: Nasal Cannula Appearance: Pleasant elderly gentleman sitting up in a chair in NAD. Eyes: No Scleral Icterus Ears/Nose/Mouth/Throat: Mucous Membranes Moist Neck: Trachea Midline Respiratory: Symmetrical Chest Expansion and Respiratory Effort, - - BS+ bilaterally diminished in bases Cardiovascular: - - Normal S1 and S2, irregularly irregular Extremities: - - Mild bilateral LE edema Neurological: Alert and Oriented x 3, NL Muscle Strength and Tone Result Diagrams: 04/23/18 05:31 04/24/18 07:04 Assess/Plan/Problems-Billing Assessment: Mr. Tello is a 77 yo male with PMH significant for CAD s/p recent CABG, AVR and MV repair, DM, HTN, asthma, HLD, BPH, Chronic A fib, Systolic CHF, Rachel syndrome and pericardial effusion requiring a pericardiocentesis who presented to the emergency room with complaints of dyspnea, found to have systolic CHF exacerbation. - Patient Problems (1) Acute hypoxemic respiratory failure Comment: - Multifactorial in the setting of CHF exacerbation with significant fluid overload and pneumonia. (2) Acute systolic CHF (congestive heart failure) Comment: - Echo demonstrates EF <20% on 04/17/18. - Improving - weight is down to 178lbs. - Continue Metolazone and Furosemide. - Continue Coreg and digoxin. ARB held for now to have BP room for diuresis. - INDIGO wrap LE. - Repeat echo shows pericardial effusion is improved - Colchicine was resumed for his pericarditis. (3) Pneumonia Comment: - Suspect Hospital aquired given his recent multiple hospitalizations. - Chest CTA 04/17/18 - consolidation in right lower lobe. - Completed 7 days of Cefepime. Continue Doxycycline #4/. - Sputum culture shows no growth so far, Legionella and pneumococcal Ag are negative. (4) CKD (chronic kidney disease) stage 3, GFR 30-59 ml/min Comment: - Close to baseline - continue to monitor, especially in the setting of more aggressive diuresis. (5) Atrial fibrillation Comment: - Rate controlled with Carvedilol and digoxin. - Continue Warfarin as per Pharmacy protocol. (6) CAD (coronary artery disease) Comment: - s/p CABG - Continue aspirin, carvedilol, and atorvastatin (7) Diabetes Comment: - HgA1C 6.8% on 03/08. - Continue FS ACHS with Lispro SS and add Lantus. (8) DVT prophylaxis Comment: - On Warfarin, but INR is subtherapeutic. Continue SQ heparin. (9) Full code status Status and Disposition: Inpatient.
[2018-04-24] MEDS ORDERED: Warfarin TAB(*) 4 MG PO ONE (17:00)
[2018-04-24] MEDS: DOXYcycline CAP(*) 100 MG PO SCH (20:52)
[2018-04-24] MEDS: Nitroglycerin 0.4 MG/HR PATCH* (10 MG) TRANSDERM SCH (20:52)
[2018-04-24] MEDS: Insulin GLARGINE(*) 1 UNITS UNIT SUBCUT SCH (20:53)
[2018-04-25 04:37] LABS: BUN/Creatinine Ratio 46.2 (8-20); Calcium 8.9 mg/dL (8.6-10.3); EGFR Non-African American 53.4 (>60); Magnesium 2.1 mg/dL (1.9-2.7); Potassium 3.8 mmol/L (3.5-5.0)
[2018-04-25] MEDS: Heparin VIAL(*) 5000 UNITS/ML VIAL (FIVE THOUSAND) SUBCUT SCH ×2 (05:24→13:49)
[2018-04-25] MEDS: Mometasone/Formoter 200/5 MDI INH SCH ×2 (07:35→20:02)
[2018-04-25 08:19] LABS: INR 1.98 (0.77-1.02)
[2018-04-25] MEDS: Insulin LISPRO* 1 UNITS UNIT SUBCUT SCH ×4 (08:37→21:44)
[2018-04-25] MEDS: Atorvastatin* 80 MG TAB PO SCH (08:38)
[2018-04-25] MEDS: Potassium Chlor TAB* 20 MEQ TAB.ER PO SCH (08:38)
[2018-04-25] MEDS: Allopurinol TAB* 100 MG PO SCH (08:38)
[2018-04-25] MEDS: Aspirin EC TAB* 81 MG TAB.EC PO SCH (08:38)
[2018-04-25] MEDS: DOXYcycline CAP(*) 100 MG PO SCH ×2 (08:38→19:52)
[2018-04-25] MEDS: Magnesium Oxide TAB* 400 MG PO SCH (08:39)
[2018-04-25] MEDS: Carvedilol TAB* 6.25 MG PO SCH ×2 (08:39→21:43)
[2018-04-25] MEDS: Colchicine* 0.6 MG TAB PO SCH (08:41)
[2018-04-25] MEDS: Finasteride TAB* 5 MG PO SCH (08:41)
[2018-04-25] MEDS: Nitro Patch/OINT Remove PATCH OFF SCH (08:42)
[2018-04-25] MEDS ORDERED: Furosemide IV* 10 MG/ML VIAL (40 MG) IV ONE ×2 (13:59→14:30)
[2018-04-25] MEDS ORDERED: Metolazone TAB* 5 MG PO ONE (14:02)
--- NOTE | 2018-04-25 14:37 | PN ---
Subjective Date of Service: 04/25/18 Interval History: HOSPITALIST PROGRESS NOTE Patient seen and examined at bedside. Care reviewed and d/w Abraham Alexis RN. He feels well today, offers no new complaints. Family History: Unchanged from Admission Social History: Unchanged from Admission Past Medical History: Unchanged from Admission Objective Active Medications: Albuterol (Ventolin Hfa Inhaler*) 1 puff INH Q4H PRN PRN Reason: SOB/WHEEZING Last Admin: 04/23/18 20:43 Dose: 1 puff Albuterol/Ipratropium (Duoneb (Albuterol 2.5 Mg/Ipratropium 0.5 Mg)) 1 neb INH Q4H PRN PRN Reason: SOB/WHEEZING Allopurinol (Zyloprim Tab*) 100 mg PO DAILY [facility] Last Admin: 04/25/18 08:38 Dose: 100 mg Aspirin (Aspirin Ec Tab*) 81 mg PO DAILY [facility] Last Admin: 04/25/18 08:38 Dose: 81 mg Atorvastatin Calcium (Lipitor*) 80 mg PO DAILY [facility] Last Admin: 04/25/18 08:38 Dose: 80 mg Carvedilol (Coreg Tab*) 6.25 mg PO BID [facility] Last Admin: 04/25/18 08:39 Dose: 6.25 mg Colchicine (Colcrys*) 0.6 mg PO DAILY [facility] Last Admin: 04/25/18 08:41 Dose: 0.6 mg Dextrose (D50w Syringe 50 Ml*) 12.5 gm IV PUSH .FOR FS < 60 - SS PRN PRN Reason: FS < 60 Doxycycline Hyclate (Vibramycin Cap(*)) 100 mg PO 0800,1999 [facility] Last Admin: 04/25/18 08:38 Dose: 100 mg Finasteride (Proscar Tab*) 5 mg PO DAILY [facility] Last Admin: 04/25/18 08:41 Dose: 5 mg Guaifenesin (Robitussin*) 5 ml PO Q4H PRN PRN Reason: COUGH Last Admin: 04/21/18 00:36 Dose: 5 ml Heparin Sodium (Porcine) (Heparin Flush Picc/Ml/Cvc(*)) 1 - 3 ml FLUSH 0600, 1800 [facility]; Protocol Last Admin: 04/25/18 04:01 Dose: 1 ml Insulin Glargine (Lantus(*)) 10 units SUBCUT BEDTIME [facility] Last Admin: 04/24/18 20:53 Dose: 10 units Insulin Human Lispro (Humalog*) 0 units SUBCUT ACHS [facility]; Protocol Last Admin: 04/25/18 12:09 Dose: 4 unit Magnesium Oxide (Magox 400 Tab*) 400 mg PO DAILY [facility] Last Admin: 04/25/18 08:39 Dose: 400 mg Mometasone Furoate/Formoterol Fumar (Dulera 200/5 Mdi*) 2 puff INH BID [facility] Last Admin: 04/25/18 07:35 Dose: 2 puff Nitroglycerin (Nitroglycerin 10 Mg Patch*) 1 patch TRANSDERM 2000 [facility] Last Admin: 04/24/18 20:52 Dose: 1 patch Pharmacy Profile Note (Coumadin Per Pharmacy*) 1 note FOLLOW UP .PER PHARMACY PROTOC [facility]; Protocol Pharmacy Profile Note (Nitro Patch/Oint Remove*) 1 note PATCH OFF 0800 [facility] Last Admin: 04/25/18 08:42 Dose: 1 note Potassium Chloride (Jettor Con Er Tab*) 40 meq PO DAILY [facility] Last Admin: 04/25/18 08:38 Dose: 40 meq Warfarin Sodium (Coumadin Tab(*)) 4 mg PO 1700 ONE Stop: 04/25/18 17:01 Vital Signs - 8 hr 04/25/18 04/25/18 04/25/18 07:26 07:35 07:36 Temperature 97.4 F Pulse Rate 42 66 66 Respiratory 20 18 18 Rate Blood Pressure 118/61 (mmHg) O2 Sat by Pulse 100 99 99 Oximetry 04/25/18 04/25/18 08:00 12:12 Temperature 97.4 F Pulse Rate 60 Respiratory 18 18 Rate Blood Pressure 114/65 (mmHg) O2 Sat by Pulse 100 Oximetry Oxygen Devices in Use Now: Nasal Cannula Appearance: Elderly gentleman sitting up in a chair in [facility]. Eyes: No Scleral Icterus Ears/Nose/Mouth/Throat: Mucous Membranes Moist Neck: Trachea Midline Respiratory: Symmetrical Chest Expansion and Respiratory Effort, - - BS+ bilaterally coarse diminished in bases Cardiovascular: RRR - Normal S1 and S2 Extremities: - - Mild bilateral LE edema Neurological: Alert and Oriented x 3, NL Muscle Strength and Tone Result Diagrams: 04/23/18 05:31 04/25/18 04:00 Assess/Plan/Problems-Billing Assessment: Mr. Tello is a 77 yo male with PMH significant for CAD s/p recent CABG, AVR and MV repair, DM, HTN, asthma, HLD, BPH, Chronic A fib, Systolic CHF, Rachel syndrome and pericardial effusion requiring a pericardiocentesis who presented to the emergency room with complaints of dyspnea, found to have systolic CHF exacerbation. - Patient Problems (1) Acute hypoxemic respiratory failure Comment: - Multifactorial in the setting of CHF exacerbation with significant fluid overload and pneumonia. (2) Acute systolic CHF (congestive heart failure) Comment: - Echo demonstrates EF <20% on 04/17/18. - Continues to improve slowly. - Continue Metolazone and Furosemide. - Continue Coreg and digoxin. ARB held for now to have BP room for diuresis. - INDIGO wrap LE. - Repeat echo shows pericardial effusion is improved - continue colchicine for pericarditis. (3) Pneumonia Comment: - Suspect Hospital aquired given his recent multiple hospitalizations. - Chest CTA 04/17/18 - consolidation in right lower lobe. - Completed 7 days of Cefepime. Continue Doxycycline #09/14. - Sputum culture shows no growth so far, Legionella and pneumococcal Ag are negative. (4) CKD (chronic kidney disease) stage 3, GFR 30-59 ml/min Comment: - Close to baseline - continue to monitor, especially in the setting of more aggressive diuresis. (5) Atrial fibrillation Comment: - Rate controlled with Carvedilol and digoxin. - Continue Warfarin as per Pharmacy protocol. (6) CAD (coronary artery disease) Comment: - s/p CABG - Continue aspirin, carvedilol, and atorvastatin (7) Diabetes Comment: - HgA1C 6.8% on 03/08. - Continue FS ACHS with Lispro SS and add Lantus. (8) DVT prophylaxis Comment: - Warfarin. (9) Full code status Status and Disposition: Inpatient. Anticipate d/c to SNF this week.
[2018-04-25] MEDS ORDERED: Warfarin TAB(*) 4 MG PO ONE (17:00)
[2018-04-25] MEDS: Nitroglycerin 0.4 MG/HR PATCH* (10 MG) TRANSDERM SCH (19:52)
[2018-04-25] MEDS: Insulin GLARGINE(*) 1 UNITS UNIT SUBCUT SCH (21:43)
[2018-04-26 04:57] LABS: INR 2.35 (0.77-1.02)
[2018-04-26 05:08] LABS: BUN/Creatinine Ratio 39.3 (8-20); Calcium 9.1 mg/dL (8.6-10.3); EGFR Non-African American 51.1 (>60)
[2018-04-26] MEDS: Mometasone/Formoter 200/5 MDI INH SCH ×2 (07:41→20:32)
[2018-04-26] MEDS: Insulin LISPRO* 1 UNITS UNIT SUBCUT SCH ×4 (08:46→20:35)
[2018-04-26] MEDS: Potassium Chlor TAB* 20 MEQ TAB.ER PO SCH (08:48)
[2018-04-26] MEDS: DOXYcycline CAP(*) 100 MG PO SCH ×2 (08:50→20:34)
[2018-04-26] MEDS: Aspirin EC TAB* 81 MG TAB.EC PO SCH (08:50)
[2018-04-26] MEDS: Magnesium Oxide TAB* 400 MG PO SCH (08:50)
[2018-04-26] MEDS: Atorvastatin* 80 MG TAB PO SCH (08:50)
[2018-04-26] MEDS: Finasteride TAB* 5 MG PO SCH (08:51)
[2018-04-26] MEDS: Allopurinol TAB* 100 MG PO SCH (08:51)
[2018-04-26] MEDS: Colchicine* 0.6 MG TAB PO SCH (08:51)
[2018-04-26] MEDS: Nitro Patch/OINT Remove PATCH OFF SCH (08:52)
[2018-04-26] MEDS: Carvedilol TAB* 6.25 MG PO SCH ×2 (08:52→20:34)
[2018-04-26] MEDS ORDERED: Metolazone TAB* 5 MG PO ONE (11:12)
[2018-04-26] MEDS ORDERED: Furosemide IV* 10 MG/ML 10 ML VIAL (100 MG) IV ONE (11:45)
--- NOTE | 2018-04-26 13:28 | PN ---
Subjective Date of Service: 04/26/18 Interval History: HOSPITALIST PROGRESS NOTE Patient seen and examined at bedside. Care reviewed and d/w Yin Segura RN. He offers no new complaints today, feels a little better day by day. Very comfortable at rest, but still has dyspnea with exertion. Family History: Unchanged from Admission Social History: Unchanged from Admission Past Medical History: Unchanged from Admission Objective Active Medications: Albuterol (Ventolin Hfa Inhaler*) 1 puff INH Q4H PRN PRN Reason: SOB/WHEEZING Last Admin: 04/23/18 20:43 Dose: 1 puff Albuterol/Ipratropium (Duoneb (Albuterol 2.5 Mg/Ipratropium 0.5 Mg)) 1 neb INH Q4H PRN PRN Reason: SOB/WHEEZING Allopurinol (Zyloprim Tab*) 100 mg PO DAILY [facility] Last Admin: 04/26/18 08:51 Dose: 100 mg Aspirin (Aspirin Ec Tab*) 81 mg PO DAILY [facility] Last Admin: 04/26/18 08:50 Dose: 81 mg Atorvastatin Calcium (Lipitor*) 80 mg PO DAILY [facility] Last Admin: 04/26/18 08:50 Dose: 80 mg Carvedilol (Coreg Tab*) 6.25 mg PO BID [facility] Last Admin: 04/26/18 08:52 Dose: 6.25 mg Colchicine (Colcrys*) 0.6 mg PO DAILY [facility] Last Admin: 04/26/18 08:51 Dose: 0.6 mg Dextrose (D50w Syringe 50 Ml*) 12.5 gm IV PUSH .FOR FS < 60 - SS PRN PRN Reason: FS < 60 Doxycycline Hyclate (Vibramycin Cap(*)) 100 mg PO 0800,1999 [facility] Last Admin: 04/26/18 08:50 Dose: 100 mg Finasteride (Proscar Tab*) 5 mg PO DAILY [facility] Last Admin: 04/26/18 08:51 Dose: 5 mg Guaifenesin (Robitussin*) 5 ml PO Q4H PRN PRN Reason: COUGH Last Admin: 04/21/18 00:36 Dose: 5 ml Heparin Sodium (Porcine) (Heparin Flush Picc/Ml/Cvc(*)) 1 - 3 ml FLUSH 0600, 1800 [facility]; Protocol Last Admin: 04/26/18 04:33 Dose: 1 ml Insulin Glargine (Lantus(*)) 10 units SUBCUT BEDTIME [facility] Last Admin: 04/25/18 21:43 Dose: 10 units Insulin Human Lispro (Humalog*) 0 units SUBCUT ACHS [facility]; Protocol Last Admin: 04/26/18 12:25 Dose: 4 unit Magnesium Oxide (Magox 400 Tab*) 400 mg PO DAILY [facility] Last Admin: 04/26/18 08:50 Dose: 400 mg Mometasone Furoate/Formoterol Fumar (Dulera 200/5 Mdi*) 2 puff INH BID [facility] Last Admin: 04/26/18 07:41 Dose: 2 puff Nitroglycerin (Nitroglycerin 10 Mg Patch*) 1 patch TRANSDERM 2000 [facility] Last Admin: 04/25/18 19:52 Dose: 1 patch Pharmacy Profile Note (Coumadin Per Pharmacy*) 1 note FOLLOW UP .PER PHARMACY PROTOC [facility]; Protocol Pharmacy Profile Note (Nitro Patch/Oint Remove*) 1 note PATCH OFF 0800 [facility] Last Admin: 04/26/18 08:52 Dose: 1 note Potassium Chloride (Klor Con Er Tab*) 40 meq PO DAILY [facility] Last Admin: 04/26/18 08:48 Dose: 40 meq Warfarin Sodium (Coumadin Tab(*)) 3 mg PO ONCE@1700 ONE Stop: 04/26/18 17:01 Vital Signs - 8 hr 04/26/18 04/26/18 04/26/18 07:43 07:55 08:00 Temperature 97.8 F Pulse Rate 73 68 Respiratory 16 14 14 Rate Blood Pressure 121/81 (mmHg) O2 Sat by Pulse 99 100 Oximetry 04/26/18 11:06 Temperature 98.6 F Pulse Rate 71 Respiratory 16 Rate Blood Pressure 128/74 (mmHg) O2 Sat by Pulse 100 Oximetry Oxygen Devices in Use Now: Nasal Cannula - 1.5 liters Appearance: Pleasant elderly gentleman sitting up in a chair in [facility]. Eyes: No Scleral Icterus Ears/Nose/Mouth/Throat: Mucous Membranes Moist Neck: Trachea Midline Respiratory: Symmetrical Chest Expansion and Respiratory Effort, Clear to Auscultation - diminished in bases Cardiovascular: RRR - Normal S1 and S2 Extremities: - - Mild bilateral LE edema Neurological: Alert and Oriented x 3, NL Muscle Strength and Tone Result Diagrams: 04/23/18 05:31 04/26/18 04:46 Assess/Plan/Problems-Billing Assessment: Mr. Tello is a 77 yo male with PMH significant for CAD s/p recent CABG, AVR and MV repair, DM, HTN, asthma, HLD, BPH, Chronic A fib, Systolic CHF, Rachel syndrome and pericardial effusion requiring a pericardiocentesis who presented to the emergency room with complaints of dyspnea, found to have systolic CHF exacerbation. - Patient Problems (1) Acute hypoxemic respiratory failure Comment: - Multifactorial in the setting of CHF exacerbation with significant fluid overload and pneumonia. (2) Acute systolic CHF (congestive heart failure) Comment: - Echo demonstrates EF <20% on 04/17/18. - Continues to improve slowly. - Continue Metolazone and Furosemide. - Continue Coreg and digoxin. ARB held for now to have BP room for diuresis. - INDIGO wrap LE. - Repeat echo shows pericardial effusion is improved - continue colchicine for pericarditis. - His dyspnea on exertion now seems to be mostly due to deconditioning as CHF and pneumonia are improved. (3) Pneumonia Comment: - Suspect Hospital aquired given his recent multiple hospitalizations. - Chest CTA 04/17/18 - consolidation in right lower lobe. - Completed 7 days of Cefepime. Continue Doxycycline #6/7. - Sputum culture shows no growth so far, Legionella and pneumococcal Ag are negative. (4) CKD (chronic kidney disease) stage 3, GFR 30-59 ml/min Comment: - Close to baseline - continue to monitor, especially in the setting of more aggressive diuresis. (5) Atrial fibrillation Comment: - Rate controlled with Carvedilol and digoxin. - Continue Warfarin as per Pharmacy protocol. (6) CAD (coronary artery disease) Comment: - s/p CABG - Continue aspirin, carvedilol, and atorvastatin (7) Diabetes Comment: - HgA1C 6.8% on 03/08. - Continue FS ACHS with Lispro SS and add Lantus. (8) DVT prophylaxis Comment: - Warfarin. (9) Full code status Status and Disposition: Inpatient. Anticipate d/c to SNF this week.
[2018-04-26] MEDS ORDERED: Warfarin TAB(*) 3 MG PO ONE (17:00)
[2018-04-26] MEDS: Nitroglycerin 0.4 MG/HR PATCH* (10 MG) TRANSDERM SCH (20:34)
[2018-04-26] MEDS: Insulin GLARGINE(*) 1 UNITS UNIT SUBCUT SCH (20:34)
[2018-04-26] MEDS: guaiFENesin LIQ* 100 MG/5 ML UDC PO PRN (23:57)
[2018-04-27 06:26] LABS: Hematocrit 30 % (42-52); Mean Platelet Volume 10.2 fL (7.4-10.4); Platelet Count 122 10^3/ul (150-450)
[2018-04-27 06:30] LABS: INR 2.35 (0.77-1.02)
[2018-04-27] MEDS: Mometasone/Formoter 200/5 MDI INH SCH (07:40)
[2018-04-27] MEDS: Insulin LISPRO* 1 UNITS UNIT SUBCUT SCH ×2 (08:43→12:20)
[2018-04-27] MEDS: DOXYcycline CAP(*) 100 MG PO SCH (08:44)
[2018-04-27] MEDS: Aspirin EC TAB* 81 MG TAB.EC PO SCH (08:44)
[2018-04-27] MEDS: Atorvastatin* 80 MG TAB PO SCH (08:44)
[2018-04-27] MEDS: Allopurinol TAB* 100 MG PO SCH (08:45)
[2018-04-27] MEDS: Finasteride TAB* 5 MG PO SCH (08:45)
[2018-04-27] MEDS: Carvedilol TAB* 6.25 MG PO SCH (08:45)
[2018-04-27] MEDS: Potassium Chlor TAB* 20 MEQ TAB.ER PO SCH (08:46)
[2018-04-27] MEDS: Magnesium Oxide TAB* 400 MG PO SCH (08:46)
[2018-04-27] MEDS: Colchicine* 0.6 MG TAB PO SCH (08:51)
[2018-04-27] MEDS: Nitro Patch/OINT Remove PATCH OFF SCH (08:51)
[2018-04-27 12:23] VITALS: BP 106/56
[2018-04-27] MEDS ORDERED: Bumetanide TAB* 2 MG PO SCH (13:00)
--- NOTE | 2018-04-27 14:19 | DS ---
CC: Dr. Huong Cantu; Dr. Mo; Dr. Scott DATE OF ADMISSION: 04/17/2018. DATE OF DISCHARGE: 04/27/2018. DISCHARGE DIAGNOSES: 1. Acute hypoxemic respiratory failure. 2. Acute systolic CHF exacerbation. 3. Rachel syndrome with pericardial effusion. 4. Hospital-acquired pneumonia. 5. Atrial fibrillation. SECONDARY DIAGNOSES: 1. Coronary artery disease, status post CABG on 03/25/2018 at [facility] with Rachel syndrome post CABG w ith pericardial effusion, status post pericardiocentesis. 2. Type 2 diabetes. 3. Diabetic nephropathy with CKD, stage 3. 4. Hypertension. 5. Asthma. 6. Hyperlipidemia. 7. BPH. 8. Chronic A-fib. 9. Gout. 10. Status post bilateral total knee replacement. MEDICATIONS: 1. Aspirin 81 mg p.o. daily. 2. Albuterol HFA one puff inhaled q.4 hours prn shortness of breath. 3. Advair Diskus 250/50 one puff inhaled b.i.d. 4. Atorvastatin 80 mg p.o. daily. 5. Allopurinol 100 mg p.o. daily. 6. Carvedilol 6.25 mg p.o. b.i.d. 7. Bumetanide 2 mg p.o. daily. 8. Finasteride 5 mg p.o. daily. 9. Robitussin 5 ml p.o. q.4 hours prn cough. 10. Warfarin 3 mg p.o. daily. 11. Potassium Chloride 20 mg p.o. daily. 12. Nitroglycerin patch 0.4 mg an hour topical at 8:00 p.m. and remove at 8:00 a.m. 13. Magnesium Oxide 400 mg p.o. daily. 14. Losartan 25 mg p.o. daily. 15. Lispro sliding scale as follows: Glucose 131 to 150 one unit; 151 to 200 two units; 201 to 250 fo ur units; 251 to 300 six units; 301 to 350 eight units; 351 to 400 ten units; greater than 400 call M D. 16. Lantus 10 units subcutaneously at bedtime. 17. Colchicine 0.6 mg p.o. daily. 18. DuoNeb nebulize q.4 hours prn shortness of breath. 19. Tessalon 100 mg p.o. t.i.d. HOSPITAL COURSE: Mr. Tello is a 77-year-old male with a past medical history as stated above who w as admitted to [facility] from April 06 to April 12. At that point, the patient had been admitted with acute systolic congestive heart failure, Rachel syndrome, pericardial effusion status post per icardiocentesis. He had CABG with aortic valve replacement with a bioprosthetic valve, mitral valve repair, and a maze procedure performed on 03/26/2018 at [facility]. On that admission, he had presented wit h complaints of shortness of breath and he was discharged home with services and he was described as being no longer dyspneic and ambulating without oxygen comfortably. The plan was for him to be disch arged home to follow-up with Dr. Mo on April 16. On April 17, he presented to the emergen cy room with complaints of shortness of breath, fatigue, and orthopnea. He did have a cough that was not productive and he also had worsening of his edema. The patient was found to be in congestive he art failure exacerbation again and he was admitted for further evaluation and management. Chest x-ray on admission showed atelectasis and/or a small pleural effusion at the bilateral lung bas es. CTA of the chest showed no definite centrilobular pulmonary embolism on this limited CT examinat ion; due to early imaging following contrast bolus, as well as likely cardiac insufficiency, the cont rast bolus has not yet reached the distal pulmonary arteries; consolidation with air bronchograms at the dependent right lower lobe which could be due to compressive atelectasis adjacent to a pleural o r pneumonia; there was also mild cardiomegaly, pericardial effusion, pleural effusions, and evidence of pulmonary edema, as well as intravenously injected contrast refluxing into the IVC and hepatic vei ns. A repeat transthoracic echocardiogram was performed and it showed an ejection fraction less than 20 p ercent with severely decreased LV systolic function and global hypokinesis. A bioprosthetic valve is present and appears to be functioning normally. There is a left pleural effusion and a small perica rdial effusion. The patient was diuresed initially with Bumetanide and as he was not responding well, this was switch ed to Metolazone with Furosemide. He responded well to this combination and had improvement of his l ower extremity edema and respiratory crackles. The patient is now back on room air and does not requ erik supplemental oxygen. As his blood pressure was in the lower side, his Losartan was initially hel d to give blood pressure room for diuresis, but now it is being resumed at a lower dose of 25 mg a da y. The patient was seen in follow-up by Cardiology (Dr. Escobar) and her recommendation was to resum e Colchicine for his Rachel syndrome. His ESR now is 36 from 71 on his prior admission. His CRP is down to 6 from 108 on prior admission. She also recommended nitro patch at bedtime for his symptoma tic relief and he could be on a lower dose of Cozaar, and in the future consider adding Aldactone or Eplerenone, but this will require close monitoring of his renal function and electrolytes. Dr. Bradford er noted that the patient is going to be very difficult to improve and will need time. The patient was also found to have consolidation at the right base felt to be secondary to pneumonia. His cultures showed no growth. Legionella and pneumococcal antigens were negative and the patient had significant improvement with treatment with Cefepime and Doxycycline. He has completed his antib iotic course while in the hospital and no further antibiotics are indicated at this time. His atrial fibrillation has been rate controlled with Carvedilol and Cardiology recommended discontin uation of Digoxin. His last INR prior to discharge was 2.35 and the plan is to continue Warfarin at 3 mg and to monitor his INR as an outpatient. Regarding his diabetes, the patient's renal function is borderline for him to be able to take Glipizi de and Metformin, so the decision at this time is to discontinue those medications and he is being di scharged on Lantus with a Lispro sliding scale to be adjusted as an outpatient. The patient had progressive improvement of his symptoms, but he was felt to be severely deconditioned . He was felt to be stable for discharge and the plan is for him to continue his rehabilitation proc ess at [facility]. PHYSICAL EXAMINATION: General: The patient is a pleasant elderly gentleman, sitting up in a chair i n no acute distress. Vital Signs: Temperature 98.3, heart rate 82, respiratory rate 16, oxygen satu ration 99 percent on room air, blood pressure 106/56. CVS: Normal S1, S2, irregularly irregular. C hest: Breath sounds present bilaterally, diminished at the right base, but no other added sounds. Abd omen: Soft, bowel sounds are present. Extremities: There is mild bilateral lower extremity edema. Neuro: He is alert and oriented times three, able to move all four extremities. DIET: Heart-healthy consistent carb diet with mechanical ground texture. ACTIVITY: PT, OT, as tolerated. DISPOSITION: To home. STATUS WHILE IN THE HOSPITAL: Inpatient. Please keep in mind this is a summarized version of this patient's prolonged and complex hospital sta y. If you need more information, please feel free to call me at or please obtain the [facility] medical records. Approximately 45 minutes were spent to complete this discharge. [id number]/CPS #: [id number]
[2018-04-27] MEDS ORDERED: Warfarin TAB(*) 3 MG PO ONE (17:00)
== END 2018-04-27 14:05 | DRG 291 ==
LOC: ED 12:29 → ICU 15:53 → MEDTELE 04-19 13:27
PROVIDERS: ADMIT Hospitalist; ATTEND Internal Medicine
PROC: 02HV33Z Insertion of Infusion Device into Superior Vena Cava, Percutaneous Approach (ICD-10-PCS; principal; 2018-04-17)
DX: I13.0 Hypertensive heart and chronic kidney disease with heart failure and stage 1 through stage 4 chronic kidney disease, or unspecified chronic kidney disease (principal); J18.9 Pneumonia, unspecified organism; I50.23 Acute on chronic systolic (congestive) heart failure; J96.01 Acute respiratory failure with hypoxia; I24.1 Dressler's syndrome; E87.2 Acidosis; I24.8 Other forms of acute ischemic heart disease; N17.9 Acute kidney failure, unspecified; I45.2 Bifascicular block; I31.3 Pericardial effusion (noninflammatory); J98.11 Atelectasis; I25.10 Atherosclerotic heart disease of native coronary artery without angina pectoris; J44.9 Chronic obstructive pulmonary disease, unspecified; N40.0 Benign prostatic hyperplasia without lower urinary tract symptoms; M10.9 Gout, unspecified; R00.0 Tachycardia, unspecified; I48.2 Chronic atrial fibrillation; F41.9 Anxiety disorder, unspecified; R74.8 Abnormal levels of other serum enzymes; R79.1 Abnormal coagulation profile; E78.5 Hyperlipidemia, unspecified; I42.9 Cardiomyopathy, unspecified; I07.1 Rheumatic tricuspid insufficiency; N18.3 Chronic kidney disease, stage 3 (moderate); E11.22 Type 2 diabetes mellitus with diabetic chronic kidney disease; G47.33 Obstructive sleep apnea (adult) (pediatric); I25.2 Old myocardial infarction; Y95 Nosocomial condition; E11.21 Type 2 diabetes mellitus with diabetic nephropathy; Z79.82 Long term (current) use of aspirin; Z87.01 Personal history of pneumonia (recurrent); Z96.653 Presence of artificial knee joint, bilateral; Z85.828 Personal history of other malignant neoplasm of skin; Z82.49 Family history of ischemic heart disease and other diseases of the circulatory system; Z83.3 Family history of diabetes mellitus; Z82.3 Family history of stroke; Z87.891 Personal history of nicotine dependence; Z95.1 Presence of aortocoronary bypass graft; Z95.2 Presence of prosthetic heart valve; Z72.89 Other problems related to lifestyle; Z79.51 Long term (current) use of inhaled steroids; Z79.01 Long term (current) use of anticoagulants; Z79.4 Long term (current) use of insulin
CPT/HCPCS: 36415; 71045; 71275; 80048; 80053; 80162; 81003; 81015; 83605; 83735; 83880; 84484; 85014; 85018; 85025; 85049; 85610; 85652; 86140; 87040; 87070; 87086; 87205; 87899; 93005; 93306; 94640; 99285; A9270-GY; G8978-GP-CK; G8979-GP-CI; G8987-GO-CK; G8988-GO-CI; J0692; J1644; J1940; J3475; Q9967

== ENCOUNTER 2018-06-04 10:39 | Emergency (ER) | payer MEDICARE ==
[2018-06-04 10:59] VITALS: BP 124/61
--- OUTSIDE RECORDS SUMMARY | 2018-06-04 11:23 | XMS REPORT | Continuity of Care Document ---
:1940 External Reference #:[id number] Author Name Jess Holt Care Team Providers Name Role Phone Huong Cantu MD Primary Care Physician Unavailable Payers Type Date Identification Numbers Payment Provider Subscriber Policy Number: [id number] [facility] [employer] PayID: [id number] [address] [address] Attn: [place] [address] Expires: 2016 Policy Number: [employer] [id number] [employer] Group Number: [id number] [address] [address] PayID: [id number] [place] [address] Advance Directives Description No Information Available Problems Date Description Provider Status Onset: 11/05/2016 Other sleep disorders Alisa Sneed MD Active Onset: 01/26/2017 Obstructive sleep apnea syndrome Joaquina Whalen DNP, RN, Active [employer] Onset: 01/26/2017 Hypoxemia Joaquina Whalen DNP, RN, Active [employer] Onset: 04/07/2018 Disorder of pericardium Maren Sneed M.D. Active Onset: 04/07/2018 Acute systolic heart failure Maren Sneed M.D. Active Onset: 04/07/2018 Atrial fibrillation Maren Sneed M.D. Active Onset: 04/07/2018 Type 2 diabetes mellitus Maren Sneed M.D. Active Onset: 04/07/2018 Chronic kidney disease stage 3 Maren Sneed M.D. 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 Active Onset: 04/17/2018 Acute renal failure syndrome Saba Rubalcava NP Active Onset: 04/17/2018 Chronic kidney disease Saba Rubalcava NP Active Onset: 04/17/2018 Pneumonia Saba Rubalcava NP Active Onset: 04/21/2018 Acute respiratory failure with Diane Maldonado M.D. Active hypoxia Onset: 04/26/2018 Long-term current use of insulin Diane Maldonado M.D. Active Family History Date Family Member(s) Problem(s) Comments General Stroke General Cancer, Colon Father Cerebrovascular Accident (CVA) Mother Arthritis First Son due to Colon Cancer () - age 26yrs Social History Type Date Description Comments Sex Unknown Tobacco Use Start: Unknown End: Former Cigarette Smoker Unknown Smoking Status Reviewed: 06/01/18 Former Cigarette Smoker ETOH Use Rarely consumes alcohol Tobacco Use Start: Unknown End: Patient is a former smoked for 10-12yrs Unknown smoker 1PPD, quit age 28yrs Recreational Drug Use Denies Drug Use Exercise Type/Frequency Exercises rarely Allergies, Adverse Reactions, Alerts Description No Known Drug Allergies Medications Medication Date Status Form Strength Qnty SIG Indications Ordering Provider Saw Hurley 04/28 Active Misc use for partial damon Sneed MD bearing Digoxin 04/16 Active Tablets 125mcg 90tab 1 by mouth I25.5 Bandar s every day Radha Mo M.D. Allopurinol Active Tablets 100mg 30tab 1 po qd Unknown s Coumadin Active Tablets 1mg 100ta as directed Alondra, 0000 bs (adj by Huong Mcgee) MD Gay Advair Diskus Active Aerosol 250-50mcg 1 puff by Unknown 0000 /Dose mouth twice a day Glipizide-Metfo Active Tablets 5-500mg 1 tablet po Unknown rmin HCL /0000 daily or as directed ( Currently taking 1 tablet po twice daily ) Finasteride Active Tablets 5mg 90tab 1 by mouth Unknown /0000 s every day Aspirin Active Tablets 81mg 1 tablet po Unknown /0000 daily ( medication change increase since 04/01/18) Atorvastatin Active Tablets 80mg 1 by mouth Unknown Calcium /0000 every day Bumetanide Active Tablets 2mg 30tab 2 tabs by Bandar /0000 s mouth once DMerritt Mo daily M.DMerritt Colcrys Active Tablets 0.6mg 1 tablet po Unknown /0000 daily Acetaminophen Active Tablets 325mg 2 tablets Unknown /0000 by mouth every 6 hours as needed for pain/fever Multi Vitamin Active Tablets 1 by mouth Unknown /0000 every day Milk Of Active Suspension 1200mg/15 30ml by Unknown Magnesia /0000 ML mouth every day as needed Magnesium Active Tablets 400mg 1 by mouth Unknown /0000 every day Proair HFA Active Aerosol 108(90Bas 2 puffs by Unknown /0000 e) mouth every mcg/Act 4 hours as needed Glycerin Active Suppository [address]gm [address] of Unknown (Adult) /0000 rectum if no bm for 2 days prn Potassium Active Tablets ER 20Meq 1 by mouth Unknown Chloride ER /0000 every day Carvedilol Active Tablets 6.25mg 1 by mouth Unknown /0000 once a day Losartan Active Tablets 50mg 1 by mouth Unknown Potassium /0000 every day Nitroglycerin Active Patches 24HR 0.4mg/HR 90uni 1 patch 12 Christine S. /0000 ts hours on Foster, and 12 N.P. hours off Insulin Lispro 04/30 Hx Solution inject as per sliding DMerritt Mo, - scale M.DMerritt 05/30 Carvedilol 04/16 Hx Tablets 3.125mg 180ta 1 by mouth I25.5 bs twice a day Radha Mo - Helen.Radha 05/31 Colcrys Hx Tablets 0.6mg 60tab q2h x4 day Unknown /0000 s 1, then bid - prn 03/02 Valsartan Hx Tablets 320mg 90tab 1 by mouth Unknown /0000 s every day - 12/17 Metoprolol 00/00 Hx Tablets ER 50mg 30tab 1 po qd Unknown Succinate ER /0000 24HR s - 10/28 Glyburide 00/00 Hx Tablets 5mg 90tab 1 po qd Unknown /0000 s - 03/02 Furosemide 0000 Hx Tablets 40mg 60tab 1 tab po Unknown /0000 s every other - day 03/11 Lovaza 0000 Hx Capsules 1gm 180ca 1 po bid Unknown /0000 ps - 03/02 Amlodipine 00 Hx Tablets 5mg 30tab take one Unknown Besylate /0000 s tab daily - 06/01 Potassium 00 Hx 10Meq 1 tablet po Unknown Chloride ER /0000 daily (on - hold) 11/14 Simvastatin 0000 Hx Tablets 80mg 1 by mouth Unknown /0000 every night - at bedtime 10/28 Carvedilol 00 Hx Tablets 6.25mg 1 tab by Unknown /0000 mouth once - a day 04/15 Spironolactone 00 Hx Tablets 25mg 1 tab a Unknown /0000 day - 03/11 Losartan 0000 Hx Tablets 25mg 1 by mouth Unknown Potassium /0000 every day - 05/31 Benzonatate Hx Capsules 100mg take one or Unknown /0000 two - capsules 05/31 every hours as needed for cough. Lantus 00 Hx Solution 100Unit/M 10 units sq Unknown /0000 L every in - the morning 05/31 Immunizations CPT Code Status Date Vaccine Lot # [id number] Given 02/25/2016 Pneumonia Vaccine Vital Signs Date Vital Result Comment 06/01/2018 1:48pm Height 66 inches 5'6" Weight 180.00 lb with slippers Heart Rate 60 /min BP Systolic Sitting 110 mmHg lue reg cuff BP Diastolic Sitting 68 mmHg lue reg cuff BP Systolic Standing 120 mmHg lue reg cuff BP Diastolic Standing 64 mmHg lue reg cuff Respiratory Rate 14 /min BMI (Body Mass Index) 29.0 kg/m2 04/30/2018 12:28pm Weight 196.00 lb Heart Rate 58 /min BP Systolic 110 mmHg Ra BP Diastolic 70 mmHg Ra Respiratory Rate 17 /min O2 % BldC Oximetry 97 % 04/16/2018 10:09am Weight 193.00 lb pt refused [...] Date Facility Test Result H/L Range Note Laboratory test 04/17/2018 [facility] C Reactive 11.12 mg/L High <8.[address] [place] [address] [phone] Troponin-I (TnI) 0.11 ng/mL High <0.04 1 Blood Culture SEE RESULT BELOW 2 Comp Metabolic Panel 04/17/2018 [facility] Sodium 136 mmol/L N 135-[address] [place] [address] [phone] Chloride 100 mmol/L Low 101-111 Co2 Carbon Dioxide 24 mmol/L N 22-32 Glucose 286 mg/dL High 70-100 Blood Urea Nitrogen 45 mg/dL High 6-24 Creatinine 1.67 mg/dL High 0.67-1.17 BUN/Creatinine Ratio 26.9 High 8-20 Calcium 9.3 mg/dL N 8.6-10.3 Total Protein 7.6 g/dL N 6.4-8.9 Albumin 3.3 g/dL N 3.2-5.2 Globulin 4.3 g/dL High 2-4 Albumin/Globulin Ratio 0.8 Low 1-3 Total Bilirubin 0.80 mg/dL N 0.2-1.0 Alkaline Phosphatase 143 U/L High 34-104 Alt 37 U/L N 7-52 Egfr Non- 40.0 >60 Egfr 48.4 >60 3 Potassium TNP mmol/L 3.5-5.0 4 Anion Gap 12 mmol/L High 2-11 Ast TNP U/L 13-39 5 Laboratory test 04/17/2018 [facility] Potassium 4.7 mmol/L N 3.5-5.[address] [place] [address] [phone] Ast Redraw 21 U/L N 13-39 Laboratory test 04/17/2018 [facility] B-Type 755 pg/mL High <= [address] [place] [address] Peptide BNP [phone] Inr/Protime 04/17/2018 [facility] Inr 6.34 High 0.77-1.[address] [place] [address] [phone] Laboratory test 04/17/2018 [facility] Lactic Acid 3.9 High 0.5 -2.0 [address] mmol/[place] [address] [phone] CBC Auto Diff 04/17/2018 [facility] White Blood 13.0 High 3.5- 10.[address] Count 10^3/[place] [address] [phone] Red Blood Count 3.85 10^6/uL Low 4.00-5.40 Hemoglobin 12.0 g/dL Low 14.0-18.0 Hematocrit 38 % Low 42-52 Mean Corpuscular Volume 98 fL High 80-94 Mean Corpuscular Hemoglobin 31 pg N 27-31 Mean Corpuscular HGB Conc 32 g/dL N 31-36 Red Cell Distribution Width 18 % High 10.5-15 Platelet Count 244 10^3/uL N 150-450 Mean Platelet Volume 10.0 fL N 7.4-10.4 Abs Neutrophils 11.0 10^3/uL High 1.5-7.7 Abs Lymphocytes 0.8 10^3/uL Low 1.0-4.8 Abs Monocytes 1.1 10^3/uL High 0-0.8 Abs Eosinophils 0.1 10^3/uL N 0-0.6 Abs Basophils 0.1 10^3/uL N 0-0.2 Abs Nucleated RBC 0 10^3/uL Granulocyte % 84.5 % Lymphocyte % 6.3 % Monocyte % 8.3 % Eosinophil % 0.4 % Basophil % 0.5 % Nucleated Red Blood Cells % 0 Basic Metabolic Panel 03/12/2018 [facility] Sodium 142 mmol/L N 135-[address] [place] [address] [phone] Potassium 4.8 mmol/L N 3.5-5.0 Chloride 103 mmol/L N 101-111 Co2 Carbon Dioxide 32 mmol/L N 22-32 Anion Gap 7 mmol/L N 2-11 Glucose 184 mg/dL High 70-100 Blood Urea Nitrogen 41 mg/dL High 6-24 Creatinine 1.52 mg/dL High 0.67-1.17 BUN/Creatinine Ratio 27.0 High 8-20 Calcium 9.4 mg/dL N 8.6-10.3 Egfr Non- 44.6 >60 Egfr 53.9 >60 8 CBC Auto Diff 12/02/2016 [facility] White Blood 5.9 10^3/uL N 3.5-10.[address] [place] [address] [phone] Red Blood Count 3.22 10^6/uL Low 4.0-5.4 [...] Blood Cells % 0.1 N Inr/Protime 12/02/2016 [facility] Inr 1.57 High 0.89-1.[address] [place] [address] [phone] Laboratory test 12/02/2016 [facility] Partial 36.0 N 26.0- 36.[address] [place] [address] Time PTT [phone] B-Type Natriuretic Peptide BNP 431 pg/mL High 10 Basic Metabolic Panel 12/02/2016 [facility] Sodium 137 mmol/L N 133-[address] [place] [address] [phone] Potassium 4.8 mmol/L N 3.5-5.0 Chloride 108 mmol/L N 101-111 Co2 Carbon Dioxide 25 mmol/L N 22-32 Anion Gap 4 mmol/L N 2-11 Glucose 72 mg/dL N 70-100 Blood Urea Nitrogen 46 mg/dL High 6-24 Creatinine 1.30 mg/dL High 0.67-1.17 BUN/Creatinine Ratio 35.4 High 8-20 Calcium 9.4 mg/dL N 8.6-10.3 Egfr Non- 53.7 N >60 Egfr 69.0 N >60 11 Laboratory 12/02/2016 [facility] Magnesium 2.3 mg/dL N 1.9- 2.7 [address] [place] [address] [phone] Pre Cath Panel 11/21/2016 [facility] Partial 41.7 High 26.0- 36.[address] [place] [address] PTT [phone] Laboratory 11/21/2016 [facility] B-Type 396 pg/mL High [address] [place] [address] Peptide BNP [phone] Magnesium 2.5 mg/dL N 1.9-2.7 Basic Metabolic Panel 11/21/2016 [facility] Sodium 134 mmol/L N 133-[address] [place] [address] [phone] Potassium 4.9 mmol/L N 3.5-5.0 Chloride 108 mmol/L N 101-111 Co2 Carbon Dioxide 21 mmol/L Low 22-32 Anion Gap 5 mmol/L N 2-11 Glucose 89 mg/dL N 70-100 Blood Urea Nitrogen 48 mg/dL High 6-24 Creatinine 1.38 mg/dL High 0.67-1.17 BUN/Creatinine Ratio 34.8 High 8-20 Calcium 9.6 mg/dL N 8.6-10.3 Egfr Non- 50.1 N >60 Egfr 64.4 N >60 14 Inr/Protime 11/21/2016 [facility] Inr 1.93 High 0.89-1.[address] [place] [address] [phone] CBC Auto Diff 11/21/2016 [facility] White Blood 6.0 N 3.5- 10.[address] Count 10^3/[place] [address] [phone] Red Blood Count 3.27 10^6/uL Low 4.0-5.4 [...] Nucleated Red Blood Cells % 0 N Basic Metabolic Panel 11/13/2016 [facility] Sodium 134 mmol/L N 133-[address] [place] [address] [phone] Potassium 5.2 mmol/L High 3.5-5.0 Chloride 107 mmol/L N 101-111 Co2 Carbon Dioxide 22 mmol/L N 22-32 Anion Gap 5 mmol/L N 2-11 Glucose 67 mg/dL Low 70-100 Blood Urea Nitrogen 66 mg/dL High 6-24 Creatinine 1.63 mg/dL High 0.67-1.17 BUN/Creatinine Ratio 40.5 High 8-20 Calcium 9.6 mg/dL N 8.6-10.3 Egfr Non- 41.3 N >60 Egfr 53.2 N >60 15 CBC Auto Diff 11/05/2016 [facility] White Blood 5.9 10^3/uL N 3.5-10.[address] [place] [address] [phone] Red Blood Count 3.29 10^6/uL Low 4.0-5.4 [...] % 0.1 N Basic Metabolic Panel 11/05/2016 [facility] Sodium 137 mmol/L N 133-[address] [place] [address] [phone] Potassium 4.9 mmol/L N 3.5-5.0 Chloride 108 mmol/L N 101-111 Co2 Carbon Dioxide 23 mmol/L N 22-32 Anion Gap 6 mmol/L N 2-11 Glucose 61 mg/dL Low 70-100 Blood Urea Nitrogen 62 mg/dL High 6-24 Creatinine 1.56 mg/dL High 0.67-1.17 BUN/Creatinine Ratio 39.7 High 8-20 Calcium 9.4 mg/dL N 8.6-10.3 Egfr Non- 43.5 N >60 Egfr 55.9 N >60 16 1 Result TnIDx:0.11 Called to [id number] at: 13:44:21 by:[id number] Read back by: [id number] Troponin-I testing on Plasma Separator Tubes (PST) has a known false positive rate of 0.20-0.40%. All positive troponins reflex immediate secondary confirmatory testing. 2 SEE RESULT BELOW Name: TC TELLO : [address]: Diane Dempsey MD Acct: [id number] Unit: [id number] AGE: 77 Location: [place] [address] Re04/17/18 SEX: M Status: ADM IN SPEC: [id number] TONJA: 04/17/18-1255 [facility] DR: Luke Brandon MD REQ: [id number] RECD: 04/17/18-1321 STATUS: SUSANA BONILLA DR: Bandar Cantu MD _ SOURCE: BLOOD,[facility]: ORDERED: Blood Cult Procedure Result Reported Site Aerobic Culture Bottle Final 04/22/18- 1321 ML No Growth Day 5 Anaerobic Culture Bottle Final 04/22/18- 1321 ML No Growth Day 5 * ML - Main Lab . END OF REPORT DEPARTMENT OF PATHOLOGY, [address] [place] [address] Paul Urbano M.D. Director [facility] # [id number] 3 Because ethnic data is not always readily [...] 15-29 5 Kidney failure <15 (or dialysis) 4 Specimen Hemolyzed. Result may not be valid. Unable to report test result due to hemolysis. 5 Unable to report test result due to hemolysis. 6 Verbal to [id number] by [id number] at 1344 on 04/17/18. Results read back accurately. 7 Critical Result LACT:3.9 Called to [id number] at: 13:44:05 by:[id number] Read back by:[id number] [email or web address] Severe Sepsis and Septic Shock Management Bundle Measure requires all lactic acids initially measuring >2.0 mmol/L be repeated. 8 Because ethnic data is not always [...] 5 Kidney failure <15 (or dialysis) 9 few days prior to C 10 >100 to <200 pg/mL: likely compensated congestive heart failure (CHF) 200 to 400 pg/mL: likely moderate CHF >400 pg/mL: likely moderate to severe CHF 11 Because ethnic data is not always readily [...] 15-29 5 Kidney failure <15 (or dialysis) 12 few days prior to LHC 13 >100 to <200 pg/mL: likely compensated congestive heart failure (CHF) 200 to 400 pg/mL: likely moderate CHF >400 pg/mL: likely moderate to severe CHF 14 Because ethnic data is not always readily [...] 15-29 5 Kidney failure <15 (or dialysis) 15 Because ethnic data is not always readily [...] 15-29 5 Kidney failure <15 (or dialysis) 16 Because ethnic data is not always readily [...] (or dialysis) Procedures Date Code Description Status 06/01/2018 55646 EKG Tracing & Interpretation Completed 04/18/2018 94796 ECHO Transthorasic Realtime 2D W Doppler & Color Flow Hosp Completed 04/16/2018 41803 EKG Tracing & Interpretation Completed 04/11/2018 39072 ECHO Transthorasic Realtime 2D W Doppler & Color Flow Hosp Completed 04/08/2018 17672 ECHO Transthorasic Realtime 2D W Doppler & Color Flow Hosp Completed 04/07/2018 28050 Pericardiocentesis Completed 04/06/2018 55847 ECHO Transthorasic Realtime 2D W Doppler & Color Flow Hosp Completed 02/05/2018 09386 EKG Tracing & Interpretation Completed 04/17/2017 31255 EKG Tracing & Interpretation Completed 01/15/2017 31286 Polysomnography Sleep Staging 4+ Parameters Completed 12/22/2016 38551 Echocardiography, Transesophageal, Real Time W/Image 2D Completed W/W/O M-M 12/22/2016 27237 Pulse Wave/Continuous-Interp.RPT Completed 12/22/2016 12994 Color Flow Doppler/Interp & Reprt Completed 11/24/2016 62065 RT Heart Catheritization; Measurement Of Oxygen Saturation Completed 11/10/2016 47667 ECHO Transthoracic, Real-Time 2D With Doppler And Color Completed Flow 11/05/2016 66753 EKG Tracing & Interpretation Completed 10/03/2016 59004 Treadmill Interp/Report Only Completed 10/03/2016 78122 Stress Test Supervsn W/Out I/R Completed 10/02/2016 60489 ECHO Transthorasic Realtime 2D W Doppler & Color Flow Hosp Completed 03/03/2014 97166 EKG Tracing & Interpretation Completed 02/03/2014 50064 ECHO Transthoracic, Real-Time 2D With Doppler And Color Completed Flow 05/12/2012 16742 EKG, Interpretation Only Completed Encounters Type Date Location Provider Dx Diagnosis Office Visit 04/30/2018 [facility] Bandra Garcia I50.9 Heart failure, 12:30p Of Kim Mo M.D. 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 J96.01 Acute respiratory Assoc,isaak Maldonado M.D. failure with Hospitalists hypoxia I50.23 Acute on chronic systolic (congestive) heart failure I48.91 Unspecified atrial fibrillation J18.9 Pneumonia, unspecified organism N18.3 Chronic kidney disease, stage 3 (moderate) E11.22 Type 2 diabetes mellitus w diabetic chronic kidney disease Office Visit 04/24/2018 8:53a [facility] J[facility]01 Acute respiratory Assoc,isaak Maldonado M.D. failure with Hospitalists hypoxia J18.9 Pneumonia, unspecified organism N18.3 Chronic kidney disease, stage 3 (moderate) E11.22 Type 2 diabetes mellitus w diabetic chronic kidney disease I48.91 Unspecified atrial fibrillation I50.23 Acute on chronic systolic (congestive) heart failure Office Visit 04/23/2018 8:53a [facility] J[facility].01 Acute respiratory Assoc,isaak Maldonado M.D. failure with Hospitalists hypoxia J18.9 Pneumonia, unspecified organism N18.3 Chronic kidney disease, stage 3 (moderate) E11.22 Type 2 diabetes mellitus w diabetic chronic kidney disease Office Visit 04/22/2018 8:[facility]a [facility] J[facility]01 Acute respiratory Associsaak M.D. failure with Hospitalists hypoxia J18.9 Pneumonia, unspecified organism N18.3 Chronic kidney disease, stage 3 (moderate) E11.22 Type 2 diabetes mellitus w diabetic chronic kidney disease I48.91 Unspecified atrial fibrillation Office Visit 04/21/2018 8[facility] J[facility]01 Acute respiratory Associsaak M.D. failure with Hospitalists hypoxia I50.23 Acute on chronic systolic (congestive) heart failure N17.9 Acute kidney failure, unspecified J18.9 Pneumonia, unspecified organism N18.3 Chronic kidney disease, stage 3 (moderate) E11.22 Type 2 diabetes mellitus w diabetic chronic kidney disease Office Visit 04/21/2018 10:17a [facility] Xin Escobar, I50.9 Heart failure, Of [employer] MHudson unspecified J94.9 Pleural condition, unspecified I31.9 Disease of pericardium, unspecified Office Visit 04/20/2018 [facility] I50.23 Acute on chronic 8:52a Assoc,isaak Leroy M.D. systolic Hospitalists (congestive) heart failure J18.9 Pneumonia, unspecified organism N17.9 Acute kidney failure, unspecified I48.91 Unspecified atrial fibrillation E11.22 Type 2 diabetes mellitus w diabetic chronic kidney disease N18.3 Chronic kidney disease, stage 3 (moderate) Office Visit 04/20/2018 [facility] Bandar Garcia I42.9 Cardiomyopathy, 11:41a Cardiology Dionisio oM M.D. 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 unspecified I42.9 Cardiomyopathy, unspecified Z95.2 Presence of prosthetic heart valve I48.92 Unspecified atrial flutter Office Visit 04/19/2018 [facility] I50.23 Acute on chronic 8:52a Assoc,isaak Inman, KAIN systolic Hospitalists (congestive) heart failure N17.9 Acute kidney failure, unspecified I48.91 Unspecified atrial fibrillation J18.9 Pneumonia, unspecified organism E11.22 Type 2 diabetes mellitus w diabetic chronic kidney disease N18.3 Chronic kidney disease, stage 3 (moderate) Office Visit 04/18/2018 [facility] I50.23 Acute on chronic 8:51a Assoc,isaak Inman NP systolic Hospitalists (congestive) heart failure N17.9 Acute kidney failure, unspecified J18.9 Pneumonia, unspecified organism I48.91 Unspecified atrial fibrillation N18.3 Chronic kidney disease, stage 3 (moderate) E11.22 Type 2 diabetes mellitus w diabetic chronic kidney disease Office Visit 04/18/2018 10:16a [place] Lori S. I50.9 Heart failure, Cardiology Clementina Scott unspecified I42.9 Cardiomyopathy, unspecified I30.8 Other forms of acute pericarditis R06.02 Shortness of breath Z95.2 Presence of prosthetic heart valve I34.0 Nonrheumatic mitral (valve) insufficiency Office Visit 04/17/2018 [facility] I48.91 Unspecified 8:51a isaak Vance NP atrial Hospitalists fibrillation N17.9 Acute kidney failure, unspecified N18.9 Chronic kidney disease, unspecified I50.23 Acute on chronic systolic (congestive) heart failure J18.9 Pneumonia, unspecified organism Office Visit 04/17/2018 10:14a [facility] Qutaybjonny SMerritt R06.02 Shortness of Clementina Scott breath I42.9 Cardiomyopathy, unspecified I50.9 Heart failure, unspecified I30.8 Other forms of acute pericarditis I48.2 Chronic atrial fibrillation R94.31 Abnormal electrocardiogram [ECG] [EKG] 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 I31.3 Pericardial effusion (noninflammatory) E11.9 Type 2 diabetes mellitus without complications I48.2 Chronic atrial fibrillation Office Visit 04/11/2018 1:34p [facility] Wilfred Bustillos I31.9 Disease of Of [facility] Florentin DO pericardium, FACC unspecified I50.9 Heart failure, unspecified I31.4 Cardiac tamponade Office Visit 04/11/2018 [facility] Saul Chambers, I31.3 Pericardial effusion 8:55a isaak Vance MD (noninflammatory) Hospitalists I48.91 Unspecified atrial fibrillation N18.3 Chronic kidney disease, stage 3 (moderate) E11.22 Type 2 diabetes mellitus w diabetic chronic kidney disease I50.21 Acute systolic (congestive) heart failure Office Visit 04/10/2018 1:32p [facility] Wilfred Bustillos I31.4 Cardiac Of [facility] DO tamponade [facility] I31.9 Disease of pericardium, unspecified Z95.2 Presence of prosthetic heart valve I50.9 Heart failure, unspecified 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 (noninflammatory) Hospitalists I48.91 Unspecified atrial fibrillation N18.3 Chronic kidney disease, stage 3 (moderate) E11.22 Type 2 diabetes mellitus w diabetic chronic kidney disease I50.21 Acute systolic (congestive) heart failure Office 04/08/2018 [facility] I31.3 Pericardial effusion Visit 8:54a isaak Vance M.D. (noninflammatory) Hospitalists I50.23 Acute on chronic systolic (congestive) heart failure I48.91 Unspecified atrial fibrillation N18.3 Chronic kidney disease, stage 3 (moderate) E11.22 Type 2 diabetes mellitus w diabetic chronic kidney disease Office Visit 04/08/2018 4:30p [facility] Wilfred S. 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 unspecified I31.9 Disease of pericardium, unspecified Z95.5 Presence of coronary angioplasty implant and graft Z95.2 Presence of prosthetic heart valve R06.02 Shortness of breath Office Visit 04/06/2018 [facility] Nedra, I48.91 Unspecified 8:53a isaak Vance M.D. atrial Hospitalists fibrillation N18.3 Chronic kidney disease, stage 3 (moderate) E11.22 Type 2 diabetes mellitus w diabetic chronic kidney disease Office Visit 03/12/2018 12:30p Julio Cesar Garcia I25.5 Ischemic Cardiology Of Clementina Mo cardiomyopathy [facility] I25.10 Athscl heart disease of [place] coronary artery w/o ang pctrs R06.02 Shortness of breath Office Visit 02/05/2018 11:15a [facility] I25.10 Athscl heart Of Kim Mo M.D. disease of [place] coronary artery w/o ang pctrs I25.5 Ischemic cardiomyopathy I50.9 Heart failure, unspecified Office Visit 10/28/2017 11:30a [facility] Bandar Garcia I25.10 Athscl heart Of Kim Mo M.D. disease of [place] coronary artery w/o ang pctrs I25.5 Ischemic cardiomyopathy I34.0 Nonrheumatic mitral (valve) insufficiency Office Visit 04/17/2017 1:00p [facility] Bandar Garcia I25.10 Athscl heart Of Kim Mo M.D. disease of [place] coronary artery w/o ang pctrs I50.9 Heart failure, unspecified I25.5 Ischemic cardiomyopathy I34.0 Nonrheumatic mitral (valve) insufficiency Office Visit 02/13/2017 12:45p [facility] Bandar Garcia I25.10 Athscl heart Of Kim Mo M.D. disease of [place] coronary artery w/o ang pctrs I50.9 Heart failure, unspecified I42.9 Cardiomyopathy, unspecified I34.0 Nonrheumatic mitral (valve) insufficiency Office Visit 01/26/2017 Pulmonology And Joaquina G47.33 Obstructive sleep 10:00a Sleep Services Of DEION Whalen, RN, apnea (adult) [facility] [employer] (pediatric) R09.02 Hypoxemia Office Visit 12/30/2016 2:00p [place] Zafar Garcia I34.0 Nonrheumatic mitral Of [employer] [facility] Clementina Mo (valve) insufficiency I42.9 Cardiomyopathy, unspecified I50.9 Heart failure, unspecified I25.10 Athscl heart disease of [place] coronary artery w/o ang pctrs Office Visit 12/02/2016 [place] Bandar Garcia I42.9 Cardiomyopathy, 1:00p Cardiology Dionisio Mo M.D. unspecified [employer] [facility] I50.9 Heart failure, unspecified I25.10 Athscl heart disease of [place] coronary artery w/o ang pctrs I34.0 Nonrheumatic mitral (valve) insufficiency Office Visit 11/14/2016 10:00a [facility] PEPITO Rasmussen I25.10 Athscl heart Of [facility] disease of [place] coronary artery w/o ang pctrs I42.9 Cardiomyopathy, unspecified I50.23 Acute on chronic systolic (congestive) heart failure I10 Essential (primary) hypertension I34.0 Nonrheumatic mitral (valve) insufficiency R06.02 Shortness of breath Office Visit 11/05/2016 11:00a Pulmonology And Sleep Alisa Sneed, R06.83 Snoring Services Of [facility] R40.0 Somnolence I50.22 Chronic systolic (congestive) heart failure E66.09 Other obesity due to excess calories Z68.33 Body mass index (BMI) 33.0-33.9, adult Office Visit 11/05/2016 9:30a [facility] Bandar Garcia I25.10 Athscl heart Of [facility] Clementina Mo disease of [place] coronary artery w/o ang pctrs E78.5 Hyperlipidemia, unspecified I10 Essential (primary) hypertension I50.22 Chronic systolic (congestive) heart failure I48.2 Chronic atrial fibrillation Office Visit 10/03/2016 10:39a [facility] Eden Van I50.22 Chronic systolic Of [facility] AT [facility] [place] Priscilla, (congestive) heart FACC, FSCAI failure I34.0 Nonrheumatic mitral (valve) insufficiency I27.2 Other secondary pulmonary hypertension Office Visit 10/03/2016 8:11a [facility], R18.8 Other [facility]ites Assoc,pc [employer] Hospitalists I25.10 Athscl heart disease of [place] coronary artery w/o ang pctrs E78.5 Hyperlipidemia, unspecified I10 Essential (primary) hypertension Office Visit 10/02/2016 [facility] R18.8 Other 8:11a Assoc,PEPITO Ghosh ascites Hospitalists I25.10 Athscl heart disease of [place] coronary artery w/o ang pctrs E78.5 Hyperlipidemia, unspecified I10 Essential (primary) hypertension Office Visit 10/01/2016 [facility] R18.8 Other 8:10a Assoc,PEPITO Ghosh ascites Hospitalists I25.10 Athscl heart disease of [place] coronary artery w/o ang pctrs E78.5 Hyperlipidemia, unspecified I10 Essential (primary) hypertension Office Visit 09/30/2016 [facility] R18.8 Other 1:05p Assoc,PEPITO Ghosh ascites Hospitalists I25.10 Athscl heart disease of [place] coronary artery w/o ang pctrs E78.5 Hyperlipidemia, unspecified Office Visit 09/29/2016 1:04p [facility] Barry Morris, R18.8 Other [facility] N.P. Hospitalists I25.10 Athscl heart disease of [place] coronary artery w/o ang pctrs E78.5 Hyperlipidemia, unspecified I10 Essential (primary) hypertension Office Visit 03/03/2014 11:15a [facility] Bandar DMerritt 427.31 Atrial Of Kim Mo M.D. Fibrillation 414.01 Coronary Atherosclerosis [place] Office Visit 04/26/2013 9:09a [facility] Agustina Galeano, 995.91 Sepsis Hospitalists D.O. 595.0 Cystitis Acute 599.71 Gross Hematuria 427.31 Atrial Fibrillation Office Visit 04/25/2013 9:09a [facility] Assoc,pc Agustina Galeano, 995.91 Sepsis Hospitalists D.O. 595.0 Cystitis Acute 599.71 Gross Hematuria 427.31 Atrial Fibrillation Office Visit 04/24/2013 9:08a [facility] Assoc,pc Christine Shepherd, 995.91 Sepsis Hospitalists N.P. 595.0 Cystitis Acute 599.71 Gross Hematuria 427.31 Atrial Fibrillation Office Visit 05/14/2012 10:13a [facility] Darvin Velasquez, 481 Pneumonia Assoc,isaak Mcrae Pneumococcal Hospitalists 250.00 Diabetes Mellitus W/O Compl Type II Or Unspec Controlled 401.9 Hypertension Unspec 414.01 Coronary Atherosclerosis [place] Office Visit 05/13/2012 10:13a [facility] Darvin Velasquez, 481 Pneumonia Assoc,pc Clementina Pneumococcal Hospitalists 250.00 Diabetes Mellitus W/O Compl Type II Or Unspec Controlled 401.9 Hypertension Unspec 414.01 Coronary Atherosclerosis [place] Office Visit 05/12[facility]2012 [facility] 481 Pneumonia Assoc,pc Clementina Pneumococcal Hospitalists 250.00 Diabetes Mellitus W/O Compl Type II Or Unspec Controlled 401.9 Hypertension Unspec 414.01 Coronary Atherosclerosis [place] Office Visit 07/31/2011 2:15p Sports Medicine Raghu Shepherd, Of [employer] AT [facility] Office Visit 07/03/2011 2:45p Sports Medicine Raghu Shepherd, 845.00 Sprains & Of [employer] AT [facility] Strains Ankle [place] Unspec Site Plan of Treatment Future Appointment(s):07/28/2018 1:30 pm - Bandar Mo M.D. at [facility]06/30/2018 1:00 pm - [facility] ECHO Schedule at [facility]06/01/2018 - Christine Shepherd N.P.I50.9 Heart failure, cmcejllmbpfN86.2 Presence of prosthetic heart kujtrN05.2 Chronic atrial uezzckwabwezC87.5 Ischemic cardiomyopathyNew Labs:B-Type Natriuretic Peptide BNP, Ordered: Comp Metabolic Panel, Ordered: 06/01/18Digoxin, Ordered: 06/01/18New Orders: Echocardiogram, Ordered: 06/01/18Follow up:SHANE Mo 07/2018Recommendations:I will check labs and see if there is room to increase your diuretics.
--- NOTE | 2018-06-04 12:37 | UC ---
Skin Complaint HPI - HPI Summary HPI Summary: 77-year-old male here with a chief complaint of skin breakdown in his gluteal fold. No some blood on his underwear today and so came in to be checked. Patient's been feeling well no fevers no chills. No known trauma. - History of Current Complaint Chief Complaint: UCSkin Time Seen by Provider: 06/04/18 12:17 Stated Complaint: LAC Pain Intensity: 0 - Allergy/Home Medications Allergies/Adverse Reactions: Allergies Allergy/AdvReac Type Severity Reaction Status Date / Time No Known Allergies Allergy Verified 04/17/18 13:01 PMH/Surg Hx/FS Hx/Imm Hx Previously Healthy: Yes Endocrine History: Dyslipidemia Cardiovascular History: Hypertension, Atrial Fibrillation Other History Of: Anticoagulant Therapy - Surgical History Surgical History: Yes Surgery Procedure, Year, and Place: Bilateral Knee replacements - Family History Known Family History: Positive: Cardiac Disease, Diabetes, Other - CVA Family History: CVA - Social History Alcohol Use: Occasionally Substance Use Type: None Smoking Status (MU): Former Smoker Type: Cigarettes Have You Smoked in the Last Year: No When Did the Patient Quit Smoking/Using Tobacco: 1976 - Immunization History Most Recent Influenza Vaccination: 2017 Most Recent Tetanus Shot: Over 10 years ago Most Recent Pneumonia Vaccination: 2-3 years ago Review of Systems All Other Systems Reviewed And Are Negative: Yes Constitutional: Positive: Negative Skin: Positive: Other - SEE HPI Eyes: Positive: Negative ENT: Positive: Negative Respiratory: Positive: Negative Cardiovascular: Positive: Negative Gastrointestinal: Positive: Negative Motor: Positive: Negative Neurovascular: Positive: Negative Musculoskeletal: Positive: Negative Neurological: Positive: Negative Psychological: Positive: Negative Is Patient Immunocompromised?: No Physical Exam Triage Information Reviewed: Yes Appearance: Well-Appearing, No Pain Distress, Well-Nourished Vital Signs: Initial Vital Signs Temp 98.1 F 06/04/18 10:51 Pulse 72 06/04/18 10:51 Resp 18 06/04/18 10:51 BP 124/61 06/04/18 10:51 Pulse Ox 96 06/04/18 10:51 Vital Signs Reviewed: Yes Eye Exam: Normal Eyes: Positive: Conjunctiva Clear Neck exam: Normal Neck: Positive: Supple Respiratory: Positive: No respiratory distress Musculoskeletal Exam: Normal Musculoskeletal: Positive: Strength Intact, ROM Intact Neurological Exam: Normal Neurological: Positive: Muscle Tone Normal Psychological Exam: Normal Psychological: Positive: Normal Response To Family, Age Appropriate Behavior Skin: Positive: Other - 2CM PARTIAL THICKNESS SKIN TEAR IN GLUTEAL FOLD JUST POSTERIOR TO ANUS Course/Dx - Course Course Of Treatment: The skin tear in the gluteal area is partial-thickness. Plan is to apply mupirocin and keep it clean and follow-up with his primary care doctor get reevaluated sooner if worse or any other questions or concerns. - Diagnoses Provider Diagnosis: Skin tear Discharge - Sign-Out/Discharge Documenting (check all that apply): Patient Departure All imaging exams completed and their final reports reviewed: No Studies - Discharge Plan Condition: Stable Disposition: HOME Prescriptions: Mupirocin 1 applic TOPICAL BID #[id number] Patient Education Materials: Pressure Injury (ED) Referrals: Huong Cantu MD [Primary Care Provider] - Additional Instructions: FOLLOW UP WITH YOUR DOCTOR. GET RECHECKED FOR ANY WORSENING OF YOUR CONDITION OR QUESTIONS OR CONCERNS. - Billing Disposition and Condition Condition: STABLE Disposition: Home
== END 2018-06-04 12:43 | disposition home or self-care (01) ==
LOC: UCCORT 10:39
DX: S31.801A Laceration without foreign body of unspecified buttock, initial encounter (principal); I10 Essential (primary) hypertension; I48.91 Unspecified atrial fibrillation; Z79.01 Long term (current) use of anticoagulants; Z96.653 Presence of artificial knee joint, bilateral; Z87.891 Personal history of nicotine dependence; X58.XXXA Exposure to other specified factors, initial encounter; Y92.9 Unspecified place or not applicable
CPT/HCPCS: 99212; G0463

== ENCOUNTER 2019-05-14 11:21 | Emergency (ER) | payer MEDICARE ==
--- OUTSIDE RECORDS SUMMARY | 2019-05-14 11:29 | XMS REPORT | Continuity of Care Document ---
:1940 External Reference #:[id number] Author Name Cole Magaña MD Address [address] [place] [address] Problems Active Problems Provider Date Persistent atrial fibrillation Onset: 01/12/2019 Acute pericardial effusion Onset: 04/07/2018 Aortic valve regurgitation Onset: 03/25/2018 Chronic kidney disease Onset: 12/29/2017 Tricuspid valve regurgitation Onset: 02/26/2017 Pulmonary hypertension Onset: 12/27/2016 Cirrhosis of liver Onset: 10/07/2016 Chronic congestive heart failure Onset: 10/07/2016 Mitral valve regurgitation Onset: 02/20/2011 Hypertensive disorder Onset: 05/18/2009 Social History Type Date Description Comments Sex Unknown Allergies, Adverse Reactions, Alerts Description No Known Drug Allergies Medications Active Medications SIG Qnty Indications Ordering Date Provider Oxygen oxygen at 2lpm [facility] 04/25/2019 via nc to Georgette, DO maintain o2 sat >93% Glipizide 1 tab by mouth 180tabs Amanda 01/24/2019 5mg Tablets twice a day Karnow, DO Metformin HCL 1 tab by mouth 180tabs [facility] 01/24/2019 500mg twice a day Karnow, DO Tablets Onetouch Ultra 2 Use Ud N/A; Dx: 1units Unknown 11/17/2018 diabetes twice w/Device Kit daily testing. Nystatin apply 3 times a 60gm Amanda 11/12/2018 [id number]/GM day external Karnow, DO Powder Entresto 1 Twice Daily Unknown 11/01/2018 24-26mg Oral Tablets Spironolactone 1/2 daily Oral Unknown 11/01/2018 25mg Tablets Bumetanide 1-2 daily oral; 180tabs SHAHEED Vásquez 08/09/2018 2mg Tablets may take up to 2 tablets daily, titrated by body weight. Glipizide/Metformin Oral; Take One 180tabs Unknown 07/02/2018 Hydrochloride Tablet By Mouth 5-500mg Twice Daily Tablets Advair Diskus 1 twice each day 1units Unknown 05/26/2018 Inhalation 500-50mcg/Dose Aerosol Carvedilol Oral; Take One 180tabs Unknown 05/18/2018 6.25mg Tablet By Mouth Tablets Twice Daily Proventil HFA 2 puffs 4 times a 17units Unknown 04/16/2018 day prn 108(90Base) mcg/Act Inhalation Aerosol Warfarin Sodium Oral; Take 4 160tabs Unknown 07/14/2017 1mg Tablets By Mouth Tablets Once Daily Dose Adjusted as Needed Allopurinol Oral; Take 1 90tabs Unknown 09/29/2016 100mg Tablet By Mouth Tablets Once Daily Atorvastatin Calcium 1 Daily Oral 90tabs Unknown 09/29/2016 80mg Tablets Warfarin Sodium 4 Daily Oral; 160tabs Unknown 08/25/2016 1mg dose adjusted as Tablets needed Finasteride 1 at bedtime 30tabs Unknown 08/20/2015 5mg Tablets Oral Aspirin Ec 1 3 X weekly 30tabs Unknown 10/24/2013 81mg Tablets Oral Immunizations CPT Code Status Date Vaccine Lot # [id number] Given 04/25/2019 Flu High Dose [id number] Given 01/29/2015 Prevnar 13 15511 Given 01/25/2014 Zoster Shingles Vaccine For Subcutaneous Injection 29252 Given 05/21/2012 Pneumovax - for >=2years - PPSV23 90393 Given 05/21/2012 Tdap - Boostrix/Adacel 18344 Refused 03/05/2018 Influenza Virus Vaccine, Quadrivalent, Split, Im Use 0.25ML 98688 Refused 09/18/2017 Hep B 11-15yr, Recombivax 1.0ml dose only 15197 Refused 09/18/2017 Hep A Adult for >18 yrs Havrix/Vaqta 08139 Refused 02/23/2017 Hep B 11-15yr, Recombivax 1.0ml dose only 38573 Refused 02/23/2017 Influenza Virus Vaccine, Quadrivalent, Split, Im Use 0.25ML 03633 Refused 02/23/2017 Hep A Adult for >18 yrs Havrix/Vaqta 79273 Refused 02/20/2016 Influenza Virus Vaccine, Quadrivalent, Split, Im Use 0.25ML 51508 Refused 04/01/2011 Influenza Virus Vaccine, Quadrivalent, Split, Im Use 0.25ML 21751 Refused 01/17/2011 Influenza Virus Vaccine, Quadrivalent, Split, Im Use 0.25ML Vital Signs Date Vital Result Comment 04/25/2019 11:30am BP Systolic 128 mmHg BP Diastolic 76 mmHg Weight 180.00 lb Heart Rate 71 /min Body Temperature 97.3 F O2 % BldC Oximetry 96 % 07/07/2018 4:04pm BP Systolic 108 mmHg Heart Rate 83 /min Body Temperature 99.1 F O2 % BldC Oximetry 97 % Results Test Acquired Date Facility Test Result H/L Range Note INR/Protime 05/06/2019 [facility] INR 2.01 High 0.82-1.[address] [place] [address] [phone] Comp Metabolic 05/06/2019 [facility] Sodium 137 mmol/L Normal 135-[address] [place] [address] [phone] Potassium 4.6 mmol/L Normal 3.5-5.0 Chloride 105 mmol/L Normal 101-111 Co2 Carbon Dioxide 25 mmol/L Normal 22-32 Anion Gap 7 mmol/L Normal 2-11 Glucose 69 mg/dL Low 70-100 Blood Urea Nitrogen 88 mg/dL High 6-24 Creatinine 1.72 mg/dL High 0.67-1.17 BUN/Creatinine Ratio 51.2 High 8-20 Calcium 9.3 mg/dL Normal 8.6-10.3 Total Protein 7.6 g/dL Normal 6.4-8.9 Albumin 3.9 g/dL Normal 3.2-5.2 Globulin 3.7 g/dL Normal 2-4 Albumin/Globulin Ratio 1.1 Normal 1-3 Total Bilirubin 0.40 mg/dL Normal 0.2-1.0 Alkaline Phosphatase 90 U/L Normal 34-104 Alt 15 U/L Normal 7-52 Ast 18 U/L Normal 13-39 Egfr Non- 38.5 >60 Egfr 46.6 >60 2 Laboratory 05/06/2019 [facility] Hemoglobin 6.1 % High 4.0- 5.6 3 test finding [address] A1c ([place] [address] HGB) [phone] INR/Protime 04/13/2019 [facility] INR 2.47 High 0.82-1.[address] [place] [address] [phone] INR/Protime 03/30/2019 [facility] INR 2.42 High 0.82-1.[address] [place] [address] [phone] INR/Protime 03/23/2019 [facility] INR 1.50 High 0.82-1.[address] [place] [address] [phone] INR/Protime 03/08/2019 [facility] INR 2.02 High 0.82-1.[address] [place] [address] [phone] INR/Protime 03/02/2019 [facility] INR 3.14 High 0.82-1.[address] [place] [address] [phone] INR/Protime 02/23/2019 [facility] INR 2.85 High 0.82-1.[address] [place] [address] [phone] INR/Protime 02/16/2019 [facility] INR 3.74 High 0.82-1.[address] [place] [address] [phone] INR/Protime 02/08/2019 [facility] INR 2.48 High 0.82-1.[address] [place] [address] [phone] INR/Protime 02/01/2019 [facility] INR 1.95 High 0.82-1.[address] [place] [address] [phone] INR/Protime 01/25/2019 [facility] INR 1.55 High 0.82-1.[address] [place] [address] [phone] Coumadin Dx 01/12/2019 N2N/CCD Import Coumadin Dx A Fib INR 01/12/2019 N2N/CCD Import INR 2.63 _ - INR Goal 01/12/2019 N2N/CCD Import INR Goal 2.0 to 3.0 Recheck INR 01/12/2019 N2N/CCD Import Recheck INR 2 weeks INR 01/11/2019 N2N/CCD Import INR 2.63 _ High 0.82-1.09 Coumadin Dx 01/04/2019 N2N/CCD Import Coumadin Dx A Fib INR 01/04/2019 N2N/CCD Import INR 1.75 _ - INR Goal 01/04/2019 N2N/CCD Import INR Goal 2.0 to 3.0 Recheck INR 01/04/2019 N2N/CCD Import Recheck INR 9-3-19 INR 01/03/2019 N2N/CCD Import INR 1.75 _ High 0.82-1.09 Recheck INR 12/23/2018 N2N/CCD Import Recheck INR 12/30/18 INR Goal 12/23/2018 N2N/CCD Import INR Goal 2.0 to 3.0 INR 12/23/2018 N2N/CCD Import INR 1.44 _ - Coumadin Dx 12/23/2018 N2N/CCD Import Coumadin Dx A Fib INR 12/21/2018 N2N/CCD Import INR 1.44 _ High 0.82-1.09 Coumadin Dx 12/07/2018 N2N/CCD Import Coumadin Dx A Fib INR 12/07/2018 N2N/CCD Import INR 2.1 _ - INR Goal 12/07/2018 N2N/CCD Import INR Goal 2.0 to 3.0 Recheck INR 12/07/2018 N2N/CCD Import Recheck INR two weeks PSA 12/06/2018 N2N/CCD Import PSA 2.660 _ INR 12/06/2018 N2N/CCD Import INR 2.13 _ High 0.82-1.09 Recheck INR 11/22/2018 N2N/CCD Import Recheck INR 2 weeks INR Goal 11/22/2018 N2N/CCD Import INR Goal 2.0 to 3.0 INR 11/22/2018 N2N/CCD Import INR 3.0 _ - Coumadin Dx 11/22/2018 N2N/CCD Import Coumadin Dx A Fib Coumadin Dx 11/15/2018 N2N/CCD Import Coumadin Dx A Fib INR 11/15/2018 N2N/CCD Import INR 3.0 _ - INR Goal 11/15/2018 N2N/CCD Import INR Goal 2.0 to 3.0 Recheck INR 11/15/2018 N2N/CCD Import Recheck INR 11/23/19 19 Coumadin Dx 11/08/2018 N2N/CCD Import Coumadin Dx A Fib INR 11/08/2018 N2N/CCD Import INR 4.7 _ Critical - low INR Goal 11/08/2018 N2N/CCD Import INR Goal 2.0 to 3.0 Recheck INR 11/08/2018 N2N/CCD Import Recheck INR 11/15/2018 1 Standard intensity warfarin therapeutic range: 2.0-3.0 High intensity warfarin therapeutic range: 2.5-3.5 2 Because ethnic data is not always readily [...] 15-29 5 Kidney failure <15 (or dialysis) 3 Therapeutic target for the treatment of diabetes mellitus patients is <7% HBA1C, and in selective patients <6.0%. Please refer to [place] Diabetes Association diabetic care guidelines for further information. 4 Standard intensity warfarin therapeutic range: 2.0-3.0 High intensity warfarin therapeutic range: 2.5-3.5 5 Standard intensity warfarin therapeutic range: 2.0-3.0 High intensity warfarin therapeutic range: 2.5-3.5 6 Standard intensity warfarin therapeutic range: 2.0-3.0 High intensity warfarin therapeutic range: 2.5-3.5 7 Standard intensity warfarin therapeutic range: 2.0-3.0 High intensity warfarin therapeutic range: 2.5-3.5 8 Standard intensity warfarin therapeutic range: 2.0-3.0 High intensity warfarin therapeutic range: 2.5-3.5 9 Standard intensity warfarin therapeutic range: 2.0-3.0 High intensity warfarin therapeutic range: 2.5-3.5 10 Standard intensity warfarin therapeutic range: 2.0-3.0 High intensity warfarin therapeutic range: 2.5-3.5 11 Standard intensity warfarin therapeutic range: 2.0-3.0 High intensity warfarin therapeutic range: 2.5-3.5 12 Standard intensity warfarin therapeutic range: 2.0-3.0 High intensity warfarin therapeutic range: 2.5-3.5 13 Standard intensity warfarin therapeutic range: 2.0-3.0 High intensity warfarin therapeutic range: 2.5-3.5 Procedures Date Code Description Status 04/13/2019 25913 Anticoagulant MGMT For Patient Taking Warfarin, Inc Review Completed & Intr 03/31/2019 37678 Anticoagulant MGMT For Patient Taking Warfarin, Inc Review Completed & Intr 03/24/2019 37276 Anticoagulant MGMT For Patient Taking Warfarin, Inc Review Completed & Intr 03/09/2019 56191 Anticoagulant MGMT For Patient Taking Warfarin, Inc Review Completed & Intr 03/03/2019 78630 Anticoagulant MGMT For Patient Taking Warfarin, Inc Review Completed & Intr 02/23/2019 98305 Anticoagulant MGMT For Patient Taking Warfarin, Inc Review Completed & Intr 02/17/2019 86813 Anticoagulant MGMT For Patient Taking Warfarin, Inc Review Completed & Intr 02/08/2019 37114 Anticoagulant MGMT For Patient Taking Warfarin, Inc Review Completed & Intr 01/12/2019 70175 Anticoagulant MGMT For Patient Taking Warfarin, Inc Review Completed & Intr 01/04/2019 39200 Anticoagulant MGMT For Patient Taking Warfarin, Inc Review Completed & Intr 12/23/2018 89579 Anticoagulant MGMT For Patient Taking Warfarin, Inc Review Completed & Intr 12/07/2018 03423 Anticoagulant MGMT For Patient Taking Warfarin, Inc Review Completed & Intr 11/22/2018 78394 Anticoagulant MGMT For Patient Taking Warfarin, Inc Review Completed & Intr 11/15/2018 69124 Anticoagulant MGMT For Patient Taking Warfarin, Inc Review Completed & Intr 11/08/2018 75070 Anticoagulant MGMT For Patient Taking Warfarin, Inc Review Completed & Intr Medical Devices Description No Information Available Encounters Type Date Location Provider Dx Diagnosis Office Visit 04/25/2019 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 Main - Amanda Palomino, DOI25.10 Atherosclerotic heart disease of [place] coronary artery without angina pectorisComments:StableFollows regularly with cardiology Uses O2 at night - forms filled outJ44.9 Chronic obstructive pulmonary disease, unspecifiedComments:stable - takes inhalers as [id number] Type 2 diabetes mellitus without complicationsComments:Has generally been pretty well controlledDue for labsI10 Essential (primary) hypertensionComments:Well controlledContinue current [id number] Rash and other nonspecific skin eruptionComments:Discussed nystatin for a week and then to avoid recurrence, use buttpaste or other zinc oxide based cream and apply daily follow up if changes or worsensAllNew Medication:Oxygen - oxygen at 2lpm via nc to maintain o2 sat >93%Comments:f/u for 6 month follow up of chronic medical conditions Functional Status Description No Information Available Mental Status Description No Information Available Referrals Description No Information Available
--- OUTSIDE RECORDS SUMMARY | 2019-05-14 11:29 | XMS REPORT | Continuity of Care Document ---
:1940 External Reference #:[id number] Author Name Amanda Palomino DO Address [address] [place] [address] Problems Active Problems Provider Date Persistent atrial [...] Ordering Date Provider Oxygen oxygen at 2lpm Amanda 04/25/2019 via nc to DO Georgette maintain o2 sat >93% Glipizide 1 tab by mouth 180tabs [facility] 01/24/2019 5mg Tablets twice a day Georgette, DO Metformin HCL 1 tab by mouth 180tabs [facility] 01/24/2019 500mg twice a day Georgette, DO Tablets Onetouch Ultra 2 Use Ud N/A; Dx: 1units Unknown 11/17/2018 diabetes twice w/Device Kit daily testing. Nystatin apply 3 times a 60gm Amanda 11/12/2018 [id number]/GM day external DO Georgette Powder Entresto 1 Twice Daily Unknown 11/01/2018 [...] CPT Code Status Date Vaccine Lot # [id number] Given 04/25/2019 Flu High Dose [id number] 32702 Given 01/29/2015 Prevnar 13 74314 Given 01/25/2014 Zoster Shingles Vaccine For Subcutaneous Injection 66351 Given 05/21/2012 Pneumovax - for >=2years - PPSV23 43740 Given 05/21/2012 Tdap - Boostrix/Adacel 22482 Refused 03/05/2018 Influenza Virus Vaccine, Quadrivalent, Split, Im Use 0.25ML 96900 Refused 09/18/2017 Hep B 11-15yr, Recombivax 1.0ml dose only 03622 Refused 09/18/2017 Hep A Adult for >18 yrs Havrix/Vaqta 85513 Refused 02/23/2017 Hep B 11-15yr, Recombivax 1.0ml dose only 68001 Refused 02/23/2017 Influenza Virus Vaccine, Quadrivalent, Split, Im Use 0.25ML 49517 Refused 02/23/2017 Hep A Adult for >18 yrs Havrix/Vaqta 40708 Refused 02/20/2016 Influenza Virus Vaccine, Quadrivalent, Split, Im Use 0.25ML 11798 Refused 04/01/2011 Influenza Virus Vaccine, Quadrivalent, Split, Im Use 0.25ML 26369 Refused 01/17/2011 Influenza Virus Vaccine, Quadrivalent, Split, [...] Facility Test Result H/L Range Note INR/Protime 04/13/2019 [facility] INR 2.47 High 0.82-1.[address] [place] [address] [phone] INR/Protime 03/30/2019 [facility] INR 2.42 High 0.82-1.[address] [place] [address] [phone] INR/Protime 03/23/2019 [facility] INR 1.50 High 0.82-1.[address] [place] [address] [phone] INR/Protime 03/08/2019 [facility] INR 2.02 High 0.82-1.[address] [place] [address] [phone] INR/Protime 03/02/2019 [facility] INR 3.14 High 0.82-1.[address] [place] [address] [phone] INR/Protime 02/23/2019 [facility] INR 2.85 High 0.82-1.[address] [place] [address] [phone] INR/Protime 02/16/2019 [facility] INR 3.74 High 0.82-1.[address] [place] [address] [phone] INR/Protime 02/08/2019 [facility] INR 2.48 High 0.82-1.[address] [place] [address] [phone] INR/Protime 02/01/2019 [facility] INR 1.95 High 0.82-1.[address] [place] [address] [phone] INR/Protime 01/25/2019 [facility] INR 1.55 High 0.82-1.[address] [place] [address] [phone] Recheck INR 01/12/2019 N2N/CCD Import Recheck INR 2 weeks INR Goal 01/12/2019 N2N/CCD Import INR Goal 2.0 to 3.0 INR 01/12/2019 N2N/CCD Import INR 2.63 _ - Coumadin Dx 01/12/2019 N2N/CCD Import Coumadin Dx A Fib INR 01/11/2019 N2N/CCD Import INR 2.63 _ [...] Recheck INR 11/15/2018 N2N/CCD Import Recheck INR 11/22/2018 Coumadin Dx 11/08/2018 N2N/CCD Import Coumadin Dx A Fib INR 11/08/2018 N2N/CCD Import INR 4.7 _ Critical low - INR Goal 11/08/2018 N2N/CCD Import INR Goal 2.0 to 3.0 Recheck INR 11/08/2018 N2N/CCD Import Recheck INR 11/15/2018 Coumadin Dx 10/25/2018 N2N/CCD Import Coumadin Dx A Fib INR 10/25/2018 N2N/CCD Import INR 2.3 _ - INR Goal 10/25/2018 N2N/CCD Import INR Goal 2.0 to 3.0 Recheck INR 10/25/2018 N2N/CCD Import Recheck INR 11/08/2018 1 Standard intensity warfarin therapeutic range: 2.0-3.0 High intensity warfarin therapeutic range: 2.5-3.5 2 Standard intensity warfarin therapeutic range: 2.0-3.0 High intensity warfarin therapeutic range: 2.5-3.5 3 Standard intensity warfarin therapeutic range: 2.0-3.0 High intensity warfarin therapeutic range: 2.5-3.5 4 Standard intensity warfarin therapeutic range: 2.0-3.0 [...] 2.5-3.5 Procedures Date Code Description Status 04/13/2019 39007 Anticoagulant MGMT For Patient Taking Warfarin, Inc Review Completed & Intr 03/31/2019 31979 Anticoagulant MGMT For Patient Taking Warfarin, Inc Review Completed & Intr 03/24/2019 79742 Anticoagulant MGMT For Patient Taking Warfarin, Inc Review Completed & Intr 03/09/2019 29957 Anticoagulant MGMT For Patient Taking Warfarin, Inc Review Completed & Intr 03/03/2019 32349 Anticoagulant MGMT For Patient Taking Warfarin, Inc Review Completed & Intr 02/23/2019 95500 Anticoagulant MGMT For Patient Taking Warfarin, Inc Review Completed & Intr 02/17/2019 49266 Anticoagulant MGMT For Patient Taking Warfarin, Inc Review Completed & Intr 02/08/2019 29094 Anticoagulant MGMT For Patient Taking Warfarin, Inc Review Completed & Intr 01/12/2019 52300 Anticoagulant MGMT For Patient Taking Warfarin, Inc Review Completed & Intr 01/04/2019 44243 Anticoagulant MGMT For Patient Taking Warfarin, Inc Review Completed & Intr 12/23/2018 42530 Anticoagulant MGMT For Patient Taking Warfarin, Inc Review Completed & Intr 12/07/2018 85380 Anticoagulant MGMT For Patient Taking Warfarin, Inc Review Completed & Intr 11/22/2018 19418 Anticoagulant MGMT For Patient Taking Warfarin, Inc Review Completed & Intr 11/15/2018 09597 Anticoagulant MGMT For Patient Taking Warfarin, Inc Review Completed & Intr 11/08/2018 90433 Anticoagulant MGMT For Patient Taking Warfarin, Inc Review Completed & Intr 10/25/2018 95853 Anticoagulant MGMT For Patient Taking Warfarin, Inc Review Completed & Intr Medical Devices Description No Information Available Encounters Type Date Location Provider Dx Diagnosis Office Visit 04/25/2019 Helen Palomino DO 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 J44.9 Chronic obstructive pulmonary disease, unspecified E11.9 Type 2 diabetes mellitus without complications I10 Essential (primary) hypertension R21 Rash and other nonspecific skin eruption Assessments Date Code Description Provider 04/25/2019 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, 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 04/25/2019 J44.9 Chronic obstructive pulmonary disease, Amanda Palomino, DO unspecified 04/25/2019 E11.9 Type 2 diabetes mellitus without complications Amanda Palomino, DO 04/25/2019 I10 Essential (primary) hypertension Amanda Palomino, DO 04/25/2019 R21 Rash and other nonspecific skin eruption Amanda Palomino, Plan of Treatment Future Appointment(s):10/25/2019 11:00 am - Amanda Palomino DO at [facility] Main - Amanda Palomino, DOI25.10 Atherosclerotic heart disease of [place] coronary artery without angina pectorisComments:StableFollows regularly with cardiology Uses O2 at night - forms filled outJ44.9 Chronic obstructive pulmonary disease, unspecifiedComments:stable - takes inhalers as phauobqpypW66.9 Type 2 diabetes mellitus without complicationsComments:Has generally been pretty well controlledDue for labsI10 Essential (primary) hypertensionComments:Well controlledContinue current [id number] Rash and other nonspecific skin eruptionComments:Discussed nystatin [...]
--- OUTSIDE RECORDS SUMMARY | 2019-05-14 11:29 | XMS REPORT | Continuity of Care Document ---
:1940 External Reference #:[id number] Author Name Amanda Palomino DO Address [address] [place] [address] Problems Active Problems Provider Date Persistent atrial [...] >93% Glipizide 1 tab by mouth 180tabs [facility] 01/24/2019 5mg Tablets twice a day Georgette, DO Metformin HCL 1 tab by mouth 180tabs [facility] 01/24/2019 500mg twice a day Georgette, DO Tablets Onetouch Ultra 2 Use Ud N/A; Dx: 1units Unknown 11/17/2018 diabetes twice w/Device Kit daily testing. Nystatin apply 3 times a 60gm Amanda 11/12/2018 351865Papo/GM day external DO Georgette Powder Entresto 1 [...] CPT Code Status Date Vaccine Lot # [id number] Given 04/25/2019 Flu High Dose [id number] Given 01/29/2015 Prevnar 13 81277 Given 01/25/2014 Zoster Shingles Vaccine For Subcutaneous Injection 36426 Given 05/21/2012 Pneumovax - for >=2years - PPSV23 60025 Given 05/21/2012 Tdap - Boostrix/Adacel 40762 Refused 03/05/2018 Influenza Virus Vaccine, Quadrivalent, Split, Im Use 0.25ML 68361 Refused 09/18/2017 Hep B 11-15yr, Recombivax 1.0ml dose only 49913 Refused 09/18/2017 Hep A Adult for >18 yrs Havrix/Vaqta 28410 Refused 02/23/2017 Hep B 11-15yr, Recombivax 1.0ml dose only 73540 Refused 02/23/2017 Influenza Virus Vaccine, Quadrivalent, Split, Im Use 0.25ML 81370 Refused 02/23/2017 Hep A Adult for >18 yrs Havrix/Vaqta 19303 Refused 02/20/2016 Influenza Virus Vaccine, Quadrivalent, Split, Im Use 0.25ML 88622 Refused 04/01/2011 Influenza Virus Vaccine, Quadrivalent, Split, Im Use 0.25ML 55534 Refused 01/17/2011 Influenza Virus Vaccine, Quadrivalent, Split, [...] BldC Oximetry 97 % Results Test Acquired Facility Test Result H/L Range Note Date Laboratory 05/09/2019 N2N/CCD [facility] 2.01 test finding Normalized Ratio Laboratory 05/06/2019 [facility] Hemoglobin A1c 6.1 % High 4.0 -5.6 1 test finding [address] ([facility]) [place] [address] [phone] INR/Protime 05/06/2019 [facility] INR 2.01 High 0.82-1.[address] [place] [address] [phone] Comp Metabolic 05/06/2019 [facility] Sodium 137 mmol/L Normal 135-[address] [place] [address] [phone] Potassium 4.6 mmol/L Normal 3.5-5.0 Chloride 105 [...] Egfr Non- 38.5 >60 Egfr 46.6 >60 3 INR/Protime 04/13/2019 [facility] INR 2.47 High 0.82-1.[address] [place] [address] [phone] INR/Protime 03/30/2019 [facility] INR 2.42 High 0.82-1.[address] [place] [address] [phone] INR/Protime 03/23/2019 [facility] INR 1.50 High 0.82-1.[address] [place] [address] [phone] INR/Protime 03/08/2019 [facility] INR 2.02 High 0.82-1.[address] [place] [address] [phone] INR/Protime 03/02/2019 [facility] INR 3.14 High 0.82-1.[address] [place] [address] [phone] INR/Protime 02/23/2019 [facility] INR 2.85 High 0.82-1.[address] [place] [address] [phone] INR/Protime 02/16/2019 [facility] INR 3.74 High 0.82-1.[address] [place] [address] [phone] INR/Protime 02/08/2019 [facility] INR 2.48 High 0.82-1.[address] [place] [address] [phone] INR/Protime 02/01/2019 [facility] INR 1.95 High 0.82-1.[address] [place] [address] [phone] INR/Protime 01/25/2019 [facility] INR 1.55 High 0.82-1.[address] [place] [address] [phone] INR 01/12/2019 N2N/CCD Import INR 2.63 _ - INR Goal 01/12/2019 N2N/CCD Import INR Goal 2.0 to 3.0 Recheck INR 01/12/2019 N2N/CCD Import Recheck INR 2 weeks Coumadin Dx 01/12/2019 N2N/CCD Import Coumadin Dx [...] INR 12/23/2018 N2N/CCD Import Recheck INR 12/30/18 Coumadin Dx 12/23/2018 N2N/CCD Import Coumadin Dx A Fib INR 12/23/2018 N2N/CCD Import INR 1.44 _ - INR Goal 12/23/2018 N2N/CCD Import INR Goal 2.0 to 3.0 INR 12/21/2018 N2N/CCD Import INR 1.44 _ High 0.82-1.09 Coumadin Dx 12/07/2018 N2N/CCD Import Coumadin Dx A Fib INR 12/07/2018 N2N/CCD Import INR 2.1 _ - INR Goal 12/07/2018 N2N/CCD Import INR Goal 2.0 to 3.0 Recheck INR 12/07/2018 N2N/CCD Import Recheck INR two weeks PSA 12/06/2018 N2N/CCD Import PSA 2.660 _ INR 12/06/2018 N2N/CCD Import INR 2.13 _ High 0.82-1.09 Coumadin Dx 11/22/2018 N2N/CCD Import Coumadin Dx A Fib INR 11/22/2018 N2N/CCD Import INR 3.0 _ - INR Goal 11/22/2018 N2N/CCD Import INR Goal 2.0 to 3.0 Recheck INR 11/22/2018 N2N/CCD Import Recheck INR 2 weeks Coumadin Dx 11/15/2018 N2N/CCD Import Coumadin Dx A Fib INR 11/15/2018 N2N/CCD Import INR 3.0 _ - INR Goal 11/15/2018 N2N/CCD Import INR Goal 2.0 to 3.0 Recheck INR 11/15/2018 N2N/CCD Import Recheck INR 11/22/2018 1 Therapeutic target for the treatment of diabetes mellitus patients is <7% HBA1C, and in selective patients <6.0%. Please refer to [place] [employer] diabetic care guidelines for further information. 2 Standard intensity warfarin therapeutic range: 2.0-3.0 High intensity warfarin therapeutic range: 2.5-3.5 3 Because ethnic data is not always [...] 5 Kidney failure <15 (or dialysis) 4 Standard intensity warfarin therapeutic range: 2.0-3.0 [...] range: 2.5-3.5 Procedures Date Code Description Status 05/09/2019 36643 Anticoagulant MGMT For Patient Taking Warfarin, Inc Review Completed & Intr 04/13/2019 64411 Anticoagulant MGMT For Patient Taking Warfarin, Inc Review Completed & Intr 03/31/2019 46163 Anticoagulant MGMT For Patient Taking Warfarin, Inc Review Completed & Intr 03/24/2019 89800 Anticoagulant MGMT For Patient Taking Warfarin, Inc Review Completed & Intr 03/09/2019 08544 Anticoagulant MGMT For Patient Taking Warfarin, Inc Review Completed & Intr 03/03/2019 63021 Anticoagulant MGMT For Patient Taking Warfarin, Inc Review Completed & Intr 02/23/2019 20254 Anticoagulant MGMT For Patient Taking Warfarin, Inc Review Completed & Intr 02/17/2019 33851 Anticoagulant MGMT For Patient Taking Warfarin, Inc Review Completed & Intr 02/08/2019 50555 Anticoagulant MGMT For Patient Taking Warfarin, Inc Review Completed & Intr 01/12/2019 15626 Anticoagulant MGMT For Patient Taking Warfarin, Inc Review Completed & Intr 01/04/2019 25163 Anticoagulant MGMT For Patient Taking Warfarin, Inc Review Completed & Intr 12/23/2018 84906 Anticoagulant MGMT For Patient Taking Warfarin, Inc Review Completed & Intr 12/07/2018 90286 Anticoagulant MGMT For Patient Taking Warfarin, Inc Review Completed & Intr 11/22/2018 78651 Anticoagulant MGMT For Patient Taking Warfarin, Inc Review Completed & Intr 11/15/2018 80042 Anticoagulant MGMT For Patient Taking Warfarin, Inc Review Completed & Intr Medical Devices Description No Information Available Encounters Type Date Location Provider Dx Diagnosis Office Visit 04/25/2019 [facility] Amanda Palomino, 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 J44.9 Chronic obstructive pulmonary disease, unspecified E11.9 Type 2 diabetes mellitus without complications I10 Essential (primary) hypertension R21 Rash and other nonspecific skin eruption Assessments Date Code Description Provider 04/25/2019 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, coronary artery without angina pectoris 04/25/2019 J44.9 Chronic obstructive pulmonary disease, Amanda Karkeyla, DO unspecified 04/25/2019 E11.9 Type 2 diabetes mellitus without complications Amanda Palomino DO 04/25/2019 I10 Essential (primary) hypertension Amanda Palomino DO 04/25/2019 R21 Rash and other nonspecific skin eruption Amanda Palomino DO Plan of Treatment Future Appointment(s):10/25/2019 11:00 am - Amanda Palomino, at [facility] - [facility]evgeniy Alcantara Labs:International Normalized Ratio, Ordered: Functional Status Description No Information Available Mental Status Description No Information Available Referrals Description No Information Available
[2019-05-14 11:58] VITALS: BP 129/60
--- NOTE | 2019-05-14 12:26 | UC ---
Respiratory Complaint HPI - HPI Summary HPI Summary: sinus and chest congestion for 2 weeks, also has a sore on right great toe - History of Current Complaint Chief Complaint: UCRespiratory Stated Complaint: SINUS ISSUE SORE ON TOE Time Seen by Provider: 05/14/19 12:23 Hx Obtained From: Patient Onset/Duration: Gradual Onset, Lasting Weeks - 2, Still Present Timing: Constant Pain Intensity: 1 Pain Scale Used: 0-10 Numeric Character: Cough: Productive Aggravating Factors: Recumbent Position Alleviating Factors: Nothing Associated Signs And Symptoms: Positive: URI, Nasal Congestion, Sinus Discomfort. Negative: Edema - Allergies/Home Medications Allergies/Adverse Reactions: Allergies Allergy/AdvReac Type Severity Reaction Status Date / Time No Known Allergies Allergy Verified 05/14/19 11:58 PMH/Surg Hx/FS Hx/Imm Hx Previously Healthy: No Endocrine History: Diabetes Cardiovascular History: Cardiac Disease, Hypertension Other History Of: Anticoagulant Therapy - Surgical History Surgical History: Yes Surgery Procedure, Year, and Place: Bilateral Knee replacements - Family History Known Family History: Positive: Cardiac Disease, Diabetes, Other - CVA Family History: CVA - Social History Occupation: Retired Lives: With Family Alcohol Use: Occasionally Substance Use Type: None Smoking Status (MU): Former Smoker Type: Cigarettes Have You Smoked in the Last Year: No When Did the Patient Quit Smoking/Using Tobacco: 1976 - Immunization History Most Recent Influenza Vaccination: 2018 Most Recent Tetanus Shot: Over 10 years ago Most Recent Pneumonia Vaccination: 2-3 years ago Review of Systems All Other Systems Reviewed And Are Negative: Yes Constitutional: Positive: Negative Skin: Positive: Other - pain red swelling drainage from lateral right great toe nail Eyes: Positive: Negative ENT: Positive: Nasal Discharge, Sinus Congestion, Sinus Pain/Tenderness Respiratory: Positive: Negative Cardiovascular: Positive: Negative Gastrointestinal: Positive: Negative Genitourinary: Positive: Negative Motor: Positive: Negative Neurovascular: Positive: Negative Musculoskeletal: Positive: Negative Neurological: Positive: Negative Psychological: Positive: Negative Is Patient Immunocompromised?: No Physical Exam Triage Information Reviewed: Yes Appearance: Well-Appearing, No Pain Distress, Well-Nourished Vital Signs: Initial Vital Signs Temp 98.4 F 05/14/19 11:55 Pulse 72 05/14/19 11:55 Resp 16 05/14/19 11:55 BP 129/60 05/14/19 11:55 Pulse Ox 100 05/14/19 11:55 Vital Signs Reviewed: Yes Eye Exam: Normal Eyes: Positive: Conjunctiva Clear ENT Exam: Normal ENT: Positive: Normal ENT inspection, Hearing grossly normal, Pharyngeal erythema, Nasal congestion, Nasal drainage - think green drainage in back of throat, TMs normal, Sinus tenderness, Uvula midline. Negative: Tonsillar swelling, Tonsillar exudate, Trismus, Muffled voice, Hoarse voice, Dental tenderness Dental Exam: Normal Neck exam: Normal Neck: Positive: Supple, Nontender, No Lymphadenopathy Respiratory Exam: Normal Respiratory: Positive: Chest non-tender, Lungs clear, Normal breath sounds, No respiratory distress, No accessory muscle use Cardiovascular Exam: Normal Cardiovascular: Positive: RRR, No Murmur, Pulses Normal, Brisk Capillary Refill Musculoskeletal Exam: Normal Musculoskeletal: Positive: Strength Intact, ROM Intact, No Edema Neurological Exam: Normal Psychological Exam: Normal Skin: Positive: Other - lateral aspect of right great toe nail with erythema swelling and drainage Respiratory Course/Dx - Course Course Of Treatment: warm foot soaks, Keflex, flonase---call MD Thursday to discuss increase in INR testing - Differential Dx/Diagnosis Provider Diagnosis: Paronychia of great toe, right, Sinusitis, acute, Insulin dependent diabetes mellitus, On Coumadin for atrial fibrillation Discharge ED - Sign-Out/Discharge Documenting (check all that apply): Patient Departure All imaging exams completed and their final reports reviewed: No Studies - Discharge Plan Condition: Stable Disposition: HOME Prescriptions: Cephalexin CAP* [Keflex CAP*] 500 mg PO TID #21 cap Fluticasone NASAL SPRAY 50MCG* [Flonase NASAL SPRAY 50MCG*] 2 spray BOTH NARES DAILY #1 btl Patient Education Materials: Paronychia (ED), Sinusitis (ED), Warm Compress or Soak (ED) Referrals: Amanda Palomino DO [Primary Care Provider] - Additional Instructions: CALL YOU DOCTOR ON THURSDAY TO LET THEM KNOW YOU ARE ON AN ANTIBIOTIC___THEY MAY WANT YOU TO HAVE OUT INR ("COUMADIN LEVEL") CHECKED MORE OFTEN!!!!!!!!!! - Billing Disposition and Condition Condition: STABLE Disposition: Home - Attestation Statements Provider Attestation: I was available for consult. This patient was seen by the GUILLAUME. The patient was not presented to, seen by, or examined by me. -Nayely
== END 2019-05-14 12:53 | disposition home or self-care (01) ==
LOC: UCEAST 11:21
DX: L03.031 Cellulitis of right toe (principal); J32.9 Chronic sinusitis, unspecified; E11.9 Type 2 diabetes mellitus without complications; I48.91 Unspecified atrial fibrillation; I10 Essential (primary) hypertension; Z79.01 Long term (current) use of anticoagulants; Z87.891 Personal history of nicotine dependence
CPT/HCPCS: 99212; G0463

== ENCOUNTER 2020-07-30 09:08 | Observation (INO) ==
[2020-07-30 10:26] LABS: ABS Basophils 0.1 10^3/ul (0-0.2); ABS Lymphocytes 0.7 10^3/ul (1.0-4.8); ABS Monocytes 1.2 10^3/ul (0-0.8); ABS Neutrophils 7.9 10^3/ul (1.5-7.7); Eosinophil % 0.1 %; Hematocrit 28 % (42-52); Hemoglobin 9.2 g/dL (14.0-18.0); Mean Corpuscular HGB Conc 33 g/dL (31-36); Mean Corpuscular Hemoglobin 32 pg (27-31); Mean Corpuscular Volume 97 fL (80-94); Mean Platelet Volume 10.6 fL (7.4-10.4); Platelet Count 128 10^3/uL (150-450); Red Blood Count 2.84 10^6 /uL (4.18-5.48); Red Cell Distribution Width 16 % (10-15); White Blood Count 9.8 10^3/uL (3.5-10.8)
[2020-07-30 10:41] LABS: ALT 9 U/L (7-52); AST 14 U/L (13-39); Activated Partial Thrombo Time 39.9 seconds (26.0-38.0); Albumin 3.4 g/dL (3.2-5.2); Albumin/Globulin Ratio 0.9 (1-3); Alkaline Phosphatase 82 U/L (34-104); Anion Gap 9 mmol/L (2-11); BUN/Creatinine Ratio 33.5 (8-20); Blood Urea Nitrogen 114 mg/dL (6-24); C Reactive Protein 104.27 mg/L (<8.01); CO2 Carbon Dioxide 24 mmol/L (22-32); Calcium 8.8 mg/dL (8.6-10.3); Chloride 104 mmol/L (101-111); Creatine Kinase 62 U/L (10-223); EGFR African American 21.2 (>60); EGFR Non-African American 17.5 (>60); Globulin 3.7 g/dL (2-4); Glucose 135 mg/dL (70-100); INR 2.77 (0.82-1.09); Magnesium 2.3 mg/dL (1.9-2.7); Potassium 3.9 mmol/L (3.5-5.0); Sodium 137 mmol/L (135-145); Total Protein 7.1 g/dL (6.4-8.9)
[2020-07-30 10:46] LABS: Troponin I 0.06 ng/mL (<0.03)
[2020-07-30 11:13] LABS: Alcohol, S < 10 mg/dL (<10)
[2020-07-30 11:28] LABS: TSH Ultra Thyroid Stim Horm 1.17 mcIU/mL (0.34-5.60)
[2020-07-30] MEDS ORDERED: NS 0.9% 500 ml BAG 500 ML IV ONE (11:44)
[2020-07-30] MEDS ORDERED: Albuterol 2.5mg/3 ml (0.083%) NEB.SOLN INH PRN (14:43)
[2020-07-30] MEDS ORDERED: Dextrose 50% Syringe 50 ml 25 GM/50 ML SYRINGE IV PUSH PRN (15:14)
[2020-07-30] MEDS ORDERED: Albuterol (2.5 MG) 0.5 % CONC 0.5 ML NEB.SOLN INH ONE (15:15)
[2020-07-30 15:27] LABS: Urine Appearance Clear; Urine Bilirubin Negative (Negative); Urine Blood Negative (Negative); Urine Color Yellow; Urine Glucose Negative (Negative); Urine Ketones Negative (Negative); Urine Nitrite Negative (Negative); Urine Protein Negative (Negative); Urine Specific Gravity 1.012 (1.010-1.030); Urine Urobilinogen Negative (Negative)
[2020-07-30] MEDS: Mometasone/Formoter 200/5 MDI INH SCH (19:44)
[2020-07-31 06:29] LABS: ABS Basophils 0.1 10^3/ul (0-0.2); ABS Lymphocytes 0.5 10^3/ul (1.0-4.8); ABS Monocytes 1.1 10^3/ul (0-0.8); ABS Neutrophils 7.7 10^3/ul (1.5-7.7); Eosinophil % 0.4 %; Hematocrit 27 % (42-52); Hemoglobin 8.9 g/dL (14.0-18.0); Lymphocyte % 5.8 %; Mean Corpuscular HGB Conc 33 g/dL (31-36); Mean Corpuscular Hemoglobin 33 pg (27-31); Mean Corpuscular Volume 97 fL (80-94); Mean Platelet Volume 10.7 fL (7.4-10.4); Platelet Count 128 10^3/uL (150-450); Red Blood Count 2.73 10^6 /uL (4.18-5.48); Red Cell Distribution Width 16 % (10-15); White Blood Count 9.4 10^3/uL (3.5-10.8)
[2020-07-31 06:33] LABS: INR 3.43 (0.82-1.09)
[2020-07-31 06:43] LABS: BUN/Creatinine Ratio 36.2 (8-20); C Reactive Protein 116.18 mg/L (<8.01); Calcium 8.7 mg/dL (8.6-10.3); EGFR African American 25.2 (>60); EGFR Non-African American 20.8 (>60); Potassium 4.2 mmol/L (3.5-5.0)
[2020-07-31] MEDS: Mometasone/Formoter 200/5 MDI INH SCH (07:53)
[2020-07-31 11:17] VITALS: BP 91/53
== END 2020-07-31 13:30 | disposition home or self-care (01) ==
LOC: MED 09:08 → ED 09:08 → MED 16:43
PROVIDERS: ADMIT Hospitalist; ATTEND Student in an Organized Health Care Education/Training Program